=== PATIENT | female | born 1950 | race Caucasian/White ===

== ENCOUNTER 2017-07-15 14:16 | Emergency (ER) | payer MEDICARE, MEDICAID, SELFPAY ==
[2017-07-15 14:25] VITALS: BP 143/83; PULSE 80; RESP 18; TEMP 36.8; O2SAT 98; BMI 24.8
--- NOTE | 2017-07-15 14:32 | XR_ITS ---
XR chest 2V HISTORY: ITS.REASON: CHEST PAIN ORDERING PHYSICIAN: Beatriz Blanco MD PATIENT AGE: 67 years COMPARISON: 02/22/2015 FINDINGS: The cardiomediastinal silhouette and pulmonary vascularity are within normal limits. The lungs are clear without infiltrates, suspicious nodules, or pleural effusions. No acute bony abnormalities. IMPRESSION: No change with no acute finding
[2017-07-15 15:17] LABS: Basophils # 0.1 K/mm3 (0-0.2); Basophils % 0.8 % (0.1-2.0); Eosinophils % 0.7 % (0.1-12.0); Hematocrit 40.7 % (37.0-47.0); Hemoglobin 13.6 g/dL (12.2-16.2); Lymphocytes # 1.4 K/mm3 (0.7-4.5); Lymphocytes % 23.5 K/mm3 (10-50); Mean Corpuscular HGB Conc 33.4 g/dL (31.8-35.4); Mean Corpuscular Hemoglobin 31.3 pg (27.0-31.2); Mean Corpuscular Volume 93.6 fl (81-99); Mean Platelet Volume 8.7 fl (7.4-10.4); Monocytes # 0.3 K/mm3 (0.1-1.0); Monocytes % 4.7 % (1.7-9.3); Neutrophils # 4.2 K/mm3 (1.8-7.8); Neutrophils % 70.3 % (37.0-80.0); Platelet Count 229 K/mm3 (142-424); Red Blood Count 4.35 M/mm3 (4.20-5.40); Red Cell Distribution Width 12.5 % (11.5-17.5); White Blood Count 5.9 K/mm3 (4.8-10.8)
--- NOTE | 2017-07-15 15:34 | HMH.EDABDPAI ---
ED Disposition Clinical Impression: UTI (urinary tract infection), DJD (degenerative joint disease) Disposition: Home, Self-Care Condition on Discharge: Fair Additional Instructions: I discussed with the patien her labs and ct scan , she declined her NSAID due to her stomack and wanted abx for her UTI. she will follow up with pcp on her irione culture. Prescriptions: Nitrofurantoin Monohyd/M-Cryst [Macrobid 100 mg Capsule] 100 mg PO Q12 #14 cap Referrals: Laura Strickland APRN [Primary Care Provider] - - Critical Care Critical Care Time: No Attestation: On 07/15/17, the high probability of a clinically significant, sudden or life threatening deterioration of the following system(s) required my full and direct attention, intervention and personal management. The time I documented below is in addition to time spent performing reported procedures but includes the following listed in this critical care notation. Medical Decision Making - Medical Records Medical records reviewed: Yes: I reviewed the patient's medical records. Vital Signs: 07/15/17 14:25 Temperature 98.3 F Temperature Source Oral Pulse Rate [Right Brachial] 80 Respiratory Rate 18 Blood Pressure [Right Arm] 143/83 Blood Pressure Mean [Right Arm] 103 Blood Pressure Source [Right Arm] Automatic Cuff Blood Pressure Position [Right Arm] Sitting 02 Sat by Pulse Oximetry 98 Oxygen Delivery Method Room Air - Lab Data Lab Results 07/15/17 15:00: WBC 5.9, RBC 4.35, Hgb 13.6, Hct 40.7, MCV 93.6, MCH 31.3 H, MCHC 33.4, RDW 12.5, Plt Count 229, MPV 8.7, Neut % (Auto) 70.3, Lymph % (Auto) 23.5, Mccormick % (Auto) 4.7, Eos % (Auto) 0.7, Baso % (Auto) 0.8, Neut # (Auto) 4.2, Lymph # (Auto) 1.4, Mccormick # (Auto) 0.3, Eos # (Auto) 0.0, Baso # (Auto) 0.1 07/15/17 15:00: Sodium 136, Potassium 4.1, Chloride 98, Carbon Dioxide 32, Anion Gap 10.1, BUN 20 H, Creatinine 1.02, Estimated Creat Clear 54, Estimated GFR 54 L, Est GFR ( Amer) 66, Glucose 107 H, Calcium 9.0, Total Bilirubin 0.4, AST 14 L, ALT 22, Alkaline Phosphatase 44 L, Total Creatine Kinase 71, CK-MB (CK-2) < 0.5, CK-MB (CK-2) Rel Index 0.7, Troponin I < 0.02, Total Protein 7.4, Albumin 3.9, Globulin 3.5 H, Albumin/Globulin Ratio 1.1 07/15/17 15:00: Influenza Type A Ag Negative, Influenza Type B Ag Negative 07/15/17 15:00: Lipase 133 07/15/17 17:00: Urine Color Yellow, Urine Appearance Clear, Urine pH 6.5, Ur Specific [place] <= 1.005, Urine Protein Negative, Urine Glucose (UA) Negative, Urine Ketones Negative, Urine Blood Negative, Urine Nitrate Negative, Urine Bilirubin Negative, Urine Urobilinogen 0.2, Ur Leukocyte Esterase Trace, Urine WBC 5-10, Ur Squamous Epith Cells 5-10, Urine Bacteria Trace Result diagrams: 07/15/17 15:00 07/15/17 15:00 Orders (Tests/Meds): ORDERS Category Date Time Status CT abdomen pelvis wo con Stat Cat Scan 07/15/17 15:40 Taken - Wesley Inquiry Pt receiving controlled substance: No Wesley was queried for this patient: No Abdominal Pain HPI - General Chief Complaint: Weakness Stated Complaint: CHEST DISCOMFORT,POSSIBLE FLU Mode of Arrival: Ambulatory Limitations: No Limitations Description of Symptoms (Recalled from ER Triage Doc. by RN): CHEST COUGH,FLU - History of Present Illness HPI narrative: 67 years old white female status post cholecystectomy appendectomy and partial instructed. She presented to the ED with multiple complain, she told triage that she is having chest pain that she denied during my examination. She stated that she has been having burning abdominal pain for 2 weeks that she forgot to tell her primary care physician about last. Today she came because of dysuria that is worse with urination and vomiting x2 that started early this morning. MD complaint: abdominal pain Onset (ago): week(s) (2 weeks) Consistency: constant Location: epigastric Severity: moderate Quality: other (burning. ) Radiation: none Migration to: no migrat
--- NOTE | 2017-07-15 15:38 | ED_ITS ---
ED Disposition Clinical Impression: UTI (urinary tract infection), DJD (degenerative joint disease) Disposition: Home, Self-Care Condition on Discharge: Fair Additional Instructions: I discussed with the patien her labs and ct scan , she declined her NSAID due to her stomack and wanted abx for her UTI. she will follow up with pcp on her irione culture. Prescriptions: Nitrofurantoin Monohyd/M-Cryst [Macrobid 100 mg Capsule] 100 mg PO Q12 #14 cap Referrals: Laura Strickland APRN [Primary Care Provider] - - Critical Care Critical Care Time: No Attestation: On 07/15/17, the high probability of a clinically significant, sudden or life threatening deterioration of the following system(s) required my full and direct attention, intervention and personal management. The time I documented below is in addition to time spent performing reported procedures but includes the following listed in this critical care notation. Medical Decision Making - Medical Records Medical records reviewed: Yes: I reviewed the patient's medical records. Vital Signs: 07/15/17 14:25 Temperature 98.3 F Temperature Source Oral Pulse Rate [Right Brachial] 80 Respiratory Rate 18 Blood Pressure [Right Arm] 143/83 Blood Pressure Mean [Right Arm] 103 Blood Pressure Source [Right Arm] Automatic Cuff Blood Pressure Position [Right Arm] Sitting 02 Sat by Pulse Oximetry 98 Oxygen Delivery Method Room Air - Lab Data Lab Results 07/15/17 15:00: WBC 5.9, RBC 4.35, Hgb 13.6, Hct 40.7, MCV 93.6, MCH 31.3 H, MCHC 33.4, RDW 12.5, Plt Count 229, MPV 8.7, Neut % (Auto) 70.3, Lymph % (Auto) 23.5, Cross % (Auto) 4.7, Eos % (Auto) 0.7, Baso % (Auto) 0.8, Neut # (Auto) 4.2 , Lymph # (Auto) 1.4, Cross # (Auto) 0.3, Eos # (Auto) 0.0, Baso # (Auto) 0.1 07/15/17 15:00: Sodium 136, Potassium 4.1, Chloride 98, Carbon Dioxide 32, Anion Gap 10.1, BUN 20 H, Creatinine 1.02, Estimated Creat Clear 54, Estimated GFR 54 L, Est GFR ( Amer) 66, Glucose 107 H, Calcium 9.0, Total Bilirubin 0.4, AST 14 L, ALT 22, Alkaline Phosphatase 44 L, Total Creatine Kinase 71, CK-MB (CK-2) < 0.5, CK-MB (CK-2) Rel Index 0.7, Troponin I < 0.02, Total Protein 7.4, Albumin 3.9, Globulin 3.5 H, Albumin/Globulin Ratio 1.1 07/15/17 15:00: Influenza Type A Ag Negative, Influenza Type B Ag Negative 07/15/17 15:00: Lipase 133 07/15/17 17:00: Urine Color Yellow, Urine Appearance Clear, Urine pH 6.5, Ur Specific [place] <= 1.005, Urine Protein Negative, Urine Glucose (UA) Negative, Urine Ketones Negative, Urine Blood Negative, Urine Nitrate Negative, Urine Bilirubin Negative, Urine Urobilinogen 0.2, Ur Leukocyte Esterase Trace, Urine WBC 5-10, Ur Squamous Epith Cells 5-10, Urine Bacteria Trace Result diagrams: 07/15/17 15:00 07/15/17 15:00 Orders (Tests/Meds): ORDERS Category Date Time Status CT abdomen pelvis wo con Stat Cat Scan 07/15/17 15:40 Taken - Wesley Inquiry Pt receiving controlled substance: No Wesley was queried for this patient: No Abdominal Pain HPI - General Chief Complaint: Weakness Stated Complaint: CHEST DISCOMFORT,POSSIBLE FLU Mode of Arrival: Ambulatory Limitations: No Limitations Description of Symptoms (Recalled from ER Triage Doc. by RN): CHEST COUGH,FLU - History of Present Illness HPI narrative: 67 years old white female status post cholecystectomy appendectomy and partial instructed. She presented to the ED with multiple complain, she told tri
--- NOTE | 2017-07-15 15:40 | CT_ITS ---
CT abdomen pelvis wo con CLINICAL INDICATION: Generalized abdominal pain with nausea and vomiting ITS.REASON: abd pain ORDERING PHYSICIAN: Beatriz Blanco MD PATIENT AGE: 67 years COMPARISON: 08-03-16 TECHNIQUE: Axial images obtained with sagittal and coronal reformats. PROCEDURE: Oral Contrast: None IV Contrast: None . FINDINGS: Lung bases are clear. Prior cholecystectomy without ductal dilatation. The liver, spleen, adrenal glands, pancreas, kidneys, ureters, and urinary bladder have an unremarkable unenhanced CT appearance. No intestinal obstruction or free air is evident. Unremarkable appendix. There is mild thickening of a loop of colon in the hepatic flexure/proximal transverse colon which could be due to nondistention or colitis. No evidence of diverticulitis. No pelvic mass or focal inflammatory change apparent. No acute bony anomalies. IMPRESSION: 1. Mild thickening of the hepatic flexure. This could be due to nondistention versus colitis. 2. Otherwise negative CT abdomen pelvis without contrast
[2017-07-15 15:53] LABS: Alanine Aminotransferase 22 U/L (12-78); Albumin Level 3.9 gm/dL (3.4-5.0); Albumin/Globulin Ratio 1.1 (1.1-1.8); Alkaline Phosphatase 44 U/L (46-116); Anion Gap 10.1 mEq/L (5-15); Aspartate Amino Transferase 14 U/L (15-37); Bilirubin,Total 0.4 mg/dL (0.2-1.0); Blood Urea Nitrogen 20 mg/dL (7-18); Carbon Dioxide 32 mmol/L (21.0-32.0); Chloride 98 mmol/L (98-107); Creatine Kinase 71 U/L (26-192); Creatinine Clearance Estimated 54 mL/min (0-300); Creatinine,Serum 1.02 mg/dL (0.55-1.02); Estimated Glomerular Filt Rate 54 ml/min (>60); GFR (African American) 66 ML/MIN (>60); Globulin 3.5 gm/dl (1.3-3.2); Glucose 107 mg/dL (74-106); Lipase 133 u/L (73-393); Potassium 4.1 mmoL/L (3.5-5.1); Sodium 136 mmol/L (136-145); Total Protein,Serum 7.4 gm/dL (6.4-8.2); Troponin I < 0.02 ng/ml (0.00-0.06)
[2017-07-15 15:54] LABS: CKMB Relative Index 0.7 U/L (0-4.0); Creatine Kinase MB < 0.5 mg/ml (0.0-3.6)
[2017-07-15 17:05] LABS: Microscopic, Urine URINE MICROSCOPIC (MICROSCOPIC)
[2017-07-15 17:06] LABS: Appearance,Urine CLEAR (Clear); Bilirubin,Urine Negative (Negative); Blood, Urine Negative (Negative); Color,Urine YELLOW (Yellow); Glucose,Urine (UA) Negative (Negative); Ketones,Urine Negative (Negative); Leukocyte Esterase,Urine TRACE (Negative); Nitrate,Urine Negative (Negative); PH,Urine 6.5 (5.0-8.5); Protein,Urine Negative (Negative); Specific Gravity, Urine <= 1.005 (1.005-1.030); Urobilinogen,Urine 0.2 EU/dl (0.2)
[2017-07-15 17:12] LABS: Bacteria,Urine Trace /lpf
[2017-07-15 18:33] VITALS: BP 118/74; PULSE 89; RESP 20; TEMP 36.7
== END 2017-07-15 18:33 | disposition home or self-care (01) ==
PROVIDERS: Emergency Provider Emergency Medicine; Family Provider Nurse Practitioner Family; PCP Nurse Practitioner Family
DX: N39.0 Urinary tract infection, site not specified (principal); M19.90 Unspecified osteoarthritis, unspecified site
CPT/HCPCS: 71046; 74176; 80053; 81001; 82550; 82553; 83690; 84484; 85025; 87275; 87276; 93005; 93041; 99283

== ENCOUNTER 2017-08-14 12:01 | Emergency (ER) | payer MEDICARE, MEDICAID, SELFPAY ==
[2017-08-14 12:53] LABS: UTC Influenza A Antigen Positive (Negative); UTC Influenza B Antigen Negative (Negative)
[2017-08-14 12:55] VITALS: BP 138/72; PULSE 80; RESP 20; TEMP 36.8; O2SAT 94; BMI 24.7
--- NOTE | 2017-08-14 14:05 | HMH.EDUTC ---
[facility] [place] Disposition Clinical Impression: Influenza A, History of COPD Disposition: Home, Self-Care Condition on Discharge: Good Instructions: DI for Influenza -- Adult, DI for Fever (Symptom) -- Adult Additional Instructions: * Start Tamiflu today if you are going to take it. * Lots of rest * humidifier/vaporizer/hot steamy shower * Inhaler every 4-6 hours as needed like we discussed. Should help open airways and improve cough, wheezing, shortness of breath. * Increase fluids, water, gatorade, powerade, pedialyte if infant/toddler/child * Monitor Temp. Tylenol every 4 hours as needed no more then 5 times a day or 4000mg in 24 hours and/or ibuprofen every 6 hours as needed no more then 3200mg in 24 hours (as long as your primary care doctor has told you that it is ok to take both) for fever/aches/pain. ER if fever no less than 101 despite tylenol and Ibuprofen * OTC cold/flu/sinus medication is ok but pick one. Coricidin HBP is the best with your history. Do not take multiple different ones as they have similar ingredients and you can overdose on cold medication. * You (or your child) are contagious until no fever, aches, chills x 24 hours without medication for symptoms. * * Per hospital policy, Your throat swab was sent for culture. Those results are typically sent to your primary care. Be sure to follow up in 2-3 days if no improvement so they can review those results and treat if necessary. If you don't have primary care, I recommend you get one but in the mean time, you will have to return to a walk in clinic. Prescriptions: Azithromycin [Z-Eric 250mg Tab] 250 mg PO UD DOSE PK #6 tab Benzonatate [Benzonatate 200mg Cap] 200 mg PO HS PRN #14 cap PRN Reason: Cough Ondansetron [Zofran 4mg ODT] 4 mg PO TID PRN #10 tab.rapdis PRN Reason: Nausea Oseltamivir Phosphate [Tamiflu 75mg Capsule] 75 mg PO BID #10 cap Promethazine HCl [Phenergan 25mg tab] 12.5 - 25 mg PO Q6H PRN #12 tab PRN Reason: Nausea And Vomiting Referrals: Laura Strickland APRN [Primary Care Provider] - (Follow up IMMEDIATELY for new or worsening symptoms, improvement followed by suddenly feeling worse OR no noticeable improvement over the next 48-72 hours. 911 for difficulty breathing ) Time of Disposition: 14:18 Medical Decision Making - Wesley Inquiry Pt receiving controlled substance: No Vital Signs: 08/14/17 12:55 08/14/17 14:14 Temperature 98.3 F 98.3 F Temperature Source Temporal Artery Scan Temporal Artery Scan Pulse Rate 80 Pulse Rate [Brachial] 80 Respiratory Rate 20 20 Blood Pressure 138/72 Blood Pressure [Right Arm] 138/72 Blood Pressure Mean [Right Arm] 94 Blood Pressure Source Automatic Cuff Blood Pressure Source [Right Arm] Automatic Cuff Blood Pressure Position Sitting Blood Pressure Position [Right Arm] Sitting 02 Sat by Pulse Oximetry 94 L Oxygen Delivery Method Room Air Room Air - Lab Data Lab results reviewed: Yes: I reviewed the patient's lab results. Lab Results 08/14/17 12:51: Influenza Type A Ag Positive A, Influenza Type B Ag Negative [facility] [place] HPI - General Stated complaint: flu like symptoms Time Seen by Provider: 08/14/17 14:05 Mode of Arrival: Ambulatory Source of Information: Patient Limitations: No Limitations Description of Symptoms (Recalled from Triage Doc. by RN): x 1 day, H/A, VOMITING AND BODYACHES, COUGH CAUSES DIZZINESS HEENT Symptoms (Recalled from RN notes): Yes Resp Symptoms (Recalled from RN notes): Yes Skin Symptoms (Recalled from RN notes): No MS Symptoms (Recalled from RN notes): No Functional Status (Recalled from RN notes): NA - History of Present Illness Provider Complaint: Here w/ daughter d/t cough. Daughter thinks pt has the flu. Started yesterday but worse today. Low grade fever, aches, chills, cough, vomited once, dizzy at times. Tyelnol and motrin help w/ last dose at 10am. Coricidin HBP last night helped. Promethazine last night also helped. Hasn't needed any today. Daug
--- NOTE | 2017-08-14 14:12 | ED_ITS ---
[facility] – [place] Disposition Clinical Impression: Influenza A, History of COPD Disposition: Home, Self-Care Condition on Discharge: Good Instructions: DI for Influenza -- Adult, DI for Fever (Symptom) -- Adult Additional Instructions: * Start Tamiflu today if you are going to take it. * Lots of rest * humidifier/vaporizer/hot steamy shower * Inhaler every 4-6 hours as needed like we discussed. Should help open airways and improve cough, wheezing, shortness of breath. * Increase fluids, water, gatorade, powerade, pedialyte if /toddler/child * Monitor Temp. Tylenol every 4 hours as needed no more then 5 times a day or 4000mg in 24 hours and/or ibuprofen every 6 hours as needed no more then 3200mg in 24 hours (as long as your primary care doctor has told you that it is ok to take both) for fever/aches/pain. ER if fever no less than 101 despite tylenol and Ibuprofen * OTC cold/flu/sinus medication is ok but pick one. Coricidin HBP is the best with your history. Do not take multiple different ones as they have similar ingredients and you can overdose on cold medication. * You (or your child) are contagious until no fever, aches, chills x 24 hours without medication for symptoms. * * Per hospital policy, Your throat swab was sent for culture. Those results are typically sent to your primary care. Be sure to follow up in 2-3 days if no improvement so they can review those results and treat if necessary. If you don' t have primary care, I recommend you get one but in the mean time, you will have to return to a walk in clinic. Prescriptions: Azithromycin [Z-Eric 250mg Tab] 250 mg PO UD DOSE PK #6 tab Benzonatate [Benzonatate 200mg Cap] 200 mg PO HS PRN #14 cap PRN Reason: Cough Ondansetron [Zofran 4mg ODT] 4 mg PO TID PRN #10 tab.rapdis PRN Reason: Nausea Oseltamivir Phosphate [Tamiflu 75mg Capsule] 75 mg PO BID #10 cap Promethazine HCl [Phenergan 25mg tab] 12.5 - 25 mg PO Q6H PRN #12 tab PRN Reason: Nausea And Vomiting Referrals: Laura Strickland APRN [Primary Care Provider] - (Follow up IMMEDIATELY for new or worsening symptoms, improvement followed by suddenly feeling worse OR no noticeable improvement over the next 48-72 hours. 911 for difficulty breathing ) Time of Disposition: 14:18 Medical Decision Making - Wesley Inquiry Pt receiving controlled substance: No Vital Signs: 08/14/17 12:55 08/14/17 14:14 Temperature 98.3 F 98.3 F Temperature Source Temporal Artery Scan Temporal Artery Scan Pulse Rate 80 Pulse Rate [Brachial] 80 Respiratory Rate 20 20 Blood Pressure 138/72 Blood Pressure [Right Arm] 138/72 Blood Pressure Mean [Right Arm] 94 Blood Pressure Source Automatic Cuff Blood Pressure Source [Right Arm] Automatic Cuff Blood Pressure Position Sitting Blood Pressure Position [Right Arm] Sitting 02 Sat by Pulse Oximetry 94 L Oxygen Delivery Method Room Air Room Air - Lab Data Lab results reviewed: Yes: I reviewed the patient's lab results. Lab Results 08/14/17 12:51: Influenza Type A Ag Positive A, Influenza Type B Ag Negative [facility] [place] HPI - General Stated complaint: flu like symptoms Time Seen by Provider: 08/14/17 14:05 Mode of Arrival: Ambulatory Source of Information: Patient Limitations: No Limitations Description of Symptoms (Recalled from Triage Doc. by RN): x 1 day, H/A, VOMITING AND BODYACHES, COUGH CAUSES DIZZINESS HEENT Symptoms (Recalled from RN notes): Yes Resp Symptoms (Recalled from RN notes): Yes S
[2017-08-14 14:14] VITALS: BP 138/72; PULSE 80; RESP 20; TEMP 36.8; O2SAT 94
== END 2017-08-14 14:19 | disposition home or self-care (01) ==
PROVIDERS: Emergency Provider Nurse Practitioner Family; Family Provider Nurse Practitioner Family; PCP Nurse Practitioner Family
DX: J10.1 Influenza due to other identified influenza virus with other respiratory manifestations (principal); K21.9 Gastro-esophageal reflux disease without esophagitis; E78.5 Hyperlipidemia, unspecified; I10 Essential (primary) hypertension; Z95.5 Presence of coronary angioplasty implant and graft; Z79.82 Long term (current) use of aspirin; Z88.0 Allergy status to penicillin; Z88.2 Allergy status to sulfonamides; J44.9 Chronic obstructive pulmonary disease, unspecified
CPT/HCPCS: G0463; 87804; 99202

== ENCOUNTER → 2018-08-14 08:13 | Outpatient (CLI) | payer MEDICARE, MEDICAID, SELFPAY ==
--- NOTE | 2018-08-14 08:17 | NM_ITS ---
History and Indications: Coronary artery disease, hypertension, tobacco use, family history, chest pain, shortness of breath and fatigue Procedure: Patient exercised on Abdirahman protocol 6 minutes, resting heart rate was 59 bpm resting blood pressure 176/91, with exercise maximum heart rate achieved was 103 bpm which is equal to 67% of the maximum predicted heart rate and a blood pressure was 170/80. Test was stopped due to shortness of breath, she did adequate exercise capacity achieved 7mets of workload on treadmill, the blood pressure response to exercise was abnormal. Patient did not achieve the target heart rate. Electrocardiogram: Resting electrocardiogram showed sinus bradycardia, with exercise there is less than 1.[address] segment depression noted from the baseline EKG. The EKG portion of the exercise Myoview is nondiagnostic. Cardiac stress and resting SPECT images: Cardiac stress and resting SPECT images were obtained using technetium 99 Myoview 30.4 mCi stress and 9.4 mCi at rest. Gated SPECT further analysis of segmental wall motion and calculation of the ejection fraction also done. Stress and the suspect images show uniform myocardial activity without segmental perfusion abnormality, computer derived ejection fraction is over 65% with no regional wall motion abnormality, right ventricle is normal size and contractility. Conclusion: 1. The EKG portion of the exercise Myoview is nondiagnostic as patient did not achieve the target heart rate, patient has adequate exercise capacity achieved 7mets of workload on treadmill, the blood pressure response to exercise was abnormal. 2. No scintigraphic evidence of reversible ischemia seen at this level of exercise, computer derived ejection fraction is over 65% with no regional wall motion abnormality, right ventricle is normal size and contractility.
--- NOTE | 2018-08-14 08:36 | CA_ITS ---
PROCEDURE: 2-D M-mode and color Doppler study INDICATIONS FOR THE TEST: Chest pain X COPDXX Heart Murmur Tobacco SmokingX Palpitations Fatigue Syncope Edema HypertensionXDiabetes Mellitus Rheumatic Fever SOB DUQUE Obesity HyperlipidemiaX Family History HD Additional History CAD PATIENT INFORMATION HEIGHT: 62 WEIGHT:122 GENDER: Female B/P:190/98 2-D/M-MODE INTERPRETATION: 2-D MEASUREMENTS OBSERVED VALUES IN CMS Right Ventricular Dimension (RVDd) 2.3 Interventricular Septum (Thickness)(IVsd) .8 Left Ventricular Internal Dimensions(LVIDd) 4.4 Left Ventricular Posterior Wall (Thickness)(LVPWd) .9 Aortic Root 2.9 Aortic Cusp Separation 1.9 Left Atrial Dimensions (LAD) 2.6 2D 1. Left atrium is qualitatively mildly enlarged, left ventricle is normal size, there is mild qualitative concentric left ventricular hypertrophy, visually estimated ejection fraction 55% with no regional wall motion abnormality. 2. The right atrium and right ventricle are normal size and contractility. 3. The aortic valve is minimally thickened and fibrosed. 4. The mitral and tricuspid valvular grossly normal. 5. The pulmonic valve is poorly present. 6. No significant pericardial effusion noted. DOPPLER INTERROGATION: Doppler interrogation of the aortic, mitral and tricuspid valve reveals presence of mild mitral and tricuspid regurgitation, tricuspid regurgitation jet velocity is inadequate for calculation of the right ventricular systolic pressure, grade 1 diastolic dysfunction seen without tissue Doppler evidence of raised left atrial pressure, inferior vena cava is normal size with normal inspiratory collapse. CONCLUSION: 1. Mildly enlarged left atrium, normal left ventricular size, mild concentric left ventricular hypertrophy, visually estimated ejection fraction 55% with no regional wall motion abnormality, grade 1 diastolic dysfunction seen without tissue Doppler evidence of raised left atrial pressure. 2. Mild mitral and tricuspid regurgitation, inferior vena cava is normal size with normal inspiratory collapse. 3. No significant pericardial effusion noted.
--- NOTE | 2018-08-14 08:45 | HMH.ITSHM ---
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 []CLOPIDOGREL AMLODIPINE PANTOPRAZOLE BISOPROLOL ROSUVASTATIN ASA ECSITALOPRAM HYDROCHLOROTHIAZIDE
== END ==
PROVIDERS: PCP Nurse Practitioner Family; Visit Provider Internal Medicine
DX: I20.8 Other forms of angina pectoris
CPT/HCPCS: 78452; 93017; 93306; A9502

== ENCOUNTER → 2019-01-10 09:12 | Outpatient (CLI) | payer MEDICARE, SELFPAY ==
[2019-01-10 11:07] LABS: Hemoglobin A1C 6.1 % (0.0-7.0)
[2019-01-10 11:15] LABS: Anion Gap 10.3 mEq/L (5-15); Blood Urea Nitrogen 10 mg/dL (7-18); Calcium 9.2 mg/dL (8.5-10.1); Carbon Dioxide 31 mmol/L (21.0-32.0); Chloride 104 mmol/L (98-107); Chol/HDL Ratio 2.8 (1-3.5); Cholesterol 145 mg/dL (140-200); Creatinine,Serum 0.88 mg/dL (0.55-1.02); Estimated Glomerular Filt Rate 64 ml/min (>60); Free T4 (Free Thyroxine) 0.93 ng/dl (0.76-1.46); GFR (African American) 78 ML/MIN (>60); Glucose 97 mg/dL (74-106); HDL Cholesterol 52 mg/dL (29-89); LDL Cholesterol 56 mg/dL (0-130); Potassium 4.3 mmoL/L (3.5-5.1); Sodium 141 mmol/L (136-145); Thyroid Stimulating Hormone 1.76 uIU/ml (0.358-3.740); Triglycerides 187 mg/dL (30-200); VLDL Cholesterol 37 mg/dL (0-40)
[2019-01-11 18:03] LABS: Vitamin B12 241 pg/mL (232-1245); Vitamin D 25 Hydroxy 38.4 ng/mL (30.0-100.0)
== END ==
PROVIDERS: Visit Provider Nurse Practitioner Family
DX: R73.9 Hyperglycemia, unspecified (principal); E78.5 Hyperlipidemia, unspecified; R63.4 Abnormal weight loss; I10 Essential (primary) hypertension; R42 Dizziness and giddiness; M85.89 Other specified disorders of bone density and structure, multiple sites; E55.9 Vitamin D deficiency, unspecified
CPT/HCPCS: 36415; 80048; 80061; 82607; 82652; 83036; 84439; 84443

== ENCOUNTER → 2019-01-17 12:41 | Outpatient (CLI) | payer MEDICARE, SELFPAY ==
--- NOTE | 2019-01-17 12:42 | CT_ITS ---
PROCEDURE: CT CHEST W CON CLINCAL INDICATION: COPD,TOBACCO USE,WGT LOSS,COUGH COMPARISON: LDCTLCAS LDCT FOR LUNG CA SCREEN from 07/07/2016 TECHNIQUE: IV Contrast: 75ml Optiray 350 Axial images obtained with sagittal and coronal reformats. All CT scans at the facility use one or more dose reduction, viz: automated exposure control, ma/kV adjustment per patient size (including targeted exams where dose is matched to indication, i.e. head), or iterative reconstruction technique. FINDINGS: Or there is mild enlargement of the right lobe of the thyroid gland with heterogeneous density suggesting thyroid nodule. Ultrasound may confirm. Esophagus appears slightly thickened. This is nonspecific and may be due to nondistention. Esophagitis is also consideration. There are coronary artery calcifications. No mediastinal or hilar mass or adenopathy. There is centrilobular emphysema with scattered areas of scarring. There is some minimal subpleural patchy density along the right major fissure inferiorly nonspecific could be due to small area of atelectasis No lobar consolidation or collapse. No acute bony anomaly. No suspicious pulmonary nodules. IMPRESSION: 1. Enlarged heterogeneous right lobe of the thyroid gland. Consider ultrasound for further evaluation 2. Possible esophagitis 3. Centrilobular emphysema with scattered areas of scarring Dictated by: Zane Vergara MD 01/18/2019 07:13 Signed by: <Electronically signed by Zane Vergara MD in [place]> 01/18/2019 07:13
== END ==
PROVIDERS: PCP Nurse Practitioner Family; Visit Provider Nurse Practitioner Family
DX: J44.9 Chronic obstructive pulmonary disease, unspecified (principal); R63.4 Abnormal weight loss; R05 Cough; Z72.0 Tobacco use
CPT/HCPCS: 71260; Q9967

== ENCOUNTER → 2019-02-14 14:26 | Outpatient (CLI) | payer MEDICARE, SELFPAY ==
--- NOTE | 2019-02-14 14:28 | US_ITS ---
PROCEDURE: US THYROID CLINICAL INDICATION: THROMEGLY Thyroid enlargement, weight loss COMPARISON: No exams were available for comparison FINDINGS: The right lobe is 4.6 x 1.5 x 1.8 cm. There is there is heterogeneous echogenicity. A 1.7 x 0.8 cm solid-appearing nodules present in the upper pole. In the mid polar region there is a 1.7 x 1 point 3 cm nodule which appears solid. In the lower pole there is a 0.7 cm partially calcified nodule. Additionally in the lower pole there is a 0.9 cm mixed nodule. The left lobe is 3.7 x 1 x 1.4 cm. There is a 1.9 x 0.9 cm solid-appearing nodule in the upper pole. In the midpole there is a partially calcified 5 mm nodule. In the lower pole there is a 6 mm hypoechoic nodule. IMPRESSION: Multinodular goiter. Follow-up suggested to confirm stability Dictated by: Zane Vergara MD 02/14/2019 15:42 Electronically signed by Zane Vergara MD in [place] 02/14/2019 15:42
== END ==
PROVIDERS: PCP Nurse Practitioner Family; Visit Provider Nurse Practitioner Family
DX: E04.9 Nontoxic goiter, unspecified (principal)
CPT/HCPCS: 76536

== ENCOUNTER → 2019-03-13 10:34 | Outpatient (CLI) | payer MEDICARE, SELFPAY ==
--- NOTE | 2019-03-13 10:34 | XR_ITS ---
PROCEDURE: XR CHEST 2V CLINICAL HISTORY: wt loss Shortness of breath COMPARISON: CXR2V XR chest 2V from 07/15/2017 Chest from 12/22/2018 Chest from 01/01/2019 CT CHEST W CON from 01/17/2019 FINDINGS: The cardiomediastinal silhouette and pulmonary vascularity are within normal limits. The lungs are clear without infiltrates, suspicious nodules, or pleural effusions. There is coronary artery stent and or coronary artery calcification. Present in there is evidence of old granulomatous disease. No acute bony findings. IMPRESSION: No acute findings. Dictated by: Zane Vergara MD 03/13/2019 16:56 Electronically signed by Zane Vergara MD in [place] 03/13/2019 16:56
--- NOTE | 2019-03-13 10:34 | FL_ITS ---
PROCEDURE: FL BARIUM SWALLOW CLINICAL INDICATION: difficulty swallowing COMPARISON: No exams were available for comparison TECHNIQUE: In the upright position the patient was observed to swallow barium in both the AP and lateral view. The cervical esophagus was examined under fluoroscopy with images obtained. The patient was then placed prone in the right anterior oblique position and was observed to swallow barium with Valsalva technique . FLUOROSCOPY TIME: 56 seconds FINDINGS: There was no evidence of aspiration. There was normal peristalsis. No filling defects or mucosal abnormalities. No masses or strictures. No esophageal deviation evident. No evidence of hiatal hernia. There are mildly prominent osteophytes posteriorly at C5-C6 level causing some mild indentation upon the posterior aspect of the esophagus. IMPRESSION: Mild indentation mom up on the posterior aspect of the esophagus at C5-C6 from prominent osteophytes otherwise negative barium swallow Dictated by: Zane Vergara MD 03/13/2019 16:58 Electronically signed by Zane Vergara MD in [place] 03/13/2019 16:58
--- NOTE | 2019-03-13 10:37 | US_ITS ---
PROCEDURE: US FNA THYROID CLINICAL INDICATION: LT LOBE GOITER Bilateral thyroid nodules COMPARISON: US THYROID from 02/14/2019 TECHNIQUE: Following obtaining informed consent, using aseptic technique and local anesthesia with buffered lidocaine, fine-needle aspiration was performed of the nodule of interest using sonographic guidance. 3 passes were made into the nodule with a 25-gauge needle. Specimen was given to cytology. Technically this was a difficult procedure to perform due to the indistinctness of the nodule and location. FINDINGS: CYTOLOGY: Nondiagnostic specimen IMPRESSION: Uneventful ultrasound-guided fine needle aspiration of the left thyroid nodule. This however was a nondiagnostic specimen. The patient tolerated the procedure well without evidence of immediate complications and left the ultrasound suite in stable condition. Dictated by: Zane Vergara MD 03/21/2019 09:27 Electronically signed by Zane Vergara MD in [place] 03/21/2019 09:27
[2019-03-13 13:53] LABS: Calcium 8.5 mg/dL (8.5-10.1)
[2019-03-14 06:55] LABS: Thyroid Peroxidase Antibodies 12 IU/mL (0-34)
[2019-03-15 18:56] LABS: Thyroid Stimulating Immunoglob <0.10 IU/L (0.00-0.55)
[2019-03-16 17:19] LABS: Calcitonin <2.0 pg/mL (0.0-5.0)
== END ==
PROVIDERS: PCP Nurse Practitioner Family; Visit Provider Otolaryngology
DX: R13.10 Dysphagia, unspecified; R63.4 Abnormal weight loss; E04.1 Nontoxic single thyroid nodule
CPT/HCPCS: 10005; 36415; 71046; 74220; 76942; 82308; 82310; 84445; 86376

== ENCOUNTER → 2019-07-03 14:25 | Outpatient (CLI) | payer MEDICARE, SELFPAY ==
--- NOTE | 2019-07-03 14:26 | US_ITS ---
PROCEDURE: US THYROID CLINICAL INDICATION: thyroid nodule Follow-up thyroid nodule COMPARISON: US THYROID from 02/14/2019 US FNA THYROID from 03/13/2019 FINDINGS: Right lobe: 4.4 x 1.5 x 2.3 cm. There is a 1 x 0.8 cm in the upper pole with some peripheral calcification probably not significantly changed. A solid spongiform appearing nodules present in the mid polar region at 1.9 x 1.4 cm not significantly changed. In the lower pole there is a partially calcified nodule is 0.8 x 0.8 cm with rim like calcification unchanged. In addition there is a hypoechoic 8 mm nodule in the lower pole unchanged. Left lobe: 3.4 x 1.1 x 1.6 cm. 1.2 x 0.8 cm hypoechoic nodule in the mid polar region is unchanged. Small calcification noted in the lower pole as well. A hypoechoic 7 mm nodules present in the lower pole posteriorly Isthmus: Additional findings: IMPRESSION: No change multinodular goiter Dictated by: Zane Vergara MD 07/03/2019 17:17 Electronically signed by Zane Vergara MD in [place] 07/03/2019 17:17
== END ==
LOC: RAD 14:26
PROVIDERS: PCP Nurse Practitioner Family; Visit Provider Otolaryngology
DX: E04.1 Nontoxic single thyroid nodule (principal)
CPT/HCPCS: 76536

== ENCOUNTER → 2020-01-11 20:40 | Outpatient (CLI) | payer MEDICARE, SELFPAY ==
--- NOTE | 2020-01-12 00:46 | PC.NURSE ---
COVID RESULTS GIVEN TO PATIENT
== END ==
PROVIDERS: PCP Nurse Practitioner Family; Visit Provider Nurse Practitioner Family
DX: Z03.818 Encounter for observation for suspected exposure to other biological agents ruled out (principal)
CPT/HCPCS: U0003

== ENCOUNTER → 2020-02-12 12:18 | Outpatient (CLI) | payer MEDICARE, SELFPAY ==
--- NOTE | 2020-02-12 12:26 | CT_ITS ---
PROCEDURE: CT LUNG SCREENING CLINICAL INDICATION: H/O NICOTINE DEPENDENCE nicotine dependence, screening, smoker COMPARISON: LDCTLCAS LDCT FOR LUNG CA SCREEN from 07/07/[address] CHEST W CON from 01/17/2019 TECHNIQUE: The exam was performed on a [employer] Speed [address] scanner using 2.90 mGy CTDI. A low dose helical CT CHEST was performed on a multi-detector scanner. All CT scans at the facility use one or more dose reduction, viz: automated exposure control, ma/kV adjustment per patient size (including targeted exams where dose is matched to indication, i.e. head), or iterative reconstruction technique. The LDCT was performed in a facility that meets the criteria for the screening program. Data regarding this exam was submitted to ACR which is an approved registry. The order for this exam indicates that it came as a result of a lung cancer screening counseling shard decision-making visit that included all the elements required of such a visit including smoking cessation. The radiologist interpreting this exam meets the CMS criteria for the LDCT lung cancer screening program. The exam is reported using the Lung-RADS classification scale and reported to the ACR registry. NOTE: This study was performed for the specific purposes of lung cancer screening and is not an alternative to diagnostic chest CT. RADIATION DOSE: CTDI vol(CT dose Index-volume) = 2.90mG DLP (Dose Length Product) = 110.46 mGcm FINDINGS: COPD. Biapical fibronodular changes. There are scattered small 2 and 3 mm nodular opacities with scattered areas of scarring. A 6 mm opacity is present in the right middle lobe unchanged possibly due to an area of scarring. There is mild diffuse bronchial thickening.. A 3 mm opacity is present in the right upper lobe inferiorly which may been present previously not as apparent due to slice orientation OTHER FINDINGS: Coronary artery calcifications IMPRESSION: Lung-RADS Category 2 Benign Appearance or Behavior Follow-up: Annual LD CT Dictated by: Zane Vergara MD 02/15/2020 10:32 Zane Vergara MD in [place] 02/15/2020 10:32
--- NOTE | 2020-02-12 12:27 | XR_ITS ---
PROCEDURE: XR DEXA AXIAL SKELETON CLINICAL HISTORY: OSTEOPENIA COMPARISON: JOSSIE MADERA BONE3 BONE DENSITOMETRY(HIP:LT SPINE from 07/07/2016 FINDINGS: The right hip BMD is .594 with a T-score of -2.3. The left hip BMD is 0.656 with a T-score of -1.7. The lumbar spine BMD is 0.916 with a T-score of -1.2. IMPRESSION: This patient is considered osteopenic according to the World Health Organization criteria. Bone density is between 10 and 25 percent below young normal. Fracture risk is moderate. Treatment is advised. Based on these results a follow-up exam is recommended in 2 year. Dictated by: Zane Vergara MD 02/14/2020 06:41 Zane Vergara MD in [place] 02/14/2020 06:41
--- NOTE | 2020-02-12 12:27 | MM_ITS ---
PROCEDURE: MM DIG SCREENING MAMM BI W/CAD Referring Doctor: Laura Strickland Patient Age:69Y CLINICAL INDICATION: SCREENING 69-year-old routine screening mammogram. No hormones but no new complaints. Family history sister with breast cancer COMPARISON: MG DMSB DIGITAL MAMM-SCREEN BILATERAL from 08/03/2011 MG DMSB DIG MAMM-SCREEN RJ from 12/08/2013 MG DMSB DIG MAMM-SCREEN RJ from 01/22/2015 MG DMSB DIG MAMM-SCREEN RJ from 03/22/2016 TECHNIQUE: Standard CC and MLO images were obtained. R2 CAD reviewed. Bilateral digital breast tomosynthesis included. FINDINGS: Moderate residual fibroglandular elements in both breast stable slightly heterogeneous fibroglandular architecture bilaterally. No new dominant or suspicious mass. No suspicious calcifications Right breast: The slightly heterogeneous breast pattern reveals no no significant new findings areas of minimal density a dissipate on tomosynthesis compatible fibroglandular elements Left breast: The no new findings of concern Again we see the slightly heterogeneous parenchymal pattern with no new or discrete areas of significant concern.. Stable small focal area asymmetricfibroglandular tissue upper outer quadrant left breast again observed. Stable the Single benign calcification has developed in the central left breast but not of concern IMPRESSION: Stable bilateral mammogram. No significant new findings Bilateral follow-up 1 year BI-RAD Category: 2 Benign Finding(s) FOLLOW-UP: 1YR 1 Year Follow-up (A letter has been sent to the patient regarding results of the study.) Dictated by: Flavio Morton MD 02/16/2020 16:55 Flavio Morton MD in [place] 02/16/2020 16:55
--- NOTE | 2020-02-12 12:28 | US_ITS ---
PROCEDURE: US THYROID CLINICAL INDICATION: ENLARGED THYROID Follow-up nodules COMPARISON: US US THYROID from 02/14/2019 US US FNA THYROID from 03/13/2019 US US THYROID from 07/03/2019 FINDINGS: The right lobe is 4.4 x 2 x 2.3 cm. There is a heterogeneous area in the upper pole with some calcifications but no true nodular contour on two views. A spongiform nodules present in the mid polar region at 16 mm unchanged. In the lower pole there is a arc of calcification unchanged likely within a nodule. This area measures approximately 7 mm unchanged. There is an additional mixed nodule in the lower pole at 10 mm unchanged The left lobe is 3.8 x 1 x 1.8 cm. There is a an 18 mm heterogeneous nodule in the mid polar region unchanged. There is an arc of coarse calcification in the lower pole at 3 mm unchanged. No change in the 10 mm hypoechoic nodule lower pole. IMPRESSION: No change multinodular goiter Dictated by: Zane Vergara MD 02/12/2020 18:00 Zane Vergara MD in [place] 02/12/2020 18:00
[2020-02-12 14:46] LABS: Basophils % 0.6 % (0.1-2.0); Eosinophils % 0.6 % (0.1-12.0); Hemoglobin 13.9 g/dL (12.2-16.2); Lymphocytes # 1.6 K/mm3 (0.7-4.5); Lymphocytes % 27.3 % (10-50); Mean Corpuscular HGB Conc 33.2 g/dL (31.8-35.4); Mean Corpuscular Hemoglobin 32.2 pg (27.0-31.2); Mean Corpuscular Volume 97.2 fl (81-99); Mean Platelet Volume 7.9 fl (7.4-10.4); Monocytes # 0.3 K/mm3 (0.1-1.0); Monocytes % 4.7 % (1.7-9.3); Neutrophils # 3.9 K/mm3 (1.8-7.8); Neutrophils % 66.8 % (37.0-80.0); Platelet Count 237 K/mm3 (142-424); Red Blood Count 4.33 M/mm3 (4.20-5.40); Red Cell Distribution Width 12.5 % (11.5-17.5); White Blood Count 5.8 K/mm3 (4.8-10.8)
[2020-02-12 14:49] LABS: Blood Urea Nitrogen 13 mg/dl (7-17)
[2020-02-12 14:50] LABS: Alanine Aminotransferase 11 U/L (12-78); Albumin Level 4.6 g/dl (3.5-5.0); Albumin/Globulin Ratio 1.8 (1.1-1.8); Alkaline Phosphatase 44 U/L (38-126); Anion Gap 12.4 mEq/L (5-15); Aspartate Amino Transferase 24 U/L (14-36); Bilirubin,Total 0.6 mg/dl (0.2-1.3); Carbon Dioxide 30 mmol/L (22.0-30.0); Chloride 100 mmol/L (98-107); Cholesterol 156 mg/dl (140-200); Estimated Glomerular Filt Rate 83 ml/min (>60); GFR (African American) 101 ML/MIN (>60); Globulin 2.5 g/dL (1.3-3.2); Potassium 4.4 mmoL/L (3.5-5.1); Sodium 138 mmol/L (136-145); Total Protein,Serum 7.1 g/dl (6.3-8.2); Triglycerides 117 mg/dl (30-150); VLDL Cholesterol 23 mg/dL (0-40)
[2020-02-12 14:51] LABS: Calcium 9.8 mg/dl (8.4-10.2); Chol/HDL Ratio 2.1 (1-3.5); Glucose 110 mg/dl (74-100); HDL Cholesterol 74 mg/dl (40-60)
[2020-02-12 15:09] LABS: 25-OH Vitamin D, Total 55.1 ng/mL (30-100)
[2020-02-12 15:11] LABS: Free T4 (Free Thyroxine) 1.15 ng/dl (0.78-2.19)
[2020-02-12 23:28] LABS: Thyroid Stimulating Hormone 0.73 uIU/mL (0.465-4.68)
== END ==
PROVIDERS: PCP Nurse Practitioner Family; Visit Provider Nurse Practitioner Family
DX: Z12.31 Encounter for screening mammogram for malignant neoplasm of breast (principal); Z87.891 Personal history of nicotine dependence; M85.89 Other specified disorders of bone density and structure, multiple sites; E04.1 Nontoxic single thyroid nodule; E55.9 Vitamin D deficiency, unspecified; I10 Essential (primary) hypertension
CPT/HCPCS: 36415; 76536; 77063; 77067; 77080; 80053; 80061; 82306; 84439; 84443; 85025

== ENCOUNTER 2020-04-04 14:53 | Emergency (ER) | payer MEDICARE, SELFPAY ==
[2020-04-04 14:54] VITALS: BP 185/81; PULSE 76; RESP 17; TEMP 36.7; O2SAT 97; BMI 21.5
--- NOTE | 2020-04-04 15:01 | ECG_ITS ---
APPROVED REPORT Exam: Resting ECG HR:72 bpm ECG Measurements Heart Rate 72 AXES RI 142 P 72 QRSd 80 QRS 75 QT 382 T 59 QTc 418 Conclusion Normal sinus rhythm Minimal voltage criteria for LVH, may be normal variant Borderline ECG Electronically signed by : Jarad Barnes, 04/06/2020 14:48:12
--- NOTE | 2020-04-04 15:08 | XR_ITS ---
PROCEDURE: XR CHEST 2V CLINICAL HISTORY: shortness of air COMPARISON: CR Chest from 12/22/2018 CR Chest from 01/01/[address] CHEST W CON from 01/17/2019 CR XR CHEST 2V from 03/13/2019 FINDINGS: Moderately severe emphysematous changes seen with hyperexpansion of the lung serrano and flattening and depression of the hemidiaphragms. The lung serrano are clear of infiltrate. The cardiac silhouette and vascularity are normal and there is no pleural fluid. IMPRESSION: Moderately severe COPD, no acute chest pathology noted Dictated by: Dr. Dima Abrams MD 04/04/2020 19:35 Dr. Dima Abrams MD in [place] 04/04/2020 19:35
[2020-04-04 15:15] VITALS: BP 157/71; PULSE 68; O2SAT 95
[2020-04-04 15:21] LABS: Basophils % 0.6 % (0.1-2.0); Eosinophils % 0.9 % (0.1-12.0); Hematocrit 43.3 % (37.0-47.0); Hemoglobin 14.3 g/dL (12.2-16.2); Lymphocytes # 1.4 K/mm3 (0.7-4.5); Lymphocytes % 29.6 % (10-50); Mean Corpuscular Hemoglobin 32.5 pg (27.0-31.2); Mean Corpuscular Volume 98.5 fl (81-99); Mean Platelet Volume 8.6 fl (7.4-10.4); Monocytes # 0.3 K/mm3 (0.1-1.0); Monocytes % 5.7 % (1.7-9.3); Neutrophils % 63.2 % (37.0-80.0); Platelet Count 235 K/mm3 (142-424); Red Cell Distribution Width 12.9 % (11.5-17.5); White Blood Count 4.8 K/mm3 (4.8-10.8)
[2020-04-04 15:23] LABS: Chloride 99 mmol/L (98-107); Sodium 139 mmol/L (136-145)
[2020-04-04 15:24] LABS: Potassium 3.9 mmoL/L (3.5-5.1)
[2020-04-04 15:26] LABS: Alanine Aminotransferase 14 U/L (12-78); Albumin Level 4.7 g/dl (3.5-5.0); Albumin/Globulin Ratio 1.6 (1.1-1.8); Alkaline Phosphatase 72 U/L (38-126); Anion Gap 11.9 mEq/L (5-15); Aspartate Amino Transferase 30 U/L (14-36); Bilirubin,Total 0.4 mg/dl (0.2-1.3); Blood Urea Nitrogen 19 mg/dl (7-17); Calcium 9.7 mg/dl (8.4-10.2); Carbon Dioxide 32 mmol/L (22.0-30.0); Creatinine Clearance Estimated 46 mL/min (50-200); Estimated Glomerular Filt Rate 72 ml/min (>60); GFR (African American) 87 ML/MIN (>60); Globulin 2.9 g/dL (1.3-3.2); Glucose 126 mg/dl (74-100); Total Protein,Serum 7.6 g/dl (6.3-8.2)
[2020-04-04 15:27] LABS: Magnesium 1.8 mg/dl (1.6-2.3)
--- NOTE | 2020-04-04 15:29 | PC.NURSE ---
pt going over for 2 view chest
[2020-04-04 15:37] LABS: NT Pro Brain Natriuretic Pep. 167 pg/mL (0-125)
[2020-04-04 15:40] LABS: Troponin I < 0.01 ng/ml (0.00-0.034)
[2020-04-04 15:51] VITALS: BP 147/74; PULSE 60; O2SAT 97
[2020-04-04 15:58] LABS: Thyroid Stimulating Hormone 1.15 uIU/mL (0.465-4.68)
[2020-04-04 16:32] LABS: Appearance,Urine SL CLOUDY (Clear); Bilirubin,Urine Negative (Negative); Blood, Urine 1+ (Negative); Color,Urine YELLOW (Yellow); Glucose,Urine (UA) Negative (Negative); Ketones,Urine Negative (Negative); Leukocyte Esterase,Urine TRACE (Negative); Microscopic, Urine URINE MICROSCOPIC (MICROSCOPIC); Nitrate,Urine Negative (Negative); Protein,Urine Negative (Negative); Specific Gravity, Urine 1.025 (1.005-1.030); Urobilinogen,Urine 0.2 EU/dl (0.2)
[2020-04-04 16:46] VITALS: BP 170/100; PULSE 63; O2SAT 98
[2020-04-04 16:55] LABS: Amorphous Sediment,Urine 1+ /lpf; Bacteria,Urine 1+ /lpf
[2020-04-04 17:13] LABS: Coronavirus 19 IgG Antibody Negative (Negative); Coronavirus 19 IgM Antibody Negative (Negative)
--- NOTE | 2020-04-04 17:18 | HMH.EDGENADL ---
ED Disposition Clinical Impression: UTI (urinary tract infection) Qualifiers: Urinary tract infection type: acute cystitis Hematuria presence: without hematuria Qualified Code(s): N30.00 - Acute cystitis without hematuria Serous otitis media Qualifiers: Chronicity: acute Laterality: right Recurrence: non-recurrent Qualified Code(s): H65.01 - Acute serous otitis media, right ear Disposition: Home, Self-Care Condition on Discharge: Good Instructions: Urinary Tract Infection, DI for Otitis Media (Middle Ear Infection)-Child Additional Instructions: Use the flonase and zyrtec for your ear. Take the keflex for your urinary tract infection. Follow up with your Nursing Service Director and return with any concerns. Prescriptions: Fluticasone Propionate [Flonase 50mcg nasal spray 16gm] 2 spr NS DAILY #1 bottle Prescription Printed cephALEXin [Keflex 500mg Cap] 500 mg PO QID 7 Days #28 cap Prescription Printed Referrals: Laura Strickland APRN [Primary Care Provider] - - Critical Care Critical Care Time: No Attestation: On 04/04/20, the high probability of a clinically significant, sudden or life threatening deterioration of the following system(s) required my full and direct attention, intervention and personal management. The time I documented below is in addition to time spent performing reported procedures but includes the following listed in this critical care notation. Medical Decision Making - Wesley Inquiry Pt receiving controlled substance: No Vital Signs: 04/04/20 14:54 04/04/20 15:15 04/04/20 15:51 Temperature 98.0 F Temperature Source Oral Pulse Rate [Left Radial] 76 68 60 Respiratory Rate 17 Blood Pressure [Right Arm] 185/81 H 157/71 H 147/74 H Blood Pressure Mean [Right Arm] 115 99 98 Blood Pressure Source [Right Arm] Automatic Cuff Automatic Cuff Automatic Cuff Blood Pressure Position [Right Arm] Sitting Sitting Sitting 02 Sat by Pulse Oximetry 97 95 97 Oxygen Delivery Method Room Air Room Air Room Air 04/04/20 16:46 Temperature Temperature Source Pulse Rate [Left Radial] 63 Respiratory Rate Blood Pressure [Right Arm] 170/100 H Blood Pressure Mean [Right Arm] 123 Blood Pressure Source [Right Arm] Automatic Cuff Blood Pressure Position [Right Arm] Sitting 02 Sat by Pulse Oximetry 98 Oxygen Delivery Method Room Air - Lab Data Lab Results 04/04/20 15:15: WBC 4.8, RBC 4.40, Hgb 14.3, Hct 43.3, MCV 98.5, MCH 32.5 H, MCHC 33.0, RDW 12.9, Plt Count 235, MPV 8.6, Neut % (Auto) 63.2, Lymph % (Auto) 29.6, [place]ata[place]oula % (Auto) 5.7, Eos % (Auto) 0.9, Baso % (Auto) 0.6, Neut # (Auto) 3.0, Lymph # (Auto) 1.4, [place]oula # (Auto) 0.3, Eos # (Auto) 0.0, Baso # (Auto) 0.0 04/04/20 15:15: Sodium 139, Potassium 3.9, Chloride 99, Carbon Dioxide 32 H, Anion Gap 11.9, BUN 19 H, Creatinine 0.80, Estimated Creat Clear 46, Estimated GFR 72, Est GFR ( Amer) 87, Glucose 126 H, Calcium 9.7, Total Bilirubin 0.4, AST 30, ALT 14, Alkaline Phosphatase 72, Troponin I < 0.01, Total Protein 7.6, Albumin 4.7, Globulin 2.9, Albumin/Globulin Ratio 1.6, TSH 1.15 04/04/20 15:15: Magnesium 1.8, NT-Pro-B Natriuret Pep 167 H 04/04/20 15:15: SARS-CoV-2 IgG Ab (Rapid) Negative, SARS-CoV-2 IgM Ab (Rapid) Negative 04/04/20 16:30: Urine Color Yellow, Urine Appearance Sl cloudy, Urine pH 6.0, Ur Specific [place] 1.025, Urine Protein Negative, Urine Glucose (UA) Negative, Urine Ketones Negative, Urine Blood 1+, Urine Nitrate Negative, Urine Bilirubin Negative, Urine Urobilinogen 0.2, Ur Leukocyte Esterase Trace, Urine RBC 3-5, Urine WBC 3-5, Ur Squamous Epith Cells 10-20, Amorphous Sediment 1+, Urine Bacteria 1+ Result diagrams: 04/04/20 15:15 04/04/20 15:15 Orders (Tests/Meds): ED MEDICATIONS Generic Name Dose Route Start Last Admin Trade Name Freq PRN Reason Stop Dose Admin Lactated Ringer's 1,000 mls @ 999 mls/hr 04/04/20 15:15 04/04/20 15:18 Lactated Ringer's 1000 Ml Bag IV 04/04/20 16:15 999 mls/hr .Q1H1M FER Administra
[2020-04-04 17:20] VITALS: BP 155/100; PULSE 63; RESP 17; TEMP 36.7; O2SAT 94
== END 2020-04-04 17:32 | disposition home or self-care (01) ==
PROVIDERS: Emergency Provider Emergency Medicine; PCP Nurse Practitioner Family
DX: N30.00 Acute cystitis without hematuria (principal); H65.01 Acute serous otitis media, right ear; F41.9 Anxiety disorder, unspecified; K21.9 Gastro-esophageal reflux disease without esophagitis; F17.210 Nicotine dependence, cigarettes, uncomplicated; Z01.84 Encounter for antibody response examination; Z88.0 Allergy status to penicillin; Z88.2 Allergy status to sulfonamides; Z79.899 Other long term (current) drug therapy
CPT/HCPCS: 71046; 80053; 81001; 83735; 83880; 84443; 84484; 85025; 86328; 93005; 96365; 96375; 99283

== ENCOUNTER 2020-05-10 16:40 | Emergency (ER) | payer MEDICARE, SELFPAY ==
[2020-05-10 17:29] VITALS: BP 139/89; PULSE 66; RESP 18; TEMP 36.9; O2SAT 97; BMI 22.1
--- NOTE | 2020-05-10 17:34 | HMH.EDUTC ---
[facility] [place] Disposition Clinical Impression: Encounter for laboratory testing for COVID-19 virus Disposition: Home, Self-Care Condition on Discharge: Good Instructions: Preventing the Spread of Coronavirus Discharge Instructions Additional Instructions: *Monitor Temp, Over the counter Motrin or Tylenol as directed/as needed Tylenol every 4 hours and Motrin every 6 hours (as long as your family doctor has told you that you can take it) for fever or pain. and straight to ER if unable to lower temp less than 101.0 after medication given *Warm salt water gargles may help to soothe the throat *Throat Lozenges *Warm fluids like tea with honey may help to soothe the throat *Sleep elevated *Humidifier/Vaporizer Follow up IMMEDIATELY for new or worsening symptoms or no Noticeable improvement over the next 48-72 hours. 911 for difficulty breathing or swallowing You were tested for today for COVID19 your test result should be back in the next 24-48 hours, you may call to the [facility] to see if your test results are back in the next 48 hours [phone] [facility] hours are 9am-9pm You was given a handout with instructions for Self Quarantine and Self isolation for while you wait on test results and what to do if they are positive If you are positive the Health Dept will be contacting you also Referrals: Laura tSrickland APRN [Primary Care Provider] - As needed Time of Disposition: 17:45 Medical Decision Making - Wesley Inquiry Pt receiving controlled substance: No Wesley was queried for this patient: No Vital Signs: 05/10/20 17:29 Temperature 98.4 F Temperature Source Oral Pulse Rate [Left] 66 Respiratory Rate 18 Blood Pressure [Right Arm] 139/89 Blood Pressure Mean [Right Arm] 105 Blood Pressure Source [Right Arm] Automatic Cuff Blood Pressure Position [Right Arm] Sitting 02 Sat by Pulse Oximetry 97 Oxygen Delivery Method Room Air Orders (Tests/Meds): ORDERS Category Date Time Status Covid-19 Nasal PCR Sendout [facility] 05/10/20 17:[address] [facility] [place] HPI - General Stated complaint: Covid test,sore throat,cough Time Seen by Provider: 05/10/20 17:34 Mode of Arrival: Ambulatory Source of Information: Patient Limitations: No Limitations Description of Symptoms (Recalled from Triage Doc. by RN): Sore throat, nausea HEENT Symptoms (Recalled from RN notes): Yes Resp Symptoms (Recalled from RN notes): Yes Skin Symptoms (Recalled from RN notes): No MS Symptoms (Recalled from RN notes): No Functional Status (Recalled from RN notes): wnl - History of Present Illness Provider Complaint: Patient state that she has been having sore throat and nausea and wanted to get tested for COVID States that also this morning she loss her sense of taste and smell State that she was worried that she may have COVID - Related Data Home Medications Medication Instructions Recorded Confirmed Escitalopram Oxalate 20 mg PO DAILY 08/14/17 03/20/19 Pantoprazole Sodium [Protonix 40mg 40 mg PO DAILY 08/14/17 03/20/19 (granule) packet] fluticasone furoate 100 1 inh INHALATION ONCE PRN 11/13/17 03/20/19 mcg-vilanterol 25 mcg/dose inhalation powder albuterol sulfate 90 mcg/actuation 1 puff INHALATION Q6H PRN 08/05/18 03/20/19 aerosol inhaler Previous Rx's Medication Instructions Recorded Azithromycin [Zithromax 500mg Tab 500 mg PO DAILY #3 tab 12/22/18 Tri-Eric] predniSONE [Prednisone 50mg Tab] 50 mg PO DAILY 5 Days #5 tab 12/22/18 amlodipine 2.5 mg tablet 2.5 mg PO DAILY #30 tab 12/30/18 aspirin 81 mg chewable tablet 81 mg PO DAILY #30 tab 12/30/18 bisoprolol fumarate 5 mg tablet 5 mg PO DAILY #30 tab 12/30/18 clopidogrel 75 mg tablet 75 mg PO DAILY #30 tab 12/30/18 lisinopril 20 1 tab PO DAILY #30 tab 12/30/18 mg-hydrochlorothiazide 25 mg tablet rosuvastatin 10 mg tablet 10 mg PO DAILY #30 tab 12/30/18 Meclizine HCl [Meclizine 25mg Tab] 25 mg PO TID 7 Days #20 tab 01/01/19 cefUROXime axetiL [Ceftin 500mg 500 mg PO BID
[2020-05-10 17:57] VITALS: BP 139/89; PULSE 66; RESP 18; TEMP 36.9; O2SAT 97
[2020-05-12 13:20] LABS: Covid-19 Nasal PCR Sendout Lex Not Detected
== END 2020-05-10 17:58 | disposition home or self-care (01) ==
PROVIDERS: Emergency Provider Nurse Practitioner; PCP Nurse Practitioner Family
DX: Z20.828 Contact with and (suspected) exposure to other viral communicable diseases (principal); R11.0 Nausea; R43.9 Unspecified disturbances of smell and taste; J02.9 Acute pharyngitis, unspecified; I10 Essential (primary) hypertension; K21.9 Gastro-esophageal reflux disease without esophagitis; F17.210 Nicotine dependence, cigarettes, uncomplicated; Z88.0 Allergy status to penicillin; Z88.2 Allergy status to sulfonamides; Z79.899 Other long term (current) drug therapy
CPT/HCPCS: G0463; 99201; U0004

== ENCOUNTER 2020-05-19 19:25 | Emergency (ER) | payer MEDICARE, SELFPAY ==
[2020-05-19 19:35] VITALS: BP 120/76; PULSE 104; RESP 19; TEMP 38.2; O2SAT 96; BMI 21.9
--- NOTE | 2020-05-19 19:50 | HMH.EDUTC ---
[facility] – [place], [place] Disposition Clinical Impression: Sinusitis Qualifiers: Sinusitis location: unspecified location Chronicity: unspecified Qualified Code(s): J32.9 - Chronic sinusitis, unspecified Disposition: Home, Self-Care Condition on Discharge: Good Instructions: Sinusitis, DI for Sinusitis, Nausea and Vomiting-Adult, DI for Vomiting -- Adult Additional Instructions: *Monitor Temp, Over the counter Motrin or Tylenol as directed/as needed Tylenol every 4 hours and Motrin every 6 hours (as long as your family doctor has told you that you can take it) for fever or pain. and straight to ER if unable to lower temp less than 101.0 after medication given *Warm salt water gargles may help to soothe the throat *Throat Lozenges *Warm fluids like tea with honey may help to soothe the throat *Sleep elevated *Humidifier/Vaporizer *Flonase 2 sprays in each nostril daily but be aware that it may take 2-3 days before you notice improvement *Bromfed may cause drowsiness. Know how it effects you (your child) before driving, caring for small child, or sending your child to school. Not other antihistamines/allergy medications while taking bromfed Your throat swab was sent for culture. Those results are typically sent to your primary care. Be sure to follow up in 2-3 days with your family doctor/primary care physician if no improvement so they can review those result and treat if necessary. If you don?t have a primary care doctor, I recommend you get one but in the mean time, you will have to return to a walk in clinic Follow up IMMEDIATELY for new or worsening symptoms or no Noticeable improvement over the next 48-72 hours. 911 for difficulty breathing or swallowing You were tested for today for COVID19 your test result should be back in the next 24-48 hours, you may call to the [facility] to see if your test results are back in the next 48 hours [phone] [facility] hours are 9am-9pm You was given a handout with instructions for Self Quarantine and Self isolation for while you wait on test results and what to do if they are positive If you are positive the Health Dept will be contacting you also Prescriptions: Azithromycin [Z-Eric 250mg Tab] 250 mg PO DIRECTED #6 tab Transmission Status: Pending to [facility] Ondansetron [Zofran 4mg ODT] 4 mg PO TIDP PRN #9 tab PRN Reason: Vomiting Transmission Status: Pending to [facility] Referrals: Laura Strickland APRN [Primary Care Provider] - As needed Medical Decision Making - Wesley Inquiry Pt receiving controlled substance: No Wesley was queried for this patient: No Vital Signs: 05/19/20 19:35 Temperature 100.7 F H Temperature Source Oral Pulse Rate [Right Brachial] 104 H Respiratory Rate 19 Blood Pressure [Right Arm] 120/76 Blood Pressure Mean [Right Arm] 90 Blood Pressure Source [Right Arm] Automatic Cuff Blood Pressure Position [Right Arm] Sitting 02 Sat by Pulse Oximetry 96 Oxygen Delivery Method Room Air - Lab Data Lab results reviewed: Yes: I reviewed the patient's lab results. Orders (Tests/Meds): ORDERS Category Date Time Status Covid-19 Nasal PCR ([facility]) Routine Lab 05/19/20 19:34 Received Medical Decision Narrative: Medication discussed with pharmacy [facility] [place] [place] HPI - General Stated complaint: covid test headache vomitting sob sore throat Time Seen by Provider: 05/19/20 19:50 Mode of Arrival: Ambulatory Source of Information: Patient Limitations: No Limitations Description of Symptoms (Recalled from Triage Doc. by RN): PATIENT REQUESTING COVID TEST D/T EXPOSURE; C/O HEADACHE, VOMITING, FEVER, BODY ACHES, AND FATIGUE SINCE SUNDAY HEENT Symptoms (Recalled from RN notes): No Resp Symptoms (Recalled from RN notes): No Skin Symptoms (Recalled from RN notes): No MS Symptoms (Recalled from RN notes): Yes Functional Status (Recalled from RN notes): WNL - History of Present Illness Provider Complaint: Patient states that she started feeling bad on Sunday State t
[2020-05-19 20:08] LABS: UTC Strep Screen (Rapid) Negative (Negative)
[2020-05-19 20:09] LABS: UTC Influenza A Antigen Negative (Negative); UTC Influenza B Antigen Negative (Negative)
[2020-05-19 20:18] VITALS: BP 120/76; PULSE 104; RESP 19; TEMP 38.2; O2SAT 96
== END 2020-05-19 20:20 | disposition home or self-care (01) ==
PROVIDERS: Emergency Provider Nurse Practitioner; PCP Nurse Practitioner Family
DX: Z20.828 Contact with and (suspected) exposure to other viral communicable diseases (principal); J32.9 Chronic sinusitis, unspecified; I10 Essential (primary) hypertension; E78.5 Hyperlipidemia, unspecified; K21.9 Gastro-esophageal reflux disease without esophagitis; Z88.0 Allergy status to penicillin; Z88.2 Allergy status to sulfonamides
CPT/HCPCS: G0463; 87804; 87880; 99202; U0003

== ENCOUNTER 2020-06-09 15:24 | Emergency (ER) | payer MEDICARE, SELFPAY ==
[2020-06-09 15:24] VITALS: BP 174/82; PULSE 67; RESP 18; TEMP 36.6; O2SAT 97; BMI 21.5
--- NOTE | 2020-06-09 16:07 | HMH.EDGENADL ---
ED Disposition Clinical Impression: Malaise Urinary tract infection Qualifiers: Urinary tract infection type: acute cystitis Hematuria presence: without hematuria Qualified Code(s): N30.00 - Acute cystitis without hematuria Disposition: Home, Self-Care Condition on Discharge: Fair Instructions: DI for Urinary Tract Infection (UTI), DI for Fatigue Additional Instructions: You have been evaluated for generalized fatigue and malaise, diagnosed with urinary tract infection. Take Macrobid as prescribed. Follow-up with your primary care physician. Stay hydrated. Return to the emergency department if you have any new or worsening symptoms. Prescriptions: nitrofurantoin macrocrystaL [Macrodantin 100mg capsule] 100 mg PO BID 5 Days #10 cap Transmission Status: Pending to [facility] Ondansetron [Zofran 4mg ODT] 4 mg PO Q6 PRN #12 tab PRN Reason: Vomiting Transmission Status: Pending to [facility] Referrals: Laura Strickland APRN [Primary Care Provider] - Time of Disposition: 17:23 - Critical Care Critical Care Time: No Attestation: On 06/09/20, the high probability of a clinically significant, sudden or life threatening deterioration of the following system(s) required my full and direct attention, intervention and personal management. The time I documented below is in addition to time spent performing reported procedures but includes the following listed in this critical care notation. Medical Decision Making - Medical Records Medical records reviewed: Yes: I reviewed the patient's medical records. - Wesley Inquiry Pt receiving controlled substance: No Vital Signs: 06/09/20 15:24 06/09/20 16:24 06/09/20 16:30 Temperature 97.9 F Temperature Source Oral Pulse Rate [Right Radial] 67 70 70 Respiratory Rate 18 Blood Pressure [Right Arm] 174/82 H 137/75 137/75 Blood Pressure Mean [Right Arm] 112 95 95 Blood Pressure Source [Right Arm] Automatic Cuff Automatic Cuff Automatic Cuff Blood Pressure Position [Right Arm] Sitting Sitting Sitting 02 Sat by Pulse Oximetry 97 96 97 Oxygen Delivery Method Room Air Room Air Room Air 06/09/20 17:00 Temperature Temperature Source Pulse Rate [Right Radial] 65 Respiratory Rate Blood Pressure [Right Arm] 160/72 H Blood Pressure Mean [Right Arm] 101 Blood Pressure Source [Right Arm] Automatic Cuff Blood Pressure Position [Right Arm] Sitting 02 Sat by Pulse Oximetry 92 L Oxygen Delivery Method Room Air - Lab Data Lab Results 06/09/20 15:54: Urine Color Yellow, Urine Appearance Clear, Urine pH 6.5, Ur Specific [place] <= 1.005, Urine Protein Negative, Urine Glucose (UA) 1+, Urine Ketones Negative, Urine Blood 1+, Urine Nitrate Negative, Urine Bilirubin Negative, Urine Urobilinogen 0.2, Ur Leukocyte Esterase 1+ A, Ur Squamous Epith Cells 10-20, Urine Bacteria 2+ 06/09/20 15:54: WBC 8.0, RBC 4.22, Hgb 13.7, Hct 40.6, MCV 96.2, MCH 32.4 H, MCHC 33.7, RDW 13.1, Plt Count 302, MPV 8.5, Neut % (Auto) 79.2, Lymph % (Auto) 16.6, [place] % (Auto) 3.5, Eos % (Auto) 0.4, Baso % (Auto) 0.4, Neut # (Auto) 6.3, Lymph # (Auto) 1.3, [place] # (Auto) 0.3, Eos # (Auto) 0.0, Baso # (Auto) 0.0 06/09/20 15:54: Sodium 137, Potassium 3.9, Chloride 97 L, Carbon Dioxide 29, Anion Gap 14.9, BUN 11, Creatinine 0.80, Estimated Creat Clear 46, Estimated GFR 72, Est GFR ( Amer) 87, Glucose 206 H, Calcium 10.1, Total Bilirubin 0.5, AST 26, ALT 16, Alkaline Phosphatase 55, Troponin I < 0.01, Total Protein 8.1, Albumin 4.6, Globulin 3.5 H, Albumin/Globulin Ratio 1.3 06/09/20 15:54: SARS-CoV-2 IgG Ab (Rapid) Negative, SARS-CoV-2 IgM Ab (Rapid) Negative 06/09/20 16:11: VBG pH 7.31, VBG pCO2 57.9 H, VBG pO2 32.2, VBG HCO3 28.3, VBG Total CO2 30.1 H, VBG O2 Saturation 61.1, VBG Base Excess 2.0 Result diagrams: 06/09/20 15:54 06/09/20 15:54 Orders (Tests/Meds): ED MEDICATIONS Discontinued Medications Generic Name Dose Route Start Last Admin Trade Name Freq PRN Reason
--- NOTE | 2020-06-09 16:10 | XR_ITS ---
PROCEDURE: XR CHEST PORTABLE CLINICAL HISTORY: cough COMPARISON: CR Chest from 01/01/[address] CHEST W CON from 01/17/2019 CR XR CHEST 2V from 03/13/2019 CR XR CHEST 2V from 04/04/2020 FINDINGS: The cardiomediastinal silhouette and pulmonary vascularity are within normal limits. The lungs are clear without infiltrates, suspicious nodules, or pleural effusions. No acute bony abnormalities. IMPRESSION: No acute findings. Dictated by: Zane Vergara MD 06/09/2020 17:15 Zane Vergara MD in [place] 06/09/2020 17:15
--- NOTE | 2020-06-09 16:10 | ECG_ITS ---
APPROVED REPORT Exam: Resting ECG HR:93 bpm ECG Measurements Heart Rate 93 AXES OR 152 P 57 QRSd 82 QRS 13 QT 346 T 36 QTc 430 Conclusion Normal sinus rhythm Normal ECG Electronically signed by : Jarad Barnes, 06/10/2020 19:45:52
[2020-06-09 16:20] LABS: Microscopic, Urine URINE MICROSCOPIC (MICROSCOPIC)
[2020-06-09 16:22] LABS: Appearance,Urine CLEAR (Clear); Bilirubin,Urine Negative (Negative); Blood, Urine 1+ (Negative); Color,Urine YELLOW (Yellow); Glucose,Urine (UA) 1+ (Negative); Ketones,Urine Negative (Negative); Leukocyte Esterase,Urine 1+ (Negative); Nitrate,Urine Negative (Negative); PH,Urine 6.5 (5.0-8.5); Protein,Urine Negative (Negative); Specific Gravity, Urine <= 1.005 (1.005-1.030); Urobilinogen,Urine 0.2 EU/dl (0.2)
[2020-06-09 16:23] LABS: Basophils % 0.4 % (0.1-2.0); Eosinophils % 0.4 % (0.1-12.0); Hematocrit 40.6 % (37.0-47.0); Hemoglobin 13.7 g/dL (12.2-16.2); Lymphocytes # 1.3 K/mm3 (0.7-4.5); Lymphocytes % 16.6 % (10-50); Mean Corpuscular HGB Conc 33.7 g/dL (31.8-35.4); Mean Corpuscular Hemoglobin 32.4 pg (27.0-31.2); Mean Corpuscular Volume 96.2 fl (81-99); Mean Platelet Volume 8.5 fl (7.4-10.4); Monocytes # 0.3 K/mm3 (0.1-1.0); Monocytes % 3.5 % (1.7-9.3); Neutrophils # 6.3 K/mm3 (1.8-7.8); Neutrophils % 79.2 % (37.0-80.0); Platelet Count 302 K/mm3 (142-424); Red Blood Count 4.22 M/mm3 (4.20-5.40); Red Cell Distribution Width 13.1 % (11.5-17.5)
[2020-06-09 16:24] VITALS: BP 137/75; PULSE 70; O2SAT 96
--- NOTE | 2020-06-09 16:29 | PC.NURSE ---
notified RT of VBG
[2020-06-09 16:30] VITALS: BP 137/75; PULSE 70; O2SAT 97
[2020-06-09 16:32] LABS: Chloride 97 mmol/L (98-107); Potassium 3.9 mmoL/L (3.5-5.1); Sodium 137 mmol/L (136-145)
[2020-06-09 16:34] LABS: Bacteria,Urine 2+ /lpf
[2020-06-09 16:35] LABS: Alanine Aminotransferase 16 U/L (12-78); Albumin Level 4.6 g/dl (3.5-5.0); Albumin/Globulin Ratio 1.3 (1.1-1.8); Alkaline Phosphatase 55 U/L (38-126); Anion Gap 14.9 mEq/L (5-15); Aspartate Amino Transferase 26 U/L (14-36); Bilirubin,Total 0.5 mg/dl (0.2-1.3); Blood Urea Nitrogen 11 mg/dl (7-17); Calcium 10.1 mg/dl (8.4-10.2); Carbon Dioxide 29 mmol/L (22.0-30.0); Creatinine Clearance Estimated 46 mL/min (50-200); Estimated Glomerular Filt Rate 72 ml/min (>60); GFR (African American) 87 ML/MIN (>60); Globulin 3.5 g/dL (1.3-3.2); Glucose 206 mg/dl (74-100); Total Protein,Serum 8.1 g/dl (6.3-8.2)
[2020-06-09 16:39] LABS: VBG HCO3 28.3 mmol/L (23-30); VBG Oxygen Saturation 61.1 % (50-70); VBG PH 7.31 mmol/L (7.31-7.41); VBG PO2 32.2 mmol/L (28-40); VBG Total CO2 30.1 mmol/L (23-27)
[2020-06-09 16:41] LABS: VBG PCO2 57.9 mmol/L (35-51)
--- NOTE | 2020-06-09 16:41 | PC.NURSE ---
VBG called to So Daigle RN
[2020-06-09 16:42] LABS: Coronavirus 19 IgG Antibody Negative (Negative); Coronavirus 19 IgM Antibody Negative (Negative)
[2020-06-09 16:53] LABS: Troponin I < 0.01 ng/ml (0.00-0.034)
[2020-06-09 17:00] VITALS: BP 160/72; PULSE 65; O2SAT 92
[2020-06-09 17:30] VITALS: BP 155/80; PULSE 74; O2SAT 96
[2020-06-09 18:18] VITALS: BP 155/80; PULSE 74; RESP 18; TEMP 36.6; O2SAT 96
[2020-06-09 18:19] LABS: Adenovirus,PCR Not Detected (NotDetected); Bordetella Pertussis Not Detected (NotDetected); Chlamydophila Pneumoniae, PCR Not Detected (NotDetected); Coronavirus 19, PCR Not Detected (NotDetected); Coronavirus 229E Not Detected (NotDetected); Coronavirus NL63 Not Detected (NotDetected); Coronavirus OC43 Not Detected (NotDetected); Coronovirus HKU1,PCR Not Detected (NotDetected); Human Metapneumovirus Not Detected (NotDetected); Influenza A, PCR Not Detected (NotDetected); Influenza AH1, 2009 Not Detected (NotDetected); Influenza AH1, PCR Not Detected (NotDetected); Influenza AH3,PCR Not Detected (NotDetected); Influenza B, PCR Not Detected (NotDetected); Mycoplasma Pneumoniae, PCR Not Detected (NotDetected); Parainfluenza 1, PCR Not Detected (NotDetected); Parainfluenza 2, PCR Not Detected (NotDetected); Parainfluenza 3, PCR Not Detected (NotDetected); Parainfluenza 4, PCR Not Detected (NotDetected); Respiratory Syncytial Virus Not Detected (NotDetected); Rhinovirus/Enterovirus Not Detected (NotDetected)
== END 2020-06-09 18:19 | disposition home or self-care (01) ==
PROVIDERS: Emergency Provider Emergency Medicine; PCP Nurse Practitioner Family
DX: N30.00 Acute cystitis without hematuria (principal); Z01.84 Encounter for antibody response examination; I25.10 Atherosclerotic heart disease of native coronary artery without angina pectoris; K21.9 Gastro-esophageal reflux disease without esophagitis; I10 Essential (primary) hypertension; E78.5 Hyperlipidemia, unspecified; Z88.0 Allergy status to penicillin; Z88.2 Allergy status to sulfonamides; Z79.899 Other long term (current) drug therapy
CPT/HCPCS: 71045; 80053; 81001; 82803; 84484; 85025; 86328; 87086; 87581; 87633; 87798; 99284; U0003

== ENCOUNTER → 2021-04-05 06:34 | Outpatient (CLI) | payer MEDICARE, SELFPAY ==
--- NOTE | 2021-04-05 06:40 | CT_ITS ---
PROCEDURE: CT LUNG SCREENING CLINICAL INDICATION: PERSONAL HISTORY NICOTINE DEPENDENCE COMPARISON: CT LDCTLCAS LDCT FOR LUNG CA SCREEN from 07/07/[address] LUNG SCREENING from 02/12/2020 TECHNIQUE: The exam was performed on a GE Light Speed [address] scanner using 2.90 mGy CTDI. A low dose helical CT CHEST was performed on a multi-detector scanner. All CT scans at the facility use one or more dose reduction, viz: automated exposure control, ma/kV adjustment per patient size (including targeted exams where dose is matched to indication, i.e. head), or iterative reconstruction technique. The LDCT was performed in a facility that meets the criteria for the screening program. Data regarding this exam was submitted to ACR which is an approved registry. The order for this exam indicates that it came as a result of a lung cancer screening counseling shard decision-making visit that included all the elements required of such a visit including smoking cessation. The radiologist interpreting this exam meets the CMS criteria for the LDCT lung cancer screening program. The exam is reported using the Lung-RADS classification scale and reported to the ACR registry. NOTE: This study was performed for the specific purposes of lung cancer screening and is not an alternative to diagnostic chest CT. RADIATION DOSE: CTDI vol(CT dose Index-volume) = 2.90mG DLP (Dose Length Product) = 113.07 mGcm FINDINGS: COPD changes. No suspicious nodule apparent. There are few small 2 and 3 mm nodular opacities as mentioned before unchanged. Small area of cavitation is noted in the right upper lobe in the perihilar region. This is adjacent to a bronchus possibly due to an area of scarring and retraction. This measures approximately 1 cm in with and is stable since 07/27/2016. OTHER FINDINGS: Bilateral thyroid calcifications. Coronary artery calcifications. IMPRESSION: Lung-RADS Category 2 Benign Appearance or Behavior Follow-up: Continue annual screening with LDCT in 12 months Dictated by: Zane Vergara MD 04/18/2021 07:42 Zane Vergara MD in [place] 04/18/2021 07:42
--- NOTE | 2021-04-05 06:41 | MM_ITS ---
PROCEDURE INFORMATION: Exam: MG Bilateral Screening 3D Mammography Exam date and time: 04/05/2021 6:41 AM Age: 70 years old Clinical indication: Encounter for screening mammogram for malignant neoplasm of breast TECHNIQUE: Imaging protocol: Bilateral screening tomosynthesis and 2D mammography including computer-aided detection (CAD) when performed. COMPARISON: 1. MG MM DIG SCREENING MAMM BI W/CAD 02/12/2020 1:00 PM 2. MG DMSB DIG MAMM-SCREEN RJ 03/22/2016 3:31 PM FINDINGS: MAMMOGRAPHY: Breast composition: The breast tissue is composed of scattered areas of fibroglandular density. Mass: None. Architectural distortion: None. Calcifications: No suspicious calcifications. Asymmetric density: None. Skin thickening: None. Axillary adenopathy: None. IMPRESSION: No mammographic evidence of malignancy. Annual screening is recommended unless otherwise clinically indicated. ASSESSMENT: BI-RADS Category 1: Negative
== END ==
PROVIDERS: PCP Nurse Practitioner Family; Visit Provider Nurse Practitioner Family
DX: Z87.891 Personal history of nicotine dependence (principal); Z12.31 Encounter for screening mammogram for malignant neoplasm of breast
CPT/HCPCS: 71271; 77063; 77067

== ENCOUNTER → 2021-04-05 07:08 | Outpatient (CLI) | payer MEDICARE, SELFPAY ==
[2021-04-05 09:00] LABS: Basophils # 0.1 K/mm3 (0-0.2); Basophils % 0.8 % (0.1-2.0); Eosinophils # 0.1 K/mm3 (0.0-0.4); Hematocrit 41.4 % (37.0-47.0); Hemoglobin 13.5 g/dL (12.2-16.2); Lymphocytes # 1.6 K/mm3 (0.7-4.5); Mean Corpuscular HGB Conc 32.6 g/dL (31.8-35.4); Mean Corpuscular Hemoglobin 32.3 pg (27.0-31.2); Mean Corpuscular Volume 99.1 fl (81-99); Mean Platelet Volume 8.8 fl (7.4-10.4); Monocytes # 0.4 K/mm3 (0.1-1.0); Monocytes % 5.1 % (1.7-9.3); Neutrophils # 4.8 K/mm3 (1.8-7.8); Neutrophils % 70.1 % (37.0-80.0); Platelet Count 249 K/mm3 (142-424); Red Blood Count 4.18 M/mm3 (4.20-5.40); Red Cell Distribution Width 13.2 % (11.5-17.5); White Blood Count 6.9 K/mm3 (4.8-10.8)
[2021-04-05 10:11] LABS: Chloride 104 mmol/L (98-107); Potassium 4.4 mmoL/L (3.5-5.1); Sodium 141 mmol/L (136-145)
[2021-04-05 10:13] LABS: Alanine Aminotransferase 8 U/L (12-78); Aspartate Amino Transferase 23 U/L (14-36); Blood Urea Nitrogen 13 mg/dl (7-17); Estimated Glomerular Filt Rate 83 ml/min (>60); GFR (African American) 101 ML/MIN (>60)
[2021-04-05 10:14] LABS: Albumin Level 4.2 g/dl (3.5-5.0); Albumin/Globulin Ratio 1.8 (1.1-1.8); Alkaline Phosphatase 55 U/L (38-126); Anion Gap 10.4 mEq/L (5-15); Bilirubin,Total 0.5 mg/dl (0.2-1.3); Calcium 9.2 mg/dl (8.4-10.2); Carbon Dioxide 31 mmol/L (22.0-30.0); Chol/HDL Ratio 2.3 (1-3.5); Cholesterol 132 mg/dl (140-200); Globulin 2.4 g/dL (1.3-3.2); Glucose 103 mg/dl (74-100); HDL Cholesterol 58 mg/dl (40-60); Total Protein,Serum 6.6 g/dl (6.3-8.2); Triglycerides 167 mg/dl (30-150); VLDL Cholesterol 33 mg/dL (0-40)
[2021-04-05 10:25] LABS: Direct LDL Cholesterol 44.02 mg/dL (100-129)
[2021-04-05 10:45] LABS: Thyroid Stimulating Hormone 1.44 uIU/mL (0.465-4.68)
[2021-04-05 11:24] LABS: 25-OH Vitamin D, Total 57.5 ng/mL (30-100)
== END ==
PROVIDERS: PCP Nurse Practitioner Family; Visit Provider Nurse Practitioner Family
DX: I10 Essential (primary) hypertension (principal); E78.5 Hyperlipidemia, unspecified; E04.1 Nontoxic single thyroid nodule; E55.9 Vitamin D deficiency, unspecified; Z12.31 Encounter for screening mammogram for malignant neoplasm of breast; Z87.891 Personal history of nicotine dependence; Z12.2 Encounter for screening for malignant neoplasm of respiratory organs
CPT/HCPCS: 36415; 71271; 77063; 77067; 80053; 80061; 82306; 84443; 85025

== ENCOUNTER → 2021-06-16 11:11 | Outpatient (CLI) | payer MEDICARE, SELFPAY ==
--- NOTE | 2021-06-16 11:18 | XR_ITS ---
FINAL REPORT CLINICAL HISTORY: COVID TESTING, covid positive COMPARISON: June 09, 2020 FINDINGS: SINGLE VIEW CHEST. The heart is normal in size. The mediastinum is unremarkable. The lungs are clear. There is no pneumothorax. IMPRESSION: No acute process. Reviewed, Interpreted and Dictated by Kenneth Rincon III, MD Transcribed by Charu Bauer Authenticated by Kenneth Rincon III, MD on 06/16/2021 01:00:25 PM [facility]
[2021-06-16 12:32] LABS: Basophils % 0.4 % (0.1-2.0); Eosinophils % 0.2 % (0.1-12.0); Hematocrit 43.9 % (37.0-47.0); Hemoglobin 14.4 g/dL (12.2-16.2); Lymphocytes # 0.9 K/mm3 (0.7-4.5); Lymphocytes % 18.5 % (10-50); Mean Corpuscular HGB Conc 32.7 g/dL (31.8-35.4); Mean Corpuscular Hemoglobin 32.6 pg (27.0-31.2); Mean Corpuscular Volume 99.6 fl (81-99); Mean Platelet Volume 8.5 fl (7.4-10.4); Monocytes # 0.2 K/mm3 (0.1-1.0); Monocytes % 4.1 % (1.7-9.3); Neutrophils # 3.7 K/mm3 (1.8-7.8); Neutrophils % 76.9 % (37.0-80.0); Platelet Count 208 K/mm3 (142-424); Red Blood Count 4.41 M/mm3 (4.20-5.40); Red Cell Distribution Width 12.7 % (11.5-17.5); White Blood Count 4.8 K/mm3 (4.8-10.8)
[2021-06-16 12:51] LABS: Chloride 101 mmol/L (98-107); Sodium 138 mmol/L (136-145)
[2021-06-16 12:52] LABS: Potassium 4.9 mmoL/L (3.5-5.1)
[2021-06-16 12:54] LABS: Alanine Aminotransferase 17 U/L (12-78); Albumin Level 4.3 g/dl (3.5-5.0); Albumin/Globulin Ratio 1.9 (1.1-1.8); Alkaline Phosphatase 41 U/L (38-126); Anion Gap 12.9 mEq/L (5-15); Aspartate Amino Transferase 37 U/L (14-36); Bilirubin,Total 0.3 mg/dl (0.2-1.3); Blood Urea Nitrogen 14 mg/dl (7-17); Carbon Dioxide 29 mmol/L (22.0-30.0); Estimated Glomerular Filt Rate 62 ml/min (>60); GFR (African American) 75 ML/MIN (>60); Globulin 2.3 g/dL (1.3-3.2); Total Protein,Serum 6.6 g/dl (6.3-8.2)
[2021-06-16 12:55] LABS: Glucose 118 mg/dl (74-100)
== END ==
PROVIDERS: PCP Nurse Practitioner Family; Visit Provider Nurse Practitioner Family
DX: U07.1 COVID-19 (principal); R05.9 Cough, unspecified
CPT/HCPCS: 36415; 71045; 80053; 85025

== ENCOUNTER → 2021-07-05 08:36 | Outpatient (POV) | payer MEDICARE, SELFPAY | PROVIDERS: Visit Provider Dermatology | DX: Z00.00 Encounter for general adult medical examination without abnormal findings (principal) ==

== ENCOUNTER → 2021-07-26 13:53 | Outpatient (POV) | payer MEDICARE, SELFPAY | PROVIDERS: Visit Provider Dermatology | DX: Z00.00 Encounter for general adult medical examination without abnormal findings (principal) ==

== ENCOUNTER 2021-07-27 09:37 | Emergency (ER) | payer MEDICARE, SELFPAY ==
[2021-07-27 09:41] VITALS: BP 169/76; PULSE 67; RESP 16; TEMP 36.8; O2SAT 98; BMI 20.5
--- NOTE | 2021-07-27 09:54 | HMH.EDGENADL ---
ED Disposition Clinical Impression: Encounter for wound re-check Disposition: Home, Self-Care Condition on Discharge: Good Referrals: Laura Strickland APRN [Primary Care Provider] - - Critical Care Critical Care Time: No Attestation: On 07/27/21, the high probability of a clinically significant, sudden or life threatening deterioration of the following system(s) required my full and direct attention, intervention and personal management. The time I documented below is in addition to time spent performing reported procedures but includes the following listed in this critical care notation. Medical Decision Making - Wesley Inquiry Pt receiving controlled substance: No Vital Signs: 07/27/21 09:41 07/27/21 10:31 Temperature 98.3 F Temperature Source Oral Pulse Rate 64 Pulse Rate [Right Radial] 67 Respiratory Rate 16 18 Blood Pressure 150/61 H Blood Pressure [Right Arm] 169/76 H Blood Pressure Mean 90 Blood Pressure Mean [Right Arm] 107 Blood Pressure Source [Right Arm] Automatic Cuff Blood Pressure Position [Right Arm] Sitting 02 Sat by Pulse Oximetry 98 95 Oxygen Delivery Method Room Air - Lab Data Lab Results 07/27/21 10:05: WBC 6.7, RBC 3.90 L, Hgb 12.5, Hct 38.8, MCV 99.6 H, MCH 32.1 H, MCHC 32.3, RDW 13.7, Plt Count 253, MPV 8.7, Neut % (Auto) 77.4, Lymph % (Auto) 17.4, [place] % (Auto) 4.1, Eos % (Auto) 0.5, Baso % (Auto) 0.7, Neut # (Auto) 5.1, Lymph # (Auto) 1.2, [place] # (Auto) 0.3, Eos # (Auto) 0.0, Baso # (Auto) 0.0 Result diagrams: 07/27/21 10:05 Medical Decision Narrative: 71-year-old female presents emergency department with venous ooze from 3 cm anterior chest repaired laceration after lesion was removed yesterday at dermatology clinic. 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 Patient has not had fevers or other constitutional symptoms. Patient denies weakness, presyncope or signs of symptomatic anemia with hemoglobin 12.5 in the emergency department and patient hemodynamically stable without tachycardia. Pressure was held in the emergency department for approximately 20 minutes and hemostasis was achieved. Patient was able to be discharged with return precautions and instructions to maintain her scheduled follow-up appointment, with patient amenable to this. General Adult HPI - General Stated complaint: possible left shoulder blood clot Time Seen by Provider: 07/27/21 09:54 - History of Present Illness HPI narrative: 71-year-old female presents emergency department with 3 cm left of sternum superior anterior chest wound repaired yesterday after dermatology excised a lesion. Patient denies fever, but states that she has had venous oozing from the area since 6 PM yesterday. Patient states that she takes aspirin but denies blood thinners including Coumadin, Xarelto, Eliquis. Patient has history of hypertension and states that she smokes but denies drinking or recreational drug use. Patient is here due to persistent venous oozing. - Related Data Home Medications Medication Instructions Recorded Confirmed Escitalopram Oxalate 20 mg PO DAILY 08/14/17 03/20/19 Pantoprazole Sodium [Protonix 40mg 40 mg PO DAILY 08/14/17 03/20/19 (granule) packet] fluticasone furoate 100 1 inh INHALATION ONCE PRN 11/13/17 03/20/19 mcg-vilanterol 25 mcg/dose inhalation powder albuterol sulfate 90 mcg/actuation 1 puff INHALATION Q6H PRN 08/05/18 03/20/19 aerosol inhaler Previous Rx's Medication Instructions Recorded Azithromycin [Zithromax 500mg Tab 500 mg PO DAILY #3 tab 12/22/18 Tri-Eric] predniSONE [Prednisone 50mg Tab] 50 mg PO DAILY 5 Days #5 tab 12/22/18 amlodipine 2.5 mg tablet 2.5 mg PO DAILY #30 tab 12/30/18 aspirin 81 mg chewable tablet 81 mg PO DAILY #30 tab 12/30/18 bisoprolol fumarate 5 mg tablet 5 mg PO DAILY #30 tab
[2021-07-27 10:19] LABS: Basophils % 0.7 % (0.1-2.0); Eosinophils % 0.5 % (0.1-12.0); Hematocrit 38.8 % (37.0-47.0); Hemoglobin 12.5 g/dL (12.2-16.2); Lymphocytes # 1.2 K/mm3 (0.7-4.5); Lymphocytes % 17.4 % (10-50); Mean Corpuscular HGB Conc 32.3 g/dL (31.8-35.4); Mean Corpuscular Hemoglobin 32.1 pg (27.0-31.2); Mean Corpuscular Volume 99.6 fl (81-99); Mean Platelet Volume 8.7 fl (7.4-10.4); Monocytes # 0.3 K/mm3 (0.1-1.0); Monocytes % 4.1 % (1.7-9.3); Neutrophils # 5.1 K/mm3 (1.8-7.8); Neutrophils % 77.4 % (37.0-80.0); Platelet Count 253 K/mm3 (142-424); Red Cell Distribution Width 13.7 % (11.5-17.5); White Blood Count 6.7 K/mm3 (4.8-10.8)
[2021-07-27 10:31] VITALS: BP 150/61; PULSE 64; RESP 18; O2SAT 95
[2021-07-27 11:14] VITALS: BP 133/68; PULSE 63; RESP 20; TEMP 36.8; O2SAT 96
== END 2021-07-27 11:14 | disposition home or self-care (01) ==
PROVIDERS: Emergency Provider Student in an Organized Health Care Education/Training Program; PCP Nurse Practitioner Family
DX: L76.21 Postprocedural hemorrhage of skin and subcutaneous tissue following a dermatologic procedure (principal); I10 Essential (primary) hypertension; K21.9 Gastro-esophageal reflux disease without esophagitis; E78.5 Hyperlipidemia, unspecified; F17.210 Nicotine dependence, cigarettes, uncomplicated
CPT/HCPCS: 85025; 99282

== ENCOUNTER → 2023-01-05 08:13 | Outpatient (CLI) | payer MEDICARE, SELFPAY ==
--- NOTE | 2023-01-05 08:30 | XR_ITS ---
FINAL REPORT CLINICAL HISTORY: . post menopausal screening COMPARISON: None FINDINGS: Using L1-4, the bone mineral density of the spine is 0.969 g/cm2, corresponding to T-score of -0.7, within normal limit. This may be falsely elevated secondary to hypertrophic changes. Using the left hip, the bone mineral density of the femoral neck is 0.667 g/cm2, corresponding to a T-score of -1.6, consistent with low bone density. Using the right hip, the bone mineral density of the femoral neck is 0.598 g/cm2, corresponding to a T-score of -2.3, consistent with low bone density. FRAX 10 year fracture risk is 4.6% for a hip fracture and 13% for a major osteoporotic fracture. NOTE: T-score: Standard deviation compared with peak bone mass of young adult mean. *Following the recommendations of the International Society of Bone densitometry, classification of hip BMD is based on the lower of two T-scores; total hip or femoral neck. IMPRESSION: Diminished bone mineral density consistent with low bone density. Reviewed, Interpreted and Dictated by Kenneth Rincon III, MD Transcribed by Gabriella Hardin Authenticated and . [facility]
--- NOTE | 2023-01-05 08:30 | MM_ITS ---
PROCEDURE INFORMATION: Exam: MG Bilateral Screening 3D Mammography Exam date and time: 01/05/2023 8:20 AM Age: 72 years old Clinical indication: Screening examination; Family history of breast cancer in sister; Sister's age: 52 years TECHNIQUE: Imaging protocol: Bilateral Screening tomosynthesis and 2D mammography including computer-aided detection (CAD) when performed. COMPARISON: 1. MG MM DIG SCREENING MAMM BI W/CAD 04/05/2021 7:57 AM 2. MG MM DIG SCREENING MAMM BI W/CAD 02/12/2020 1:00 PM FINDINGS: MAMMOGRAPHY: Breast composition: There are scattered areas of fibroglandular density. Mass: None. Architectural distortion: None. Calcifications: No suspicious calcifications. Asymmetric density: None. Skin thickening: None. Axillary adenopathy: None. IMPRESSION: No mammographic evidence of malignancy. Annual screening is recommended unless otherwise clinically indicated. ASSESSMENT: BI-RADS Category 1: Negative
--- NOTE | 2023-01-05 08:32 | CT_ITS ---
FINAL REPORT CLINICAL HISTORY: PERSONAL H/O TOBACCO USE smokes 1 1/2 pks per day x 50 yrs cad COMPARISON: 04/05/2021 FINDINGS: CT CHEST LOW DOSE SCREENING HISTORY: Screening exam for lung cancer. Current smoker, 75 pack year smoking history DOSE: CTDIvol: 2.9 mGy, DLP: 117.5 mGy*cm COMPARISON: 04/05/2021. TECHNIQUE: Axial CT without IV contrast administration using low dose protocol FINDINGS: Bilateral thyroid calcifications remain present and are stable since the prior CT. There are moderate to severe coronary artery calcifications that are worse than those seen and 202. Moderate changes of emphysema remain present. There are multiple new bilateral pulmonary nodules present since the prior CT. There are two small ground glass nodules present on axial image #34, the more medial of the two measuring 6 mm with the more lateral and posterior nodule measuring 8 mm in diameter. There are multiple other new 5 mm or smaller nodules bilaterally. No pleural or pericardial effusion is seen . Post cholecystectomy changes are noted in the right upper quadrant of the abdomen. IMPRESSION: Multiple new bilateral pulmonary nodules are identified bilaterally when compared with the prior CT of 2020. Many of these are ground glass nodules, and would favor inflammatory or infection. Recommend a follow-up LDCT in 3 months. Moderate to severe coronary artery calcifications are more prominent than noted in 202. LUNG RADS CATEGORY 0 RECOMMENDATION: 3 month LDCT follow up Reviewed, Interpreted and Dictated by Kenneth Rincon III, MD Transcribed by Shelly Johnson Authenticated and [facility]
== END ==
PROVIDERS: PCP Nurse Practitioner Family; Visit Provider Nurse Practitioner Family
DX: Z12.31 Encounter for screening mammogram for malignant neoplasm of breast (principal); Z78.0 Asymptomatic menopausal state; Z87.891 Personal history of nicotine dependence; Z12.2 Encounter for screening for malignant neoplasm of respiratory organs
CPT/HCPCS: 71271; 77063; 77067; 77080

== ENCOUNTER 2024-02-01 09:19 | Outpatient (CLI) | payer MEDICARE, SELFPAY ==
--- NOTE | 2024-02-01 09:26 | CT_ITS ---
FINAL REPORT TECHNIQUE: Thin section axial images were obtained from the lung apices to the upper abdomen by computed tomography. Reformatted images were obtained and reviewed. This study was performed with techniques to keep radiation doses al low as reasonably achievable (ALARA). Individualized dose reduction techniques using automated exposure control or adjustment of mA and/or kV according to the patient's size were employed. CLINICAL HISTORY: HX TOBACCO USE, SCREENING current smoker 2ppd x 53 years COMPARISON: 01/05/2023 FINDINGS: CHEST CT LOW DOSE 73-year-old female, current smoker, [id number] history. CTDI vol (mGy): 2.9 DLP (mGy-cm): 109.68 There is no axillary adenopathy. There are calcified subcarinal and perihilar nodes present. The heart is normal in size. Coronary artery calcifications are present. There is no pericardial or pleural effusion. There are moderate changes of centrilobular emphysema and mild pulmonary scarring in the anterior right middle lobe. Lung window images demonstrate resolution of the ground glass nodules in the right upper lobe since the prior exam of 2022. There is a small nodule in the peripheral left upper lobe which measures 4 mm in size, best seen on image #18 of series 4, stable. No new nodules are identified.. Limited images of the upper abdomen are unremarkable. IMPRESSION: Lung-RADS category 2S, the S designation for moderate centrilobular emphysema.. Recommend 12 month follow up low dose chest CT. Reviewed, Interpreted and Dictated by Salty Brooke MD Transcribed by Shelly Johnson Authenticated and [facility]
--- NOTE | 2024-02-01 09:30 | MM_ITS ---
PROCEDURE INFORMATION: Exam: MG Bilateral Screening 3D Mammography Exam date and time: 02/01/2024 9:29 AM Age: 73 years old Clinical indication: Screening examination TECHNIQUE: Imaging protocol: Bilateral Screening tomosynthesis and 2D mammography including computer-aided detection (CAD) when performed. COMPARISON: 1. MG MM DIG SCREENING MAMM BI W/CAD 01/05/2023 8:20 AM 2. MG MM DIG SCREENING MAMM BI W/CAD 04/05/2021 7:57 AM FINDINGS: MAMMOGRAPHY: Breast composition: There are scattered areas of fibroglandular density. Mass: No suspicious masses. Architectural distortion: None. Calcifications: No suspicious calcifications. Asymmetric density: None. Skin thickening: None. Axillary adenopathy: None. IMPRESSION: No mammographic evidence of malignancy. Annual screening is recommended unless otherwise clinically indicated. ASSESSMENT: BI-RADS Category 1: Negative
== END 2024-02-01 23:59 | disposition home or self-care (01) ==
LOC: RAD 09:22
PROVIDERS: PCP Nurse Practitioner Family; Visit Provider Nurse Practitioner Family
DX: Z87.891 Personal history of nicotine dependence (principal); Z12.31 Encounter for screening mammogram for malignant neoplasm of breast
CPT/HCPCS: 71271; 77063; 77067

== ENCOUNTER 2024-07-04 15:30 | Emergency (ER) | payer MEDICARE, SELFPAY ==
--- NOTE | 2024-07-04 16:45 | XR_ITS ---
PROCEDURE INFORMATION: Exam: XR Right Shoulder Exam date and time: 07/04/2024 4:52 PM Age: 73 years old Clinical indication: Injury or trauma; Fall; Blunt trauma (contusions or hematomas); Shoulder; Right TECHNIQUE: Imaging protocol: Radiologic exam of the right shoulder. Views: 2 or more views. COMPARISON: No relevant priors. FINDINGS: Bones/joints: No acute fracture identified. Degenerative changes of the glenohumeral and AC joint. Soft tissues: Normal. IMPRESSION: No acute abnormality.
[2024-07-04 16:55] VITALS: BP 183/78; PULSE 63; RESP 16; TEMP 36.7; O2SAT 95; BMI 18.8
--- NOTE | 2024-07-04 17:00 | XR_ITS ---
PROCEDURE INFORMATION: Exam: XR Right Ribs with PA Chest Exam date and time: 07/04/2024 5:15 PM Age: 73 years old Clinical indication: Injury or trauma; Fall; Rib area; Blunt trauma (contusions or hematomas) TECHNIQUE: Imaging protocol: Radiologic exam of the right ribs with PA chest. Views: 3 views COMPARISON: CR XR RIBS RT MIN 3V W CXR1V 07/04/2024 5:15 PM FINDINGS: Lungs: Minimally increased linear markings are present in the right lower lobe which may reflect atelectasis, edema or contusion. The lungs appear otherwise clear. No focal areas of consolidation. Pleural spaces: There is a small right pleural effusion. Negative for pneumothorax. No left effusion. Heart/Mediastinum: Cardiac silhouette and pulmonary vasculature are within range of normal. Calcified mediastinal lymph nodes indicate prior granulomatous disease. Bones/joints: There is no evidence of acute fracture or dislocation. Moderate degenerative changes involve both AC joints.The thoracic spine demonstrates mild degenerative changes at multiple levels. Soft tissues: No significant soft tissue edema. No subcutaneous emphysema or radiopaque foreign bodies. IMPRESSION: 1. No evidence of acute fracture. 2. Small right pleural effusion with minimally increased linear markings in the right lower lobe which may reflect atelectasis, edema or contusion.
--- NOTE | 2024-07-04 17:00 | XR_ITS ---
PROCEDURE INFORMATION: Exam: XR Right Clavicle, Complete Exam date and time: 07/04/2024 5:13 PM Age: 73 years old Clinical indication: Injury or trauma; Fall; Blunt trauma (contusions or hematomas); Shoulder; Right TECHNIQUE: Imaging protocol: Radiologic exam of the right clavicle. Complete exam. Views: Any number of views. COMPARISON: CR Shoulder R 07/04/2024 4:52 PM FINDINGS: Bones/joints: There is no evidence of acute fracture or dislocation. Moderate degenerative changes involve the right AC joint. There is a small focus of calcific tendinitis along the superolateral right humeral head. The visualized right lung appears clear. No pneumothorax. Soft tissues: No significant soft tissue edema. No subcutaneous emphysema or radiopaque foreign bodies. IMPRESSION: 1. No acute posttraumatic osseous injury. 2. Calcific tendinitis. 3. 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
--- NOTE | 2024-07-04 17:07 | EXP.UTC ---
Discharge Plan Disposition Patient Disposition: Home, Self-Care Condition: Good Prescriptions Prescriptions: No Action fluticasone furoate-vilanterol [Breo Ellipta] 100-25 mcg/dose blister with device 1 inh INHALATION ONCE PRN Ventolin HFA 90 mcg/actuation HFA aerosol inhaler 1 puff INHALATION Q6H PRN amlodipine 2.5 mg tablet 2.5 mg PO DAILY Qty: 30 5RF aspirin 81 mg tablet,chewable 81 mg PO DAILY Qty: 30 5RF bisoprolol fumarate 5 mg tablet 5 mg PO DAILY Qty: 30 5RF clopidogrel 75 mg tablet 75 mg PO DAILY Qty: 30 5RF lisinopril-hydrochlorothiazide 20-25 mg tablet 1 tab PO DAILY Qty: 30 5RF rosuvastatin 10 mg tablet 10 mg PO DAILY Qty: 30 5RF fluticasone propionate 120 SPR/BOT bottle 2 spr NS DAILY Qty: 1 1RF escitalopram oxalate 20 MG tablet 20 mg PO DAILY pantoprazole [address] for susp in packet 40 mg PO DAILY cefuroxime axetil 500 MG tablet 500 mg PO BID Qty: 20 0RF meclizine 25 MG tablet,chewable 25 mg PO TID 7 Days Qty: 20 0RF Referrals Follow up/Referrals: Laura Strickland APRN [Primary Care Provider] - See instructions Activity Restrictions/Add. Instructions Additional Instructions/Restrictions: Go home and rest. It would be best if you rested for the next few days. No heavy lifting & No twisting for the next few days. Follow up with your regular doctor. Make sure they are aware of the small pleural effusion that you have and follow their recommendations regarding follow up on it. GO TO THE ER FOR ANY WORSENING SYMPTOMS OR CONCERN. Clinical Impressions Clinical Impression: Fall, Pleural effusion, right, Pain in right shoulder, Contusion of rib on right side Instructions Patient Instructions: DI for Rib Contusion, DI for Shoulder Pain, DI for Pleural Effusion Print Language Print Language: Bel[place]an Discharge ED Provider: Shree Hoffmann [facility] General Stated complaint: right shoulder pain,fell several days ago Time Seen by Provider: 07/04/24 17:07 History of Present Illness Provider Complaint: She states that 4 days ago she fell on ice and came down on her right shoulder and the right side of her chest. She has refused to come in to be checked, but today her daughter convinced her to because she is still having the shoulder pain and right rib pain. She denies any shortness of breath, abnormal cough, neck pain, back pain and any other symptoms. Related Data Home Medications ?Medication ?Instructions ?Recorded ?Confirmed escitalopram oxalate 20 mg tablet 20 mg PO DAILY Anxiety 08/14/17 03/20/19 pantoprazole 40 mg granules 40 mg PO DAILY GERD 08/14/17 03/20/19 delayed-release for susp in packet fluticasone furoate 100 1 inh inhalation ONCE PRN 11/13/17 03/20/19 mcg-vilanterol 25 mcg/dose inhalation powder (Breo Ellipta) albuterol sulfate 90 mcg/actuation 1 puff inhalation Q6H PRN 08/05/18 03/20/19 aerosol inhaler (Ventolin HFA) Previous Rx's ?Medication ?Instructions ?Recorded amlodipine 2.5 mg tablet 2.5 mg PO DAILY #30 tabs 12/30/18 aspirin 81 mg chewable tablet 81 mg PO DAILY Heart disease #30 12/30/18 tabs bisoprolol fumarate 5 mg tablet 5 mg PO DAILY Heart disease #30 12/30/18 tabs clopidogrel 75 mg tablet 75 mg PO DAILY Heart disease #30 12/30/18 tabs lisinopril 20 1 tab PO DAILY #30 tabs 12/30/18 mg-hydrochlorothiazide 25 mg tablet rosuvastatin 10 mg tablet 10 mg PO DAILY Cholesterol #30 tabs 12/30/18 cefuroxime axetil 500 mg tablet 500 mg PO BID #20 tabs 01/01/19 meclizine 25 mg chewable tablet 25 mg PO TID 7 days #20 tabs 01/01/19 fluticasone propionate 50 2 spr NS DAILY ##1 04/04/20 mcg/actuation nasal spray,suspension Allergies Allergy/AdvReac Type Severity Reaction Status Date / Time Penicillins Allergy Unknown ITCHING Verified 05/10/20 17:31 Sulfa (Sulfonamide Allergy Unknown ITCHING Verified 05/10/20 17:31 Antibiotics) (SULFA (SULFONAMIDE ANTIBIOTICS)) [facility] Disclaimer: The information contained in this section may have been updated after the patient was seen, as this information can be updated by other users. Social History Smoking Status: Never smoker second hand exposure: No alcohol intake: never substance use type: denies use current occupational status: other Travel in the last 8 weeks: None household members: family housing: house Have you lived/traveled outside US in past 30 days?: No Contact w/someone who lives/traveled outside US past 30 days?: No Exposure to someone with infectious disease in past 14 days?: No Do you have a fever (greater than 100.4 F or 38 C)?: No Have you tested positive for COVID-19: No Exposed to someone with COVID-19 in past 14 days?: No Do you have a sore throat?: No Do you have a cough?: No Do you have any weakness?: No Do you have any diarrhea?: No Are you experiencing any unusual bleeding?: No Do you have any muscle aches/pain?: No Do you have any abdominal pain?: No Are you experiencing loss of taste or smell?: No ROS Obtained: Yes All systems reviewed & no additional complaints except as documented Constitutional Constitutional: Denies chills and Denies fever(s) Eyes Eyes: Denies eye discharge ENT Ears, Nose, Mouth, and Throat: Denies dizziness, Denies otalgia and Denies sore throat Cardiovascular Cardiovascular: Denies chest pain Respiratory Respiratory: Reports as per HPI, Denies shortness of breath, Denies chest congestion, Denies cough, Denies stridor and Denies wheezing Gastrointestinal Gastrointestingal: Denies nausea or vomiting Musculoskeletal Musculoskeletal: Reports as per HPI Integumentary/Breasts Skin/Breast: Denies redness, Denies rash and Denies wounds Neurologic Neurologic: Denies dizziness and Denies paresthesias Allergic/Immunologic Allergic/Immunologic: Denies wheezing Physical Exam General General appearance: alert and in no apparent distress Head Head exam: atraumatic, normocephalic and normal inspection Eye Eye exam: Present normal appearance, PERRL and EOMI ENT ENT exam: Present normal exam, normal oropharynx, mucous membranes moist, TM's normal bilaterally and normal external ear exam Neck Neck exam: Present normal inspection, full ROM and trachea midline; Absent tenderness, meningismus or lymphadenopathy Chest Chest inspection: Present symmetric chest wall rise and tenderness Respiratory Respiratory exam: Present normal lung sounds bilaterally; Absent respiratory distress Cardiovascular Cardiovascular exam: Present regular rate and normal rhythm; Absent JVD Abdominal Exam Abdominal exam: Present soft and normal bowel sounds; Absent distention, tenderness or guarding Extremities Exam Extremities exam: Present normal inspection, full ROM and normal capillary refill; Absent calf tenderness Expanded Upper Extremity Exam Right: Shoulder exam: Present full ROM and tenderness; Absent swelling, abrasion, laceration, ecchymosis, deformity, crepitus, dislocation, erythema or tenderness over AC joint Arm exam: Present normal inspection and full ROM; Absent tenderness, swelling, abrasion, laceration, ecchymosis, deformity, crepitus or erythema Back Exam Back exam: Present normal inspection; Absent tenderness Neurological Exam Neurological exam: Present alert and oriented X3 Psychiatric Psychiatric exam: Present normal affect and normal mood Skin Skin exam: Present warm, dry, intact and normal color Lymphatic Lymphatic Findings: no adenopathy Medical Decision Making Medical Records Medical records reviewed: No I reviewed the patient's medical records. Screening: Per USPSTF and CDC recommendations, given the prevalence of disease in our region, it is our hospital?s policy to screen for HIV and viral Hepatitis for all patients aged 18 and over and those with ongoing risk factors. Wesley Inquiry Pt receiving controlled substance: No Orders (Tests/Meds): ORDERS Category Date Time Status XR clavicle RT Stat Exams 07/04/24 17:00 Ordered XR ribs RT min 3V w CXR1V Stat Exams 07/04/24 17:00 Ordered XR shoulder RT min 2V Stat Exams 07/04/24 16:45 Ordered
[2024-07-04 18:17] VITALS: BP 183/78; PULSE 63; RESP 16; TEMP 36.7; O2SAT 95
== END 2024-07-04 18:21 | disposition home or self-care (01) ==
PROVIDERS: Emergency Provider Nurse Practitioner Family; PCP Nurse Practitioner Family
DX: M25.511 Pain in right shoulder (principal); S20.211A Contusion of right front wall of thorax, initial encounter; J90 Pleural effusion, not elsewhere classified; W19.XXXA Unspecified fall, initial encounter
CPT/HCPCS: 71101; 73000; 73030; 99213; G0381

== ENCOUNTER 2024-07-11 09:42 | Outpatient (CLI) | payer MEDICARE, MEDICAID, SELFPAY ==
--- NOTE | 2024-07-11 | CA_ITS ---
FINAL REPORT CLINICAL HISTORY: HTN, HLD, smoker, CAD, dizziness. FINDINGS: RIGHT CAROTID: CCA PSV -70 cm/sec ICA PSV -101 cm/sec ICA/CCA PSV ratio -1.6. Comments: Mild plaque disease is noted. LEFTCAROTID: CCA PSV -82. cm/sec ICA PSV -123. cm/sec ICA/CCA PSV ratio -1.6. Comments: Mild plaque disease is noted. Antegrade flow is seen within the vertebral arteries. There is a 22 mm solid mass in the right thyroid. IMPRESSION: Carotid stenosis classified less than 50% Incidental right thyroid nodule. Recommend thyroid ultrasound follow-up. Reviewed, Interpreted and Dictated by Wilda Bhatt MD Transcribed by Mildred Oshea Authenticated and [facility]
== END 2024-07-11 23:59 | disposition home or self-care (01) ==
LOC: RT 09:43
PROVIDERS: PCP Nurse Practitioner Family; Visit Provider Nurse Practitioner Family
DX: R42 Dizziness and giddiness (principal); I65.23 Occlusion and stenosis of bilateral carotid arteries
CPT/HCPCS: 93880

== ENCOUNTER 2024-07-17 08:39 | Outpatient (CLI) | payer MEDICARE, MEDICAID, SELFPAY ==
--- NOTE | 2024-07-17 08:43 | US_ITS ---
FINAL REPORT TECHNIQUE: Sonographic images of the thyroid were obtained. CLINICAL HISTORY: NODULE COMPARISON: None FINDINGS: THYROID ULTRASOUND SIZE: The right lobe volume is 10.2 mL. The left lobe volume is 3.0 mL. ECHOGENICITY: Homogeneous LESIONS: The right lobe shows a dominant isoechoic mass measuring 27 x 22 x 16 mm, classified as TR 3 nodule. A 7 mm colloid cyst is seen in the upper right lobe. There is a 9 mm hypoechoic TR 4 nodule in the inferior right lobe. There is a heavily calcified 7 mm TR 4 nodule in the inferior right lobe. There is a 6 mm hypoechoic TR4 nodule in the mid left lobe. There is a larger 11 mm nodule in the left lobe, classified as TR 3 nodule. OTHER: No additional findings. IMPRESSION: Multinodular goiter. Ultrasound directed FNA recommended of the dominant TR 3 mass within the right lobe. Smaller nodules can be followed up in 12 months per TI-RADS criteria. Reviewed, Interpreted and Dictated by Wilda Bhatt MD Transcribed by Christal Grossman Authenticated and [facility][1]
== END 2024-07-17 23:59 | disposition home or self-care (01) ==
LOC: RAD 08:40
PROVIDERS: PCP Nurse Practitioner Family; Visit Provider Nurse Practitioner Family
DX: E04.1 Nontoxic single thyroid nodule (principal)
CPT/HCPCS: 76536

== ENCOUNTER 2024-08-15 07:32 | Outpatient (CLI) | payer MEDICARE, MEDICAID, SELFPAY ==
--- NOTE | 2024-08-15 07:32 | US_ITS ---
FINAL REPORT CLINICAL HISTORY: ARCELIA WORKMAN PA - RT THYROID NODULE FINDINGS: Ultrasound guided thyroid biopsy. HISTORY: Thyroid mass. PROCEDURE: After informed consent was obtained and a time-out was performed, the patient was prepped and draped in usual sterile fashion over the anterior neck. Utilizing local anesthesia and sterile technique with a 25-gauge needle, access to the lesion was obtained. Four passes were made. The patient received no conscious sedation. The patient tolerated the procedure well and left the department in good condition. IMPRESSION: Status post ultrasound guided biopsy of a thyroid nodule without immediate complication. Films reviewed , interpreted and dictated by Dr. Brooke. Transcribed by Arcelia Workman PA-C. Reviewed, Interpreted and Dictated by Salty Brooke MD Transcribed by ANGELA Garcia Authenticated and [facility]
== END 2024-08-15 23:59 | disposition home or self-care (01) ==
LOC: RAD 07:32
PROVIDERS: PCP Nurse Practitioner Family; Visit Provider Nurse Practitioner
DX: E04.1 Nontoxic single thyroid nodule (principal)
CPT/HCPCS: 10005

== ENCOUNTER 2024-09-01 09:02 | Outpatient (CLI) | payer MEDICARE, MEDICAID, SELFPAY ==
--- NOTE | 2024-09-01 | CA_ITS ---
APPROVED REPORT EXAM: Comprehensive 2D, Doppler, and color-flow Echocardiogram Public Relations Specialist: Kathi Castro CRT Ht: 5 ft 2 in Wt: 105lbs BSA: 1.45 BP: 130/62 mmHg Indications: Murmur, Shortness of Breath 2D Dimensions Left Atrium 3.96 cm LVEF (Coppola's) 53.00 % RVID Base (AP4) 2.77 cm (M/F) 2.5-4.1 LV Volume 91.90 mL LVOT 1.78 cm (M/F) 1.5-2.5 LA Volume 27.20 mL LA Volume Index 18.80 mL/m2 (M/F) 16-34 EF AP4 61.50 % EF AP2 42.9 % EF BP 53.0 % GL Strain -13.5 % M-Mode Dimensions RVDd 1.77 cm (0.9-2.6) LVDd 4.67 cm (3.5-5.7) Ao Diam 3.50 cm (2.0-3.7) LVDs 2.76 cm (3.5-5.7) IVSd 0.78 cm (0.6-1.1) PWd 0.70 cm (0.6-1.1) EF (Teich) 71.70% FS 40.90% EDV (Teich) 100.80 mL TAPSE 1.97 (<1.7) ESV (Teich) 28.50 mL LV Diastology E Decel Time 161 (160-240 msec) E/A Ratio 1.01 MED E' 8.7 (>= 7 cm/sec) MED A' 12.30 cm/s E'/MED E' Ratio 9.23 (<= 14) LAT E' 8.6 (>= 10 cm/sec) LAT A' 13.00 cm/s E/LAT E' Ratio 9.34 (<= 14) Aortic Valve AoV Peak Alec. 132.0 (50-130 cm/s) AO Peak GR. 7.00 mmHg Mitral Valve MV E Max Alce. 80.0 (40-130 cm/s) MV A Velocity 79.0 (40-130 cm/s) E/A Ratio 1.01 MV Decel. Time 161 (160-240 ms) Tricuspid Valve TR P. Velocity 353.00 cm/s RAP Estimate 10.00 mmHg RVSP 60.00 mmHg Left Ventricle The left ventricle is normal size. The left ventricular systolic function is normal. The left ventricular ejection fraction is within the normal range. There is normal left ventricular wall thickness. There is normal LV segmental wall motion. The left ventricular diastolic function is normal. LVEF is 55%. Right Ventricle Right ventricle is mildly dilated. The right ventricular systolic function is normal. Atria The left atrium is mildly dilated. The right atrium size is normal. There is a possible echodensity in the roof of the right atrium. This may represent Chiari network, but true mass cannot be entirely excluded. There is no Doppler evidence of interatrial shunt. Aortic Valve The aortic valve is mildly thickened. There is no aortic valvular stenosis. Trace aortic regurgitation. Mitral Valve The mitral valve is normal in structure. No evidence of mitral valve stenosis. Trace mitral regurgitation. Tricuspid Valve Tricuspid valve is grossly normal in structure and function. Mild tricuspid regurgitation. RVSP is 25-30 mmHg. Pulmonic Valve The pulmonary valve is normal in structure. Trace pulmonic regurgitation. Great Vessels The aortic root is normal in size. IVC is normal in size and collapses >50% with inspiration. Pericardium There is no pericardial effusion. Other Information Study Quality: Fair Conclusion Normal biventricular systolic function. Mild RV dilation. Mild biatrial dilation. Mild TR. There is a possible echodensity in the roof of the right atrium. This may represent Chiari network, but true mass cannot be entirely excluded. In the setting of possible RA echodensity, further evaluation with cardiac MRI (mass protocol, RA mass) is suggested. Electronically signed by : Evangelina Dodson MD 09/13/2024 15:30:08
== END 2024-09-01 23:59 | disposition home or self-care (01) ==
LOC: RT 09:03
PROVIDERS: PCP Nurse Practitioner Family; Visit Provider Nurse Practitioner Family
DX: I51.7 Cardiomegaly (principal); I36.1 Nonrheumatic tricuspid (valve) insufficiency; R06.09 Other forms of dyspnea; R01.1 Cardiac murmur, unspecified; J90 Pleural effusion, not elsewhere classified
CPT/HCPCS: 93306

== ENCOUNTER 2024-10-10 10:05 | Outpatient (CLI) | payer MEDICARE, MEDICAID, SELFPAY ==
[2024-10-10 10:26] LABS: Blood Urea Nitrogen 12 mg/dl (7-17); Estimated Glomerular Filt Rate 82 ml/min (>60); GFR (African American) 100 ML/MIN (>60)
[2024-10-10] MEDS: GADOTERIDOL INJ 10ML SYRINGE 10 ML IV (12:08)
[2024-10-10] MEDS: 0.9 % SODIUM CHLORIDE 50 ML VIAL 20 ML IV (12:08)
[2024-10-10] MEDS: SODIUM CHLORIDE 0.9% 10ML SYR (RAD ONLY) 10 ML IV (12:08)
== END 2024-10-10 23:59 | disposition home or self-care (01) ==
LOC: RAD 10:05
PROVIDERS: PCP Nurse Practitioner Family; Visit Provider Physician Assistant
DX: R93.1 Abnormal findings on diagnostic imaging of heart and coronary circulation (principal); R07.89 Other chest pain; F17.200 Nicotine dependence, unspecified, uncomplicated; I10 Essential (primary) hypertension; Z95.5 Presence of coronary angioplasty implant and graft; I25.10 Atherosclerotic heart disease of native coronary artery without angina pectoris
CPT/HCPCS: 36415; 75561; 82565; 84520; A9576

== ENCOUNTER 2024-10-21 07:33 | Outpatient (CLI) | payer MEDICARE, MEDICAID, SELFPAY ==
--- NOTE | 2024-10-21 | CA_ITS ---
APPROVED REPORT Exam: Pharmacologic Technologist: Sonia Fang Ht: 5 ft 2 in Wt: 104 lbs BSA: 1.45 m2 HR: 77 bpm BP: 167/81 mmHg Stress Test Details Test: Lexiscan HR Resting HR: 77 bpm Max Heart Rate (APMHR): 148 bpm Max HR Achieved: 98 bpm Target HR (85% APMHR): 126 bpm % of APMHR: 66 Recovery HR: 91 bpm BP Resting BP: 150.0/69.0 mmHg Max BP: 150.0/69.0 mmHg Recovery BP: 127.0/70.0 mmHg ECG Resting ECG: Normal sinus rhythm Stress ECG Conclusion Symptoms: Chest tightness, dyspnea Arrhythmias/Ectopy: PVC, PAC ST-T Changes: Less than [address] depression Conclusion: EKG unremarkable due to Lexiscan infusion. Electronically signed by : Evangelina Dodson MD 10/22/2024 13:21:01
--- NOTE | 2024-10-21 08:00 | NM_ITS ---
APPROVED REPORT Exam: Nuclear Stress Test Indication: cad, htn, hyperlipidemia, tob use, fm hx, sob, c.p. Patient Location: Outpatient Stress Tech: Sonia Fang NE Tech:Kecia Blackwood, ARRT, RT (R)(N) Ht: 5 ft 2 in Wt: 104 lbs Bra Size: a HR: 76 bpm BP: 167/81 mmHg BSA: 1.45 m2 TID: 0.94 BMI: 19.0 History: cad, htn, hyperlipidemia, tob use, fm hx, sob, c.p. Procedure: Patient received 0.4 mg of intravenous Lexiscan, resting heart rate 76 bpm, resting blood pressure 167/81 mmHg, with Lexiscan maximum heart rate achieved was 99 bpm which is % of the maximum predicted heart rate and blood pressure was 138/69 mmHg. With Lexiscan, patient denied any complaint of chest pain. Cardiac Stress and Resting SPECT Images: Cardiac Stress and Resting SPECT images were obtained using technetium 99m Myoview 29.7 mCi stress and 10.50 mCi at rest. Resting and stress imaging in supine and prone positions demonstrate no evidence of fixed or reversible perfusion defects. Gated imaging demonstrates normal global and regional LV systolic function. LVEF is calculated at 63%. Conclusion: No evidence of fixed or reversible perfusion defects. Gated imaging demonstrates normal global and regional LV systolic function. LVEF is calculated at 63%. Electronically signed by : Evangelina Dodson MD 10/22/2024 13:09:42
[2024-10-21] MEDS: REGADENOSON 0.4MG/5ML SYRINGE 0.4 MG IV (10:12)
[2024-10-21] MEDS: SODIUM CHLORIDE 0.9% 10ML SYR (RAD ONLY) 10 ML IV ×2 (10:12)
[2024-10-21] MEDS: ISOTOPE MYOVIEW (PER STUDY) 1 DOSE IV (12:14)
== END 2024-10-21 23:59 | disposition home or self-care (01) ==
LOC: RAD 07:34
PROVIDERS: PCP Nurse Practitioner Family; Visit Provider Physician Assistant
DX: I10 Essential (primary) hypertension (principal); R93.1 Abnormal findings on diagnostic imaging of heart and coronary circulation; R07.89 Other chest pain; I25.10 Atherosclerotic heart disease of native coronary artery without angina pectoris; Z95.5 Presence of coronary angioplasty implant and graft; F17.200 Nicotine dependence, unspecified, uncomplicated; J43.9 Emphysema, unspecified; R06.00 Dyspnea, unspecified
CPT/HCPCS: 78452; 93017; 93018; A9502; A9503; J2785

== ENCOUNTER 2024-10-28 15:08 | Outpatient (CLI) | payer MEDICARE, MEDICAID, SELFPAY ==
--- NOTE | 2024-10-28 15:13 | XR_ITS ---
FINAL REPORT CLINICAL HISTORY: dyspnea,cp COMPARISON: 06/16/2021 FINDINGS: CHEST 2 VIEWS PA AND LATERAL The heart is normal in size. The mediastinum is unremarkable. There is a new moderate right effusion with right lower lobe consolidation. The left lung is clear. There is no pneumothorax. IMPRESSION: New right effusion with right lower lobe consolidation. Reviewed, Interpreted and Dictated by Salty Brooke MD Transcribed by Mildred Oshea Authenticated and [facility]
== END 2024-10-28 23:59 | disposition home or self-care (01) ==
LOC: RAD 15:09
PROVIDERS: PCP Nurse Practitioner Family; Visit Provider Physician Assistant
DX: J90 Pleural effusion, not elsewhere classified (principal)
CPT/HCPCS: 71046

== ENCOUNTER 2024-10-30 10:13 | Outpatient (CLI) | payer MEDICARE, MEDICAID, SELFPAY ==
[2024-10-30] MEDS: SODIUM CHLORIDE 0.9% 10ML SYR (RAD ONLY) 10 ML IV (10:54)
[2024-10-30] MEDS: IOPAMIDOL-370 (76%);100ML BOTTLE 75 ML IV (10:54)
--- NOTE | 2024-10-30 11:15 | CT_ITS ---
FINAL REPORT TECHNIQUE: The patient was injected with IV contrast. Axial images were obtained of the chest by computed tomography. Precontrast images were also obtained. This study was performed with techniques to keep radiation doses as low as reasonably achievable (ALARA). Individualized dose reduction techniques using automated exposure control or adjustment of mA and/or kV according to the patient's size were employed. CLINICAL HISTORY: Chest pain, shortness of breath, chest cavity mass COMPARISON: 02/01/2024 FINDINGS: CT OF THE CHEST WITH AND WITHOUT CONTRAST: There is a heterogeneous mass in the right lobe of the thyroid measuring 1.8 cm. A multitude of small right paratracheal, precarinal, and subcarinal lymph nodes are noted. Heart size is normal. There is a loculated fluid collection contiguous with the right posterior mediastinum and possibly residing inside the pericardium measuring 7.4 x 3.5 cm. There is a moderate to large right pleural effusion. Dense consolidation in the right middle lobe and lower lobe has significantly progressed compared to the prior study. There are advanced changes of centrilobular emphysema. Limited images of the upper abdomen demonstrate no acute findings. The gallbladder is surgically absent. IMPRESSION: Significant increase of right pleural effusion with right middle and lower lobe consolidation. Low-attenuation fluid collection along the left right posterolateral heart border, either contiguous with the mediastinum or within the pericardium. Echocardiogram recommended for further characterization. Findings are likely related to progressive neoplastic involvement Reviewed, Interpreted and Dictated by aSlty Brooke MD Transcribed by Gabriella Hardin Authenticated and [facility]
== END 2024-10-30 23:59 | disposition home or self-care (01) ==
LOC: RAD 10:14
PROVIDERS: PCP Nurse Practitioner Family; Visit Provider Physician Assistant
DX: J90 Pleural effusion, not elsewhere classified (principal); R91.8 Other nonspecific abnormal finding of lung field
CPT/HCPCS: 71270; Q9967

== ENCOUNTER 2024-11-04 10:23 | Day surgery (SDC) | payer MEDICARE, MEDICAID, SELFPAY ==
[2024-11-03 14:45] VITALS: BMI 18.6
[2024-11-04 11:04] VITALS: BP 169/86; PULSE 82; RESP 16; TEMP 36.6; O2SAT 97
--- NOTE | 2024-11-04 11:12 | ECG_ITS ---
APPROVED REPORT Exam: Resting ECG HR:89 bpm ECG Measurements Heart Rate 89 AXES WY 131 P 63 QRSd 78 QRS 77 QT 347 T 41 QTc 393 Conclusion SINUS RHYTHM WITH OCCASIONAL VENTRICULAR PREMATURE COMPLEXES BORDERLINE ECG UNCONFIRMED REPORT Electronically signed by : Jarad Barnes MD 11/06/2024 08:38:14
[2024-11-04 11:21] LABS: Basophils # 0.1 K/mm3 (0-0.2); Basophils % 0.5 % (0.1-2.0); Chloride 102 mmol/L (98-107); Eosinophils % 0.2 % (0.1-12.0); Hematocrit 30.1 % (37.0-47.0); Hemoglobin 9.3 g/dL (12.2-16.2); Immature Granulocytes # 0.06 10^3uL; Immature Granulocytes % 0.6 %; Lymphocytes # 0.9 K/mm3 (0.7-4.5); Lymphocytes % 9.2 % (10-50); Mean Corpuscular HGB Conc 30.9 g/dL (31.8-35.4); Mean Corpuscular Hemoglobin 26.9 pg (27.0-31.2); Mean Platelet Volume 8.7 fl (7.4-10.4); Monocytes # 0.7 K/mm3 (0.1-1.0); Monocytes % 6.3 % (1.7-9.3); Neutrophils # 8.5 K/mm3 (1.8-7.8); Neutrophils % 83.2 % (37.0-80.0); Nucleated Red Blood Cells # 0 10^3/uL; Nucleated Red Blood Cells % 0 %; Platelet Count 411 K/mm3 (142-424); Red Blood Count 3.46 M/mm3 (4.20-5.40); Red Cell Distribution Width 15.5 % (11.5-17.5); Red Cell Distribution Width-SD 49.4 fL; Sodium 139 mmol/L (136-145); White Blood Count 10.3 K/mm3 (4.8-10.8)
[2024-11-04 11:22] LABS: Potassium 4.1 mmoL/L (3.5-5.1)
[2024-11-04 11:24] LABS: Blood Urea Nitrogen 13 mg/dl (7-17); Creatinine Clearance Estimated 37 mL/min (50-200); Estimated Glomerular Filt Rate 98 ml/min (>60); GFR (African American) 119 ML/MIN (>60)
[2024-11-04 11:25] LABS: Anion Gap 10.1 mEq/L (5-15); Calcium 9.6 mg/dl (8.4-10.2); Carbon Dioxide 31 mmol/L (22.0-30.0); Glucose 103 mg/dl (74-100)
[2024-11-04 11:28] LABS: INR 1.12 (0.9-1.1); Prothrombin Time 12.3 seconds (10.1-12.5)
--- NOTE | 2024-11-04 11:50 | P.PNANES_ITS ---
[facility] Disclaimer: The information contained in this section may have been updated after the patient was seen, as this information can be updated by other users. Medical History Anxiety COPD (chronic obstructive pulmonary disease) Migraine History of gastroesophageal reflux (GERD) Hyperlipidemia Skin cancer Other chest pain Other forms of dyspnea Mass of chest wall, right Abnormal MRI Impacted cerumen, left ear Retained myringotomy tube in left ear Fluid level behind tympanic membrane of right ear Thyroid Nodule Hypertension Surgical History History of cholecystectomy History of heart artery stent Family History Other Cancer Heart disease Social History Smoking Status: Current every day smoker tobacco type: cigarettes packs per day: 1 second hand exposure: No alcohol intake: never substance use type: denies use current occupational status: disabled Travel in the last 8 weeks?: None household members: family housing: house caffeine: No Have you lived/traveled outside US in past 30 days?: No Contact w/someone who lives/traveled outside US past 30 days?: No Exposure to someone with infectious disease in past 14 days?: No Do you have a fever (greater than 100.4 F or 38 C)?: No Have you tested positive for COVID-19?: No Exposed to someone with COVID-19 in past 14 days?: No Do you have a sore throat?: No Do you have a cough?: No Do you have any weakness?: No Do you have any diarrhea?: No Are you experiencing any unusual bleeding?: No Do you have any muscle aches/pain?: No Do you have any abdominal pain?: No Are you experiencing loss of taste or smell?: No [facility] Anesthesia Checklist Patient Identification Patient Identification: Arm Band and Verbal (Name & ) Structural Data Admitted From: Home Planned Operative Procedure/s: BERTO Consent for Planned Operative Procedure(s) Verified: Yes Verified Documents: Surgical Consent and History and Physical NPO Status Verified Time NPO: 00:00 Additional verifications Anesthesia Reactions: No Airway Assessment Mallampati Score:: Class II Dentition: Edentulous Neurological Assessment Level of Consciousness: Awake, Alert and Appropriate Hx Seizures: No Anesthesia Plan Anesthesia Risk discussed: Yes Anesthesia Plan: Verified ASA Class: III Anesthesia Type: MAC
--- NOTE | 2024-11-04 12:00 | CA_ITS ---
APPROVED REPORT EXAM: Comprehensive 2D, Doppler, and color-flow Echocardiogram Health Care Specialist: Deya Castellano RVT Ht: 5 ft 2 in Wt: 103lbs BSA: 1.44 BP: 140/76 mmHg Indications: RULE OUT INTRACARDIAC MASS,ABNORMAL TRANSTHORACIC ECHOCARDIOGRAM Procedure After obtaining informed consent, patient underwent transesophageal echo in the [facility]. Type of Sedation : MAC Sedation start time: 12.25 Case end Time: 12.40 Transesophageal probe was inserted and advanced into esophagus without difficulty by Dr. Clifford Dodson. The BERTO was performed without complications. Throughout the procedure, the blood pressure, pulse oximetry, cardiac rhythm, and rate were monitored. The patient tolerated the procedure without adverse effects. Recovery from conscious sedation was uneventful and vital signs were stable. Left Ventricle The left ventricle is normal size. The left ventricular systolic function is normal. The left ventricular ejection fraction is within the normal range. There is increased overall thickness. There is normal LV segmental wall motion. LVEF is 55%. Right Ventricle The right ventricle is normal size. The right ventricular systolic function is normal. Atria The left atrium is normal in size. The right atrium size is normal. The interatrial septum is intact with no evidence for an atrial septal defect. There is an external mass compressing onto both atria, along with the presence of a large echodensity at the roof of the right atrium and the left atrium. 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 There is no aortic valvular stenosis. Trace aortic regurgitation. Mitral Valve There is mild prolapse of the anterior mitral valve leaflet. No evidence of mitral valve stenosis. Trace mitral regurgitation. Tricuspid Valve Tricuspid valve is grossly normal in structure and function. Mild tricuspid regurgitation. Trace pulmonic regurgitation. Pulmonic Valve The pulmonary valve is normal in structure. Great Vessels The aortic root is normal in size. The ascending aorta is normal in size. Pericardium There is no pericardial effusion. Other Information Study Quality: Fair Conclusion Normal biventricular systolic function. Mild prolapse of the anterior mitral valve leaflet. No significant MR. Mild TR. There is an external mass compressing onto both atria, along with the presence of a large echodensity at the roof of the right atrium and the left atrium. 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 In the setting of presence of mural thrombus, the patient was planned to start on anticoagulation on the day of the procedure. 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 Post procedurally, the patient was stable and asymptomatic. She recovered well and continued to be stable postop. She was eventually discharged in stable condition. Of note, the above findings and plan were relayed to her referring providers on the day of the procedure prior to dictation of this report. Electronically signed by : Evangelina Dodson MD 11/13/2024 13:02:56
[2024-11-04 12:35] VITALS: BP 137/70; PULSE 98; RESP 16; TEMP 36.6; O2SAT 93
[2024-11-04 12:45] VITALS: BP 125/72; PULSE 94; RESP 18; O2SAT 93
[2024-11-04 12:55] VITALS: BP 151/72; PULSE 93; RESP 16; O2SAT 92
[2024-11-04 13:05] VITALS: BP 148/79; PULSE 89; RESP 18; O2SAT 96
== END 2024-11-04 13:05 | disposition home or self-care (01) ==
PROVIDERS: PCP Nurse Practitioner Family; Visit Provider Internal Medicine
PROC: (CPT 93312; principal; 2024-11-04 12:00)
DX: I34.1 Nonrheumatic mitral (valve) prolapse (principal); I07.1 Rheumatic tricuspid insufficiency; R22.2 Localized swelling, mass and lump, trunk; E78.5 Hyperlipidemia, unspecified; I10 Essential (primary) hypertension; J44.9 Chronic obstructive pulmonary disease, unspecified; F17.210 Nicotine dependence, cigarettes, uncomplicated; Z95.5 Presence of coronary angioplasty implant and graft; Z79.01 Long term (current) use of anticoagulants; Z79.02 Long term (current) use of antithrombotics/antiplatelets; Z79.51 Long term (current) use of inhaled steroids; Z79.899 Other long term (current) drug therapy; Z88.0 Allergy status to penicillin; Z88.2 Allergy status to sulfonamides; Z83.3 Family history of diabetes mellitus; Z82.49 Family history of ischemic heart disease and other diseases of the circulatory system; R93.1 Abnormal findings on diagnostic imaging of heart and coronary circulation
CPT/HCPCS: 36415; 80048; 85025; 85610; 93005; 93270; 93312; 93319; J2003; J2704

== ENCOUNTER 2024-11-13 17:17 | Observation (INO) | payer MEDICARE, SELFPAY ==
[2024-11-13] VITALS (17 sets, daily range): BP systolic 138–172; BP diastolic 69–85; PULSE 79–85; RESP 18–27; TEMP 36.6–36.8; O2SAT 99–100; BMI 18.3
--- OUTSIDE RECORDS SUMMARY | 2024-11-13 17:37 | XMS_ITS | Clinical Summary ---
Author Organization Healthcare Address [address] [place] [address] Care Team Providers [employer] Name Role Phone Unavailable Primary Care Provider Unavailabl e Social History Tobacco Use Types Packs/Day Years Used Date Smoking Tobacco: Never Assessed Comments Unknown Sex and Gender Information Value Date Recorded Sex Assigned at Not on file Legal Sex Female 8:54 PM EDT Gender Identity Not on file Sexual Orientation Not on file Plan of Treatment Upcoming Encounters Date Type Department Care Team (Late st Contact Info) Description 12/10/2024 9:15 AM EDT Office Visit [facility] [address] [place] [address] Karlie Hickey MD [address] [place] [address] Health Maintenance Due Date Last Done Comments [facility]-Bone Density Scan 1952 [facility]-Depression Screening 1952 [facility]-Hepatitis C Screening 1952 [facility]-Infant/Child/Adol SDOH Screenings 1952 [facility]- SDOH Screenings 1970 [facility]-Adult SDOH Screenings 1970 [facility]-DTaP,Tdap,and Td Vaccines (1 - Tdap) 1971 CT Colonography 1997 Colonoscopy 1997 FIT-DNA 1997 FIT 1997 FOBT 1997 Sigmoidoscopy 1997 [facility]-Colorectal Cancer Screening 1997 [facility]-Breast Cancer Screening 2002 [id number] Vaccine ( season) 2024 [facility]-Zoster Vaccines (2 of 2) 10/31/2024 09/05/2024 [facility]-Influenza Vaccine (Season Ended) 2025 02/14/2021, 03/31/2020, 02/06/2019, Additional history exists [facility]-RSV Vaccine: 60+ Years or (1 - 1-dose 75+ series) 2027 [facility]-Pneumococcal Vaccine: 50+ Years Completed 09/05/2024, 02/06/2019, 06/29/2016, Additional history exists HPV Vaccines Aged Out No longer eligi ble based on patient's age to complete this topic [facility]-HIB Vaccines Aged Out No longer e ligible based on patient's age to complete this topic [facility]-Hepatitis A Vaccines Aged Out No longer eligible based on patient's age to complete this topic [facility]-IPV Vaccines Aged Out No longer e ligible based on patient's age to complete this topic [facility]-Rotavirus Vaccines Aged Out No lo nger eligible based on patient's age to complete this topic
--- NOTE | 2024-11-13 17:52 | CT_ITS ---
PROCEDURE INFORMATION: Exam: CT Chest With Contrast; Diagnostic Exam date and time: 11/13/2024 6:29 PM Age: 74 years old Clinical indication: Other: Shortness of breath, history of lung mass TECHNIQUE: Imaging protocol: Diagnostic computed tomography of the chest with contrast. Radiation optimization: All CT scans at this facility use at least one of these dose optimization techniques: automated exposure control; mA and/or kV adjustment per patient size (includes targeted exams where dose is matched to clinical indication); or iterative reconstruction. Contrast material: ISOVUE; Contrast volume: 75 ml; Contrast route: IV; COMPARISON: CT CHEST WO/W CON 10/30/2024 10:45 AM FINDINGS: Lungs: Pronounced right lung atelectasis. Diffuse underlying emphysematous changes. Pleural spaces: Moderately large, partially loculated right pleural effusion. Heart: Mass effect on right cardiac chamber. Mediastinal space: Poorly defined heterogeneously hypointense right mediastinal/ hilar mass measuring 4.4 x 8.2 x 7.2 cm with at least partial with mass effect/partial encasement on surrounding structures including right atrium, adjacent right hilar vessels, right mainstem and segmental bronchi contributing to right pulmonary atelectasis. Lymph nodes: Subcentimeter lymph nodes. Vasculature: Unremarkable. No aortic aneurysm. Bones/joints: Unremarkable. No acute fracture. Soft tissues: Unremarkable. IMPRESSION: Right mediastinal/hilar with mass effect on adjacent structures including right cardiac chambers, hilar vessels, bronchi and, along with complex right pleural effusion, contributing to right pulmonary atelectasis. Less likely intracardiac mass, although not entirely excluded. COMMENTS: The presence of pulmonary emphysema on CT is an independent risk factor for lung cancer. In the absence of a history or active diagnosis of lung cancer, it is recommended that this patient with emphysema be evaluated for enrollment in a low dose CT lung cancer screening program.
--- NOTE | 2024-11-13 17:52 | CT_ITS ---
PROCEDURE INFORMATION: Exam: CT Abdomen And Pelvis With Contrast Exam date and time: 11/13/2024 6:29 PM Age: 74 years old Clinical indication: Other: Constipation, urinary retention, abdominal pain TECHNIQUE: Imaging protocol: Computed tomography of the abdomen and pelvis with contrast. Radiation optimization: All CT scans at this facility use at least one of these dose optimization techniques: automated exposure control; mA and/or kV adjustment per patient size (includes targeted exams where dose is matched to clinical indication); or iterative reconstruction. Contrast material: ISOVUE; Contrast volume: 75 ml; Contrast route: IV; COMPARISON: CT - ABDPELW CT abdomen pelvis w con 02/03/2018 5:55 PM FINDINGS: Liver: Extensive periportal edema. No mass. Gallbladder and biliary ducts: Surgically absent gallbladder without ductal dilatation or choledocholithiasis. Pancreas: Normal. No ductal dilation. Spleen: Normal. No splenomegaly. Adrenal glands: Normal. No mass. Kidneys and ureters: No nephroureterolithiasis or hydroureter. Stomach and bowel: Unremarkable. No obstruction. No mucosal thickening. Appendix: No evidence of appendicitis. Intraperitoneal space: Unremarkable. No free air. No significant fluid collection. Vasculature: Atherosclerotic calcification of aortoiliac arteries without aneurysm. Lymph nodes: Unremarkable. No enlarged lymph nodes. Urinary bladder: Unremarkable as visualized. Reproductive: Unremarkable as visualized. Bones/joints: Unremarkable. No acute fracture. Soft tissues: Unremarkable. IMPRESSION: Extensive edema suspicious for likely sequelae of hepatic congestion from mass effect on right cardiac chambers.
--- NOTE | 2024-11-13 17:53 | CT_ITS ---
PROCEDURE INFORMATION: Exam: CT Head Without Contrast Exam date and time: 11/13/2024 6:26 PM Age: 74 years old Clinical indication: Metastatic workup, HX of lung mass, weakness TECHNIQUE: Imaging protocol: Computed tomography of the head without contrast. Radiation optimization: All CT scans at this facility use at least one of these dose optimization techniques: automated exposure control; mA and/or kV adjustment per patient size (includes targeted exams where dose is matched to clinical indication); or iterative reconstruction. COMPARISON: US FNA THYROID 08/15/2024 7:59 AM FINDINGS: Brain: Age-related involutional changes and chronic microvascular ischemic disease. No evidence for acute transcortical infarct. No mass effect or midline shift. No extra-axial collection. No acute intracranial hemorrhage. Basal cisterns are patent. Cerebral ventricles: No ventriculomegaly. Paranasal sinuses: Visualized sinuses are unremarkable. No fluid levels. Mastoid air cells: Visualized mastoid air cells are well aerated. Bones: Unremarkable. No acute fracture. Soft tissues: Unremarkable. IMPRESSION: No evidence for acute transcortical infarct, acute intracranial hemorrhage, or mass effect. No compelling evidence of intracranial metastasis on this non-contrast exam.
--- NOTE | 2024-11-13 17:54 | ED_ITS ---
Discharge Plan Disposition Patient Disposition: Xfer Short-Term Hosp Condition: Fair Clinical Impressions Clinical Impression: Mass of mediastinum, Pleural effusion on right, Hepatic congestion Discharge ED Provider: Marina Pak General Adult HPI <ANGELA Whitaker - Last Filed: 11/13/24 22:05> General Chief complaint: Urogenital-Female Stated complaint: not urinating,weakness, no BMovements Time Seen by Provider: 11/13/24 17:40 Mode of Arrival: Ambulatory Source of Information: Patient and Relative Limitations: No Limitations History of Present Illness HPI narrative: 74-year-old female presents to the emergency department accompanied by her family for generalized weakness, failure to thrive, decreased urination with urinary retention since yesterday, patient states that she has had little to no urination yesterday, and a little urination , today, patient also endorses constipation for the last 3 to 5 days, abdominal discomfort. Patient states she has a decreased appetite, but has been drinking coffee, and water . 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 Other past medical history consistent with hypertension, COPD, degenerative disc disease, hyperlipidemia, current everyday smoker, peripheral artery disease. Initial triage vitals are unremarkable, patient is on 2 L nasal cannula. Onset (ago): day(s) Related Data Home Medications ?Medication ?Instructions ?Recorded ?Confirmed escitalopram oxalate 20 mg tablet 20 mg PO DAILY Anxie ty 08/14/17 11/07/24 albuterol sulfate 90 mcg/actuation 2 puff inhalation Q 6H PRN copd 08/05/18 11/07/24 aerosol inhaler (Ventolin HFA) pantoprazole 40 mg tablet,delayed 40 mg PO ONCE 11/07/24 release fluticasone fur. 200 mcg-umeclid 1 inh inhalation JHON Y 11/04/24 11/07/24 62.5 mcg-vilant 25 mcg inhalat.powder (Trelegy Ellipta) Previous Rx's ?Medication ?Instructions ?Recorded amlodipine 2.5 mg tablet 2.5 mg PO DAILY #30 tabs bisoprolol fumarate 5 mg tablet 5 mg PO DAILY Heart di sease #30 12/30/18 tabs clopidogrel 75 mg tablet 75 mg PO DAILY Heart disease #30 12/30/18 tabs lisinopril 20 1 tab PO DAILY #30 tabs 12/03 02/20 mg-hydrochlorothiazide 25 mg tablet rosuvastatin 10 mg tablet 10 mg PO DAILY Cholesterol # 30 tabs 12/30/18 fluticasone propionate 50 1 spray intranasal DAILY #16 grams 08/06/24 mcg/actuation nasal spray,suspension (Flonase Allergy Relief) meclizine 12.5 mg tablet 12.5 mg PO TID PRN vertigo # 25 tabs 08/06/24 rivaroxaban 15 mg (42)-20 mg (9) See Rx Instructions P O .COMPLEX 11/04/24 tablets in a starter pack (Xarelto #51 tabs DVT-PE Treatment 30-Day Starter) enoxaparin 80 mg/0.8 mL 50 mg (0.5 mL) SQ Q12H 5 day s #5 mL 11/07/24 subcutaneous syringe (Lovenox) hydrocodone 5 mg-acetaminophen 325 1 tab PO Q6H PRN pa in #60 tabs 11/07/24 mg tablet ipratropium 0.5 mg-albuterol 3 mg 3 ml inhalation QID PRN shortness 11/07/24 (2.5 mg base)/3 mL nebulization of breath or wheezing 90 days #270 soln mL Allergies Allergy/AdvReac Type Severity Reaction Status Date / Time Penicillins Allergy Unknown ITCHING Verified 11/07/24 11:58 Sulfa (Sulfonamide Allergy Unknown ITCHING Verified 11/07/24 11:58 Antibiotics) (SULFA (SULFONAMIDE ANTIBIOTICS)) [facility] <ANGELA Whitaker - Last Filed: 11/13/24 22:05> [facility] Disclaimer: The information contained in this section may have been updated after the patient was seen, as this information can be updated by other users. 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 Anxiety COPD (chronic obstructive pulmonary disease) Migraine History of gastroesophageal reflux (GERD) Hyperlipidemia Skin cancer Other chest pain Other forms of dyspnea Mass of chest wall, right Abnormal MRI Impacted cerumen, left ear Retained myringotomy tube in left ear Fluid level behind tympanic membrane of right ear Thyroid Nodule Hypertension Surgical History History of cholecystectomy History of heart artery stent Family History Other Cancer Heart disease Social History Smoking Status: Current every day smoker tobacco type: cigarettes packs per day: 1 second hand exposure: No alcohol intake: never substance use type: denies use current occupational status: disabled Travel in the last 8 weeks?: None household members: family housing: house caffeine: No Have you lived/traveled outside [place] in past 30 days?: No Contact w/someone who lives/traveled outside US past 30 days?: No Exposure to someone with infectious disease in past 14 days?: No Do you have a fever (greater than 100.4 F or 38 C)?: No Have you tested positive for COVID-19?: No Exposed to someone with COVID-19 in past 14 days?: No Do you have a sore throat?: No Do you have a cough?: No Do you have any weakness?: No Do you have any diarrhea?: No Are you experiencing any unusual bleeding?: No Do you have any muscle aches/pain?: No Do you have any abdominal pain?: No Are you experiencing loss of taste or smell?: No Other Medical History Have you received the Flu Vaccine for this season: Yes Have you received the Pneumonia Vaccine: Yes <ANGELA Whitaker - Last Filed: 11/13/24 22:05> ROS Obtained: Yes All systems reviewed & no additional complaints except as documented Physical Exam <ANGELA Whitaker - Last Filed: 11/13/24 22:05> General General appearance: alert, in no apparent distress and cachectic Comment: Pale, cachectic, ill-appearing female Head Head exam: atraumatic and normocephalic Eye Eye exam: Present PERRL and EOMI ENT ENT exam: Present mucous membranes moist Neck Neck exam: Present normal inspection Chest Chest inspection: Present normal inspection and symmetric chest wall rise Respiratory Respiratory exam: Present other (Crackles/Rales noted in the right lung field. ); Absent normal lung sounds bilaterally, respiratory distress, wheezes or stridor Cardiovascular Cardiovascular exam: Present regular rate and normal rhythm Abdominal Exam Abdominal exam: Present soft, distention and tenderness; Absent guarding or rebound Abdominal tenderness: Present diffuse and mild Comment: Mild diffuse abdominal tenderness to palpation, no guarding or rebound tenderness, there is some mild abdominal distention is present over lower abdomen. Extremities Exam Extremities exam: Present normal inspection Neurological Exam Neurological exam: Present alert and oriented X3 Psychiatric Psychiatric exam: Present normal affect Skin Skin exam: Present warm and dry Medical Decision Making <ANGELA Whitaker - Last Filed: 11/13/24 22:05> Medical Records Medical records reviewed: Yes I reviewed the patient's medical records. Screening: Per USPSTF and CDC recommendations, given the prevalence of disease in our region, it is our hospital?s policy to screen for HIV and viral Hepatitis for all patients aged 18 and over and those with ongoing risk factors. Wesley Inquiry Pt receiving controlled substance: No Wesley was queried for this patient: No Vital Signs: 11/13/24 18:37 11/13/24 18:43 11/13/24 19:00 Temperature 98 F Temperature Source Oral Pulse Rate 82 82 Pulse Rate [Right] 85 Respiratory Rate 22 22 18 TAR Vitals Timing Blood Pressure 166/83 H 168/77 H Blood Pressure [Right Arm] 172/85 H Blood Pressure Mean 127 117 Blood Pressure Mean [Right Arm] 114 Blood Pressure Source Blood Pressure Source [Right Arm] Automatic Cuff Blood Pressure Position Blood Pressure Position [Right Arm] Supine 02 Sat by Pulse Oximetry 100 100 100 Oxygen Delivery Method Nasal Cannula Room Air Oxygen Flow Rate (LPM) 2 11/13/24 19:30 11/13/24 20:00 11/13/24 20:30 Temperature Temperature Source Pulse Rate 84 84 83 Pulse Rate [Right] Respiratory Rate 19 20 19 TAR Vitals Timing Blood Pressure 160/78 H 165/80 H 156/76 H Blood Pressure [Right Arm] Blood Pressure Mean 105 108 116 Blood Pressure Mean [Right Arm] Blood Pressure Source Blood Pressure Source [Right Arm] Blood Pressure Position Blood Pressure Position [Right Arm] 02 Sat by Pulse Oximetry 100 100 100 Oxygen Delivery Method Room Air Room Air Room Air Oxygen Flow Rate (LPM) 11/13/24 21:00 11/13/24 21:30 11/13/24 21:48 Temperature 98.2 F Temperature Source Oral Pulse Rate 84 81 85 Pulse Rate [Right] Respiratory Rate 21 21 22 TAR Vitals Timing Pre-Blood Vitals Blood Pressure 142/69 H 147/76 H 160/76 H Blood Pressure [Right Arm] Blood Pressure Mean 107 107 104 Blood Pressure Mean [Right Arm] Blood Pressure Source Automatic Cuff Blood Pressure Source [Right Arm] Blood Pressure Position Sitting Blood Pressure Position [Right Arm] 02 Sat by Pulse Oximetry 100 100 100 Oxygen Delivery Method Room Air Room Air Oxygen Flow Rate (LPM) 11/13/24 22:00 11/13/24 22:05 11/13/24 22:15 Temperature 98.2 F 98.2 F 98.2 F Temperature Source Oral Oral Oral Pulse Rate 83 84 82 Pulse Rate [Right] Respiratory Rate 22 22 22 TAR Vitals Timing Start Vitals 5 Minute 10 Minute Blood Pressure 149/76 H 146/78 H 145/73 H Blood Pressure [Right Arm] Blood Pressure Mean 100 100 97 Blood Pressure Mean [Right Arm] Blood Pressure Source Automatic Cuff Automatic Cuff Automatic Cuff Blood Pressure Source [Right Arm] Blood Pressure Position Sitting Sitting Sitting Blood Pressure Position [Right Arm] 02 Sat by Pulse Oximetry 100 100 99 Oxygen Delivery Method Oxygen Flow Rate (LPM) 11/13/24 22:15 11/13/24 22:30 11/13/24 22:30 Temperature 98.2 F 98.2 F Temperature Source Oral Oral Pulse Rate 81 81 81 Pulse Rate [Right] Respiratory Rate 22 22 27 H TAR Vitals Timing 15 Minute 30 Minute Blood Pressure 151/76 H 143/75 H 153/81 H Blood Pressure [Right Arm] Blood Pressure Mean 101 97 Blood Pressure Mean [Right Arm] Blood Pressure Source Automatic Cuff Automatic Cuff Blood Pressure Source [Right Arm] Blood Pressure Position Sitting Sitting Blood Pressure Position [Right Arm] 02 Sat by Pulse Oximetry 100 100 100 Oxygen Delivery Method Oxygen Flow Rate (LPM) 11/13/24 22:45 11/13/24 23:00 11/13/24 23:00 Temperature 98.2 F 98.2 F Temperature Source Oral Oral Pulse Rate 79 81 81 Pulse Rate [Right] Respiratory Rate 22 22 20 TAR Vitals Timing 45 Minute 60 Minute Blood Pressure 138/79 154/78 H 154/74 H Blood Pressure [Right Arm] Blood Pressure Mean 98 103 Blood Pressure Mean [Right Arm] Blood Pressure Source Automatic Cuff Automatic Cuff Blood Pressure Source [Right Arm] Blood Pressure Position Sitting Sitting Blood Pressure Position [Right Arm] 02 Sat by Pulse Oximetry 100 100 100 Oxygen Delivery Method Oxygen Flow Rate (LPM) 11/13/24 23:30 11/14/24 00:00 11/14/24 00:00 Temperature 98.2 F Temperature Source Oral Pulse Rate 81 80 81 Pulse Rate [Right] Respiratory Rate 19 22 16 TAR Vitals Timing 2nd Hour Blood Pressure 143/82 H 150/74 H 144/77 H Blood Pressure [Right Arm] Blood Pressure Mean 99 Blood Pressure Mean [Right Arm] Blood Pressure Source Automatic Cuff Blood Pressure Source [Right Arm] Blood Pressure Position Sitting Blood Pressure Position [Right Arm] 02 Sat by Pulse Oximetry 99 100 99 Oxygen Delivery Method Oxygen Flow Rate (LPM) 11/14/24 01:00 Temperature 98.2 F Temperature Source Oral Pulse Rate 79 Pulse Rate [Right] Respiratory Rate 22 TAR Vitals Timing 3rd Hour Blood Pressure 153/80 H Blood Pressure [Right Arm] Blood Pressure Mean 104 Blood Pressure Mean [Right Arm] Blood Pressure Source Automatic Cuff Blood Pressure Source [Right Arm] Blood Pressure Position Sitting Blood Pressure Position [Right Arm] 02 Sat by Pulse Oximetry 100 Oxygen Delivery Method Oxygen Flow Rate (LPM) Lab Data Lab results reviewed: Yes I reviewed the patient's lab results. Lab Results 11/13/24 18:04: WBC 10.1, RBC 2.48 L, Hgb 6.8 L*, Hct 21.6 L, MCV 87.1, MCH 27.4, MCHC 31.5 L, RDW 15.4, Plt Count 495 H, MPV 8.8, Neut % (Auto) 81.7 H, L ymph % (Auto) 9.6 L, [place] % (Auto) 7.7, Eos % (Auto) 0.2, Baso % (Auto) 0.4, N eut # (Auto) 8.2 H, Lymph # (Auto) 1.0, [place] # (Auto) 0.8, Eos # (Auto) 0.0, Baso # (Auto) 0.0, Sodium 133 L, Potassium 4.2, Chloride 95 L, Carbon Dioxide 33 H, Anion Gap 9.2, BUN 23 H, Creatinine 0.60, Estimated GFR 98, Est GFR ( Amer) 119, Glucose 107 H, Lactate 2.1, Calcium 10.3 H, Magnesium 1.7, Total Bilirubin 0.2, AST 49 H, ALT 27, Alkaline Phosphatase 88, Troponin I < 0.01, N T-Pro-B Natriuret Pep 512 H, Total Protein 6.6, Albumin 3.7, Globulin 2.9, Albumin/Globulin Ratio 1.3, HCV Ab MYLA w/Rflx PCR Qn Negative, HIV Ag/Ab Combo Qual Negative, Blood Type Confirm O Positive 11/13/24 19:13: Blood Type O Positive 11/13/24 19:13: Blood Type Cancelled, Antibody Screen Negative 11/13/24 19:13: Antibody Screen Cancelled, Crossmatch (AHG) See Detail 11/13/24 19:48: Urine Color Yellow, Urine Appearance Clear, Urine pH 6.0, Ur Specific [place] 1.010, Urine Protein Trace, Urine Glucose (UA) Negative, Urine Ketones Negative, Urine Blood Negative, Urine Nitrate Negative, Urine Bilirubin Negative, Urine Urobilinogen 2.0, Ur Leukocyte Esterase Negative, Urine WBC Occasional, Ur Squamous Epith Cells 5-10, Urine Bacteria Trace 11/13/24 21:23: Troponin I < 0.01 11/13/24 23:06: VBG pH 7.39, VBG pCO2 52.1 H, VBG pO2 55.3 H, VBG HCO3 30.7 H, V BG Total CO2 32.3 H, VBG O2 Saturation 83.3 H, VBG Base Excess 5.7 H, VBG Lactic Acid 1.2, Lactate 0.9 11/14/24 00:19: Troponin I < 0.01 11/13/24 18:04 11/13/24 18:04 Orders (Tests/Meds): ED MEDICATIONS Generic Name Dose Route Start Last Admin Trade Name Freq PRN Reason Stop Dose Admin Sodium Chloride 250 mls @ 25 mls/hr 11/13/24 19:00 11/13/24 22:00 Sod Chlor 0.9% 250ml Bag IV 11/14/24 18:59 25 mls/hr .Q10H FER Administration Discontinued Medications Generic Name Dose Route Start Last Admin Trade Name Marcio PRN Reason Stop Dose Admin Iopamidol 75 ml 11/13/24 18:26 11/13/24 18:27 Iopamidol-370 (76%);100ml Bottle IV 11/13/24 18:27 75 ml ONCE ONE Administration Morphine Sulfate 4 mg 11/13/24 21:47 11/13/24 21:53 Morphine 4mg/Ml Syringe IV 11/13/24 21:48 4 mg ONCE ONE Administration Ondansetron HCl 4 mg 11/13/24 21:47 11/13/24 21:54 Ondansetron 4mg/2ml Vial IV 11/13/24 21:48 4 mg ONCE ONE Administration Sodium Chloride 10 ml 11/13/24 18:26 11/13/24 18:27 Sodium Chloride 0.9% 10ml Syr (Rad Only) IV 11/13/24 18:27 10 ml ONCE ONE Administration ORDERS Category Date Time Status Blood transfusion [Red Blood Cells] Stat BBK 11/13/24 19:13 Completed Type and Screen Stat BBK 11/13/24 19:[address] abdomen pelvis w con Stat Cat Scan 11/13/24 17:[address] chest w con Stat Cat Scan 11/13/24 17:[address] head/brain wo con Stat Cat Scan 11/13/24 17:53 Completed Complete Blood Count Auto Diff Stat Lab 11/13/24 18:04 Completed Comprehensive Metabolic Panel Stat Lab 11/13/24 18:04 Completed HIV Combo Stat Lab 11/13/24 18:04 Completed Hepatitis C Ab Qual. W/ RFX Stat Lab 11/13/24 18:04 Completed Lactic Acid Follow Up (RFLX 1) Stat Lab 11/13/24 23:06 Completed Lactic Acid Stat Lab 11/13/24 18:04 Completed Magnesium Stat Lab 11/13/24 18:04 Completed NT Pro Brain Natriuretic Pep. Stat Lab 11/13/24 18:04 Completed Troponin I Q3H Lab 11/13/24 21:23 Completed Troponin I Q3H Lab 11/14/24 00:19 Completed Troponin I Stat Lab 11/13/24 18:04 Completed Urinalysis and Microscopic Stat Lab 11/13/24 19:48 Completed Blood Culture Stat Micro 11/13/24 18:04 Received VBG [Venous Blood Gas] Stat RT 11/13/24 23:06 Completed Medical Decision Narrative: 74-year-old female presents emergency department for failure to thrive generalized weakness, urinary retention and constipation, see HPI for detail past medical history, differential diagnosis, not limited to, failure to thrive, acute kidney injury, acute UTI, pneumonia, pleural effusion, malignancy, bowel obstruction, urinary outflow obstruction, cardiac arrhythmia, electrolyte disturbance. Will obtain basic laboratory studies, bladder scan, EKG, CT abdomen pelvis with contrast, CT chest with contrast, CT head without contrast, lactic level, magnesium level proBNP troponin, urinalysis, blood cultures. Bladder scan is notable for 174 left in the urinary bladder. CBC is notable for anemia with a hemoglobin of 6.8, erythrocyte pi?a at 2.48, hematocrit is decreased to 21.6%, MCV within normal limits CMP notable for elevated BUN at 23, lactic acid level within normal limits. Troponin is less than 0.01, proBNP is minimally elevated at 512. Will obtain type and screen, will transfuse 1 unit PRBCs. I reviewed the patient's CT head without contrast along the corresponding radiologic report, no evidence of acute transcortical infarct, acute intracranial hemorrhage or mass effect, laboratory evidence of intracranial metastasis on this exam. I reviewed the patient CT chest with contrast along the corresponding radiologic report, right mediastinal/hilar mass with mass effect on adjacent structures including right cardiac chambers hilar vessels bronchi along with complex right pleural effusion contributor right pulmonary atelectasis less likely intracardiac mass although not entirely excluded. I reviewed the patient's CT abdomen pelvis with contrast along the corresponding radiological report, extensive edema suspicious for likely sequela of hepatic congestion from mass effect on right cardiac chambers. I discussed this patient's case with the on-call elevator troubleshooter at approximately 7:46 PM he recommends transfer, as patient may require bronchial stenting/inpatient chemotherapy, with new mass effect and hepatic congestion from lesion. blood type is O postive I discussed this patient's case with the [facility] transfer physician at approximately 8 PM, at this time there is no need for emergent transfer, as they also do not have IP on-call for potential bronchial stenting if patient would need, until the morning, no need for emergent transfer at this time. He recommends calling back in the a.m. or potential transfer to different facility. Urinalysis is unremarkable, negative nitrites and leukocyte esterase, negative hematuria, trace proteinuria. Discussed with patient's case with Dr. Claire at [facility], at approximately 8:30 PM, she would like to reach out to ICU physician at [facility], as well as CT surgery other specialist as patient will most likely require higher level of care/interdisciplinary team. They will call me back with further recommendations/potential transfer. They would also like to obtain VBG. Will obtain VBG. I was notified by nursing staff at approximately 9:25 PM that the patient was complaining of some pain, will give 4 mg IV morphine and 4 mg of Zofran for pain and nausea. Discussed this patient's case in depth with Dr. Claire at approximately 9:35 PM, after speaking with CT surgery and the ICU/elevator troubleshooter at [facility], unfortunately she declines transfer at this time, as they did not have interventional pulmonology if the patient would need a bronchial stent due to this extensive hilar mass, as well as their hematology oncology team would not do any acute intervention at this time. I discussed patient case with attending physician Dr. Pak, at shift change she will be assuming admitted the patient's care/workup, disposition is pending potential transfer, or reach out [facility] and other facilities for higher level of care. <Marina Pak, DO - Last Filed: 11/13/24 23:33> Vital Signs: 11/13/24 18:37 11/13/24 18:43 11/13/24 19:00 Temperature 98 F Temperature Source Oral Pulse Rate 82 82 Pulse Rate [Right] 85 Respiratory Rate 22 22 18 TAR Vitals Timing Blood Pressure 166/83 H 168/77 H Blood Pressure [Right Arm] 172/85 H Blood Pressure Mean 127 117 Blood Pressure Mean [Right Arm] 114 Blood Pressure Source Blood Pressure Source [Right Arm] Automatic Cuff Blood Pressure Position Blood Pressure Position [Right Arm] Supine 02 Sat by Pulse Oximetry 100 100 100 Oxygen Delivery Method Nasal Cannula Room Air Oxygen Flow Rate (LPM) 2 11/13/24 19:30 11/13/24 20:00 11/13/24 20:30 Temperature Temperature Source Pulse Rate 84 84 83 Pulse Rate [Right] Respiratory Rate 19 20 19 TAR Vitals Timing Blood Pressure 160/78 H 165/80 H 156/76 H Blood Pressure [Right Arm] Blood Pressure Mean 105 108 116 Blood Pressure Mean [Right Arm] Blood Pressure Source Blood Pressure Source [Right Arm] Blood Pressure Position Blood Pressure Position [Right Arm] 02 Sat by Pulse Oximetry 100 100 100 Oxygen Delivery Method Room Air Room Air Room Air Oxygen Flow Rate (LPM) 11/13/24 21:00 11/13/24 21:30 11/13/24 21:48 Temperature 98.2 F Temperature Source Oral Pulse Rate 84 81 85 Pulse Rate [Right] Respiratory Rate 21 21 22 TAR Vitals Timing Pre-Blood Vitals Blood Pressure 142/69 H 147/76 H 160/76 H Blood Pressure [Right Arm] Blood Pressure Mean 107 107 104 Blood Pressure Mean [Right Arm] Blood Pressure Source Automatic Cuff Blood Pressure Source [Right Arm] Blood Pressure Position Sitting Blood Pressure Position [Right Arm] 02 Sat by Pulse Oximetry 100 100 100 Oxygen Delivery Method Room Air Room Air Oxygen Flow Rate (LPM) 11/13/24 22:00 11/13/24 22:05 11/13/24 22:15 Temperature 98.2 F 98.2 F 98.2 F Temperature Source Oral Oral Oral Pulse Rate 83 84 82 Pulse Rate [Right] Respiratory Rate 22 22 22 TAR Vitals Timing Start Vitals 5 Minute 10 Minute Blood Pressure 149/76 H 146/78 H 145/73 H Blood Pressure [Right Arm] Blood Pressure Mean 100 100 97 Blood Pressure Mean [Right Arm] Blood Pressure Source Automatic Cuff Automatic Cuff Automatic Cuff Blood Pressure Source [Right Arm] Blood Pressure Position Sitting Sitting Sitting Blood Pressure Position [Right Arm] 02 Sat by Pulse Oximetry 100 100 99 Oxygen Delivery Method Oxygen Flow Rate (LPM) 11/13/24 22:15 11/13/24 22:30 11/13/24 22:30 Temperature 98.2 F 98.2 F Temperature Source Oral Oral Pulse Rate 81 81 81 Pulse Rate [Right] Respiratory Rate 22 22 27 H TAR Vitals Timing 15 Minute 30 Minute Blood Pressure 151/76 H 143/75 H 153/81 H Blood Pressure [Right Arm] Blood Pressure Mean 101 97 Blood Pressure Mean [Right Arm] Blood Pressure Source Automatic Cuff Automatic Cuff Blood Pressure Source [Right Arm] Blood Pressure Position Sitting Sitting Blood Pressure Position [Right Arm] 02 Sat by Pulse Oximetry 100 100 100 Oxygen Delivery Method Oxygen Flow Rate (LPM) 11/13/24 22:45 11/13/24 23:00 11/13/24 23:00 Temperature 98.2 F 98.2 F Temperature Source Oral Oral Pulse Rate 79 81 81 Pulse Rate [Right] Respiratory Rate 22 22 20 TAR Vitals Timing 45 Minute 60 Minute Blood Pressure 138/79 154/78 H 154/74 H Blood Pressure [Right Arm] Blood Pressure Mean 98 103 Blood Pressure Mean [Right Arm] Blood Pressure Source Automatic Cuff Automatic Cuff Blood Pressure Source [Right Arm] Blood Pressure Position Sitting Sitting Blood Pressure Position [Right Arm] 02 Sat by Pulse Oximetry 100 100 100 Oxygen Delivery Method Oxygen Flow Rate (LPM) 11/13/24 23:30 11/14/24 00:00 11/14/24 00:00 Temperature 98.2 F Temperature Source Oral Pulse Rate 81 80 81 Pulse Rate [Right] Respiratory Rate 19 22 16 TAR Vitals Timing 2nd Hour Blood Pressure 143/82 H 150/74 H 144/77 H Blood Pressure [Right Arm] Blood Pressure Mean 99 Blood Pressure Mean [Right Arm] Blood Pressure Source Automatic Cuff Blood Pressure Source [Right Arm] Blood Pressure Position Sitting Blood Pressure Position [Right Arm] 02 Sat by Pulse Oximetry 99 100 99 Oxygen Delivery Method Oxygen Flow Rate (LPM) 11/14/24 01:00 Temperature 98.2 F Temperature Source Oral Pulse Rate 79 Pulse Rate [Right] Respiratory Rate 22 TAR Vitals Timing 3rd Hour Blood Pressure 153/80 H Blood Pressure [Right Arm] Blood Pressure Mean 104 Blood Pressure Mean [Right Arm] Blood Pressure Source Automatic Cuff Blood Pressure Source [Right Arm] Blood Pressure Position Sitting Blood Pressure Position [Right Arm] 02 Sat by Pulse Oximetry 100 Oxygen Delivery Method Oxygen Flow Rate (LPM) Lab Data Lab Results 11/13/24 18:04: WBC 10.1, RBC 2.48 L, Hgb 6.8 L*, Hct 21.6 L, MCV 87.1, MCH 27.4, MCHC 31.5 L, RDW 15.4, Plt Count 495 H, MPV 8.8, Neut % (Auto) 81.7 H, L ymph % (Auto) 9.6 L, [place] % (Auto) 7.7, Eos % (Auto) 0.2, Baso % (Auto) 0.4, N eut # (Auto) 8.2 H, Lymph # (Auto) 1.0, [place] # (Auto) 0.8, Eos # (Auto) 0.0, Baso # (Auto) 0.0, Sodium 133 L, Potassium 4.2, Chloride 95 L, Carbon Dioxide 33 H, Anion Gap 9.2, BUN 23 H, Creatinine 0.60, Estimated GFR 98, Est GFR ( Amer) 119, Glucose 107 H, Lactate 2.1, Calcium 10.3 H, Magnesium 1.7, Total Bilirubin 0.2, AST 49 H, ALT 27, Alkaline Phosphatase 88, Troponin I < 0.01, N T-Pro-B Natriuret Pep 512 H, Total Protein 6.6, Albumin 3.7, Globulin 2.9, Albumin/Globulin Ratio 1.3, HCV Ab MYLA w/Rflx PCR Qn Negative, HIV Ag/Ab Combo Qual Negative, Blood Type Confirm O Positive 11/13/24 19:13: Blood Type O Positive 11/13/24 19:13: Blood Type Cancelled, Antibody Screen Negative 11/13/24 19:13: Antibody Screen Cancelled, Crossmatch (AHG) See Detail 11/13/24 19:48: Urine Color Yellow, Urine Appearance Clear, Urine pH 6.0, Ur Specific [place] 1.010, Urine Protein Trace, Urine Glucose (UA) Negative, Urine Ketones Negative, Urine Blood Negative, Urine Nitrate Negative, Urine Bilirubin Negative, Urine Urobilinogen 2.0, Ur Leukocyte Esterase Negative, Urine WBC Occasional, Ur Squamous Epith Cells 5-10, Urine Bacteria Trace 11/13/24 21:23: Troponin I < 0.01 11/13/24 23:06: VBG pH 7.39, VBG pCO2 52.1 H, VBG pO2 55.3 H, VBG HCO3 30.7 H, V BG Total CO2 32.3 H, VBG O2 Saturation 83.3 H, VBG Base Excess 5.7 H, VBG Lactic Acid 1.2, Lactate 0.9 11/14/24 00:19: Troponin I < 0.01 Orders (Tests/Meds): ED MEDICATIONS Generic Name Dose Route Start Last Admin Trade Name Freq PRN Reason Stop Dose Admin Sodium Chloride 250 mls @ 25 mls/hr 11/13/24 19:00 11/13/24 22:00 Sod Chlor 0.9% 250ml Bag IV 11/14/24 18:59 25 mls/hr .Q10H FER Administration Discontinued Medications Generic Name Dose Route Start Last Admin Trade Name Marcio PRN Reason Stop Dose Admin Iopamidol 75 ml 11/13/24 18:26 11/13/24 18:27 Iopamidol-370 (76%);100ml Bottle IV 11/13/24 18:27 75 ml ONCE ONE Administration Morphine Sulfate 4 mg 11/13/24 21:47 11/13/24 21:53 Morphine 4mg/Ml Syringe IV 11/13/24 21:48 4 mg ONCE ONE Administration Ondansetron HCl 4 mg 11/13/24 21:47 11/13/24 21:54 Ondansetron 4mg/2ml Vial IV 11/13/24 21:48 4 mg ONCE ONE Administration Sodium Chloride 10 ml 11/13/24 18:26 11/13/24 18:27 Sodium Chloride 0.9% 10ml Syr (Rad Only) IV 11/13/24 18:27 10 ml ONCE ONE Administration ORDERS Category Date Time Status Blood transfusion [Red Blood Cells] Stat BBK 11/13/24 19:13 Completed Type and Screen Stat BBK 11/13/24 19:[address] abdomen pelvis w con Stat Cat Scan 11/13/24 17:[address] chest w con Stat Cat Scan 11/13/24 17:[address] head/brain wo con Stat Cat Scan 11/13/24 17:53 Completed Complete Blood Count Auto Diff Stat Lab 11/13/24 18:04 Completed Comprehensive Metabolic Panel Stat Lab 11/13/24 18:04 Completed HIV Combo Stat Lab 11/13/24 18:04 Completed Hepatitis C Ab Qual. W/ RFX Stat Lab 11/13/24 18:04 Completed Lactic Acid Follow Up (RFLX 1) Stat Lab 11/13/24 23:06 Completed Lactic Acid Stat Lab 11/13/24 18:04 Completed Magnesium Stat Lab 11/13/24 18:04 Completed NT Pro Brain Natriuretic Pep. Stat Lab 11/13/24 18:04 Completed Troponin I Q3H Lab 11/13/24 21:23 Completed Troponin I Q3H Lab 11/14/24 00:19 Completed Troponin I Stat Lab 11/13/24 18:04 Completed Urinalysis and Microscopic Stat Lab 11/13/24 19:48 Completed Blood Culture Stat Micro 11/13/24 18:04 Received VBG [Venous Blood Gas] Stat RT 11/13/24 23:06 Completed ECG Data Tracing #1: I reviewed this ECG and interpreted as documented below: Normal sinus rhythm with a ventricular of [address] changes concerning for ischemia. Normal intervals ECG initial impression date: 11/13/24 ECG initial impression time: 18:03 Medical Decision Narrative: 74-year-old female presents emergency department for failure to thrive generalized weakness, urinary retention and constipation, see HPI for detail past medical history, differential diagnosis, not limited to, failure to thrive, acute kidney injury, acute UTI, pneumonia, pleural effusion, malignancy, bowel obstruction, urinary outflow obstruction, cardiac arrhythmia, electrolyte disturbance. Will obtain basic laboratory studies, bladder scan, EKG, CT abdomen pelvis with contrast, CT chest with contrast, CT head without contrast, lactic level, magnesium level proBNP troponin, urinalysis, blood cultures. Bladder scan is notable for 174 left in the urinary bladder. CBC is notable for anemia with a hemoglobin of 6.8, erythrocyte pi?a at 2.48, hematocrit is decreased to 21.6%, MCV within normal limits CMP notable for elevated BUN at 23, lactic acid level within normal limits. Troponin is less than 0.01, proBNP is minimally elevated at 512. Will obtain type and screen, will transfuse 1 unit PRBCs. I reviewed the patient's CT head without contrast along the corresponding radiologic report, no evidence of acute transcortical infarct, acute intracranial hemorrhage or mass effect, laboratory evidence of intracranial metastasis on this exam. I reviewed the patient CT chest with contrast along the corresponding radiologic report, right mediastinal/hilar mass with mass effect on adjacent structures including right cardiac chambers hilar vessels bronchi along with complex right pleural effusion contributor right pulmonary atelectasis less likely intracardiac mass although not entirely excluded. I reviewed the patient's CT abdomen pelvis with contrast along the corresponding radiological report, extensive edema suspicious for likely sequela of hepatic congestion from mass effect on right cardiac chambers. I discussed this patient's case with the on-call elevator troubleshooter at approximately 7:46 PM he recommends transfer, as patient may require bronchial stenting/inpatient chemotherapy, with new mass effect and hepatic congestion from lesion. blood type is O postive I discussed this patient's case with the [facility] transfer physician at approximately 8 PM, at this time there is no need for emergent transfer, as they also do not have IP on-call for potential bronchial stenting if patient would need, until the morning, no need for emergent transfer at this time. He recommends calling back in the a.m. or potential transfer to different facility. Urinalysis is unremarkable, negative nitrites and leukocyte esterase, negative hematuria, trace proteinuria. Discussed with patient's case with Dr. Claire at [facility], at approximately 8:30 PM, she would like to reach out to ICU physician at [facility], as well as CT surgery other specialist as patient will most likely require higher level of care/interdisciplinary team. They will call me back with further recommendations/potential transfer. They would also like to obtain VBG. Will obtain VBG. I was notified by nursing staff at approximately 9:25 PM that the patient was complaining of some pain, will give 4 mg IV morphine and 4 mg of Zofran for pain and nausea. Discussed this patient's case in depth with Dr. Claire at approximately 9:35 PM, after speaking with CT surgery and the ICU/elevator troubleshooter at [facility], unfortunately she declines transfer at this time, as they did not have interventional pulmonology if the patient would need a bronchial stent due to this extensive hilar mass, as well as their hematology oncology team would not do any acute intervention at this time. I discussed patient case with attending physician Dr. Pak, at shift change she will be assuming admitted the patient's care/workup, disposition is pending potential transfer, or reach out [facility] and other facilities for higher level of care. DO Pasha: I was consulted by the ЕКАТЕРИНА, and we discussed the complexity of the problems being addressed. I approved the treatment and management plan for this patient's care in the emergency department, thus performing a substantive portion of the medical decision making. Patient arrives with abdominal pain in the setting of new diagnosis of mass, for which she is awaiting outpatient biopsy. Her clinical condition and symptoms are worsening, which we feel prompts need for more urgent evaluation. She has obstructive mass causing mass effect on heart and lung, hepatic congestion. We feel she would benefit from transfer for higher level of care after interactive discussion with Dr. Burnett with pulmonology. Unfortunately, both and [facility] so that they are unable to accept the patient for transfer and they recommend academic center with interventional pulmonology/oncology. We then reached out to [facility]. I had an indirect discussion with Dr. Kathryn Zamudio at [facility] who graciously accepted the patient for transfer, but she is not sure if they have beds at this time. If not, I think would be best for us to admit this patient here on a wait list. Callback pending at time of signout to Dr. Christy. Marina Pak DO <Emilio Christy MD - Last Filed: 11/14/24 01:29> Vital Signs: 11/13/24 18:37 11/13/24 18:43 11/13/24 19:00 Temperature 98 F Temperature Source Oral Pulse Rate 82 82 Pulse Rate [Right] 85 Respiratory Rate 22 22 18 TAR Vitals Timing Blood Pressure 166/83 H 168/77 H Blood Pressure [Right Arm] 172/85 H Blood Pressure Mean 127 117 Blood Pressure Mean [Right Arm] 114 Blood Pressure Source Blood Pressure Source [Right Arm] Automatic Cuff Blood Pressure Position Blood Pressure Position [Right Arm] Supine 02 Sat by Pulse Oximetry 100 100 100 Oxygen Delivery Method Nasal Cannula Room Air Oxygen Flow Rate (LPM) 2 11/13/24 19:30 11/13/24 20:00 11/13/24 20:30 Temperature Temperature Source Pulse Rate 84 84 83 Pulse Rate [Right] Respiratory Rate 19 20 19 TAR Vitals Timing Blood Pressure 160/78 H 165/80 H 156/76 H Blood Pressure [Right Arm] Blood Pressure Mean 105 108 116 Blood Pressure Mean [Right Arm] Blood Pressure Source Blood Pressure Source [Right Arm] Blood Pressure Position Blood Pressure Position [Right Arm] 02 Sat by Pulse Oximetry 100 100 100 Oxygen Delivery Method Room Air Room Air Room Air Oxygen Flow Rate (LPM) 11/13/24 21:00 11/13/24 21:30 11/13/24 21:48 Temperature 98.2 F Temperature Source Oral Pulse Rate 84 81 85 Pulse Rate [Right] Respiratory Rate 21 21 22 TAR Vitals Timing Pre-Blood Vitals Blood Pressure 142/69 H 147/76 H 160/76 H Blood Pressure [Right Arm] Blood Pressure Mean 107 107 104 Blood Pressure Mean [Right Arm] Blood Pressure Source Automatic Cuff Blood Pressure Source [Right Arm] Blood Pressure Position Sitting Blood Pressure Position [Right Arm] 02 Sat by Pulse Oximetry 100 100 100 Oxygen Delivery Method Room Air Room Air Oxygen Flow Rate (LPM) 11/13/24 22:00 11/13/24 22:05 11/13/24 22:15 Temperature 98.2 F 98.2 F 98.2 F Temperature Source Oral Oral Oral Pulse Rate 83 84 82 Pulse Rate [Right] Respiratory Rate 22 22 22 TAR Vitals Timing Start Vitals 5 Minute 10 Minute Blood Pressure 149/76 H 146/78 H 145/73 H Blood Pressure [Right Arm] Blood Pressure Mean 100 100 97 Blood Pressure Mean [Right Arm] Blood Pressure Source Automatic Cuff Automatic Cuff Automatic Cuff Blood Pressure Source [Right Arm] Blood Pressure Position Sitting Sitting Sitting Blood Pressure Position [Right Arm] 02 Sat by Pulse Oximetry 100 100 99 Oxygen Delivery Method Oxygen Flow Rate (LPM) 11/13/24 22:15 11/13/24 22:30 11/13/24 22:30 Temperature 98.2 F 98.2 F Temperature Source Oral Oral Pulse Rate 81 81 81 Pulse Rate [Right] Respiratory Rate 22 22 27 H TAR Vitals Timing 15 Minute 30 Minute Blood Pressure 151/76 H 143/75 H 153/81 H Blood Pressure [Right Arm] Blood Pressure Mean 101 97 Blood Pressure Mean [Right Arm] Blood Pressure Source Automatic Cuff Automatic Cuff Blood Pressure Source [Right Arm] Blood Pressure Position Sitting Sitting Blood Pressure Position [Right Arm] 02 Sat by Pulse Oximetry 100 100 100 Oxygen Delivery Method Oxygen Flow Rate (LPM) 11/13/24 22:45 11/13/24 23:00 11/13/24 23:00 Temperature 98.2 F 98.2 F Temperature Source Oral Oral Pulse Rate 79 81 81 Pulse Rate [Right] Respiratory Rate 22 22 20 TAR Vitals Timing 45 Minute 60 Minute Blood Pressure 138/79 154/78 H 154/74 H Blood Pressure [Right Arm] Blood Pressure Mean 98 103 Blood Pressure Mean [Right Arm] Blood Pressure Source Automatic Cuff Automatic Cuff Blood Pressure Source [Right Arm] Blood Pressure Position Sitting Sitting Blood Pressure Position [Right Arm] 02 Sat by Pulse Oximetry 100 100 100 Oxygen Delivery Method Oxygen Flow Rate (LPM) 11/13/24 23:30 11/14/24 00:00 11/14/24 00:00 Temperature 98.2 F Temperature Source Oral Pulse Rate 81 80 81 Pulse Rate [Right] Respiratory Rate 19 22 16 TAR Vitals Timing 2nd Hour Blood Pressure 143/82 H 150/74 H 144/77 H Blood Pressure [Right Arm] Blood Pressure Mean 99 Blood Pressure Mean [Right Arm] Blood Pressure Source Automatic Cuff Blood Pressure Source [Right Arm] Blood Pressure Position Sitting Blood Pressure Position [Right Arm] 02 Sat by Pulse Oximetry 99 100 99 Oxygen Delivery Method Oxygen Flow Rate (LPM) 11/14/24 01:00 Temperature 98.2 F Temperature Source Oral Pulse Rate 79 Pulse Rate [Right] Respiratory Rate 22 TAR Vitals Timing 3rd Hour Blood Pressure 153/80 H Blood Pressure [Right Arm] Blood Pressure Mean 104 Blood Pressure Mean [Right Arm] Blood Pressure Source Automatic Cuff Blood Pressure Source [Right Arm] Blood Pressure Position Sitting Blood Pressure Position [Right Arm] 02 Sat by Pulse Oximetry 100 Oxygen Delivery Method Oxygen Flow Rate (LPM) Lab Data Lab Results 11/13/24 18:04: WBC 10.1, RBC 2.48 L, Hgb 6.8 L*, Hct 21.6 L, MCV 87.1, MCH 27.4, MCHC 31.5 L, RDW 15.4, Plt Count 495 H, MPV 8.8, Neut % (Auto) 81.7 H, L ymph % (Auto) 9.6 L, [place] % (Auto) 7.7, Eos % (Auto) 0.2, Baso % (Auto) 0.4, N eut # (Auto) 8.2 H, Lymph # (Auto) 1.0, [place] # (Auto) 0.8, Eos # (Auto) 0.0, Baso # (Auto) 0.0, Sodium 133 L, Potassium 4.2, Chloride 95 L, Carbon Dioxide 33 H, Anion Gap 9.2, BUN 23 H, Creatinine 0.60, Estimated GFR 98, Est GFR ( Amer) 119, Glucose 107 H, Lactate 2.1, Calcium 10.3 H, Magnesium 1.7, Total Bilirubin 0.2, AST 49 H, ALT 27, Alkaline Phosphatase 88, Troponin I < 0.01, N T-Pro-B Natriuret Pep 512 H, Total Protein 6.6, Albumin 3.7, Globulin 2.9, Albumin/Globulin Ratio 1.3, HCV Ab MYLA w/Rflx PCR Qn Negative, HIV Ag/Ab Combo Qual Negative, Blood Type Confirm O Positive 11/13/24 19:13: Blood Type O Positive 11/13/24 19:13: Blood Type Cancelled, Antibody Screen Negative 11/13/24 19:13: Antibody Screen Cancelled, Crossmatch (AHG) See Detail 11/13/24 19:48: Urine Color Yellow, Urine Appearance Clear, Urine pH 6.0, Ur Specific [place] 1.010, Urine Protein Trace, Urine Glucose (UA) Negative, Urine Ketones Negative, Urine Blood Negative, Urine Nitrate Negative, Urine Bilirubin Negative, Urine Urobilinogen 2.0, Ur Leukocyte Esterase Negative, Urine WBC Occasional, Ur Squamous Epith Cells 5-10, Urine Bacteria Trace 11/13/24 21:23: Troponin I < 0.01 11/13/24 23:06: VBG pH 7.39, VBG pCO2 52.1 H, VBG pO2 55.3 H, VBG HCO3 30.7 H, V BG Total CO2 32.3 H, VBG O2 Saturation 83.3 H, VBG Base Excess 5.7 H, VBG Lactic Acid 1.2, Lactate 0.9 11/14/24 00:19: Troponin I < 0.01 Orders (Tests/Meds): ED MEDICATIONS Generic Name Dose Route Start Last Admin Trade Name Freq PRN Reason Stop Dose Admin Sodium Chloride 250 mls @ 25 mls/hr 11/13/24 19:00 11/13/24 22:00 Sod Chlor 0.9% 250ml Bag IV 11/14/24 18:59 25 mls/hr .Q10H FER Administration Discontinued Medications Generic Name Dose Route Start Last Admin Trade Name Freq PRN Reason Stop Dose Admin Iopamidol 75 ml 11/13/24 18:26 11/13/24 18:27 Iopamidol-370 (76%);100ml Bottle IV 11/13/24 18:27 75 ml ONCE ONE Administration Morphine Sulfate 4 mg 11/13/24 21:47 11/13/24 21:53 Morphine 4mg/Ml Syringe IV 11/13/24 21:48 4 mg ONCE ONE Administration Ondansetron HCl 4 mg 11/13/24 21:47 11/13/24 21:54 Ondansetron 4mg/2ml Vial IV 11/13/24 21:48 4 mg ONCE ONE Administration Sodium Chloride 10 ml 11/13/24 18:26 11/13/24 18:27 Sodium Chloride 0.9% 10ml Syr (Rad Only) IV 11/13/24 18:27 10 ml ONCE ONE Administration ORDERS Category Date Time Status Blood transfusion [Red Blood Cells] Stat BBK 11/13/24 19:13 Completed Type and Screen Stat BBK 11/13/24 19:[address] abdomen pelvis w con Stat Cat Scan 11/13/24 17:[address] chest w con Stat Cat Scan 11/13/24 17:[address] head/brain wo con Stat Cat Scan 11/13/24 17:53 Completed Complete Blood Count Auto Diff Stat Lab 11/13/24 18:04 Completed Comprehensive Metabolic Panel Stat Lab 11/13/24 18:04 Completed HIV Combo Stat Lab 11/13/24 18:04 Completed Hepatitis C Ab Qual. W/ RFX Stat Lab 11/13/24 18:04 Completed Lactic Acid Follow Up (RFLX 1) Stat Lab 11/13/24 23:06 Completed Lactic Acid Stat Lab 11/13/24 18:04 Completed Magnesium Stat Lab 11/13/24 18:04 Completed NT Pro Brain Natriuretic Pep. Stat Lab 11/13/24 18:04 Completed Troponin I Q3H Lab 11/13/24 21:23 Completed Troponin I Q3H Lab 11/14/24 00:19 Completed Troponin I Stat Lab 11/13/24 18:04 Completed Urinalysis and Microscopic Stat Lab 11/13/24 19:48 Completed Blood Culture Stat Micro 11/13/24 18:04 Received VBG [Venous Blood Gas] Stat RT 11/13/24 23:06 Completed Medical Decision Narrative: 74-year-old female presents emergency department for failure to thrive generalized weakness, urinary retention and constipation, see HPI for detail past medical history, differential diagnosis, not limited to, failure to thrive, acute kidney injury, acute UTI, pneumonia, pleural effusion, malignancy, bowel obstruction, urinary outflow obstruction, cardiac arrhythmia, electrolyte disturbance. Will obtain basic laboratory studies, bladder scan, EKG, CT abdomen pelvis with contrast, CT chest with contrast, CT head without contrast, lactic level, magnesium level proBNP troponin, urinalysis, blood cultures. Bladder scan is notable for 174 left in the urinary bladder. CBC is notable for anemia with a hemoglobin of 6.8, erythrocyte pi?a at 2.48, hematocrit is decreased to 21.6%, MCV within normal limits CMP notable for elevated BUN at 23, lactic acid level within normal limits. Troponin is less than 0.01, proBNP is minimally elevated at 512. Will obtain type and screen, will transfuse 1 unit PRBCs. I reviewed the patient's CT head without contrast along the corresponding radiologic report, no evidence of acute transcortical infarct, acute intracranial hemorrhage or mass effect, laboratory evidence of intracranial metastasis on this exam. I reviewed the patient CT chest with contrast along the corresponding radiologic report, right mediastinal/hilar mass with mass effect on adjacent structures including right cardiac chambers hilar vessels bronchi along with complex right pleural effusion contributor right pulmonary atelectasis less likely intracardiac mass although not entirely excluded. I reviewed the patient's CT abdomen pelvis with contrast along the corresponding radiological report, extensive edema suspicious for likely sequela of hepatic congestion from mass effect on right cardiac chambers. I discussed this patient's case with the on-call elevator troubleshooter at approximately 7:46 PM he recommends transfer, as patient may require bronchial stenting/inpatient chemotherapy, with new mass effect and hepatic congestion from lesion. blood type is O postive I discussed this patient's case with the [facility] transfer physician at approximately 8 PM, at this time there is no need for emergent transfer, as they also do not have IP on-call for potential bronchial stenting if patient would need, until the morning, no need for emergent transfer at this time. He recommends calling back in the a.m. or potential transfer to different facility. Urinalysis is unremarkable, negative nitrites and leukocyte esterase, negative hematuria, trace proteinuria. Discussed with patient's case with Dr. Claire at [facility], at approximately 8:30 PM, she would like to reach out to ICU physician at [facility], as well as CT surgery other specialist as patient will most likely require higher level of care/interdisciplinary team. They will call me back with further recommendations/potential transfer. They would also like to obtain VBG. Will obtain VBG. I was notified by nursing staff at approximately 9:25 PM that the patient was complaining of some pain, will give 4 mg IV morphine and 4 mg of Zofran for pain and nausea. Discussed this patient's case in depth with Dr. Claire at approximately 9:35 PM, after speaking with CT surgery and the ICU/elevator troubleshooter at [facility], unfortunately she declines transfer at this time, as they did not have interventional pulmonology if the patient would need a bronchial stent due to this extensive hilar mass, as well as their hematology oncology team would not do any acute intervention at this time. I discussed patient case with attending physician Dr. Pak, at shift change she will be assuming admitted the patient's care/workup, disposition is pending potential transfer, or reach out [facility] and other facilities for higher level of care. DO Pasha: I was consulted by the ЕКАТЕРИНА, and we discussed the complexity of the problems being addressed. I approved the treatment and management plan for this patient's care in the emergency department, thus performing a substantive portion of the medical decision making. Patient arrives with abdominal pain in the setting of new diagnosis of mass, for which she is awaiting outpatient biopsy. Her clinical condition and symptoms are worsening, which we feel prompts need for more urgent evaluation. She has obstructive mass causing mass effect on heart and lung, hepatic congestion. We feel she would benefit from transfer for higher level of care after interactive discussion with Dr. Burnett with pulmonology. Unfortunately, both and [facility] so that they are unable to accept the patient for transfer and they recommend academic center with interventional pulmonology/oncology. We then reached out to [facility]. I had an indirect discussion with Dr. Kathryn Zamudio at [facility] who graciously accepted the patient for transfer, but she is not sure if they have beds at this time. If not, I think would be best for us to admit this patient here on a wait list. Callback pending at time of signout to Dr. Christy. DO Jaelyn Mtz MD: I assumed care of the patient at the time of handoff from the prior provider. Patient went upstairs in stable condition while waiting on a bed for [place]. Critical Care <ANGELA Whitaker - Last Filed: 11/13/24 22:05> Critical Care Time Critical Care Time: No <Marina Pak DO - Last Filed: 11/13/24 23:33> Critical Care Time Critical Care Time: Yes Attestation: On 11/13/24, the high probability of a clinically significant, sudden or life threatening deterioration of the following system(s) required my full and direct attention, intervention and personal management. The time I documented below is in addition to time spent performing reported procedures but includes the following listed in this critical care notation. Total Time Total Critical Care Time: 55
--- NOTE | 2024-11-13 17:55 | PC.NURSE ---
bladder scan 174 ML
--- NOTE | 2024-11-13 18:03 | ECG_ITS ---
APPROVED REPORT Exam: Resting ECG HR:82 bpm ECG Measurements Heart Rate 82 AXES LA 136 P 68 QRSd 83 QRS 80 QT 356 T 69 QTc 395 Conclusion SINUS RHYTHM MINIMAL VOLTAGE CRITERIA FOR LVH, CONSIDER NORMAL VARIANT [MEETS CRITERIA IN ONE OF: R(aVL), S(V1), R(V5), R(V5/V6)+S(V1)] No sTEMI Electronically signed by : FIDELIA PERKINS, 11/13/2024 23:12:47
[2024-11-13 18:14] LABS: Basophils % 0.4 % (0.1-2.0); Eosinophils % 0.2 % (0.1-12.0); Hematocrit 21.6 % (37.0-47.0); Immature Granulocytes # 0.04 10^3uL; Immature Granulocytes % 0.4 %; Lymphocytes % 9.6 % (10-50); Mean Corpuscular HGB Conc 31.5 g/dL (31.8-35.4); Mean Corpuscular Hemoglobin 27.4 pg (27.0-31.2); Mean Corpuscular Volume 87.1 fl (81-99); Mean Platelet Volume 8.8 fl (7.4-10.4); Monocytes # 0.8 K/mm3 (0.1-1.0); Monocytes % 7.7 % (1.7-9.3); Neutrophils # 8.2 K/mm3 (1.8-7.8); Neutrophils % 81.7 % (37.0-80.0); Nucleated Red Blood Cells # 0 10^3/uL; Nucleated Red Blood Cells % 0 %; Platelet Count 495 K/mm3 (142-424); Red Blood Count 2.48 M/mm3 (4.20-5.40); Red Cell Distribution Width 15.4 % (11.5-17.5); Red Cell Distribution Width-SD 48.8 fL; White Blood Count 10.1 K/mm3 (4.8-10.8)
[2024-11-13 18:24] LABS: Hemoglobin 6.8 g/dL (12.2-16.2)
[2024-11-13] MEDS: IOPAMIDOL-370 (76%);100ML BOTTLE 75 ML IV (18:27)
[2024-11-13] MEDS: SODIUM CHLORIDE 0.9% 10ML SYR (RAD ONLY) 10 ML IV (18:27)
[2024-11-13 18:35] LABS: Albumin Level 3.7 g/dl (3.5-5.0); Chloride 95 mmol/L (98-107); Potassium 4.2 mmoL/L (3.5-5.1); Sodium 133 mmol/L (136-145)
[2024-11-13 18:37] LABS: Blood Urea Nitrogen 23 mg/dl (7-17); Estimated Glomerular Filt Rate 98 ml/min (>60); GFR (African American) 119 ML/MIN (>60); Lactic Acid 2.1 mmol/L (0.7-2.1)
[2024-11-13 18:38] LABS: Alanine Aminotransferase 27 U/L (12-78); Albumin/Globulin Ratio 1.3 (1.1-1.8); Alkaline Phosphatase 88 U/L (38-126); Anion Gap 9.2 mEq/L (5-15); Aspartate Amino Transferase 49 U/L (14-36); Bilirubin,Total 0.2 mg/dl (0.2-1.3); Calcium 10.3 mg/dl (8.4-10.2); Carbon Dioxide 33 mmol/L (22.0-30.0); Globulin 2.9 g/dL (1.3-3.2); Glucose 107 mg/dl (74-100); Magnesium 1.7 mg/dl (1.6-2.3); Total Protein,Serum 6.6 g/dl (6.3-8.2)
[2024-11-13 18:47] LABS: NT Pro Brain Natriuretic Pep. 512 pg/mL (0-125)
[2024-11-13 18:54] LABS: Troponin I < 0.01 ng/ml (0.00-0.034)
[2024-11-13 19:52] LABS: Microscopic, Urine URINE MICROSCOPIC (MICROSCOPIC)
[2024-11-13 19:56] LABS: HIV Combo NEGATIVE (Negative)
--- NOTE | 2024-11-13 20:00 | PC.NURSE ---
called [facility] to see about transferring patient, transferred the call to the PA. powershared images to [facility]
[2024-11-13 20:05] LABS: Hepatitis C Ab Qual. W/ RFX NEGATIVE (Negative)
[2024-11-13 20:10] LABS: Appearance,Urine CLEAR (Clear); Bilirubin,Urine Negative (Negative); Blood, Urine Negative (Negative); Color,Urine YELLOW (Yellow); Glucose,Urine (UA) Negative (Negative); Ketones,Urine Negative (Negative); Leukocyte Esterase,Urine Negative (Negative); Nitrate,Urine Negative (Negative); Protein,Urine TRACE (Negative)
--- NOTE | 2024-11-13 20:12 | PC.NURSE ---
called [facility] about transferring pt said they would call back
[2024-11-13 20:41] LABS: Bacteria,Urine Trace /lpf; WBC,Urine Occasional #/hpf (0-3)
--- NOTE | 2024-11-13 21:51 | PC.NURSE ---
Family at bedside visiting.
[2024-11-13] MEDS: MORPHINE 4MG/ML SYRINGE 4 MG IV (21:53)
[2024-11-13] MEDS: ONDANSETRON 4MG/2ML VIAL 4 MG IV (21:54)
[2024-11-13] MEDS: 0.9 % SODIUM CHLORIDE 250 ML 25 ML IV (22:00)
[2024-11-13 22:05] LABS: Troponin I < 0.01 ng/ml (0.00-0.034)
--- NOTE | 2024-11-13 22:08 | PC.NURSE ---
Spoke with , Awaiting a call back at this time.
[2024-11-13 22:10] LABS: Reflex Lactic Add Lactic Reflex
[2024-11-13 23:14] LABS: Lactate Venous 1.2 mmol/L (0.4-2.0); VBG Base Excess 5.7 mmol/L (-2.4-2.3); VBG HCO3 30.7 mmol/L (23-30); VBG Oxygen Saturation 83.3 % (50-70); VBG PH 7.39 mmol/L (7.31-7.41); VBG PO2 55.3 mmol/L (28-40); VBG Total CO2 32.3 mmol/L (23-27)
[2024-11-13 23:18] LABS: VBG PCO2 52.1 mmol/L (35-51)
[2024-11-13 23:30] LABS: Lactic Acid Follow Up (RFLX 1) 0.9 mmol/L (0.7-2.1)
[2024-11-14] VITALS (10 sets, daily range): BP systolic 131–178; BP diastolic 65–80; PULSE 79–96; RESP 16–22; TEMP 36.7–37.2; O2SAT 92–100; BMI 18.0; BMI 18.1
--- NOTE | 2024-11-14 00:13 | PC.NURSE ---
Spoke with , they will give us a call when they have a bed available.
[2024-11-14 00:50] LABS: Troponin I < 0.01 ng/ml (0.00-0.034)
--- NOTE | 2024-11-14 00:53 | PC.NURSE ---
BED ASSIGNMENT CALLED TO ADMISSION.
[2024-11-14 02:35] LABS: Hematocrit 23.3 % (37.0-47.0)
[2024-11-14 02:38] LABS: Hemoglobin 7.4 g/dL (12.2-16.2)
--- NOTE | 2024-11-14 04:21 | PC.NURSE ---
New Admit. V/s, ox4. Pt received 1 unit of blood in ED. Post H&H was 7.4. Pt on waiting list for UC. Plan of care ongoing.
--- NOTE | 2024-11-14 05:43 | EXP.HPDC ---
General Admission date:: 11/14/24 Discharge date: 11/14/24 *Chief complaint: Failure to thrive *History of present illness: Patient is a 74-year-old female with past medical history of mediastinal mass who presents to the hospital due to shortness of breath, failure to thrive, generalized weakness. Patient is admitted as a swing bed while waiting for transfer to . Patient at time of my evaluation is lying in bed comfortably waiting for to be transferred. [facility] Disclaimer: The information contained in this section may have been updated after the patient was seen, as this information can be updated by other users. 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 Anxiety COPD (chronic obstructive pulmonary disease) Migraine History of gastroesophageal reflux (GERD) Hyperlipidemia Skin cancer Other chest pain Other forms of dyspnea Mass of chest wall, right Abnormal MRI Impacted cerumen, left ear Retained myringotomy tube in left ear Fluid level behind tympanic membrane of right ear Thyroid Nodule Hypertension Surgical History History of cholecystectomy History of heart artery stent Family History Other Cancer Heart disease Social History Smoking Status: Current every day smoker tobacco type: cigarettes packs per day: 1 second hand exposure: No alcohol intake: never substance use type: denies use current occupational status: disabled Travel in the last 8 weeks?: None household members: family housing: house caffeine: No Have you lived/traveled outside [place] in past 30 days?: No Contact w/someone who lives/traveled outside US past 30 days?: No Exposure to someone with infectious disease in past 14 days?: No Do you have a fever (greater than 100.4 F or 38 C)?: No Have you tested positive for COVID-19?: No Exposed to someone with COVID-19 in past 14 days?: No Do you have a sore throat?: No Do you have a cough?: No Do you have any weakness?: No Do you have any diarrhea?: No Are you experiencing any unusual bleeding?: No Do you have any muscle aches/pain?: No Do you have any abdominal pain?: No Are you experiencing loss of taste or smell?: No Other Medical History Have you received the Flu Vaccine for this season: No Have you received the Pneumonia Vaccine: No Review of Systems Review of Systems Review of systems:: pertinent systems reviewed and negative unless documented below Exam Data for Last 24 hours Vital signs and Labs for Last 24 Hours: Temp Pulse Resp BP Pulse Ox O2 Del Method O2 Flow Rate 98.2 F 82 17 140/65 94 L Nasal Cannula 2 11/14/24 04:00 11/14/24 04:00 11/14/24 04:00 11/14/24 04:00 11/14/24 04:00 11/14/24 04:00 11/14/24 04:00 Laboratory Results - last 24 hr 11/13/24 18:04: WBC 10.1, RBC 2.48 L, Hgb 6.8 L*, Hct 21.6 L, MCV 87.1, MCH 27.4, MCHC 31.5 L, RDW 15.4, Plt Count 495 H, MPV 8.8, Neut % (Auto) 81.7 H, Lymph % (Auto) 9.6 L, [place] % (Auto) 7.7, Eos % (Auto) 0.2, Baso % (Auto) 0.4, Neut # (Auto) 8.2 H, Lymph # (Auto) 1.0, [place] # (Auto) 0.8, Eos # (Auto) 0.0, Baso # (Auto) 0.0, Sodium 133 L, Potassium 4.2, Chloride 95 L, Carbon Dioxide 33 H, Anion Gap 9.2, BUN 23 H, Creatinine 0.60, Estimated GFR 98, Est GFR ( Amer) 119, Glucose 107 H, Lactate 2.1, Calcium 10.3 H, Magnesium 1.7, Total Bilirubin 0.2, AST 49 H, ALT 27, Alkaline Phosphatase 88, Troponin I < 0.01, NT-Pro-B Natriuret Pep 512 H, Total Protein 6.6, Albumin 3.7, Globulin 2.9, Albumin/Globulin Ratio 1.3, HCV Ab MYLA w/Rflx PCR Qn Negative, HIV Ag/Ab Combo Qual Negative, Blood Type Confirm O Positive 11/13/24 19:13: Blood Type O Positive 11/13/24 19:13: Blood Type Cancelled, Antibody Screen Negative 11/13/24 19:13: Antibody Screen Cancelled, Crossmatch (AHG) See Detail 11/13/24 19:48: Urine Color Yellow, Urine Appearance Clear, Urine pH 6.0, Ur Specific [place] 1.010, Urine Protein Trace, Urine Glucose (UA) Negative, Urine Ketones Negative, Urine Blood Negative, Urine Nitrate Negative, Urine Bilirubin Negative, Urine Urobilinogen 2.0, Ur Leukocyte Esterase Negative, Urine WBC Occasional, Ur Squamous Epith Cells 5-10, Urine Bacteria Trace 11/13/24 21:23: Troponin I < 0.01 11/13/24 23:06: VBG pH 7.39, VBG pCO2 52.1 H, VBG pO2 55.3 H, VBG HCO3 30.7 H, VBG Total CO2 32.3 H, VBG O2 Saturation 83.3 H, VBG Base Excess 5.7 H, VBG Lactic Acid 1.2, Lactate 0.9 11/14/24 00:19: Troponin I < 0.01 11/14/24 02:30: Hgb 7.4 L, Hct 23.3 L I & O for Last 24 hours: Intake & Output 11/11/24 11/12/24 11/13/24 11/14/24 23:59 23:59 23:59 23:59 Intake Total 0 / 0 250 / 250 Balance 0 / 0 250 / 250 Weight 43.998 kg 44.679 kg Constitutional Constitutional: moderate distress Comments: appears cachectic, frail *Routine HEENT Exam Head: Present normocephalic Eye: Present EOMI and PERRL ENT: Present mucous membranes moist *Routine Neck Exam Neck: Present supple; Absent lymphadenopathy *Routine Respiratory Exam Respiratory: Present CTA bilaterally *Routine Cardiovascular Exam Cardiovascular: Present RRR *Routine Abdominal Exam Abdominal: Present soft and normoactive bowel sounds; Absent tenderness *Routine Rectal Exam Rectal:: deferred *Routine Genitalia Exam Genitalia:: deferred *Routine Extremities Exam Extremities: Absent cyanosis, clubbing or edema *Routine Skin Exam Skin: Present warm; Absent rash *Routine Neurological Exam Neurological: Present alert and oriented X3 Meds Home Medications and Allergies Home Medications ?Medication ?Instructions ?Recorded ?Confirmed ?Type escitalopram oxalate 20 mg tablet 20 mg PO DAILY Anxiety 08/14/17 11/07/24 History albuterol sulfate 90 mcg/actuation 2 puff inhalation Q6H PRN copd 08/05/18 11/07/24 History aerosol inhaler (Ventolin HFA) amlodipine 2.5 mg tablet 2.5 mg PO DAILY #30 tabs 12/30/18 11/07/24 Rx bisoprolol fumarate 5 mg tablet 5 mg PO DAILY Heart disease #30 12/30/18 11/07/24 Rx tabs clopidogrel 75 mg tablet 75 mg PO DAILY Heart disease #30 12/30/18 11/07/24 Rx tabs lisinopril 20 1 tab PO DAILY #30 tabs 12/30/18 11/07/24 Rx mg-hydrochlorothiazide 25 mg tablet rosuvastatin 10 mg tablet 10 mg PO DAILY Cholesterol #30 tabs 12/30/18 11/07/24 Rx fluticasone propionate 50 1 spray intranasal DAILY #16 grams 08/06/24 11/07/24 Rx mcg/actuation nasal spray,suspension (Flonase Allergy Relief) meclizine 12.5 mg tablet 12.5 mg PO TID PRN vertigo #25 tabs 08/06/24 11/07/24 Rx pantoprazole 40 mg tablet,delayed 40 mg PO ONCE 10/07/24 11/07/24 History release fluticasone fur. 200 mcg-umeclid 1 inh inhalation DAILY 11/04/24 11/07/24 History 62.5 mcg-vilant 25 mcg inhalat.powder (Trelegy Ellipta) rivaroxaban 15 mg (42)-20 mg (9) See Rx Instructions PO .COMPLEX 11/04/24 11/07/24 Rx tablets in a starter pack (Xarelto #51 tabs DVT-PE Treatment 30-Day Starter) enoxaparin 80 mg/0.8 mL 50 mg (0.5 mL) SQ Q12H 5 days #5 mL 11/07/24 11/07/24 Rx subcutaneous syringe (Lovenox) hydrocodone 5 mg-acetaminophen 325 1 tab PO Q6H PRN pain #60 tabs 11/07/24 11/07/24 Rx mg tablet ipratropium 0.5 mg-albuterol 3 mg 3 ml inhalation QID PRN shortness 11/07/24 11/07/24 Rx (2.5 mg base)/3 mL nebulization of breath or wheezing 90 days #270 soln mL New Prescriptions to Start Prescriptions: Allergies Allergy/AdvReac Type Severity Reaction Status Date / Time Penicillins Allergy Unknown ITCHING Verified 11/07/24 11:58 Sulfa (Sulfonamide Allergy Unknown ITCHING Verified 11/07/24 11:58 Antibiotics) (SULFA (SULFONAMIDE ANTIBIOTICS)) Hospital Course Hospital Course Hospital Course: Patient is a 74-year-old female with past medical history of mediastinal mass who presents to the hospital due to shortness of breath, failure to thrive, generalized weakness. Patient is admitted as a swing bed while waiting for transfer to . Patient at time of my evaluation is lying in bed comfortably waiting for to be transferred. Assessment and plan Adult failure to thrive Mediastinal mass with mass effect on adjacent structures Complex right pleural effusion Urinary retention Constipation Resume home medications Patient is n.p.o. currently Pain control Awaiting transfer to [facility] Results Data Completed and Pending Labs on day of discharge: Labs from last 24 hours 11/14/24 11/14/24 11/13/24 02:30 00:19 23:06 WBC RBC Hgb 7.4 L Hct 23.3 L MCV MCH MCHC RDW Plt Count MPV Neut % (Auto) Lymph % (Auto) [place] % (Auto) Eos % (Auto) Baso % (Auto) Neut # (Auto) Lymph # (Auto) [place] # (Auto) Eos # (Auto) Baso # (Auto) VBG pH 7.39 VBG pCO2 52.1 H VBG pO2 55.3 H VBG HCO3 30.7 H VBG Total CO2 32.3 H VBG O2 Saturation 83.3 H VBG Base Excess 5.7 H VBG Lactic Acid 1.2 Sodium Potassium Chloride Carbon Dioxide Anion Gap BUN Creatinine Estimated GFR Est GFR ( Amer) Glucose Lactate 0.9 Calcium Magnesium Total Bilirubin AST ALT Alkaline Phosphatase Troponin I < 0.01 NT-Pro-B Natriuret Pep Total Protein Albumin Globulin Albumin/Globulin Ratio Urine Color Urine Appearance Urine pH Ur Specific [place] Urine Protein Urine Glucose (UA) Urine Ketones Urine Blood Urine Nitrate Urine Bilirubin Urine Urobilinogen Ur Leukocyte Esterase Urine WBC Ur Squamous Epith Cells Urine Bacteria HCV Ab MYLA w/Rflx PCR Qn HIV Ag/Ab Combo Qual Blood Type Blood Type Confirm Antibody Screen Crossmatch (AHG) 11/13/24 11/13/24 11/13/24 21:23 19:48 19:13 WBC RBC Hgb Hct MCV MCH MCHC RDW Plt Count MPV Neut % (Auto) Lymph % (Auto) [place] % (Auto) Eos % (Auto) Baso % (Auto) Neut # (Auto) Lymph # (Auto) [place] # (Auto) Eos # (Auto) Baso # (Auto) VBG pH VBG pCO2 VBG pO2 VBG HCO3 VBG Total CO2 VBG O2 Saturation VBG Base Excess VBG Lactic Acid Sodium Potassium Chloride Carbon Dioxide Anion Gap BUN Creatinine Estimated GFR Est GFR ( Amer) Glucose Lactate Calcium Magnesium Total Bilirubin AST ALT Alkaline Phosphatase Troponin I < 0.01 NT-Pro-B Natriuret Pep Total Protein Albumin Globulin Albumin/Globulin Ratio Urine Color Yellow Urine Appearance Clear Urine pH 6.0 Ur Specific [place] 1.010 Urine Protein Trace Urine Glucose (UA) Negative Urine Ketones Negative Urine Blood Negative Urine Nitrate Negative Urine Bilirubin Negative Urine Urobilinogen 2.0 Ur Leukocyte Esterase Negative Urine WBC Occasional Ur Squamous Epith Cells 5-10 Urine Bacteria Trace HCV Ab MYLA w/Rflx PCR Qn HIV Ag/Ab Combo Qual Blood Type Blood Type Confirm Antibody Screen Cancelled Crossmatch (AHG) See Detail 11/13/24 11/13/24 11/13/24 19:13 19:13 18:04 WBC 10.1 RBC 2.48 L Hgb 6.8 L* Hct 21.6 L MCV 87.1 MCH 27.4 MCHC 31.5 L RDW 15.4 Plt Count 495 H MPV 8.8 Neut % (Auto) 81.7 H Lymph % (Auto) 9.6 L [place] % (Auto) 7.7 Eos % (Auto) 0.2 Baso % (Auto) 0.4 Neut # (Auto) 8.2 H Lymph # (Auto) 1.0 [place] # (Auto) 0.8 Eos # (Auto) 0.0 Baso # (Auto) 0.0 VBG pH VBG pCO2 VBG pO2 VBG HCO3 VBG Total CO2 VBG O2 Saturation VBG Base Excess VBG Lactic Acid Sodium 133 L Potassium 4.2 Chloride 95 L Carbon Dioxide 33 H Anion Gap 9.2 BUN 23 H Creatinine 0.60 Estimated GFR 98 Est GFR ( Amer) 119 Glucose 107 H Lactate 2.1 Calcium 10.3 H Magnesium 1.7 Total Bilirubin 0.2 AST 49 H ALT 27 Alkaline Phosphatase 88 Troponin I < 0.01 NT-Pro-B Natriuret Pep 512 H Total Protein 6.6 Albumin 3.7 Globulin 2.9 Albumin/Globulin Ratio 1.3 Urine Color Urine Appearance Urine pH Ur Specific [place] Urine Protein Urine Glucose (UA) Urine Ketones Urine Blood Urine Nitrate Urine Bilirubin Urine Urobilinogen Ur Leukocyte Esterase Urine WBC Ur Squamous Epith Cells Urine Bacteria HCV Ab MYLA w/Rflx PCR Qn Negative HIV Ag/Ab Combo Qual Negative Blood Type Cancelled O Positive Blood Type Confirm O Positive Antibody Screen Negative Crossmatch (AHG) Discharge Plan Disposition Patient Disposition: [facility] Swing Bed Condition: Fair Discharge Order Discharge Orders: Discharge Order (Routine); Ordered 11/14/24 Ordered By: Celso Yao Follow up Plan Prescriptions/Medication Reconciliation: Continued meclizine 12.5 mg tablet 12.5 mg PO TID PRN (Reason: vertigo) Qty: 25 1RF fluticasone propionate [Flonase Allergy Relief] 50 mcg/actuation spray,suspension 1 spray intranasal DAILY Qty: 16 2RF Rx Instructions: administer into each nostril hydrocodone-acetaminophen 5-325 mg tablet 1 tab PO Q6H PRN (Reason: pain) Qty: 60 0RF Ventolin HFA 90 mcg/actuation HFA aerosol inhaler 2 puff INHALATION Q6H PRN (Reason: copd) pantoprazole 40 mg tablet,delayed release (DR/EC) 40 mg PO ONCE ipratropium-albuterol 0.5 mg-3 mg(2.5 mg base)/3 mL solution for nebulization 3 ml inhalation QID PRN (Reason: shortness of breath or wheezing) 90 Days Qty: 270 2RF enoxaparin [Lovenox] 80 mg/0.8 mL syringe 50 mg SQ Q12H 5 Days Qty: 5 0RF Rx Instructions: Do not take this while using other anticoagulants. Instructions given to patient to use this to facilitate bronchoscopy procedure. Call [facility] at [phone] with any further questions or concerns amlodipine 2.5 mg tablet 2.5 mg PO DAILY Qty: 30 5RF bisoprolol fumarate 5 mg tablet 5 mg PO DAILY Qty: 30 5RF clopidogrel 75 mg tablet 75 mg PO DAILY Qty: 30 5RF lisinopril-hydrochlorothiazide 20-25 mg tablet 1 tab PO DAILY Qty: 30 5RF rosuvastatin 10 mg tablet 10 mg PO DAILY Qty: 30 5RF Xarelto DVT-PE Treat 30d Start 15 mg (42)- 20 mg (9) tablets,dose pack See Rx Instructions PO .COMPLEX Qty: 51 0RF Rx Instructions: take one-15 mg tablet twice daily for 21 days, then one-20 mg tablet once daily; must take with meal/food PO escitalopram oxalate 20 MG tablet 20 mg PO DAILY Trelegy Ellipta 200-62.5-25 mcg blister with device 1 inh INHALATION DAILY Problem Reconciliation Problems Reviewed?: Yes Patient Discharge Instructions ACTIVITY: Continue current activity DIET: continue same diet Print Language: [place] Zealander Providers Primary Care Provider: Laura Strickland Admit Provider: Shree Ferrera Attending Provider: Shree Ferrera
[2024-11-14 06:29] LABS: Basophils % 0.4 % (0.1-2.0); Eosinophils % 0.1 % (0.1-12.0); Hematocrit 22.8 % (37.0-47.0); Immature Granulocytes # 0.04 10^3uL; Immature Granulocytes % 0.4 %; Lymphocytes # 0.9 K/mm3 (0.7-4.5); Lymphocytes % 9.3 % (10-50); Mean Corpuscular HGB Conc 30.7 g/dL (31.8-35.4); Mean Corpuscular Hemoglobin 26.5 pg (27.0-31.2); Mean Corpuscular Volume 86.4 fl (81-99); Monocytes # 0.9 K/mm3 (0.1-1.0); Monocytes % 9.1 % (1.7-9.3); Neutrophils # 7.8 K/mm3 (1.8-7.8); Neutrophils % 80.7 % (37.0-80.0); Nucleated Red Blood Cells # 0 10^3/uL; Nucleated Red Blood Cells % 0 %; Platelet Count 418 K/mm3 (142-424); Red Blood Count 2.64 M/mm3 (4.20-5.40); Red Cell Distribution Width 14.9 % (11.5-17.5); Red Cell Distribution Width-SD 46.5 fL; White Blood Count 9.7 K/mm3 (4.8-10.8)
[2024-11-14 06:36] LABS: Chloride 96 mmol/L (98-107); Sodium 133 mmol/L (136-145)
[2024-11-14 06:37] LABS: Potassium 4.1 mmoL/L (3.5-5.1)
[2024-11-14 06:40] LABS: Anion Gap 8.1 mEq/L (5-15); Blood Urea Nitrogen 19 mg/dl (7-17); Carbon Dioxide 33 mmol/L (22.0-30.0); Creatinine Clearance Estimated 36 mL/min (50-200); Estimated Glomerular Filt Rate 98 ml/min (>60); GFR (African American) 119 ML/MIN (>60); Glucose 99 mg/dl (74-100)
--- NOTE | 2024-11-14 10:24 | PC.NURSE ---
med rec completed using external pharmacy and family
[2024-11-14] MEDS: MORPHINE 4MG/ML SYRINGE 4 MG IV (10:42)
[2024-11-14] MEDS: FLUTICASONE/UMECLIDIN/VILANTER 200/62.5/25MCG INHALER 1 PUFF IH (11:56)
[2024-11-14] MEDS: IPRATROPIUM/ALBUTEROL 3 ML NEB IH ×2 (11:57→18:08)
[2024-11-14] MEDS: ESCITALOPRAM 20MG TABLET 20 MG PO (12:15)
--- NOTE | 2024-11-14 12:21 | EXP.PULM.CON ---
History of Present Illness History of present illness: Ms. Canas is a 74-year-old female current smoker greater than [id number] smoking history large left-sided lung mass, mediastinal hilar lymphadenopathy endobronchial mass with near complete occlusion of the right mainstem bronchus lung collapse moderate right pleural effusion arterial thrombosis currently on Xarelto scheduled for outpatient thoracentesis with bridging anticoagulation recently seen in the clinic presented to the hospital with worsening abdominal distention and respiratory distress. CT upon admission continued worsening bronchial occlusion and lung collapse. Relatively stable effusion. [facility] Disclaimer: The information contained in this section may have been updated after the patient was seen, as this information can be updated by other users. 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 Anxiety COPD (chronic obstructive pulmonary disease) Migraine History of gastroesophageal reflux (GERD) Hyperlipidemia Skin cancer Other chest pain Other forms of dyspnea Mass of chest wall, right Abnormal MRI Impacted cerumen, left ear Retained myringotomy tube in left ear Fluid level behind tympanic membrane of right ear Thyroid Nodule Hypertension Surgical History History of cholecystectomy History of heart artery stent Family History Other Cancer Heart disease Social History Smoking Status: Current every day smoker tobacco type: cigarettes packs per day: 1 second hand exposure: No alcohol intake: never substance use type: denies use current occupational status: disabled Travel in the last 8 weeks?: None household members: family housing: house caffeine: No Have you lived/traveled outside [place] in past 30 days?: No Contact w/someone who lives/traveled outside US past 30 days?: No Exposure to someone with infectious disease in past 14 days?: No Do you have a fever (greater than 100.4 F or 38 C)?: No Have you tested positive for COVID-19?: No Exposed to someone with COVID-19 in past 14 days?: No Do you have a sore throat?: No Do you have a cough?: No Do you have any weakness?: No Do you have any diarrhea?: No Are you experiencing any unusual bleeding?: No Do you have any muscle aches/pain?: No Do you have any abdominal pain?: No Are you experiencing loss of taste or smell?: No Review of Systems Constitutional Constitutional: Reports anorexia, Reports body ache(s), Reports fatigue, Reports poor appetite, Reports lethargy, Reports weakness and Reports weight loss Eyes Eyes: Denies eye discharge, Denies dry eyes, Denies irritation and Denies itchy eyes ENT Ears, Nose, Mouth, and Throat: Denies epistaxis, Denies facial pain, Denies lip swelling and Denies throat swelling *Cardiovascular Cardiovascular: Reports dyspnea and Reports dyspnea on exertion *Respiratory Respiratory: Denies change in phlegm color, Reports chest congestion, Reports cough, Reports dyspnea, Reports dyspnea on exertion, Reports excessive phlegm production, Denies hemoptysis, Denies pain on inspiration, Denies pain with cough and Reports wheezing *Gastrointestinal Gastrointestinal: Denies abdominal pain, Denies belching, Reports constipation and Denies cramping Comments: Abdominal distention *Musculoskeletal Musculoskeletal: Reports back pain, Reports myalgias and Reports other (No small joint swelling or Pain) *Neurologic Neurologic: Reports weakness Psychiatric Psychiatric: Denies homicidal ideation and Denies suicidal ideation Endocrine Endocrine: Reports fatigue and Denies heat intolerance Hematologic/Lymphatic Hematologic/Lymphatic: Denies easy bleeding and Denies lymphadenopathy Allergic/Immunologic Allergic/Immunologic: Denies itchy eyes, Denies lip swelling, Denies throat swelling and Reports wheezing Pulmonology Exam Inpatient Vital signs and Labs for Last 24 Hours: Temp Pulse Resp BP Pulse Ox O2 Del Method O2 Flow Rate 98.0 F 81 18 159/79 H 96 Nasal Cannula 2 11/14/24 08:00 11/14/24 11:58 11/14/24 08:00 11/14/24 08:00 11/14/24 11:58 11/14/24 11:58 11/14/24 11:58 Laboratory Results - last 24 hr 11/13/24 18:04: WBC 10.1, RBC 2.48 L, Hgb 6.8 L*, Hct 21.6 L, MCV 87.1, MCH 27.4, MCHC 31.5 L, RDW 15.4, Plt Count 495 H, MPV 8.8, Neut % (Auto) 81.7 H, Lymph % (Auto) 9.6 L, [place] % (Auto) 7.7, Eos % (Auto) 0.2, Baso % (Auto) 0.4, Neut # (Auto) 8.2 H, Lymph # (Auto) 1.0, [place] # (Auto) 0.8, Eos # (Auto) 0.0, Baso # (Auto) 0.0, Sodium 133 L, Potassium 4.2, Chloride 95 L, Carbon Dioxide 33 H, Anion Gap 9.2, BUN 23 H, Creatinine 0.60, Estimated GFR 98, Est GFR ( Amer) 119, Glucose 107 H, Lactate 2.1, Calcium 10.3 H, Magnesium 1.7, Total Bilirubin 0.2, AST 49 H, ALT 27, Alkaline Phosphatase 88, Troponin I < 0.01, NT-Pro-B Natriuret Pep 512 H, Total Protein 6.6, Albumin 3.7, Globulin 2.9, Albumin/Globulin Ratio 1.3, HCV Ab MYLA w/Rflx PCR Qn Negative, HIV Ag/Ab Combo Qual Negative, Blood Type Confirm O Positive 11/13/24 19:13: Blood Type O Positive 11/13/24 19:13: Blood Type Cancelled, Antibody Screen Negative 11/13/24 19:13: Antibody Screen Cancelled, Crossmatch (AHG) See Detail 11/13/24 19:48: Urine Color Yellow, Urine Appearance Clear, Urine pH 6.0, Ur Specific [place] 1.010, Urine Protein Trace, Urine Glucose (UA) Negative, Urine Ketones Negative, Urine Blood Negative, Urine Nitrate Negative, Urine Bilirubin Negative, Urine Urobilinogen 2.0, Ur Leukocyte Esterase Negative, Urine WBC Occasional, Ur Squamous Epith Cells 5-10, Urine Bacteria Trace 11/13/24 21:23: Troponin I < 0.01 11/13/24 23:06: VBG pH 7.39, VBG pCO2 52.1 H, VBG pO2 55.3 H, VBG HCO3 30.7 H, VBG Total CO2 32.3 H, VBG O2 Saturation 83.3 H, VBG Base Excess 5.7 H, VBG Lactic Acid 1.2, Lactate 0.9 11/14/24 00:19: Troponin I < 0.01 11/14/24 02:30: Hgb 7.4 L, Hct 23.3 L 11/14/24 05:29: WBC 9.7, RBC 2.64 L, Hgb 7.0 L, Hct 22.8 L, MCV 86.4, MCH 26.5 L, MCHC 30.7 L, RDW 14.9, Plt Count 418, MPV 9.0, Neut % (Auto) 80.7 H, Lymph % (Auto) 9.3 L, [place] % (Auto) 9.1, Eos % (Auto) 0.1, Baso % (Auto) 0.4, Neut # (Auto) 7.8, Lymph # (Auto) 0.9, [place] # (Auto) 0.9, Eos # (Auto) 0.0, Baso # (Auto) 0.0, Sodium 133 L, Potassium 4.1, Chloride 96 L, Carbon Dioxide 33 H, Anion Gap 8.1, BUN 19 H, Creatinine 0.60, Estimated Creat Clear 36, Estimated GFR 98, Est GFR ( Amer) 119, Glucose 99, Calcium 9.0 I & O for Labs for Last 24 Hours: Intake & Output 11/11/24 11/12/24 11/13/24 11/14/24 23:59 23:59 23:59 23:59 Intake Total 0 / 0 250 / 250 Output Total 200 / 200 Balance 0 / 0 50 / 50 Weight 97 lb 98 lb 8.005 oz Constitutional: Present moderate distress Head: Present normocephalic and atraumatic ENT: Present normal exam, normal oropharynx and mucous membranes moist Neck: Present normal inspection and full ROM Respiratory: Present prolonged expiratory phase, respiratory distress, rhonchi, diminished air movement and able to speak in complete sentences; Absent wheezes or crackles Cardiac: Present S1/S2, Tachycardia and radial pulses present GI: Present soft and distention; Absent tenderness or guarding Rectal (female): Present deferred (female): Present deferred Skin: Present intact; Absent cyanosis or jaundice Neuro: Present alert, awake and oriented x 3 Extremities: Present normal inspection; Absent clubbing or cyanosis Psychiatric: Present normal affect and cooperative Meds Home Medications and Allergies Home Medications ?Medication ?Instructions ?Recorded ?Confirmed ?Type escitalopram oxalate 20 mg tablet 20 mg PO DAILY Anxiety 08/14/17 11/14/24 History albuterol sulfate 90 mcg/actuation 2 puff inhalation Q6H PRN copd 08/05/18 11/14/24 History aerosol inhaler (Ventolin HFA) amlodipine 2.5 mg tablet 2.5 mg PO DAILY #30 tabs 12/30/18 11/14/24 Rx bisoprolol fumarate 5 mg tablet 5 mg PO DAILY Heart disease #30 12/30/18 11/14/24 Rx tabs clopidogrel 75 mg tablet 75 mg PO DAILY Heart disease #30 12/30/18 11/14/24 Rx tabs lisinopril 20 1 tab PO DAILY #30 tabs 12/30/18 11/14/24 Rx mg-hydrochlorothiazide 25 mg tablet rosuvastatin 10 mg tablet 10 mg PO DAILY Cholesterol #30 tabs 12/30/18 11/14/24 Rx pantoprazole 40 mg tablet,delayed 40 mg PO DAILY 10/07/24 11/14/24 History release fluticasone fur. 200 mcg-umeclid 1 inh inhalation DAILY 11/04/24 11/14/24 History 62.5 mcg-vilant 25 mcg inhalat.powder (Trelegy Ellipta) rivaroxaban 15 mg (42)-20 mg (9) See Rx Instructions PO .COMPLEX 11/04/24 11/14/24 Rx tablets in a starter pack (Xarelto #51 tabs DVT-PE Treatment 30-Day Starter) hydrocodone 5 mg-acetaminophen 325 1 tab PO Q6H PRN pain #60 tabs 11/07/24 11/14/24 Rx mg tablet ipratropium 0.5 mg-albuterol 3 mg 3 ml inhalation QID PRN shortness 11/07/24 11/14/24 Rx (2.5 mg base)/3 mL nebulization of breath or wheezing 90 days #270 soln mL enoxaparin 80 mg/0.8 mL 60 mg SQ Q12H 11/14/24 11/14/24 History subcutaneous syringe (Lovenox) fluticasone propionate 50 1 spray intranasal DAILY 11/14/24 11/14/24 History mcg/actuation nasal spray,suspension (Flonase Allergy Relief) New Prescriptions to Start Prescriptions: Allergies Allergy/AdvReac Type Severity Reaction Status Date / Time Penicillins Allergy Unknown ITCHING Verified 11/07/24 11:58 Sulfa (Sulfonamide Allergy Unknown ITCHING Verified 11/07/24 11:58 Antibiotics) (SULFA (SULFONAMIDE ANTIBIOTICS)) Results Laboratory Findings 11/14/24 05:29 11/14/24 05:29 Abnormal lab findings: Abnormal Labs 11/13/24 11/13/24 11/13/24 18:04 19:13 23:06 RBC 2.48 L Hgb 6.8 L* Hct 21.6 L MCH MCHC 31.5 L Plt Count 495 H Neut % (Auto) 81.7 H Lymph % (Auto) 9.6 L Neut # (Auto) 8.2 H VBG pCO2 52.1 H VBG pO2 55.3 H VBG HCO3 30.7 H VBG Total CO2 32.3 H VBG O2 Saturation 83.3 H VBG Base Excess 5.7 H Sodium 133 L Chloride 95 L Carbon Dioxide 33 H BUN 23 H Glucose 107 H Calcium 10.3 H AST 49 H NT-Pro-B Natriuret Pep 512 H Crossmatch (AHG) See Detail 11/14/24 11/14/24 02:30 05:29 RBC 2.64 L Hgb 7.4 L 7.0 L Hct 23.3 L 22.8 L MCH 26.5 L MCHC 30.7 L Plt Count Neut % (Auto) 80.7 H Lymph % (Auto) 9.3 L Neut # (Auto) VBG pCO2 VBG pO2 VBG HCO3 VBG Total CO2 VBG O2 Saturation VBG Base Excess Sodium 133 L Chloride 96 L Carbon Dioxide 33 H BUN 19 H Glucose Calcium AST NT-Pro-B Natriuret Pep Crossmatch (AHG) Assessment and Plan *Assessment and plan (1) Hepatic congestion: Status: Acute Category: Medical Code(s): K76.1 - Chronic passive congestion of liver (2) Pleural effusion on right: Status: Acute Category: Medical Code(s): J90 - Pleural effusion, not elsewhere classified (3) Mass of mediastinum: Status: Acute Category: Medical Code(s): J98.59 - Other diseases of mediastinum, not elsewhere classified (4) Hilar lymphadenopathy: Status: Acute Category: Medical Code(s): R59.0 - Localized enlarged lymph nodes (5) Mediastinal mass: Status: Acute Category: Medical Code(s): J98.59 - Other diseases of mediastinum, not elsewhere classified Plan Ms. Canas is a 74-year-old female current smoker greater than [id number] smoking history large left-sided lung mass, mediastinal hilar lymphadenopathy endobronchial mass with near complete occlusion of the right mainstem bronchus lung collapse moderate right pleural effusion arterial thrombosis currently on Xarelto scheduled for outpatient thoracentesis with bridging anticoagulation recently seen in the clinic presented to the hospital with worsening abdominal distention and respiratory distress. CT upon admission continued worsening bronchial occlusion and lung collapse. Relatively stable effusion. Patient continued to have chronic cough and productive phlegm. CT abdomen also concerning for extensive edema likely from hepatic congestion from mass effect on right cardiac chambers. Patient also found to be anemic upon admission status post transfusion. She denies any hemoptysis. It appears that patient current clinical presentation is a direct sequela of her cancer which needs a definitive diagnosis and to be treated to relieve her symptoms at this point of time. Afebrile. Hemodynamically stable. No evidence of leukocytosis. Given patient's complicated clinical scenario including the possible need for endobronchial stenting and inpatient chemotherapy really her symptoms the plan was made to transfer the patient to higher level of care. Plan of care discussed with the patient on primary team Plan: Awaiting transfer to higher level of care. DuoNebs every 6 hours along with Pulmicort every 12 scheduled Lovenox SQ twice daily for anticoagulation to facilitate needed invasive procedures. Follow with sputum Gram stain culture sensitivities. Will hold off on initiating antibiotics at this point of time. Continue oxygen supplementation to maintain O2 saturation goal of 90% and above. Currently on 2 L saturating 95% and above, wean as tolerated.
[2024-11-14] MEDS: NICOTINE 21MG/24HR PATCH 21 MG TD (16:59)
[2024-11-14] MEDS: HYDROCODONE/APAP 5/325 MG TABLET 1 TAB PO (17:01)
[2024-11-14] MEDS: BUDESONIDE 0.5MG/2ML NEB 0.5 MG IH (18:08)
--- NOTE | 2024-11-14 18:16 | PC.NURSE ---
Pt is A&Ox4. Vital signs stable on 2L NC for comfort. Pt reports generalized pain. Treated per AUG. Family at bedside assisting pt to bathroom today. Awaiting on a open bed for transfer to . This RN called this afternoon for an update and they stated they still did not have any open beds at this time. Pt resting comfortably with no further needs voiced at this time. Call light within reach
[2024-11-14] MEDS: PT OWN MED *PANTOPRAZOLE DR 40 MG TAB 1 EACH PO (20:00)
[2024-11-15] VITALS (10 sets, daily range): BP systolic 127–142; BP diastolic 62–76; PULSE 89–108; RESP 16–22; TEMP 36.6–36.8; O2SAT 91–100; BMI 19.2
[2024-11-15] MEDS: IPRATROPIUM/ALBUTEROL 3 ML NEB IH ×5 (00:09→23:29)
[2024-11-15] MEDS: MORPHINE 4MG/ML SYRINGE 4 MG IV ×2 (00:39→23:24)
[2024-11-15] MEDS: ONDANSETRON 4MG/2ML VIAL 4 MG IV (00:39)
--- NOTE | 2024-11-15 03:10 | PC.NURSE ---
Pt AOx4, pleasant. 2L O2 for comfort. Pt has diminished lung sounds. O2 stats have been stable. 20g RAC, saline locked. Assist x1 BRP. Pt has reported some pain once tonight. She is currently resting in bed with eyes closed. Respirations even and unlabored. Bed is low, locked, and call light is in reach. Family at bedside.
[2024-11-15] MEDS: BUDESONIDE 0.5MG/2ML NEB 0.5 MG IH ×2 (06:25→18:53)
[2024-11-15 07:09] LABS: Basophils % 0.3 % (0.1-2.0); Eosinophils % 0.1 % (0.1-12.0); Hematocrit 24.5 % (37.0-47.0); Hemoglobin 7.9 g/dL (12.2-16.2); Immature Granulocytes # 0.03 10^3uL; Immature Granulocytes % 0.3 %; Lymphocytes # 0.6 K/mm3 (0.7-4.5); Lymphocytes % 6.2 % (10-50); Mean Corpuscular HGB Conc 32.2 g/dL (31.8-35.4); Mean Corpuscular Hemoglobin 27.8 pg (27.0-31.2); Mean Corpuscular Volume 86.3 fl (81-99); Mean Platelet Volume 9.1 fl (7.4-10.4); Monocytes # 0.9 K/mm3 (0.1-1.0); Monocytes % 8.9 % (1.7-9.3); Neutrophils # 8.7 K/mm3 (1.8-7.8); Neutrophils % 84.2 % (37.0-80.0); Nucleated Red Blood Cells # 0 10^3/uL; Nucleated Red Blood Cells % 0 %; Platelet Count 417 K/mm3 (142-424); Red Blood Count 2.84 M/mm3 (4.20-5.40); Red Cell Distribution Width 15.1 % (11.5-17.5); Red Cell Distribution Width-SD 46.9 fL; White Blood Count 10.3 K/mm3 (4.8-10.8)
[2024-11-15 07:13] LABS: Albumin Level 3.4 g/dl (3.5-5.0); Chloride 94 mmol/L (98-107); Sodium 132 mmol/L (136-145)
[2024-11-15 07:14] LABS: Potassium 4.1 mmoL/L (3.5-5.1)
[2024-11-15 07:16] LABS: Alanine Aminotransferase 40 U/L (12-78); Albumin/Globulin Ratio 1.2 (1.1-1.8); Alkaline Phosphatase 89 U/L (38-126); Anion Gap 7.1 mEq/L (5-15); Aspartate Amino Transferase 70 U/L (14-36); Bilirubin,Total 0.5 mg/dl (0.2-1.3); Blood Urea Nitrogen 15 mg/dl (7-17); Carbon Dioxide 35 mmol/L (22.0-30.0); Creatinine Clearance Estimated 38 mL/min (50-200); Estimated Glomerular Filt Rate 98 ml/min (>60); GFR (African American) 119 ML/MIN (>60); Globulin 2.8 g/dL (1.3-3.2); Total Protein,Serum 6.2 g/dl (6.3-8.2)
[2024-11-15 07:17] LABS: Calcium 9.3 mg/dl (8.4-10.2); Glucose 131 mg/dl (74-100)
[2024-11-15] MEDS: NICOTINE 21MG/24HR PATCH 21 MG TD (09:15)
[2024-11-15] MEDS: ENOXAPARIN 60MG/0.6ML SYRINGE 45 MG SUBCUT ×2 (09:16→21:20)
--- NOTE | 2024-11-15 09:36 | PC.NURSE ---
Notified by that no beds are available
--- NOTE | 2024-11-15 10:22 | HMH.PHAINT1 ---
Pharmacy Intervention Comments: MEDICATION RECONCILIATION COMPLETED ON PATIENT USING EXTERNAL FILL HISTORY FROM PHARMACY. -BHARGAV MEYERS, LANEYD
[2024-11-15] MEDS: POLYETHYLENE GLYCOL 3350 17 GM PACKET PO (14:07)
[2024-11-15] MEDS: HYDROCODONE/APAP 5/325 MG TABLET 1 TAB PO (14:07)
[2024-11-15] MEDS: BISACODYL 5MG TABLET 10 MG PO (18:00)
[2024-11-15] MEDS: GLYCERIN ADULT 3GM SUPP 3 GM RC (18:00)
--- NOTE | 2024-11-15 18:10 | EXP.PN ---
Subjective *Date: 11/15/24 *Time: 18:10 Interval history: Patient states she is doing well, having intermittent right-sided chest pain. Ordered bowel regimen for constipation. Still waiting for transfer. Exam Data for Last 24 hours Vital signs and Labs for Last 24 Hours: Temp Pulse Resp BP Pulse Ox O2 Del Method O2 Flow Rate 97.9 F 96 H 16 139/70 100 Nasal Cannula 2 11/15/24 16:00 11/15/24 16:00 11/15/24 16:00 11/15/24 16:00 11/15/24 16:00 11/15/24 15:00 11/15/24 15:00 Laboratory Results - last 24 hr 11/15/24 06:40: WBC 10.3, RBC 2.84 L, Hgb 7.9 L, Hct 24.5 L, MCV 86.3, MCH 27.8, MCHC 32.2, RDW 15.1, Plt Count 417, MPV 9.1, Neut % (Auto) 84.2 H, Lymph % (Auto) 6.2 L, [place] % (Auto) 8.9, Eos % (Auto) 0.1, Baso % (Auto) 0.3, Neut # (Auto) 8.7 H, Lymph # (Auto) 0.6 L, [place] # (Auto) 0.9, Eos # (Auto) 0.0, Baso # (Auto) 0.0, Sodium 132 L, Potassium 4.1, Chloride 94 L, Carbon Dioxide 35 H, Anion Gap 7.1, BUN 15, Creatinine 0.60, Estimated Creat Clear 38, Estimated GFR 98, Est GFR ( Amer) 119, Glucose 131 H, Calcium 9.3, Total Bilirubin 0.5, AST 70 H D, ALT 40 D, Alkaline Phosphatase 89, Total Protein 6.2 L, Albumin 3.4 L, Globulin 2.8, Albumin/Globulin Ratio 1.2 I & O for Last 24 hours: Intake & Output 11/12/24 11/13/24 11/14/24 11/15/24 23:59 23:59 23:59 23:59 Intake Total 0 / 0 850 / 850 360 / 360 Output Total 350 / 350 300 / 300 Balance 0 / 0 500 / 500 60 / 60 Weight 43.998 kg 44.67 kg 47.4 kg Microbiology Reports for the Last 24 Hours: Microbiology 11/13/24 18:04 Blood Blood Culture - Preliminary NO GROWTH AFTER 48 HOURS 11/13/24 18:00 Blood Blood Culture - Preliminary NO GROWTH AFTER 48 HOURS Constitutional Constitutional: no acute distress *Routine HEENT Exam Head: Present normocephalic Eye: Present EOMI and PERRL ENT: Present mucous membranes moist *Routine Neck Exam Neck: Present supple; Absent lymphadenopathy *Routine Respiratory Exam Respiratory: Present CTA bilaterally *Routine Cardiovascular Exam Cardiovascular: Present RRR *Routine Abdominal Exam Abdominal: Present soft and normoactive bowel sounds; Absent tenderness *Routine Extremities Exam Extremities: Present edema; Absent cyanosis or clubbing *Routine Skin Exam Skin: Present warm; Absent rash *Routine Neurological Exam Neurological: Present alert and oriented X3 Assessment and Plan *Assessment and plan (1) Hepatic congestion: Status: Acute Category: Medical Code(s): K76.1 - Chronic passive congestion of liver (2) Pleural effusion on right: Status: Acute Category: Medical Code(s): J90 - Pleural effusion, not elsewhere classified (3) Mass of mediastinum: Status: Acute Category: Medical Code(s): J98.59 - Other diseases of mediastinum, not elsewhere classified (4) Mediastinal lymphadenopathy: Status: Acute Category: Medical Code(s): R59.0 - Localized enlarged lymph nodes (5) Hilar lymphadenopathy: Status: Acute Category: Medical Code(s): R59.0 - Localized enlarged lymph nodes (6) Endobronchial cancer: Status: Acute Category: Medical Code(s): C34.90 - Malignant neoplasm of unspecified part of unspecified bronchus or lung (7) Mediastinal mass: Status: Acute Category: Medical Code(s): J98.59 - Other diseases of mediastinum, not elsewhere classified Plan Leana Canas is a 74-year-old female with a longstanding current smoking history presents with shortness of breath, failure to thrive at home and was admitted for large right sided mediastinal mass with mass effect on right heart with backflow causing hepatic congestive hepatopathy. #Large right-sided mediastinal mass, suspected malignancy #Hepatic congestive hepatopathy #Longstanding current smoker #Compressive atelectasis #Right pleural effusion #Biatrial mural thrombus ? CT chest revealed right mediastinal/hilar with mass effect on adjacent structures including right cardiac chambers, hilar vessels, bronchi and, along with complex right pleural effusion, contributing to right pulmonary atelectasis. Less likely intracardiac mass, although not entirely excluded. ? Patient had been following up with oncology and pulmonology outpatient at [facility], unfortunately has not thrived at home recently. Hepatic congestive hepatopathy is a new finding. ? For these reasons, pulmonology recommended transfer to tertiary center. Currently waitlisted at [facility]. [facility] said they might be able to take patient on Sunday, Dr. Bautista whoever is there interventional corporate investigator. ? Vital signs stable, currently requiring 2 L nasal cannula. Intermittent right-sided chest pain. [place] and morphine as needed. ? Mild bump in AST to 70 today, other LFTs stable. ? Continuous cardiac telemetry. ? Continue therapeutic Lovenox for biatrial mural thrombus ? Nicotine patch daily. #CAD with stents ? Continue Plavix, statin. #Constipation ? MiraLAX daily. Ordered glycerin suppository, bisacodyl today. Full code DVT prophylaxis: Therapeutic Lovenox
[2024-11-15] MEDS: ATORVASTATIN 20MG TABLET 20 MG PO (21:20)
[2024-11-15] MEDS: PT OWN MED *PANTOPRAZOLE DR 40 MG TAB 1 EACH PO (21:21)
--- NOTE | 2024-11-16 00:18 | P.SWB_ITS ---
Discharge/Transfer Plan of Care Resident has been informed of condition and prognosis?: Yes Mobility Status: ambulatory w/o assistance Goal for planned treatment course: Higher level of care for for neoplastic diagnosis Rehab Potential: Fair I concur with the most recent History & Physical: Yes Date of most recent H & P: 11/14/24 Certification: I have reviewed and agree with this resident's plan of care. I certify that post-hospital care home facility services are required to be given on an inpatient basis because of the need for care home care on a continuing basis for the condition(s) for which he/she is receiving inpatient hospital services prior to admission to [facility] bed. I also certify that the resident meets existing SNF level of care definition.
--- NOTE | 2024-11-16 00:34 | PC.NURSE ---
pt left with ems at this time
--- NOTE | 2024-12-02 19:13 | EXP.EVENT.NO ---
Patient was not in a swing bed during hospitalization
== END 2024-11-16 00:35 | disposition short-term general hospital (02) ==
LOC: ER 23:31 → 2ND 11-14 04:31
PROVIDERS: Emergency Medicine; Internal Medicine; Physician Assistant; Student in an Organized Health Care Education/Training Program; Admitting Provider Internal Medicine Adolescent Medicine; Emergency Provider Emergency Medicine; PCP Nurse Practitioner Family; Visit Provider Internal Medicine Adolescent Medicine
DX: K76.1 Chronic passive congestion of liver (principal); J98.59 Other diseases of mediastinum, not elsewhere classified; J90 Pleural effusion, not elsewhere classified; R59.0 Localized enlarged lymph nodes; K21.9 Gastro-esophageal reflux disease without esophagitis; E78.5 Hyperlipidemia, unspecified; I10 Essential (primary) hypertension; J44.9 Chronic obstructive pulmonary disease, unspecified; C34.90 Malignant neoplasm of unspecified part of unspecified bronchus or lung; F41.9 Anxiety disorder, unspecified; G43.909 Migraine, unspecified, not intractable, without status migrainosus; J98.11 Atelectasis; I25.10 Atherosclerotic heart disease of native coronary artery without angina pectoris; I51.3 Intracardiac thrombosis, not elsewhere classified; R33.9 Retention of urine, unspecified; K59.00 Constipation, unspecified; F17.210 Nicotine dependence, cigarettes, uncomplicated; R62.7 Adult failure to thrive; Z68.1 Body mass index [BMI] 19.9 or less, adult; Z88.0 Allergy status to penicillin; Z95.5 Presence of coronary angioplasty implant and graft; Z88.2 Allergy status to sulfonamides; Z79.51 Long term (current) use of inhaled steroids; Z79.02 Long term (current) use of antithrombotics/antiplatelets; Z79.01 Long term (current) use of anticoagulants; Z79.899 Other long term (current) drug therapy
CPT/HCPCS: 36415; 36430; 51798; 70450; 71260; 74177; 80048; 80053; 81001; 82803; 83605; 83735; 83880; 84484; 85014; 85018; 85025; 86803; 86850; 87040; 87389; 93005; 94640; 94761; 96361; 96374; 96375; 96376; 99291; G0378; J1650; J2270; J2405; J7050; P9016; Q9967

== ENCOUNTER 2024-11-19 16:00 | Emergency (ER) | payer MEDICARE, MEDICAID, SELFPAY ==
--- OUTSIDE RECORDS SUMMARY | 2024-11-16 01:45 | XMS_ITS | Encounter Summary ---
Author Organization [facility] Address [address] [place] [address] Care Team Providers Care Manufacturing Supervisor 2Nd Shift Name Role Phone Laura Strickland NARGIS Primary Care Provider [phone] Reason for Referral * Consultation (Urgent) - Authorized Specialty Diagnoses / Procedures Referred By Contac t Referred To Contact Hematology and Oncology Diagnoses David Chase MD [address] [place] [phone] Phone: tel: fax: [facility] [address] [place] [address], [address] [place] [address] Phone: tel: fax: Referral ID Status Reason Start Date Expiration Date Visits Requested Visits Authorized [id number] Authorized Specialty Services Required 11/18/2024 05/20/2026 1 1 Scheduling Instructions Please schedule in 1-[address] Franco or Dr. Childs. * Consultation (Routine) - Authorized Specialty Diagnoses / Procedures Referred By Contac t Referred To Contact Family Medicine Diagnoses David Chase MD [address] [place] [phone] Phone: tel: fax: Referral ID Status Reason Start Date Expiration Date V isits Requested Visits Authorized [id number] Authorized 11/18/2024 05/20/2026 1 1 * Home Health (Routine) - Authorized Specialty Diagnoses / Procedures Referred By Contac t Referred To Contact Home Health Services Diagnoses Hilar mass David Ayala MD [address] [place] [address] Phone: tel: fax: Referral ID Status Reason Start Date Expiration Date Visits Requested Visits Authorized [id number] Authorized Specialty Services Required 11/17/2024 05/19/2026 999 999 Reason for Visit * Auth/Cert (Routine) Specialty Diagnoses / Procedures Referred By Nelida abraham Referred To Contact Diagnoses Hilar mass Large right hilar mass Keke Lopez MD [address] [place] [address] Phone: tel: fax: [facility] [address] [place] [phone] Phone: tel: Referral ID Status Reason Start Date Expiration Date Visits Re quested Visits Authorized [id number] 1 1 Encounter Details Date Type Department Care Team (Late st Contact Info) Description 11/16/2024 1:45 AM EDT - 11/18/2024 12:23 PM EDT Hospital Encounter [facility] [address] [place] [phone] Geovanny Keen, DO [address] [place] [address] Keke Lopez MD [address] [place] [address] David Ayala MD [address] [place] [address] Pratibha mass (Primary Dx) Discharge Disposition: Home or Self Care Social History Tobacco Use Types Packs/Day Years Used Date Smoking Tobacco: Never Assessed Humiliation, Afraid, Rape, and Kick questionnair e Answer Date Recorded Within the last year, have y ou been afraid of your partner or ex-partner? No 11/17/2024 Within the last year, have y ou been humiliated or emotionally abused in other ways by your partner or ex-partner? No Within the last year, have y ou been kicked, hit, slapped, or otherwise physically hurt by your partner or ex-partner? No 11/17/2024 Within the last year, have y ou been raped or forced to have any kind of sexual activity by your partner or ex-partner? No 11/17/2024 Overall Financial Resource Strain (CARDIA) Answe r Date Recorded How hard is it for you to pa y for the very basics like food, housing, medical care, and heating? Not very hard 11/17/2024 Hunger Vital Sign Answer Date Recorded Within the past 12 months, y ou worried that your food would run out before you got the money to buy more. Never true 11/18/19 25 Within the past 12 months, t he food you bought just didn't last and you didn't have money to get more. Never true 11/17/2024 PRAPARE - Transportation Answer Date Re corded In the past 12 months, has l ack of transportation kept you from medical appointments or from getting medications? No 11/02 In the past 12 months, has l ack of transportation kept you from meetings, work, or from getting things needed for daily living? No 11/17/2024 Housing Stability Vital Sign Answer Jasper e Recorded In the last 12 months, was t here a time when you were not able to pay the mortgage or rent on time? No 11/17/2024 In the past 12 months, how m any times have you moved where you were living? 0 11/17/2024 At any time in the past 12 m [facility], were you homeless or living in a prison (including now)? No 11/17/2024 Utilities Answer Date Recorded In the past 12 months has th e [employer], gas, oil, or water company threatened to shut off services in your home? No 11/17/2024 Comments Unknown Sex and Gender Information Value Date Recorded Sex Assigned at Not on file Legal Sex Female 8:54 PM EDT Gender Identity Not on file Sexual Orientation Not on file documented as of this encounter Last Filed Vital Signs Vital Sign Reading Time Taken Comments Blood Pressure 130/74 11/18/2024 8:44 AM EDT Pulse 89 11/18/2024 8:43 AM EDT Temperature 36.5 C (97.7 F) 11/18/2024 8:44 AM EDT Respiratory Rate 21 11/18/2024 8:43 AM EDT Oxygen Saturation 98% 11/18/2024 8:43 AM EDT Inhaled Oxygen Concentration - - Weight 49.1 kg (108 lb 3.9 oz) 11/16/2024 12:00 PM EDT Height 157.5 cm (5' 2.01 ) 11/16/2024 12:00 PM E DT Body Mass Index 19.79 11/16/2024 12:00 PM EDT documented in this encounter Functional Status * Calculated C-SSRS Risk Score (Lifetime/Recent) Answer Date of Assessment Author No Risk Indicated 11/16/2024 2:00 AM EDT Kecia Alvarez RN * Question Answer Date of Assessment Author 1. Wish to be (Past 1 Month) No 025 2:00 AM EDT Kecia Alvarez RN 2. Non-Specific Active Suici juan Thoughts (Past 1 Month) No 11/16/2024 2:00 AM EDT Alexandria Alvarez RN 6. Suicidal Behavior (Lifetime) No 2:00 AM EDT Kecia Alvarez RN documented as of this encounter Discharge Instructions * Discharge Instructions* Reyes Dean MD - 11/18/2024 10:09 AM EDT Start taking your enoxaparin (Lovenox) 60 mg injections every 12 hours. Stop taking your Xarelto. Continue taking your other medications as previously prescribed. Please be on the lookout for a phone call from regarding scheduling your appointment with eitherDrs. Childs or Joan. Please return to the ED if you experience any new or worsening chest pain, shortness of breath, nausea, vomiting, headache, vision changes, loss of speech, loss of movement, or numbness/tingling. documented in this encounter Medications at Time of Discharge albuterol 108 (90 Base) MCG/ACT inhaler Inhale 2 puffs every 6 hours as needed for wheezing. amLODIPine (Norvasc) 2.5 MG tablet Take 1 tablet by mouth daily. bisoprolol (Zebeta) 5 MG tablet Take 1 tablet by mouth daily. Calcium Carbonate-Vitami n D 600-5 MG-MCG tablet Take 1 tablet by mouth 2 times a day. clopidogrel (Plavix) 75 MG tablet Take 1 tablet by mouth daily. enoxaparin (Lovenox) 60 MG/0.6ML solution prefilled syringe Inject 0.5 mL under the skin 2 times a day. 36 mL 11/18/2024 escitalopram (Lexapro) 20 MG tablet Take 1 tablet by mouth daily. Fluticasone-Umec lidin-Vilant (Trelegy Ellipta) 200-62.5-25 MCG/ACT aerosol powder Inhale 1 Inhalation daily. HYDROcodone-acet aminophen ([place]) 5-325 MG tablet Take 1 tablet by mouth every 6 hours as needed for severe pain. ipratropium-albu terol (Duo-Neb) 0.5-2.5 mg/3 mL nebulizer solution Take 3 mL by nebulization every 6 hours as needed for wheezing. oxyCODONE (Roxicodone) 5 MG immediate release tablet Take 1 tablet by mouth every 4 hours as needed for moderate pain. 12 tablet 11/18/2024 pantoprazole (Protonix) 40 MG EC tablet Take 1 tablet by mouth daily before breakfast. Do not crush, chew, or split. rosuvastatin (Crestor) 10 MG tablet Take 1 tablet by mouth daily. documented as of this encounter Miscellaneous Notes * Elia Matthews - Nancy Miguel RN - 11/18/2024 11:19 AM EDT Images from the original note were not included. [id number] Discharge Instructions for Thoracentesis Thoracentesis is a procedure that removes extra fluid from the pleural space. This space is betweenthe outside surface of the lungs (pleura) and the chest wall. The extra fluid is called pleural effusion. Thoracentesis may be done to take a sample of the fluid. It can then be tested to help find the cause. Or the procedure may be done to drain the extra fluid if you are having trouble breathing. Home care ? You may have some pain after the procedure. Your doctor may prescribe pain medicine, if needed. Take these exactly as directed. ? If you stopped taking other medicines before the procedure, ask your doctor when you can start them again. ? Take it easy for 48 hours after the procedure. Don't do anything active until your doctor says it?s okay. ? Don't do strenuous activities, such as lifting, until your doctor says it?s okay. ? Don't travel in an airplane until your doctor says it's okay to do so. ? You will have a small bandage over the puncture site. You may remove the bandage in 24 hours, or when your doctor says it's okay. ? Check the puncture site for the signs of infection listed below. Follow-up Make a follow-up appointment with your doctor as directed. During your follow-up visit, your doctorwill check your healing. Be sure to let your doctor know how you are feeling. When to contact your doctor Contact your doctor right away if you have: ? A fever of 100.4??F (38??C) or higher, or as directed. ? Pain that doesn't get better after taking pain medicine. ? Signs of infection at the puncture site. These include increased pain, redness, warmth, swelling,or fluid leaking that is green or yellow or smells bad. ? Fluid draining from the puncture site. ? Bleeding from the puncture site. When to call 911 Call 911 or get care at the nearest emergency department if you have: ? Chest pain that is unusual or suddenly gets worse. ? Shortness of breath. ? Coughing up blood. Last Reviewed Date: 2024 00:00:00 ?? [employer]. All rights reserved. This information is not intended as a substitute for professional medical care. Always follow your healthcare professional's instructions. * Progress Notes - Christin White P - 11/18/2024 11:13 AM EDT Case Management Discharge Note Leana Canas 74 y.o. female CSN: [id number] Admission: 11/16/2024 1:45 AM Primary Problem: Hilar mass Primary Production Support Developer: Primary Caregiver: Self Assistance Available at Discharge: Family/Production Support Developer(s) Willingness Assessed to care for patient at home: Yes Family/Production Support Developer(s) Readiness Assessed to care for patient at home: Yes Discharge Facility/Level of Care Needs: Discharge Facility/Level of Care Needs: 1-Home or Self Care DME/Equipment Needed after Discharge: Equipment Currently Used at Home: none Equipment Needed After Discharge: walker, rollator Readmission Within the Last 30 Days: Readmission Within the Last 30 Days: no previous admission in last 30 days Medicare Documentation: Medicare Second Notice?: Yes Date Second Notice Completed: 11/18/24 Time Second Notice Completed: 914 Medicare Second Notice Recieved By: patient Follow-up: [facility] [phone] [facility] [phone] PT OT Follow up [place], [place] [phone] [place] [phone] rollator Follow up [facility] [address] [facility] [phone] [place] [address] Discharge Transportation: Transportation Home at Discharge: Family/Friend will Provide Has discharge transport been arranged?: Yes What day is the transport expected?: 11/18/24 What time is the transport expected?: 1200 Follow Up Transport: Transportation Needed to Follow up Appoinments: Family/Friend will Provide Additional Comments: Pt is MR to DC this date home. RN CM ordered Rollator from [facility] this date to be delivered to bedside/ or pt home upon DC. SW sent DC summary via careport to [facility]. Pt has transportationupon DC by her family. No further SW concerns identified at this time. SW will monitor pt's progress and will follow up with DC planning and needs as appropriate. Christin White MSW, RACKING MACHINE OPERATOR Social Work Senior Department of Case Management [facility] * Discharge Summary - Reyes Dean MD - 11/18/2024 10:39 AM EDT Images from the original note were not included. Hospitalization Admit Date/Time: 11/16/2024 1:45 AM Admitting Attending: Keke Lopez Discharge Date: 11/18/2024 Discharge Attending Physician: David Ayala MD PCP name and Address: Laura Strickland, [employer]GS[employer] MAT INSPECTOR [address] / [place] [address] Referring provider name and address: [place] [address] Chief Concern, Brief History of Present Illness, and Hospital Course Patient is a 74 year old female with PMH significant for COPD, HTN, CAD s/p PCI, TUD (reportedly smoking since 20 and 3 cartons per week at the 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 Patient reports that starting in August, she developed chest pressure that radiated throughout her chest an her back. She was evaluated at that time by her PCP with imaging showing a right sided hilarmass. Since that time, she has undergone MRI and EGD for evaluation, however, no tissue diagnoses has yet been confirmed. She was planned for bronchoscopy with biopsy on Sunday of next week. On 11/14, the patient presented to [facility] due to reported anuria. She states that for the two days prior she had significantly decreased urine output which eventually stopped. Uponarrival, she was found to be anemic with Hgb of 6.8 Cr of 0.6, and mild transaminitis. CTH was obtained and unremarkable for evidence of acute intracranial abnormalities to include metastatic lesions. CT Chest notable for right mediastinal/hilar mass with mass effect on adjacent structures including right cardiac chambers, hilar vessels, and bronchi with resulting atelectasis. Also notable for complex R pleural effusion. CT A/P with extensive edema suspicious for likely sequelae of hepatic congestion. Outside labs notable for mild hyponatremia, compensated hypercarbia, Cr of 0.6, AST of 49, and ALT of 27. Of note, patient does report a recent history of a clot in the widowmaker for which she was started on Xarelto, although, per outside chart review, it appears that this is for a biatrial mural thrombus. Her troponins were negative at the OSH. Given the near complete occlusion of the right bronchus, the decision was made to transfer the patient to a higher level of care for IP intervention with possible bronchial stenting. Upon arrival to [facility], the patient was hemodynamically stable without any significant chest pain or shortness of breath. She remains on her home 2L of oxygen, however, reports she was just started on this a couple of weeks ago. Denies fevers, chills, cough, shortness of breath different from baseline, nausea, vomiting, dysuria, urinary frequency, or diarrhea. She does report not having a bowel movement for multiple days. After admission patient underwent thoracentesis performed by pulmonology which was remarkable for an exudative pleural effusion with cytology pending, TTE showing redemonstration of biatrial thrombi,CT chest w/ IV contrast showing new small pulmonary emboli. Discussed possible bronchoscopy with pulmonology who recommended it for biopsy if cytology was unremarkable or showed NSCLC. In either of those cases, they would be willing to perform this procedure. Discussed with the patient waiting for these results and possible biopsy and she wished to pursue bronchoscopy in the outpatient setting inspite of this hilar mass with high risk features, including cardiac involvement. Patient was in agre ement with the plan to discharge her home today and pursue possible bronchoscopy in the outpatient setting. She is to stop taking her Rivaroxaban and transition to therapeutic enoxaparin until the decision about bronchoscopy is made. Surgeries and Procedures Procedures performed in this encounter Procedures Thoracentesis Medication List Important This medication list is not yet final, because your doctor or pharmacist is still double-checking some of the changes. Ask your nurse for an updated version. Specifically ask about this and similar medications: oxyCODONE (Roxicodone) 5 MG immediate release tablet .. albuterol 108 (90 Base) MCG/ACT inhaler Inhale 2 puffs every 6 hours as needed for wheezing. amLODIPine 2.5 MG tablet Commonly known as: Norvasc Take 1 tablet by mouth daily. bisoprolol 5 MG tablet Commonly known as: Zebeta Take 1 tablet by mouth daily. Calcium Carbonate-Vitamin D 600-5 MG-MCG tablet Take 1 tablet by mouth 2 times a day. clopidogrel 75 MG tablet Commonly known as: Plavix Take 1 tablet by mouth daily. enoxaparin 60 MG/0.6ML solution prefilled syringe Commonly known as: Lovenox Inject 0.5 mL under the skin 2 times a day. escitalopram 20 MG tablet Commonly known as: Lexapro Take 1 tablet by mouth daily. HYDROcodone-acetaminophen 5-325 MG tablet Commonly known as: [place] Take 1 tablet by mouth every 6 hours as needed for severe pain. ipratropium-albuterol 0.5-2.5 mg/3 mL nebulizer solution Commonly known as: Duo-Neb Take 3 mL by nebulization every 6 hours as needed for wheezing. oxyCODONE 5 MG immediate release tablet Commonly known as: Roxicodone Take 1 tablet by mouth every 4 hours as needed for moderate pain. pantoprazole 40 MG EC tablet Commonly known as: Protonix Take 1 tablet by mouth daily before breakfast. Do not crush, chew, or split. rosuvastatin 10 MG tablet Commonly known as: Crestor Take 1 tablet by mouth daily. Trelegy Ellipta 200-62.5-25 MCG/ACT aerosol powder Generic drug: Fhdvonshsyl-Tawcifxcz-Yzvkcf Inhale 1 Inhalation daily. Where to Get Your Medications These medications were sent to [facility] - [place], [place] - [address] [facility] [id number] enoxaparin 60 MG/0.6ML solution prefilled syringe Information about where to get these medications is not yet available Ask your nurse or doctor about these medications oxyCODONE 5 MG immediate release tablet Discharge Diagnosis Medical Problems Active and Resolved Hospital Problems Hospital * (Principal) Pratibha clarke Post Discharge Instructions Start taking your enoxaparin (Lovenox) 60 mg injections every 12 hours. Stop taking your Xarelto. Continue taking your other medications as previously prescribed. Please be on the lookout for a phone call from regarding scheduling your appointment with eitherDrs. Childs or Joan. Please return to the ED if you experience any new or worsening chest pain, shortness of breath, nausea, vomiting, headache, vision changes, loss of speech, loss of movement, or numbness/tingling. Outpatient Follow-Up Future Appointments Date Time Provider Department Center 12/10/2024 9:15 AM Karlie Hickey MD [facility] Test Results Pending At Discharge Pending Labs Order Current Status Non-Gynecologic Cytology Collected (11/17/24 1052) Adenosine Deaminase, Pleural Fluid In process Body fluid, cytospin, pathologist interpretation In process Cytology - Pleural Right In process Body Fluid Culture and Gram Stain Preliminary result Body Fluid Culture and Gram Stain - Pleural Right Preliminary result Pertinent Physical Exam At Time of Discharge Physical Exam Vitals reviewed. Constitutional: Appearance: She is ill-appearing (chronically). Eyes: Extraocular Movements: Extraocular movements intact. Cardiovascular: Rate and Rhythm: Normal rate and regular rhythm. Heart sounds: No murmur heard. Pulmonary: Effort: Pulmonary effort is normal. Breath sounds: Normal breath sounds. Abdominal: Palpations: Abdomen is soft. Musculoskeletal: Right lower leg: No edema. Left lower leg: No edema. Neurological: Mental Status: She is alert and oriented to person, place, and time. Psychiatric: Mood and Affect: Mood normal. Behavior: Behavior normal. Thought Content: Thought content normal. Judgment: Judgment normal. Discharge Disposition/Condition Disposition: Home with Home Health Condition: Stable (s/sx potential problems absent or manageable) I spent >30 minutes of patient care and instruction time in preparation for this discharge. Cosigned by David Ayala MD at 11/19/2024 3:26 PM EDT Associated attestation - David Ayala MD - 11/19/2024 3:26 PM EDT I saw and evaluated the patient with the resident/fellow. I discussed the case with the resident/fellow and agree with the findings and plan as documented. * Care Plan - Teresa Nava RN - 11/17/2024 11:57 PM EDT Problem: Adult Inpatient Plan of Care Goal: Plan of Care Review Outcome: Ongoing, Progressing Goal: Patient-Specific Goal (Individualized) Outcome: Ongoing, Progressing Goal: Absence of Hospital-Acquired Illness or Injury Outcome: Ongoing, Progressing Goal: Optimal Comfort and Wellbeing Outcome: Ongoing, Progressing Goal: Readiness for Transition of Care Outcome: Ongoing, Progressing * Progress Notes - Madeleine Fields RN - 11/17/2024 3:20 PM EDT Accepted by [facility] [phone] for home PT OT * Procedures - Dewayne Be DO - 11/17/2024 1:08 PM EDTAssociated Order(s): Thoracentesis Post-Procedure Diagnose(s): Hilar mass Thoracentesis Performed by: Dewayne Be DO Authorized by: David Ayala MD Consent: Consent obtained: Verbal Consent given by: Patient Risks, benefits, and alternatives were discussed: yes Risks discussed: Incomplete drainage and bleeding Alternatives discussed: No treatment Wright protocol: Procedure explained and questions answered to patient or proxy's satisfaction: yes Relevant documents present and verified: yes Test results available: yes Imaging studies available: yes Site/side marked: yes Immediately prior to procedure, a time out was called: yes Patient identity confirmed: Arm band Attending Supervision?: yes Sedation: Sedation type: None Anesthesia: Anesthesia method: Topical application and local infiltration Local anesthetic: Lidocaine 1% w/o epi Procedure details: Preparation: Patient was prepped and draped in usual sterile fashion Percutaneous Approach: yes Patient position: Sitting Location: R midscapular line Intercostal space: 7th Puncture method: Pvyk-jqo-cvgkgk catheter Indwelling catheter: Removed following drainage Catheter size: 6 Fr Number of attempts: 1 Drainage characteristics: Serosanguinous Post-procedure details: Chest x-ray performed: yes Chest x-ray findings: Pleural effusion improved Procedure completion: Tolerated Comments: Drained approximately 1100mL of serosanguinous fluid, Patient tolerated procedure well and studies were sent. CXR post procedure stable. Cosigned by Geovanny Keen DO at 11/17/2024 9:20 PM EDT Associated attestation - Geovanny Keen DO - 11/17/2024 9:20 PM EDT I was present for the entirety of the procedure(s). * Progress Notes - Christin White - 11/17/2024 12:26 PM EDT Case Management Adult Initial Progress Note Leana Canas 74 y.o. female CSN: [id number] Admission: 11/16/2024 1:45 AM Primary Problem: Hilar mass Electrician Helper reviewed chart and spoke with the patient at bedside to complete this Initial Case Management Assessment. PCP: Laura Strickland APRN Emergency Contact: Extended Emergency Contact Information Primary Emergency Contact: Nancy Queen Mobile Relation: Daughter Preferred language: Ecuadorean Soap Chipper needed? No Insurance: Primary Visit Coverage Payer Plan Sponsor Code Group Number Group Name HUMANA MEDICARE HUMANA GOLD PLUS [id number] Primary Visit Coverage Subscriber Subscriber ID Subscriber Name Subscriber SSN Subscriber Address [id number] Leana Canas [id number] [address] [facility] [place] [address] Patient information: Primary Caregiver: Self Accompanied by/Relationship: family Support System: Immediate family Daily Living Activities: Functional Status: Independent Living Arrangements: Alone Type of Residence: Private residence, Single Level (no steps to enter home) [address] [facility] [address] [place] [address] Smoker in the Home?: N/A Current DME: Equipment Currently Used at Home: walker, rolling Income Information: Income Source: Retired Income/Expense Information: Income meets expenses Anticipated Discharge Date: 72 hours Patient's Discharge Goal: Home Assistance Available at Discharge: Family and friends Discharge Transport: Nancy (daughter) Follow Up Transport: Nancy (daughter) Home Health / Home Infusion / Outpatient Dialysis Services: N/A Living Will/Advance Directive/Power of Senior Animal Trainer /Guardian: Have you reviewed your Advance Directive and is it valid for this stay?: Yes Advance Directive: Patient has advance directive, copy not in chart Information Provided on Healthcare Directives: No Pre-existing DNR/DNI Order: No Patient Requests Assistance: No IGNACIO Cruz Social Drivers of Health Food Insecurity: No Food Insecurity (11/17/2024) Hunger Vital Sign Worried About Running Out of Food in the Last Year: Never true Ran Out of Food in the Last Year: Never true Alcohol Use: Not on file Housing Stability: Low Risk (11/17/2024) Housing Stability Vital Sign Unable to Pay for Housing in the Last Year: No Number of Times Moved in the Last Year: 0 Homeless in the Last Year: No Tobacco Use: Not on file Transportation Needs: No Transportation Needs (11/17/2024) PRAPARE - Transportation Lack of Transportation (Medical): No Lack of Transportation (Non-Medical): No Depression: Not on file Utilities: Not At Risk (11/17/2024) Utilities Threatened with loss of utilities: No Stress: Not on file Intimate Partner Violence: Not At Risk (11/17/2024) Humiliation, Afraid, Rape, and Kick questionnaire Fear of Current or Ex-Partner: No Emotionally Abused: No Physically Abused: No Sexually Abused: No Physical Activity: Not on file Social Connections: Not on file Financial Resource Strain: Low Risk (11/17/2024) Overall Financial Resource Strain (CARDIA) Difficulty of Paying Living Expenses: Not very hard Additional Comments: SW spoke with MDs this date re: pt's plan of care. According to MDs, this pt is not medically stable for DC this date but may be stable within 72 hrs. Pt lives alone at [address] [place] [address] [address] [place] [id number]. The home is one level with no stairs to enter the home. The pt is independent performing ADLS. The pt has a RW. Pt uses 2L of O2 at home and receives oxygen through [employer]. Pt has assistance and transportation via her daughter Nancy. Pt confirmed PCP in chart.Pt preferred pharmacy is the [facility] in [place]. No further SW concerns identified at this time. SW will monitor pt's progress and will follow up with DC planning and needs as appropriate. Christin White, DIETITIAN THERAPEUTIC, RACKING MACHINE OPERATOR Social Work Senior Department of Case Management [facility] * Progress Notes - Reyes Dean MD - 11/17/2024 12:25 PM EDT Images from the original note were not included. [facility] Medicine Progress Note Subjective Subjective NAEON. Discussed goals moving forward this AM. Per patient and familiy at bedside she wishes to find out what cancer is likely growing in her lungs and hear possible treatment options. If she feels that options are too aggressive or too likely to have significant side effects, she is comfortable tofocus on quality of life. Objective Objective Last Recorded Vitals Blood pressure (!) 160/82, pulse 101, temperature 36.6 ??C (97.8 ??F), temperature source Oral, resp. rate 26, height 1.575 m (5' 2.01 ), weight 49.1 kg (108 lb 3.9 oz), SpO2 100%. Physical Exam Vitals reviewed. Constitutional: Appearance: She is ill-appearing. Eyes: Extraocular Movements: Extraocular movements intact. Cardiovascular: Rate and Rhythm: Normal rate and regular rhythm. Pulmonary: Effort: Pulmonary effort is normal. Abdominal: General: Abdomen is flat. Palpations: Abdomen is soft. Skin: General: Skin is warm. Neurological: Mental Status: She is alert and oriented to person, place, and time. Psychiatric: Mood and Affect: Mood normal. Behavior: Behavior normal. Thought Content: Thought content normal. Judgment: Judgment normal. Data Labs personally reviewed: CBC, CMP Imaging ECG personally reviewed, showing: TTE showing: Right Atrium: The right atrium appears to be compressed. There is a mobile mass present consistent with thrombus and/or tumor. Left Atrium: The left atrium appears to be compressed due to extracardiac mass. There is a mass present that likely represents thrombus and/or tumor. Left Ventricle: Based on the linear dimension and/or 2D volumes, the left ventricle is normal in size. The left ventricular systolic function is normal. The LVEF as measured by biplane volume is 57%. CT personally reviewed, showing large right sided hilar mass with partial compression of cardiac structures MRI Head 1. Tiny acute infarcts in the bilateral cerebellar hemispheres. 2. Small focus of enhancement along the left anterior sean is favored to be vascular, but can be reassessed with follow-up MRI in 1-3 months. Otherwise, no enhancing brain lesions to suggest intracranial metastatic disease. 3. Mild nonspecific white matter changes most likely related to chronic small vessel ischemia. 3. Nonspecific heterogeneous marrow signal in the calvarium. CT Chest w/ IV Contrast Redemonstration of right infrahilar mass with concern for biatrial cardiac involvement as well as narrowing the right superior pulmonary vein and occluding the right inferior pulmonary vein. Occlusion of the right lower lobe pulmonary arteries versus pulmonary emboli. Redemonstration of left lower lobe segmental pulmonary emboli. Endobronchial debris within the bronchus intermedius causing complete collapse of the right middle and right lower lobes. Assessment/Plan Assessment & Plan Principal Problem: Hilar mass Leana Canas is a 74 y.o. female admitted for malignancy workup iso large right sided hilar mass concerning for malignancy This condition poses an acute threat to life/bodily function. 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 Has not had biopsy or definitive tissue diagnosis - no prior O2 requirement up until 1 week ago now requiring 2L NC at baseline - CT head reveals no acute intracranial findings - CT Chest notable for right mediastinal/hilar mass with mass effect on adjacent structures including right cardiac chambers, hilar vessels, and bronchi with resulting atelectasis. Also notable for complex R pleural effusion. - CT A/P with extensive edema suspicious for likely sequelae of hepatic congestion - MRI head unremarkable for brain mets, however showing several areas of acute stroke likely 2/2 biatrial thrombi. PLAN: - Thoracentesis today, cytology and other studies ordered. Should cytology be unremarkable or show non-small cell lung cancer, pulm will plan for bronchoscopy with biopsy in the outpatient setting. - Pain Regimen: oxy 5mg Q4h PRN, APAP, lidocaine patches - Goal O2 sat >88%, baseline requirement of 2L NC #Biatrial Mural Thrombus currently on Xarelto (bridging with tLov) - reports from OSH discuss diagnosis of biatrial mural thrombus likely 2/2 active malignancy - was placed on xarelto now bridging with tLov (last dose prior to transfer) - minimal JVD, no notable ascites or LE edema on exam - TTE with redomenstration of biatrial thrombus PLAN: - Continue with therapeutic lovenox. #Severe protein calorie malnutrition #failure to thrive iso possible malignancy - reports 20lb weight loss from May to august with continued weight loss and poor appetite x 2 months - reports she has not had much to eat over the last 2-3 days but continues to have good fluid intake PLAN: - Consulted nutrition, appreciate recs - PT/OT consulted #COPD - reports 50 year history of smoking 2-3 ppd - no baseline O2 requirement previously. Started on 2L NC 1 week ago due to continued SOB - smoking cessation x 1 week PLAN: - provided NRT - goal O2 sat >88% on 2 L NC - duonebs Q6h PRN #CAD s/p PCI - reports PCI 7 years ago, do not have full records unclear of location of stent - established with cardiology outpatient - will hold AC pending further surgical plans as above - continue plavix 75 mg daily, rosuvastatin Chronic Medical Conditions: #Anxiety: cont home escitalopram 20 mg daily #Constipation: miralax, senna Care today included: HIGHRISK: Discussion of management/test with another provider: pulmonology, IR or High risk: Escalation of level of care: admit to acute medicine Electronically Signed by: Ryees Dean MD - 11/17/2024 - 12:30 PM Cosigned by David Ayala MD at 11/17/2024 1:21 PM EDT Associated attestation - David Ayala MD - 11/17/2024 1:21 PM EDT I saw and evaluated the patient with the resident/fellow. I discussed the case with the resident/fellow and agree with the findings and plan as documented. * Progress Notes - Cinthya Fields - 11/17/2024 9:11 AM EDT OCCUPATIONAL THERAPY EVALUATION PATIENT DATA Patient Name Leana Canas Session Date 11/17/2024 OT Discharge Recommendations Home with assistance Equipment Recommendations Rollator HISTORY Leana Canas is 74 y.o. female admitted 11/16/2024 for work-up of Hilar mass. Hospital Course 1. Hilar mass Procedures Past Medical History Patient has a past medical history of Smoking history. Past Surgical History Patient has no past surgical history on file. PRECAUTIONS Medical Precautions Medical Precautions: Fall precautions SUBJECTIVE PARTICIPANTS IN CARE Patient/Caregiver Comments RN cleared pt for therapy, pt agreeable for OT evaluation this morning. Visitors Present Family/Caregiver Present: Yes Family/Caregiver: Adult Daughter PRESENTATION Oxygen Supplemental oxygen Nasal cannula 3 L/min Lines and Tubes Peripheral IV Anterior;Proximal;Right Forearm (Active) Pre-Session Supine, Head of bed elevated, Lines intact RN cleared pt for therapy Post-Session Sitting in chair, Chair alarm, Lines intact, RN notified, Call light in reach Pt positioned for comfort, all needs in reach. HOME LIVING/SET-UP Lives With Alone Home Type Apartment Home Equipment Rolling walker (tub bench) Home Layout One level Bathroom Layout Tub/Shower combo, Grab bars Bathroom: Toilet: Grab bars (lower than normal) Accessible PRIOR LEVEL OF FUNCTION Receives help from No assist required prior to admission Level of Mobility Ambulatory- community Mobility Benzie Independent gait without device (use of RW at night) History of Falls Yes (at least one fall in past 3 mo) ADL Performance ADL Performance: Independent PATIENT/FAMILY GOALS To return to baseline. OBJECTIVE PAIN Patient endorses 10/10 right shoulder pain, RN aware. Pt positioned for comfort at end of session. DELIRIUM SCREENING Keenan Agitation Sedation Scale (RASS): Alert and calm Confusion Assessment Method-ICU (CAM-ICU/PCAM-ICU) Feature 3: Altered Level of Consciousness: Negative COGNITION Overall Cognitive Status Within Functional Limits Arousal/Alertness Appropriate responses to stimuli Mood/Behavior Alert Orientation x4 Command Following Single Step Commands: Consistently Multi-Step Commands: Consistently Method of Communication Verbal VISION Baseline Vision Glasses distance Current Vision (if different) Visual Screen Results: Intact RIGHT UPPER EXTREMITY EXAMINATION Range of Motion Within Functional Limits Manual Muscle Testing Shoulder Flexion: 3+ (limited by 10/10 shoulder pain) Elbow Extension: 4 Elbow Flexion: 4 Gross Grasp - Finger: 4 Light Touch Sensation Intact LEFT UPPER EXTREMITY EXAMINATION Range of Motion Within Functional Limits Manual Muscle Testing Shoulder Flexion: 4 Elbow Extension: 4 Elbow Flexion: 4 Gross Grasp - Finger:4 Light Touch Sensation Intact RIGHT LOWER EXTREMITY EXAMINATION Range of Motion Within Functional Limits Manual Muscle Testing Within functional limits Light Touch Sensation Intact LEFT LOWER EXTREMITY EXAMINATION Range of Motion Within Functional Limits Manual Muscle Testing Manual Muscle Testing: Within functional limits Light Touch Sensation Intact BED MOBILITY Level of Benzie Physical/Non-physical Assist Adaptive Equipment Utilized Scooting/ Bridging Stand-by assist Verbal Cues, Supervision Supine to Sit Stand-by assist Verbal Cues, Supervision, HOB elevated Bed rails TRANSFERS Level of Benzie Physical/Non-physical Assist Adaptive Equipment Utilized Sit to Stand Stand-by assist Supervision, Verbal Cues Walker, rolling Stand to sit Stand-by assist Supervision, Verbal Cues Walker, rolling FUNCTIONAL MOBILITY Ambulation Standby assist 120ft Rolling walker Comments BALANCE Postural Appearance Posture: Stooped posture, Forward head Level of Benzie Balance Support Static Sit Supervision No upper extremity support, Right upper extremity support, Left upper extremity support Dynamic Sit Standby assisst Feet supported, Right upper extremity support, Left upper extremity support Static Stand Standby assist Right upper extremity support, Left upper extremity support (via RW) Dynamic Stand Standby assist Right upper extremity support, Left upper extremity support (via RW) STANDARDIZED ASSESSMENTS [facility] 6-Click Daily Activities Help from Other: Don/Doff Regular Lower Body Clothings: Little Help From Other: Bathing: Little Help From Other: Toileting: Little Help From Other: Don/Doff Upper Body Clothings: None Help From Other: Grooming: None Help From Other: Eating Meals: None [facility] 6 Click - Daily Activities Score: 21 OT INTERVENTIONS SELF-CARE Treatment Minutes (if applicable) 15 Comments: The patient engaged in skilled intervention for progression towards independence in basicself-cares, focusing on LB dressing, toileting, grooming, and functional ADL transfers. The patient benefited from the following OT interventions: Increased time provided for completion of task and to optimize participation. Skilled management of medical lines/tubes to reduce fall risk with functional ADL transfers. Increased skilled time provided for monitoring of vitals for patient tolerance to activity - pt on 3L O2 via NC, VSS throughout session. Encouragement and therapeutic use of self for maximized volitional effort and task attempts. Environmental set-up to ensure safety and accessibility to all needed areas of treatment space. Level of Benzie Interventions Grooming SBA, Setup Standing sinkside Anticipated, per clinical judgement. Lower Body Dressing Pants Level of Assistance: Setup, SBA Patient donned elastic waist pants from EOB with setup and SBA. Use of partial figure four position for lower body reach. Toileting SBA Pt completed sit>stand and ambulation of partial household distance with SBA in order to simulate toilet t/f. Anticipate SBA required for remaining toileting tasks including clothingmanagement and hygiene. Household/ Community Re-Entry Patient was challenged to complete functional ambulation sequence in order to prepare for out of bed ADLs, to address functional endurance, environmental navigation, andprepare patient for community re-entry. Pt navigated a distance of 120 ft with use of front wheeledwalker. Therapist provided MIN cues for device management and pacing. With above supports, patient able to safely complete task. However patient demonstrating fair tolerance to prolonged standing activity this date, indicating fair endurance anticipated with out of bed ADLs including grooming, toileting, dressing, and bathing. ASSESSMENT OT FINDINGS The patient is a 74yo F, seen today for OT evaluation. The patient was admitted due to right sided hilar mass with concern for malignancy. The patient tolerated OT evaluation fairly, with full participation limited by onset of fatigue. The patient is currently performing below functional baseline, with independence mainly limited by deficits as listed below: Impaired ADL performance, Decreased endurance/ventilation/gas exchange, Impaired IADL performance, Impaired functional mobility, Impaired balance Compared to functional baseline, patient now requires increased assist for all BADLs, IADLs, and functional mobility. Due to deficits, continued skilled OT warranted for maximized independence and participation in valued occupations, and to optimize safety with return to routines. Evaluation/ Treatment Tolerance (if identified) Patient limited by fatigue Rehab Potential (if identified) Good, to achieve stated therapy goals EVAL COMPLEXITY Occupational Profile Expanded review of medical/therapy records and additional review of physical, cognitive, or psychosocial history Performance Deficits Performance Deficits: Activities of daily living (ADLs), Instrumental activities of daily living (IADLs), Habits, Routines, Roles Clinical Decision Making Low Overall Eval Complexity Low OT RECOMMENDATIONS Discharge Destination Home with assistance Discharge Equipment Rollator PLAN Planned OT Interventions ADL retraining, IADL retraining, Balance training, Strengthening, Transfer training, Functional mobility OT Frequency 2 - 5 times per week OT Duration 2 weeks GOALS OT GOAL DETAILS Time Frame OT Goal 1: Patient will complete functional ambulation to toilet and all toileting tasks with modified independence and LRAD. 2 weeks OT Goal 2: Patient will complete full body dressing with modified independence. 2 weeks OT Goal 3: Patient will complete 3-step grooming routine while standing sinkside with modified independence. 2 weeks Written by Cinthya Fields on 11/17/24 at 2:34 PM. * Progress Notes - Thomas Garcia - 11/17/2024 9:10 AM EDT Physical Therapy Evaluation Patient Name: Leana Canas Today's Date: 11/17/2024 PT Discharge Recommendations: Home with assistance, Home health PT, Home health OT Equipment Recommended: Rollator History Leana Canas is 74 y.o. female admitted 11/16/2024 for work-up of Hilar mass. Problem List Active Hospital Problems Diagnosis Date Noted Hilar mass 11/16/2024 Procedures Past Medical History Patient has a past medical history of Smoking history. Past Surgical History Patient has no past surgical history on file. Precautions Medical Precautions: Fall precautions Subjective Reports that she is not used to being so limited with her mobility. Participants in Care Family/Caregiver Present: Yes Family/Caregiver: Adult Daughter Presentation Oxygen Therapy: Supplemental oxygen O2 Delivery Method: Nasal cannula O2 Flow Rate (L/min): 3 L/min Pre-Session: Supine, Head of bed elevated, Lines intact Pre-Session Comments: RN cleared pt for therapy Post-Session: Sitting in chair, Chair alarm, Lines intact, RN notified, Call light in reach Post-Session Comments: Pt positioned for comfort, all needs in reach. Home Living/Set-up Lives With: Alone Home Type: Apartment Home Adaptive Equipment: Rolling walker (tub bench) Home Layout: One level Bathroom: Tub/Shower: Tub/Shower combo, Grab bars Bathroom: Toilet: Grab bars (lower than normal) Bathroom: Accessibility: Accessible Prior Level of Function Receives Help From: No assist required prior to admission Level of Mobility: Ambulatory- community Mobility Benzie: Independent gait without device (use of RW at night) History of Falls: Yes (at least one fall in past 3 mo) ADL Performance: Independent Patient/Family Goals to get out of the hospital safely Objective Pain 10/10 right shoulder; RN aware Delirium Screening Keenan Agitation Sedation Scale (RASS): Alert and calm Confusion Assessment Method-ICU (CAM-ICU/PCAM-ICU) Feature 3: Altered Level of Consciousness: Negative Cognition Overall Cognitive Status: Within Functional Limits Arousal/Alertness: Appropriate responses to stimuli Mood/Behavior: Alert Orientation Level: Oriented X4 Single Step Commands: Consistently Multi-Step Commands: Consistently Method of Communication: Verbal Right Upper Extremity Examination RUE Assessment: Within Functional Limits Shoulder Flexion: 3+ (limited by 10/10 shoulder pain) Elbow Extension: 4 Elbow Flexion: 4 Gross Grasp - Finger: 4 Sensation Light Touch: Right Upper Extremity: Intact Left Upper Extremity Examination LUE ROM Assessment LUE Assessment: Within Functional Limits Manual Muscle Testing - LUE Shoulder Flexion: 4 Elbow Extension: 4 Elbow Flexion: 4 Gross Grasp - Finger: 4 Sensation Light Touch: Left Upper Extremity: Intact Right Lower Extremity Examination RLE ROM Assessment RLE Assessment: Within Functional Limits Manual Muscle Testing - RLE Manual Muscle Testing - RLE: Within functional limits Sensation Light Touch: Right Lower Extremity: Intact Left Lower Extremity Examination LLE Assessment: Within Functional Limits Manual Muscle Testing: Within functional limits Sensation Light Touch: Left Lower Extremity: Intact Bed Mobility Bed Mobility Exam: Scooting/Bridging Level of Benzie: Stand-by assist Physical/Nonphysical Assist: Verbal Cues, Supervision Bed Mobility Exam: Supine to Sit Level of Benzie: Stand-by assist Physical/Nonphysical Assist: Verbal Cues, Supervision, HOB elevated Assistive Device: Bed rails Transfers Transfer Exam: Sit to stand Level of Benzie: Stand-by assist Physical/Nonphysical Assist: Supervision, Verbal Cues Assistive Device: Walker, rolling Transfer Exam: Stand to Sit Level of Benzie: Stand-by assist Physical/Nonphysical Assist: Supervision, Verbal Cues Assistive Device: Walker, rolling Ambulation Device: Rolling walker Assistance: Standby assist, Minimal verbal cues Distance : 120 ft Balance Postural Appearance Posture: Stooped posture, Forward head Static Sitting Balance Static Sitting-Balance Support: No upper extremity support, Right upper extremity support, Left upper extremity support Static Sitting-Level of Assistance: Supervision Dynamic Sitting Balance Dynamic Sitting-Balance Support: Feet supported, Right upper extremity support, Left upper extremity support Level of Assistance: Standby assisst Static Standing Balance Static Standing-Balance Support: Right upper extremity support, Left upper extremity support (via RW) Static Standing-Level of Assistance: Standby assist Dynamic Standing Balance Dynamic Standing-Balance Support: Right upper extremity support, Left upper extremity support (via RW) Dynamic Standing Level of Assistance: Standby assist Therapeutic Activity (15 minutes) Activity training consisted of bed mobility, prolonged sitting at edge of bed with static and dynamic balance activities, sit to/from stand, prolonged standing with dynamic functional task completion, and functional ambulation. Patient required verbal and tactile cues for initiation and completion of all mobility tasks. Skilled monitoring of patient's vitals and presentation needed for safe advancement during training. Standardized Assessments [facility] 6-Clicks Mobility Assessment Difficulty patient has turning over in bed (including adjusting bedclothes, sheets, and blankets)?:None Difficulty patient has sitting down on and standing up from a chair with arms (wheelchair, bedside commode, etc.)?: None Difficulty patient has moving from lying on back to sitting on the side of the bed?: None How much help does the patient need moving to and from a bed to a chair (including a wheelchair)?: A little How much help does the patient need to walk in hospital room?: A little How much help does the patient need climbing 3-5 steps with a railing?: A little [facility] 6-Clicks Mobility Assessment Total : 21 No data recorded Assessment Patient provided good effort with therapy today. Progressing mobility training limited by increaseddyspnea, impaired activity tolerance, weakness, impaired posture, and impaired balance, which is limiting patient from performing independent functional mobility. Patient is a fall risk and will continue to benefit from skilled PT services for advancing mobility. Impairments: Decreased endurance, ventilation, and/or gas exchange, Impaired gait dynamics/performance, Impaired postural/trunk control, Impaired locomotion, Impaired functional mobility/transfers, Impaired balance, Decreased strength Activity Limitations: Inability to ambulate household distances, Inability to complete ADLs independently, Inability to ambulate independently, Inability to transfer independently, Inability to ambulate community distances Participation Restrictions: Self-care, Home management Activity Tolerance: Tolerates 10 - 20 min activity with multiple rests Evaluation/Treatment Tolerance: Patient limited by fatigue, Patient limited by pain, Treatment limited secondary to medical complications (Comment) Diagnosis: impaired functional mobility Rehab Potential: Good, to achieve stated therapy goals Barriers to Discharge: Comorbidities Eval Complexity History Profile: 1 - 2 personal factors and/or comorbidities Clinical Presentation: Stable and/or uncomplicated characteristics Clinical Decision Making: Low complexity PT Recommendations Discharge Destination: Home with assistance, Home health PT, Home health OT Discharge Equipment: Rollator Plan Planned PT Interventions Balance training, Bed mobility training, Gait training, Transfer training, ROM, Strengthening, Stretching, Functional Mobility PT Frequency 2 - 5 times per week PT Duration 2 weeks Goals PT GOAL DETAILS Time Frame PT Goal 1: Patient will complete all bed mobility tasks with SBA 2 weeks PT Goal 2: Patient will complete all sit to/from stand with SBA 2 weeks PT Goal 3: Patient will continuously ambulate for > 300 feet with SBA and use of rollator 2 weeks Written by Thomas Garcia on 11/17/24 at 1:03 PM. * Significant Event - Joby Rivera APRN, DNP - 11/17/2024 9:08 AM EDT - Pulmonary to complete thoracentesis at bedside - Will cancel thoracentesis scheduled for 11/18 - Reconsult IR if warranted * Care Plan - Leeanne Leal RN - 11/16/2024 8:13 PM EDT Problem: Adult Inpatient Plan of Care Goal: Plan of Care Review Outcome: Ongoing, Progressing Flowsheets (Taken 11/16/20242012) Progress: no change Plan of Care Reviewed With: patient child Goal: Patient-Specific Goal (Individualized) Outcome: Ongoing, Progressing Flowsheets (Taken 11/16/20241954) Patient/Family-Specific Goals (Include Timeframe): pt will remain free of respiratory distress Individualized Care Needs: meds, safety, emotional support Anxieties, Fears or Concerns: none verbalized Problem: Adult Inpatient Plan of Care Goal: Patient-Specific Goal (Individualized) Outcome: Ongoing, Progressing Flowsheets (Taken 11/16/20241954) Patient/Family-Specific Goals (Include Timeframe): pt will remain free of respiratory distress Individualized Care Needs: meds, safety, emotional support Anxieties, Fears or Concerns: none verbalized * Consults - Geovanny Keen DO - 11/16/2024 2:00 PM EDTAssociated Order(s): IP CONSULT TO PULMONOLOGY IP CONSULT NOTE *Delayed entry* Reason For Consult: Mediastinal mass, right pleural effusion Requesting Provider: Reyes Dean MD Chief complaint Shortness of breath History Of Present Illness Leana Canas is a 74 y.o. female with PMH significant for HTN, COPD, CAD s/p PCI that had abnormal chest imaging in 08/2024. In the past few weeks she has had increasing shortness of breath on exertion and at rest. She presented to OSH for further evaluation and found to have an enlarged mediastinal mass with possible cardiac invasion. Patient noted to have a thrombus in the right atria and start ed on anticoagulation. She was transferred to [facility] for further evaluation and possible bronchoscopic intervention given concerns of RLL collapse. Currently patient is on supplemental O2 and reports still feeling some shortness of breath. Repeat ECHO shows compression of both right and left atria with possible clots in both. Medical/Surgical/Social/Family History Past Medical History[1] Surgical History[2] Social History[3] Family History[4] Allergies Patient has no known allergies. Medications Home Medications[5] Current Medications[6] Review of Systems: General: no fever/chills, no fatigue HEENT: no trauma, no change in vision, no sinusitis Cardio: no chest pain, no peripheral edema Lungs: no wheezing, (+) cough, (+) shortness of breath, no hemoptysis Skin: no lesions, no abrasions, no masses Psych: no depression, no anxiety, no SI or HI Last Recorded Vitals Blood pressure (!) 157/86, pulse 96, temperature 36.6 ??C (97.8 ??F), temperature source Oral, resp. rate 20, height 1.575 m (5' 2.01 ), weight 49.1 kg (108 lb 3.9 oz), SpO2 97%. Physical Exam General: NAD, sitting up in bed, thin/frail body habitus HEENT: atraumatic, normocephalic, PERRL, anicteric sclerae Cardio: (+) tachycardic, S1 and S2 Lungs: no rhonchi, no accessory muscle use MSK: no cyanosis, no clubbing Neuro: AAOx3, no gross motor or sensory deficits Results Review I have reviewed the latest lab and imaging results with the following pertinent results: CT chest showing enlarged mediastinal mass w/ likely extrinsic compression of RLL w/ RLL collapse and R pleural effusion. Assessment: Leana Canas is a 74 y.o. female with PMH significant for HTN, COPD, CAD s/p PCI that had abnormal chest imaging in 08/2024. In the past few weeks she has had increasing shortness of breath on exertion and at rest. - Mediastinal Mass - L and R atrial thrombus - R pleural effusion - RLL collapse Plan: - Discussed CT imaging findings with patient. DDx includes primary lung CA, lymphoma and less likely cardiac tumor. Explained that because the mass if impinging on right and left atria bronchoscopy would likely be high risk for bronchoscopic procedure. Plan for least invasive Dx first which would be a thoracentesis for evaluation. - IR consulted for possible thora. Will discuss with IR; if already on schedule can be completed byIR or at bedside in coming days (given patient was previously on apixaban, ideally will wait 48hrs). - Ultimately, if Dx not able to be obtained from other measures will likely need anesthesia evaluation for possibility of bronchoscopy. Geovanny Keen, DO Pulmonary/Critical Care [1] Past Medical History: Diagnosis Date Smoking history x 18 year [2] No past surgical history on file. [3] [4] No family history on file. [5] No medications prior to admission. [6] Current Facility-Administered Medications Medication Dose Route Frequency Provider Last Rate Last Admin [Held by provider] enoxaparin (Lovenox) syringe 50 mg 1 mg/kg Subcutaneous q12h FER Reyes Dean MD 50 mg at 11/16/24 1246 ipratropium-albuterol (Duo-Neb) 0.5-2.5 mg/3 mL nebulizer solution 3 mL 3 mL Nebulization q6h PRN Donita Owen H, DO melatonin tablet 9 mg 9 mg Oral Nightly PRN Reyes Dean MD nicotine (Nicoderm CQ) 7 MG/24HR patch 1 patch 1 patch Transdermal Daily Reyes Dean MD 1 patch at 11/17/24 0828 oxyCODONE (Roxicodone) immediate release tablet 5 mg 5 mg Oral q4h PRN Yohannes Owenine H, DO 5 mg at 11/17/24 0522 polyethylene glycol (Miralax) packet 17 g 17 g Oral Daily Yohannes Owenine H, DO 17 g at 11/16/24 1246 polyethylene glycol (Miralax) packet 17 g 17 g Oral Daily PRN Reyes Dean MD senna (Senokot) tablet 8.6 mg 8.6 mg Oral Nightly Yohannes Owenine H, DO senna (Senokot) tablet 8.6 mg 8.6 mg Oral Nightly PRN Reyes Dean MD sodium chloride 0.9 % flush 10 mL 10 mL Intravenous q12h Shree Acosta, 10 mL at 11/17/24 0831 And sodium chloride 0.9 % flush 10 mL 10 mL Intravenous PRN Shree Acosta, DO * Progress Notes - Reyes Dean MD - 11/16/2024 1:05 PM EDT Images from the original note were not included. Hospital Medicine Progress Note Subjective Subjective NAEON. No new complaints this AM, discussed the timing of endobronchial biopsy and thoracentesis. Objective Objective Last Recorded Vitals Blood pressure (!) 154/83, pulse 92, temperature 36.9 ??C (98.5 ??F), temperature source Oral, resp. rate 19, height 1.575 m (5' 2.01 ), weight 49.1 kg (108 lb 3.9 oz), SpO2 100%. Physical Exam Vitals reviewed. Constitutional: Appearance: She is ill-appearing. Eyes: Extraocular Movements: Extraocular movements intact. Cardiovascular: Rate and Rhythm: Normal rate and regular rhythm. Pulmonary: Effort: Pulmonary effort is normal. Abdominal: General: Abdomen is flat. Palpations: Abdomen is soft. Skin: General: Skin is warm. Neurological: Mental Status: She is alert and oriented to person, place, and time. Psychiatric: Mood and Affect: Mood normal. Behavior: Behavior normal. Thought Content: Thought content normal. Judgment: Judgment normal. Data Labs personally reviewed: CBC, CMP Imaging ECG personally reviewed, showing: TTE showing: Right Atrium: The right atrium appears to be compressed. There is a mobile mass present consistent with thrombus and/or tumor. Left Atrium: The left atrium appears to be compressed due to extracardiac mass. There is a mass present that likely represents thrombus and/or tumor. Left Ventricle: Based on the linear dimension and/or 2D volumes, the left ventricle is normal in size. The left ventricular systolic function is normal. The LVEF as measured by biplane volume is 57%. CT personally reviewed, showing large right sided hilar mass with partial compression of cardiac structures Assessment/Plan Assessment & Plan Principal Problem: Hilar mass Leana Canas is a 74 y.o. female admitted for malignancy workup iso large right sided hilar mass This condition poses an acute threat to life/bodily function. 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 Has not had biopsy or definitive tissue diagnosis - no prior O2 requirement up until 1 week ago now requiring 2L NC at baseline - CT head reveals no acute intracranial findings - CT Chest notable for right mediastinal/hilar mass with mass effect on adjacent structures including right cardiac chambers, hilar vessels, and bronchi with resulting atelectasis. Also notable for complex R pleural effusion. - CT A/P with extensive edema suspicious for likely sequelae of hepatic congestion PLAN: - Consulted pulm, plan for bronch + biopsy of hilar mass either tomorrow or Sunday. - IR consulted for thoracentesis, likely plan for thora tomorrow. - MRI head to eval for possible brain mets - Pain Regimen: oxy 5mg Q4h PRN, APAP, lidocaine patches - Goal O2 sat >88%, baseline requirement of 2L NC #Biatrial Mural Thrombus currently on Xarelto (bridging with tLov) - reports from OSH discuss diagnosis of biatrial mural thrombus likely 2/2 active malignancy - was placed on xarelto now bridging with tLov (last dose prior to transfer) - minimal JVD, no notable ascites or LE edema on exam - TTE with redomenstration of biatrial thrombus PLAN: - Tlov restarted, will plan to hold at midnight for possible thoracentesis tomorrow #Severe protein calorie malnutrition #failure to thrive iso possible malignancy - reports 20lb weight loss from May to august with continued weight loss and poor appetite x 2 months - reports she has not had much to eat over the last 2-3 days but continues to have good fluid intake PLAN: - consulted nutrition, appreciate recs - PT/OT consulted #COPD - reports 50 year history of smoking 2-3 ppd - no baseline O2 requirement previously. Started on 2L NC 1 week ago due to continued SOB - smoking cessation x 1 week PLAN: - provided NRT - goal O2 sat >88% on 2 L NC - duonebs Q6h PRN #CAD s/p PCI - reports PCI 7 years ago, do not have full records unclear of location of stent - established with cardiology outpatient - will hold AC pending further surgical plans as above - continue plavix 75 mg daily, rosuvastatin 20 mg daily pending med rec Chronic Medical Conditions: #Anxiety: cont home escitalopram 20 mg daily pending med rec #Constipation: miralax, senna Care today included: HIGHRISK: Discussion of management/test with another provider: pulmonology, IR or High risk: Escalation of level of care: admit to acute medicine Electronically Signed by: Reyes Dean MD - 11/16/2024 - 1:05 PM Cosigned by David Ayala MD at 11/17/2024 1:19 PM EDT Associated attestation - David Ayala MD - 11/17/2024 1:19 PM EDT I saw and evaluated the patient with the resident/fellow. I discussed the case with the resident/fellow and agree with the findings and plan as documented. * Consults - Ara Zapien RD - 11/16/2024 12:59 PM EDTAssociated Order(s): IP CONSULT TO NUTRITION SERVICES Adult Nutrition Evaluation Note Leana Canas 74 y.o. female CSN: [id number] Room/Bed 735/731B Nutrition evaluation type: assessment Reason for evaluation: provider consult Hospital course: 74 y.o female presenting for concern of a large right hilar mass. CT Chest notablefor right mediastinal/hilar mass with mass effect on adjacent structures including right cardiac chambers, hilar vessels, and bronchi with resulting atelectasis. Biatrial mural thrombus. Will performright thoracentesis. Past medical/ surgical history: Past Medical History[1] Surgical History[2]significant for COPD, HTN, CAD s/p PCI, TUD (reportedly smoking since 20 and 3 cartons per week at the 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 Social history: Additional comments: Regular diet. No Gi symptoms. Vitals and Basic Assessment: BP: (!) 154/83 Temp: 36.9 ??C (98.5 ??F) Oxygen Therapy: Supplemental oxygen O2 Delivery Method: Nasal cannula Miladys Coma Scale Score: 15 Thomas Scale Score: 18 Allergies: NKFA Medications: Current Scheduled Medications[3] Current Continuous Medications[4] Current PRN Medications[5] Meds were reviewed: Yes Labs: BMP Na 134 (L) Cl 93 (L) BUN 11 Glu 108 (H) K 4.3 Co2 29 Cr 0.57 (L) Ca 9.4 iCa ?? Mg ??, Phos ?? Lactate ?? No results found for: CHOL , TRIG , HDL , LDLCALC No results found for: HGBA1C Anthropometrics: Height: 157.5 cm (5' 2.01 ) Weight: 49.1 kg (108 lb 3.9 oz) BMI (Calculated): 19.79 Weight Evaluation: Normal (BMI 18.5-24.9) [place] Body Weight (kg): 50 Percent [place] Body Weight: 98 Wt Readings from Last 5 Encounters: 11/16/24 49.1 kg (108 lb 3.9 oz) 11/15/24 47.4 kg (104 lb 8 oz) Estimated Needs: Kcal/ K - 35 Kcal Provided: 1473 - 1719 Kcal Needs Based On: Current weight Gm Protein/ Kg : 1.2 - 1.5 Protein Provided: 59 - 74 Protein Needs Based On: Current weight Metabolic Cart Study Results: Current Nutrition Intake: Diet Supplements: Boost Very High Calorie Diet Order: Adult Diet Diet Texture: Regular Modified Calorie/ Protein: High calorie, high protein Diet Experience and Nutrition History: Diet Education Provided: Will monitor Pertinent home medications: None Nutrition Focused Physical Exam: Unable to Complete Exam: Weekend coverage Physical exam performed on (date): Assessment of Malnutrition: Nutrition Problem: Increased nutrient needs protein related to mass as evidenced by increased demand. Status of Nutrition Diagnosis: New Nutrition Interventions and Recommendations: - Continue Regular, High Kcal High Protein diet - Continue Boost Very High Calorie TID - Add Gelatein Plus TID - Document intakes Nutrition Monitoring and Goals: - Consume 75% or greater of meals - Monitor weight, labs, and elytes Acuity Level: [address] [1] No past medical history on file. [2] No past surgical history on file. [3] enoxaparin, 1 mg/kg, Subcutaneous, q12h FER polyethylene glycol, 17 g, Oral, Daily senna, 8.6 mg, Oral, Nightly sodium chloride, 10 mL, Intravenous, q12h [4] [5] PRN medications: ipratropium-albuterol, nicotine, oxyCODONE, Insert peripheral IV AND Saline lock IV AND sodium chloride AND sodium chloride * Consults - Joby Rivera APRN, DNP - 11/16/2024 10:26 AM EDTAssociated Order(s): IP CONSULT TO INTERVENTIONAL RADIOLOGY Images from the original note were not included. Vascular & Interventional Radiology Consult Note 11/16/24 Patient: Leana Canas Date of : 1950/74 y.o. Requesting Service: [facility] Requesting Provider: David Ayala MD Chief Complaint: Chest pressure Reason for Consult: Right thoracentesis History of Present Illness: Leana Canas is a 74 y.o. 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 Patient found to have new right-sided hilar mass after presenting to PCP with ongoing chest pressure. She presented to [facility] on 11/14 with ongoing anuria. Patient found to have anemia, transaminitis, large right pleural effusion, acute hypoxic respiratory failure, and bilateralmural thrombus. She was transferred to [facility] for higher level of care. Interventional pulmonology consulted for hilar mass biopsy upon arrival. Interventional Radiology consulted for right thoracentesis. Upon examination, patient remains on 2 L nasal cannula, hemodynamically stable. History and admission information obtained from chart review of primary and consulting teams notation, as well as speaking directly to consulting team. The following portions of the chart were reviewed this encounter and updated as appropriate: Review of Systems: 14 point ROS negative except for above. Past Medical History Pertinent Negatives[1] Surgical History[2] Social History[3] Family History: Personally reviewed & noncontributory. Allergies[4] Objective: All laboratory, images, tracings, and vital sign data are personally reviewed unless otherwise noted. VITALS: Temp: [36.4 ??C (97.6 ??F)-36.9 ??C (98.5 ??F)] 36.9 ??C (98.5 ??F) Heart Rate: [92-108] 92 Resp: [16-17] 17 BP: (134-154)/(70-83) 154/83 Weight: 49.1 kg (108 lb 3.9 oz) There is no height or weight on file to calculate BMI. I & O SUMMARY No intake/output data recorded. No intake/output data recorded. MEDICATIONS: Current Medications[5] LABS (PAST 18Labs in last 18 hours) CBC WBC 11.32 (H) Hb 7.3 (L) Plt 389 (H) Hct 23.1 (L) INR ?? PTT ?? Anti-Xa ?? BMP Na 134 (L) Cl 93 (L) BUN 11 Glu 108 (H) K 4.3 Co2 29 Cr 0.57 (L) Ca 9.4 Mg ?? Phos ?? Lactate ?? LFT AST 56 (H) AlkPhos 96 T Prot 6.5 ALK 40 (H) Bili 0.5 Alb ?? D.Bili ?? HOURS) EXAM: GENERAL: no acute distress, afebrile. EYES: PERRL. No scleral icterus or conjunctivitis. HENT: Atraumatic, normocephalic. NECK: Supple. No thyromegaly or adenopathy. RESP: Symmetrical chest expansion; no retractions. Breath sounds diminished to auscultation. CARD: Regular rhythm without murmur, rub, or gallop. Extremities: No cyanosis or clubbing. Bilateral radial pulses palpable. GI: Bowel sounds present. Abdomen soft SKIN: Warm, dry. NEURO: A&O x4 Radiographics/Diagnostics: Imaging personally reviewed and reviewed with attending. === 11/13/24 === CT THORACIC OUTSIDE IMAGES No results found for this or any previous visit. No echocardiogram results found for the past 12 months Assessment & Plan: Right hilar mass Large right pleural effusion Bilateral mural thrombus Acute hypoxic respiratory failure requiring supplemental oxygen - INR ??, Plt 389 (H) - Personally reviewed CT chest 0 11/13: Large right pleural effusion - VSS, Afebrile - On Xarelto outpatient, currently on therapeutic Lovenox - IP consulted for lung biopsy COPD Tobacco use - 100 pack per year smoker -Initiated on 1 L ND outpatient PLAN: - Will perform right thoracentesis on Friday 11/17,Saturday 11/18, or Sunday 11/19 pending scheduled availability - INR ordered with AM labs - Any questions with scheduling please call [phone] on Sunday AM - Will consent prior to procedure - NPO & hold DVT ppx at 0000 prior to procedure - Primary team to place any fluid/specimen/lab orders desired. Thank you for allowing us to participate in the care of this patient. Joby Rivera APRN, DNP Vascular & Interventional Radiology [1] No past medical history on file. [2] No past surgical history on file. [3] [4] No Known Allergies [5] Current Facility-Administered Medications: ipratropium-albuterol (Duo-Neb) 0.5-2.5 mg/3 mL nebulizer solution 3 mL, 3 mL, Nebulization, q6h PRN, Donita Owen H, DO nicotine (Nicoderm CQ) 7 MG/24HR patch 1 patch, 1 patch, Transdermal, Daily PRN, Donita Owen H,DO oxyCODONE (Roxicodone) immediate release tablet 5 mg, 5 mg, Oral, q4h PRN, Donita Owen, DO, 5mg at 11/16/24 0811 polyethylene glycol (Miralax) packet 17 g, 17 g, Oral, Daily, Yohannes Owenine H, DO senna (Senokot) tablet 8.6 mg, 8.6 mg, Oral, Nightly, Donita Owen H, DO Insert peripheral IV, , , Once AND Saline lock IV, , , Once AND sodium chloride 0.9 % flush10 mL, 10 mL, Intravenous, q12h, 10 mL at 11/16/24 0301 AND sodium chloride 0.9 % flush 10 mL, 10 mL, Intravenous, PRN, Shree Acosta H, DO * Hospital Course - Reyes Dean MD - 11/16/2024 3:02 AM EDT Patient is a 74 year old female with PMH significant for COPD, HTN, CAD s/p PCI, TUD (reportedly smoking since 20 and 3 cartons per week at the 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 Patient reports that starting in August, she developed chest pressure that radiated throughout her chest an her back. She was evaluated at that time by her PCP with imaging showing a right sided hilarmass. Since that time, she has undergone MRI and EGD for evaluation, however, no tissue diagnoses has yet been confirmed. She was planned for bronchoscopy with biopsy on Sunday of next week. On 11/14, the patient presented to [facility] due to reported anuria. She states that for the two days prior she had significantly decreased urine output which eventually stopped. Uponarrival, she was found to be anemic with Hgb of 6.8 Cr of 0.6, and mild transaminitis. CTH was obtained and unremarkable for evidence of acute intracranial abnormalities to include metastatic lesions. CT Chest notable for right mediastinal/hilar mass with mass effect on adjacent structures including right cardiac chambers, hilar vessels, and bronchi with resulting atelectasis. Also notable for complex R pleural effusion. CT A/P with extensive edema suspicious for likely sequelae of hepatic congestion. Outside labs notable for mild hyponatremia, compensated hypercarbia, Cr of 0.6, AST of 49, and ALT of 27. Of note, patient does report a recent history of a clot in the widowmaker for which she was started on Xarelto, although, per outside chart review, it appears that this is for a biatrial mural thrombus. Her troponins were negative at the OSH. Given the near complete occlusion of the right bronchus, the decision was made to transfer the patient to a higher level of care for IP intervention with possible bronchial stenting. Upon arrival to [facility], the patient was hemodynamically stable without any significant chest pain or shortness of breath. She remains on her home 2L of oxygen, however, reports she was just started on this a couple of weeks ago. Denies fevers, chills, cough, shortness of breath different from baseline, nausea, vomiting, dysuria, urinary frequency, or diarrhea. She does report not having a bowel movement for multiple days. After admission patient underwent thoracentesis performed by pulmonology which was remarkable for an exudative pleural effusion with cytology pending, TTE showing redemonstration of biatrial thrombi,CT chest w/ IV contrast showing new small pulmonary emboli. Discussed possible bronchoscopy with pulmonology who recommended it for biopsy if cytology was unremarkable or showed NSCLC. In either of those cases, they would be willing to perform this procedure. Discussed with the patient waiting for these results and possible biopsy and she wished to pursue bronchoscopy in the outpatient setting inspite of this hilar mass with high risk features, including cardiac involvement. Patient was in agre ement with the plan to discharge her home today and pursue possible bronchoscopy in the outpatient setting. She is to stop taking her Rivaroxaban and transition to therapeutic enoxaparin until the decision about bronchoscopy is made. * H&P - Donita Owen DO - 11/16/2024 2:36 AM EDT Images from the original note were not included. [facility] Medicine History & Physical Subjective 11/16/2024 Chief Complaint: No chief complaint on file. History Of Present Illness Leana Canas is a 74 y.o. female with PMH significant for COPD, HTN, CAD s/p PCI, TUD (reportedlysmoking since 20 and 3 cartons per week at the 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 Patient reports that starting in August, she developed chest pressure that radiated throughout her chest an her back. She was evaluated at that time by her PCP with imaging showing a right sided hilarmass. Since that time, she has undergone MRI and EGD for evaluation, however, no tissue diagnoses has yet been confirmed. She was planned for bronchoscopy with biopsy on Sunday of next week. On 11/14, the patient presented to [facility] due to reported anuria. She states that for the two days prior she had significantly decreased urine output which eventually stopped. Uponarrival, she was found to be anemic with Hgb of 6.8 Cr of 0.6, and mild transaminitis. CTH was obtained and unremarkable for evidence of acute intracranial abnormalities to include metastatic lesions. CT Chest notable for right mediastinal/hilar mass with mass effect on adjacent structures including right cardiac chambers, hilar vessels, and bronchi with resulting atelectasis. Also notable for complex R pleural effusion. CT A/P with extensive edema suspicious for likely sequelae of hepatic congestion. Outside labs notable for mild hyponatremia, compensated hypercarbia, Cr of 0.6, AST of 49, and ALT of 27. Of note, patient does report a recent history of a clot in the widowmaker for which she was started on Xarelto, although, per outside chart review, it appears that this is for a biatrial mural thrombus. Her troponins were negative at the OSH. Given the near complete occlusion of the right bronchus, the decision was made to transfer the patient to a higher level of care for IP intervention with possible bronchial stenting. Upon arrival to [facility], the patient was hemodynamically stable without any significant chest pain or shortness of breath. She remains on her home 2L of oxygen, however, reports she was just started on this a couple of weeks ago. Denies fevers, chills, cough, shortness of breath worse from baseline, nausea, vomiting, dysuria, urinary frequency, or diarrhea. Additional history was provided by family I reviewed prior records including her note prior to transfer and most recent ED note which documented above findings. Past Medical History Past Medical History[1] Surgical History Surgical History[2] Family History Family History[3] Social History Social History[4] Home Medications No current outpatient medications Objective Blood pressure (!) 149/79, pulse 99, temperature 36.4 ??C (97.6 ??F), temperature source Oral, resp. rate 17, weight 49.1 kg (108 lb 3.9 oz), SpO2 100%. Physical Exam General Awake, NAD. Thin, frail. Eyes EOMI, sclera anicteric Head NC/AT ENT OP moist. Hearing grossly normal. CV Warm and well perfused. RRR, no MRG. RES Equal chest rise, normal effort on room air. Diminished lung sounds of bilateral bases GI Soft. Tender epigastric, not distended. No rebound, guarding. JUAREZ AAOx4. No gross deficits. EXT No cyanosis. No edema Skin Well perfused. No notable lesions PSY Appropriate mood and affect Data Labs personally reviewed CBC WBC ?? Hb ?? Plt ?? Hct ?? ANC ?? INR ??, PTT ??, Anti-Xa ?? BMP Na ?? Cl ?? BUN ?? Glu ?? K ?? Co2 ?? Cr ?? Ca ?? iCa ?? Mg ??, Phos ?? Lactate ?? LFT AST ?? AlkPhos ?? T Prot ?? ALK ?? Bili ?? Alb ?? D.Bili ?? Imaging - CT head reveals no acute intracranial findings - CT Chest notable for right mediastinal/hilar mass with mass effect on adjacent structures including right cardiac chambers, hilar vessels, and bronchi with resulting atelectasis. Also notable for complex R pleural effusion. - CT A/P with extensive edema suspicious for likely sequelae of hepatic congestion Assessment/Plan Assessment/ Plan Principal Problem: Hilar mass Leana Canas is a 74 y.o. female with PMH of This condition poses an acute threat to life/bodily function. 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 Has not had biopsy or definitive tissue diagnosis - no prior O2 requirement up until 1 week ago now requiring 2L NC at baseline - CT head reveals no acute intracranial findings - CT Chest notable for right mediastinal/hilar mass with mass effect on adjacent structures including right cardiac chambers, hilar vessels, and bronchi with resulting atelectasis. Also notable for complex R pleural effusion. 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 (bridging with tLov) - reports from OSH discuss diagnosis of biatrial mural thrombus likely 2/2 active malignancy - was placed on xarelto now bridging with tLov (last dose prior to transfer) - minimal JVD, no notable ascites or LE edema on exam PLAN: - will resume tLov pending further discussion with IP - obtain EKG - TTE, pending #Severe protein calorie malnutrition #failure to thrive iso possible malignancy - reports 20lb weight loss from May to august with continued weight loss and poor appetite x 2 months - reports she has not had much to eat over the last 2-3 days but continues to have good fluid intake PLAN: - NPO pending surgical/biopsy plans - consulted nutrition, appreciate recs - will consult PT/OT #COPD - reports 50 year history of smoking 2-3 ppd - no baseline O2 requirement previously. Started on 2L NC 1 week ago due to continued SOB - smoking cessation x 1 week PLAN: - provided NRT - goal O2 sat >88% on 2 L NC - duonebs Q6h PRN #CAD s/p PCI - reports PCI 7 years ago, do not have full records unclear of location of stent - established with cardiology outpatient - will hold AC pending further surgical plans as above - continue plavix 75 mg daily, rosuvastatin 20 mg daily pending med rec Chronic Medical Conditions: #Anxiety: cont home escitalopram 20 mg daily pending med rec #Constipation: miralax, senna Care today included: HIGHRISK: Discussion of management/test with another provider: Pulmonology Electronically Signed by: Donita Owen DO - 11/16/2024 - 2:37 AM Donita Owen DO Internal Medicine PGY-1 [1] No past medical history on file. [2] No past surgical history on file. [3] No family history on file. [4] Cosigned by David Ayala MD at 11/17/2024 1:15 PM EDT Associated attestation - David Ayala MD - 11/17/2024 1:15 PM EDT I saw and evaluated the patient with the resident/fellow. I discussed the case with the resident/fellow and agree with the findings and plan as documented. documented in this encounter Plan of Treatment Upcoming Encounters Date Type Department Care Team (Late st Contact Info) Description 11/25/2024 3:30 PM EDT Appointment [facility] [address] [place] [address] Kunal Franco MD [address] [place] [address] 12/10/2024 9:15 AM EDT Office Visit [facility] [address] [place] [address] Karlie Hickey MD [address] [place] [address] Pending Results Name Type Priority Associated Diagnoses Date /Time Body Fluid Culture and Gram Stain Microbiology Routine 11/17/2024 10:52 AM EDT Adenosine Deaminase, Pleural Fluid Lab Routine 11/17/2024 10:52 AM EDT Body Fluid Culture and Gram Stain - Pleural Right Microbiology Routine 11/17/2024 10:52 AM EDT Scheduled Orders Name Type Priority Associated Diagnoses Order Schedule Non-Gynecologic Cytology Pathology and Cytology Routine Once (Lab) for 1 Occurrences starting 11/17/2024 until 11/17/2024 Adenosine Deaminase, Pleural Fluid Lab Routine Once (Lab) for 1 Occurrences starting 11/17/2024 until 11/17/2024 Scheduled Referrals Name Type Priority Associated Diagnoses Order Schedule Discharge Ambulatory referral to [facility] Outpatient Referral Routine Hilar mass 1 Occurrences starting 11/17/2024 until 05/21/2026 Ambulatory referral to External PCP Outpatient Referral Routine Hilar mass 1 Occurrences starting 11/18/2024 until 05/22/2026 Ambulatory referral to Pulmonology Outpatient Referral Routine Hilar mass Expected: 11/18/2024 (Approximate), Expires: 05/22/2026 documented as of this encounter Procedures Procedure Name Priority Date/Time Associated Diagnosis Comments CBC WITH AUTO DIFFERENTIAL Routine 11/18/2024 4:10 AM EDT PHOSPHORUS, PLASMA Routine 11/18/2024 4: 10 AM EDT MAGNESIUM, PLASMA Routine 11/18/2024 4:1 0 AM EDT COMPREHENSIVE METABOLIC PANEL, PLASMA Routine 11/18/2024 4:10 AM EDT HC THORACENTESIS NEEDLE/CATH PLEURA W/O IMAGING Routine 11/17/2024 1:08 PM EDT Hilar mass MD THORACENTESIS NEEDLE/CATH PLEURA W/O IMAGING Routine 11/17/2024 1:08 PM EDT Hilar mass XR CHEST 1 VIEW Routine 11/17/2024 12:30 PM EDT BODY FLUID CELL COUNT W/ MANUAL DIFFERENTIAL Routine 11/17/2024 10:52 AM EDT TOTAL PROTEIN, PLEURAL FLUID Routine 11/17/2024 10:52 AM EDT LACTATE DEHYDROGENASE, PLEURAL FLUID Routine 11/17/2024 10:52 AM EDT BODY FLUID, CYTOSPIN, PATHOLOGIST INTERPRETATION Routine 11/17/2024 10:52 AM EDT BODY FLUID CULTURE AND GRAM STAIN Routine 11/17/2024 10:52 AM EDT BODY FLUID CULTURE AND GRAM STAIN Routine 11/17/2024 10:52 AM EDT GLUCOSE, PLEURAL FLUID Routine 10:52 AM EDT ALBUMIN, PLEURAL FLUID Routine 10:52 AM EDT PH, PLEURAL FLUID Routine 11/17/2024 10: 52 AM EDT NON-GYNECOLOGIC CYTOLOGY Routine 11/17/2024 10:52 AM EDT PROTHROMBIN TIME(PT) / INR Routine 11/17/2024 1:31 AM EDT CBC WITH AUTO DIFFERENTIAL Routine 11/17/2024 1:31 AM EDT PHOSPHORUS, PLASMA Routine 11/17/2024 1: 31 AM EDT MAGNESIUM, PLASMA Routine 11/17/2024 1:3 1 AM EDT LACTATE DEHYDROGENASE, PLASMA Add-On 11/17/2024 1:31 AM EDT COMPREHENSIVE METABOLIC PANEL, PLASMA Routine 11/17/2024 1:31 AM EDT MR HEAD W AND WO IV CONTRAST Routine 11/16/2024 7:[address] CHEST W IV CONTRAST Routine 5:57 PM EDT ECHO, ADULT TRANSTHORACIC COMPLETE Routine 11/16/2024 10:20 AM EDT ECG ADULT Routine 11/16/2024 6:23 AM EDT CBC WITH AUTO DIFFERENTIAL Routine 11/16/2024 3:00 AM EDT PHOSPHORUS, PLASMA Add-On 11/16/2024 3: 00 AM EDT COMPREHENSIVE METABOLIC PANEL, PLASMA Routine 11/16/2024 3:00 AM EDT documented in this encounter Results * Phosphorus, Plasma (11/18/2024 4:10 AM EDT) Phosphorus, Plasma 3.2 2.5 - 4.5 mg/dL 11/18/2024 4:52 AM EDT [facility] Blood Venous blood specimen / Unknown Venipuncture / Unknown 11/18/2024 4:10 AM EDT 11/18/2024 4:20 AM EDT us David Ayala MD LAB BLOOD ORDERABLES Final Res ult [facility] [address] [place] [address] * Magnesium, Plasma (11/18/2024 4:10 AM EDT) Magnesium, Plasma 1.9 1.9 - 2.4 mg/dL 11/18/2024 4:52 AM EDT [facility] Blood Venous blood specimen / Unknown Venipuncture / Unknown 11/18/2024 4:10 AM EDT 11/18/2024 4:20 AM EDT us David Ayala MD LAB BLOOD ORDERABLES Final Res ult [facility] [address] [place] [address] * (ABNORMAL) Comprehensive Metabolic Panel, Plasma (11/18/2024 4:10 AM EDT) Glucose, Plasma 104(H) 74 - 99 mg/dL 11/18/2024 4:52 AM EDT [facility] BUN, Plasma 15 8 - 23 mg/dL 11/18/2024 4:52 AM EDT [facility] Creatinine, Plasma 0.68 0.60 - 1.10 mg/dL 11/18/2024 4:52 AM EDT [facility] BUN/Creatinine Ratio 22 11/18/2024 4:52 AM EDT [facility] Sodium, Plasma 134(L) 136 - 145 mmol/L 11/18/2024 4:52 AM EDT [facility] Potassium, Plasma 4.8 3.6 - 4.9 mmol/L 11/18/2024 4:52 AM EDT [facility] Chloride, Plasma 93(L) 97 - 107 mmol/L 11/18/2024 4:52 AM EDT [facility] CO2, Plasma 32(H) 22 - 29 mmol/L 11/18/2024 4:52 AM EDT [facility] Anion Gap 9 6 - 16 mmol/L 11/18/2024 4:52 AM EDT [facility] Total Calcium, Plasma 9.5 8.9 - 10.2 mg/dL 11/18/2024 4:52 AM EDT [facility] Total Protein 6.2(L) 6.3 - 7.9 g/dL 11/18/2024 4:52 AM EDT [facility] Albumin, Plasma 3.1(L) 3.5 - 5.2 g/dL 11/18/2024 4:52 AM EDT [facility] AST, Plasma 48(H) 10 - 35 U/L 11/18/2024 4:52 AM EDT [facility] ALT, Plasma 37(H) 10 - 35 U/L 11/18/2024 4:52 AM EDT [facility] Alkaline Phosphatase, Plasma 98 46 - 142 U/L 11/18/2024 4:52 AM EDT [facility] Total Bilirubin, Plasma 0.5 0.2 - 1.1 mg/dL 11/18/2024 4:52 AM EDT [facility] eGFRcr 92.7 mL/min/1.7 3m*2 11/18/2024 4:52 AM EDT [facility] Comment:Reported eGFRcr in m L/min/1.73m2 is based the CKD-EPI 2020 equation that does not use a race coefficient. Blood Venous blood specimen / Unknown Venipuncture / Unknown 11/18/2024 4:10 AM EDT 11/18/2024 4:20 AM EDT us David Ayala MD LAB BLOOD ORDERABLES Final Res ult [facility] [address] [place] [address] * (ABNORMAL) CBC and Differential (11/18/2024 4:10 AM EDT) WBC Count 10.45(H) 3.70 - 10.30 10*3/uL LAB HEMATOLOGY METHOD 11/18/2024 4:35 AM EDT [facility] RBC Count 2.66(L) 3.90 - 5.20 10*6/uL LAB HEMATOLOGY METHOD 11/18/2024 4:35 AM EDT [facility] HGB 7.4(L) 11.2 - 15.7 g/dL LAB HEMATOLOGY METHOD 11/18/2024 4:35 AM EDT [facility] HCT 23.4(L) 34.0 - 45.0 % LAB HEMATOLOGY METHOD 11/18/2024 4:35 AM EDT [facility] Platelet Count 359 155 - 369 10*3/uL LAB HEMATOLOGY METHOD 11/18/2024 4:35 AM EDT [facility] MCV 88 79 - 98 fL LAB HEMATOLOGY METHOD 11/18/2024 4:35 AM EDT [facility] MCH 27.8 26.0 - 32.0 pg LAB HEMATOLOGY METHOD 11/18/2024 4:35 AM EDT [facility] MCHC 31.6 30.7 - 35.5 g/dL LAB HEMATOLOGY METHOD 11/18/2024 4:35 AM EDT [facility] RDW 15.2(H) 11.5 - 14.5 % LAB HEMATOLOGY METHOD 11/18/2024 4:35 AM EDT [facility] MPV 9.0 8.8 - 12.5 fL LAB HEMATOLOGY METHOD 11/18/2024 4:35 AM EDT [facility] nRBC 0.0 <=0.0 per 100 WBCs LAB HEMATOLOGY METHOD 11/18/2024 4:35 AM EDT [facility] Differential Type Automated LAB HEMATOLOGY METHOD 11/18/2024 4:35 AM EDT [facility] Neutrophils % 82 % LAB HEMATOLOGY METHOD 11/18/2024 4:35 AM EDT [facility] Lymphocytes % 8 % LAB HEMATOLOGY METHOD 11/18/2024 4:35 AM EDT [facility] Monocytes % 9 % LAB HEMATOLOGY METHOD 11/18/2024 4:35 AM EDT [facility] Eosinophils % 0 % LAB HEMATOLOGY METHOD 11/18/2024 4:35 AM EDT [facility] Basophils % 0 % LAB HEMATOLOGY METHOD 11/18/2024 4:35 AM EDT [facility] Immature Granulocytes % 1 % LAB HEMATOLOGY METHOD 11/18/2024 4:35 AM EDT [facility] Neutrophils Absolute 8.57(H) 1.60 - 6.10 10*3/uL LAB HEMATOLOGY METHOD 11/18/2024 4:35 AM EDT [facility] Lymphocytes Absolute 0.80(L) 1.20 - 3.90 10*3/uL LAB HEMATOLOGY METHOD 11/18/2024 4:35 AM EDT [facility] Monocytes Absolute 0.97(H) 0.30 - 0.90 10*3/uL LAB HEMATOLOGY METHOD 11/18/2024 4:35 AM EDT [facility] Eosinophils Absolute 0.01 0.00 - 0.50 10*3/uL LAB HEMATOLOGY METHOD 11/18/2024 4:35 AM EDT [facility] Basophils Absolute 0.03 0.00 - 0.10 10*3/uL LAB HEMATOLOGY METHOD 11/18/2024 4:35 AM EDT [facility] Immature Granulocytes Absolute 0.07(H) 0.00 - 0.06 10*3/uL LAB HEMATOLOGY METHOD 11/18/2024 4:35 AM EDT [facility] Blood Venous blood specimen / Unknown Venipuncture / Unknown 11/18/2024 4:10 AM EDT 11/18/2024 4:23 AM EDT Narrative [facility] - 11/18/2024 4:35 AM EDT Therapeutic decision making should be based on absolute values, rather than percentages. us David Ayala MD LAB BLOOD ORDERABLES Final Res ult [facility] [address] [place] [address] * MD THORACENTESIS NEEDLE/CATH PLEURA W/O IMAGING, HC THORACENTESIS NEEDLE/CATH PLEURA W/O IMAGING (11/17/2024 1:08 PM EDT) Narrative Geovanny Keen DO - 11/17/2024 1:08 PM EDT Geovanny Keen DO 11/17/2024 9:20 PM Thoracentesis Performed by: Dewayne Be DO Authorized by: David Ayala MD Consent: Consent obtained: Verbal Consent given by: Patient Risks, benefits, and alternatives were discussed: yes Risks discussed: Incomplete drainage and bleeding Alternatives discussed: No treatment Wright protocol: Procedure explained and questions answered to patient or proxy's satisfaction: yes Relevant documents present and verified: yes Test results available: yes Imaging studies available: yes Site/side marked: yes Immediately prior to procedure, a time out was called: yes Patient identity confirmed: Arm band Attending Supervision?: yes Sedation: Sedation type: None Anesthesia: Anesthesia method: Topical application and local infiltration Local anesthetic: Lidocaine 1% w/o epi Procedure details: Preparation: Patient was prepped and draped in usual sterile fashion Percutaneous Approach: yes Patient position: Sitting Location: R midscapular line Intercostal space: 7th Puncture method: Povy-xzg-[id number] catheter Indwelling catheter: Removed following drainage Catheter size: 6 Fr Number of attempts: 1 Drainage characteristics: Serosanguinous Post-procedure details: Chest x-ray performed: yes Chest x-ray findings: Pleural effusion improved Procedure completion: Tolerated Comments: Drained approximately 1100mL of serosanguinous fluid, Patient tolerated procedure well and studies were sent. CXR post procedure stable. us David Ayala MD IN CLINIC/BEDSIDE ORDERABLES F inal Result * XR Chest 1 View (11/17/2024 12:30 PM EDT) Anatomical Region Laterality Modality Chest Digital Radiogra phy Impressions 11/17/2024 12:45 PM EDT No significant pneumothorax following thoracentesis. CRITICAL RESULT: No. COMMUNICATION: Per this written report. Drafted by Renard Pak MD on 11/17/2024 12:44 PM Final report signed by Renard Pak MD on 11/17/2024 12:45 PM Narrative 11/17/2024 12:45 PM EDT CLINICAL INDICATION: s/p thoracentesis TECHNIQUE: XR CHEST 1 VIEW COMPARISON: Chest CT November 16, 2024 FINDINGS: Significant decrease in the right pleural effusion. No significant pneumothorax. A skin fold projects over the right upper lateral lung. Left lung remains clear. Procedure Note Renard Pak MD - 11/17/2024 CLINICAL INDICATION: s/p thoracentesis TECHNIQUE: XR CHEST 1 VIEW COMPARISON: Chest CT November 16, 2024 FINDINGS: Significant decrease in the right pleural effusion. No significantpneumothorax. A skin fold projects over the right upper lateral lung. Leftlung remains clear. IMPRESSION: No significant pneumothorax following thoracentesis. CRITICAL RESULT: No. COMMUNICATION: Per this written report. Drafted by Renard Pak MD on 11/17/2024 12:44 PM Final report signed by Renard Pak MD on 11/17/2024 12:45 PM us David Ayala MD IMG XR PROCEDURES Final Result * Body fluid, cytospin, pathologist interpretation (11/17/2024 10:52 AM EDT) Specimen Type Pleural Fluid LAB HEMATOLOGY METHOD 11/18/2024 4:50 PM EDT [facility] Specimen Source, Body Fluid Pleural Fluid, Right LAB HEMATOLOGY METHOD 11/18/2024 4:50 PM EDT [facility] Clinical Diagnosis, Body Fluid Right hilar mass with right effusion LAB HEMATOLOGY METHOD 11/18/2024 4:50 PM EDT [facility] Interpretation , Body Fluid No evidence of malignancy; predominantly acute inflammatory cells and reactive mesothelial cells. A resident was involved in the service. I attest I examined the relevant preparations for the specimens and confirmed the diagnosis or interpretation. 11/18/2024 4:50 PM EDT [facility] Pathologist Signature, Body Fluid 11/18/2024 4:50 PM EDT [facility] Comment:Reviewed by: Prisca Hidalgo MD LAB CP ASR DISCLAIMER Yes 11/18/2024 4:50 PM EDT [facility] Pleural Fluid Structure of right pleural cavity / Unknown Non-blood Collection / Unknown 11/17/2024 10:52 AM EDT 11/17/2024 11:16 AM EDT Narrative [facility] - 11/18/2024 4:50 PM EDT Correlation with microbiology studies is suggested us David Ayala MD LAB BODY FLUIDS AND STOOLS ORD ERABLES Final Result [facility] [address] [place] [address] * Cytology - Pleural Right (11/17/2024 10:52 AM EDT) Case Report Cytology Case: [id number] Authorizing Provider: David Ayala MD Collected: 11/17/2024 1052 Ordering Location: [facility] Inpatient Received: 11/17/2024 1433 Pathologist: Elana Whiteside MD Specimen: Pleural Fluid, Right, RIGHT PLEURAL FLUID 11/18/2024 1:09 PM EDT [facility] Final Diagnosis A. RIGHT PLEURAL FLUID - NO EVIDENCE OF MALIGNANCY - REACTIVE MESOTHELIAL CELLS 11/18/2024 1:09 PM EDT [facility] at 1309 EDT Clinical History Pleural effusion 11/18/2024 1:09 PM EDT [facility] Previous Cancer Primary Site Other/Unknown Primary Site 11/18/2024 1:09 PM EDT [facility] Gross Description A. RIGHT PLEURAL FLUID 80 mls yellow fluid for cell block and thin prep processing Cold Time: 5h 37m 11/18/2024 1:09 PM EDT [facility] Fluid Structure of right pleural cavity / Unknown 11/17/2024 10:52 AM EDT 11/17/2024 2:33 PM EDT Comment:Large pulmonary mass with associated pleural effusion, concerning for malignancy but no biopsy to prove us David Ayala MD LAB CYTOLOGY ORDERABLES Final Result [facility] [address] [place] [address] * Albumin - Pleural Right (11/17/2024 10:52 AM EDT) Albumin, Pleural Fluid 1.8 g/dL 11/17/2024 2:31 PM EDT [facility] Pleural Fluid Structure of right pleural cavity / Unknown Non-blood Collection / Unknown 11/17/2024 10:52 AM EDT 11/17/2024 11:15 AM EDT Narrative [facility] - 11/17/2024 2:31 PM EDT REPORTING RESULTS Reference Values: No established reference interval. Results should be interpreted in comparison to the concentration in blood and in conjunction with the clinical context. This test was developed and its performance characteristics determined by [facility] [facility] [facility]. The U.[place]. Food and Drug Administration has not approved or cleared this test; however, FDA clearance or approval is not currently required for clinical use. The results are not intended to be used as the sole means for clinical diagnosis or patient management decisions. David Ayala MD LAB BODY FLUIDS AND STOOLS ORD ERABLES Final Result [facility] [address] [place] [address] * Lactate Dehydrogenase, Pleural Fluid - Right (11/17/2024 10:52 AM EDT) LDH, Fluid 142 U/L 11/17/2024 2:31 PM EDT [facility] Pleural Fluid Structure of right pleural cavity / Unknown Non-blood Collection / Unknown 11/17/2024 10:52 AM EDT 11/17/2024 11:15 AM EDT Narrative [facility] - 11/17/2024 2:31 PM EDT No established reference interval. Results should be interpreted in comparison to the concentration in blood and in conjunction with the clinical context. Pleural fluid LDH and total protein measurements are used for differentiation of exudates and transudates. Light's criteria can be used to identify most pleural exudative effusions if one or more of the following criteria are present: (1) pleural iwbpt-cm-mjzry protein ratio of >0.5, (2) pleural dvvhr-pk-qkegv LDH ratio of >0.6, or (3) a pleural fluid LDH activity that is >2/3 the upper limit of a normal serum LDH activity. Light's criteria may misclassify ~25% of transudates as exudates in heart failure. These can be identified by calculating a cidfz-sj-agldupr albumin gradient (>1.2 g/dL) and/or a yvhog-cy-ndxbp protein gradient (>3.1 g/dL). us David Ayala MD LAB BODY FLUIDS AND STOOLS ORD ERABLES Final Result [facility] [address] [place] [address] * Glucose, body fluid (11/17/2024 10:52 AM EDT) Glucose, Fluid 107 mg/dL 11/17/2024 2:31 PM EDT [facility] Pleural Fluid Structure of right pleural cavity / Unknown Non-blood Collection / Unknown 11/17/2024 10:52 AM EDT 11/17/2024 11:15 AM EDT Narrative [facility] - 11/17/2024 2:31 PM EDT Pleural No established reference interval. Results should be interpreted in comparison to the concentration in blood and in conjunction with the clinical context. Normal pleural fluid glucose is similar to serum concentrations. Pleural fluid transudates and most exudates usually have glucose concentrations of >60 mg/dL. Pleural fluid exudates with glucose concentrations <60 mg/dL have been associated with conditions such as para-pneumonic effusion, tuberculosis, malignancy, empyema, and/or rheumatoid disease. us David Ayala MD LAB BODY FLUIDS AND STOOLS ORD ERABLES Final Result Performing Organization Address [facility] Co de Phone Number [address] [address] * Total Protein, Pleural Fluid (11/17/2024 10:52 AM EDT) Total Protein, Fluid 3 g/dL 11/17/2024 2:31 PM EDT [facility] Pleural Fluid Structure of right pleural cavity / Unknown Non-blood Collection / Unknown 11/17/2024 10:52 AM EDT 11/17/2024 11:15 AM EDT Narrative [facility] - 11/17/2024 2:31 PM EDT This test was developed and its performance characteristics determined by [facility]. The U.S. Food and Drug Administration has not approved or cleared this test. However, FDA clearance or approval is not currently required for clinical use. The results are not intended to be used as the sole means for clinical diagnosis or patient management decisions. us David Ayala MD LAB BODY FLUIDS AND STOOLS ORD ERABLES Final Result Performing Organization Address [facility] Co de Phone Number [facility] [address] [place] [id number] * (ABNORMAL) pH, pleural fluid (11/17/2024 10:52 AM EDT) pH, Pleural Fluid 7.44(L) 7.60 - 7.66 LAB HEMATOLOGY METHOD 11/17/2024 11:15 AM EDT [facility] Pleural Fluid Pleural fluid specimen / Unknown Non-blood Collection / Unknown 11/17/2024 10:52 AM EDT 11/17/2024 11:13 AM EDT Narrative [facility] - 11/17/2024 11:15 AM EDT Normal pleural fluid has a pH of 7.60-7.66 Transudate pleural fluid effusion has a pH of 7.45-7.55 Exudate pleural effusion has a pH of 7.30-7.40 In patients with a parapneumonic pleural effusion, pH <7.2 indicates advance disease and a need for tube drainage pH >7.2 indicates antibiotic therapy alone is probably sufficient In patients with a malignant pleural effusion, pH <7.3 indicates reduced survival, and is contraindiction for pleurodesis This test was developed, and its performance characteristics determined by the [facility]. Pleural pH is measured by potentiometry using a blood gas analyzer. it has not been approved by the [place] Food and Drug Administration. this test is used for clinical purposes and should not be regarded as investigational or for research. this laboratory is certified under the Clinical Laboratory Improvement Amendment of 1988 (CLIA-88) as qualified to perform high complexity clinical laboratory testing. David Ayala MD LAB BODY FLUIDS AND STOOLS ORD ERABLES Final Result [facility] [address] [place] [address] * (ABNORMAL) Body Fluid Cell Count w/ Diff (11/17/2024 10:52 AM EDT) Color, Body fluid Yellow LAB HEMATOLOGY METHOD 11/17/2024 3:57 PM EDT [facility] Appearance, Body fluid Cloudy(A) LAB HEMATOLOGY METHOD 11/17/2024 3:57 PM EDT [facility] Volume, Body fluid 6.5 cc LAB HEMATOLOGY METHOD 11/17/2024 3:57 PM EDT [facility] Fluid Container Tube 3 LAB HEMATOLOGY METHOD 11/17/2024 3:57 PM EDT [facility] Red Blood Cell Count, Body fluid 1,285 uL LAB HEMATOLOGY METHOD 11/17/2024 3:57 PM EDT [facility] Comment:Test performed by che sanchez method. Total Nucleated Cell Count, Body fluid 662 uL LAB HEMATOLOGY METHOD 11/17/2024 3:57 PM EDT [facility] Neutrophils %, Body fluid 64 % LAB HEMATOLOGY METHOD 11/17/2024 3:57 PM EDT [facility] Lymphocytes %, Body fluid 29 % LAB HEMATOLOGY METHOD 11/17/2024 3:57 PM EDT [facility] Monocytes/Macro phages %, Body fluid 5 % LAB HEMATOLOGY METHOD 11/17/2024 3:57 PM EDT [facility] Eosinophils %, Body fluid 0 % LAB HEMATOLOGY METHOD 11/17/2024 3:57 PM EDT [facility] Lining/Mesothel ial Cells %, Body fluid 2 % LAB HEMATOLOGY METHOD 11/17/2024 3:57 PM EDT [facility] Neutrophils Absolute (PMN), Body fluid 424 uL LAB HEMATOLOGY METHOD 11/17/2024 3:57 PM EDT [facility] Lymphocytes Absolute, Body fluid 192 uL LAB HEMATOLOGY METHOD 11/17/2024 3:57 PM EDT [facility] Monocytes/Macro phages Absolute, Body fluid 33 uL LAB HEMATOLOGY METHOD 11/17/2024 3:57 PM EDT [facility] Eosinophils Absolute, Body fluid 0 uL LAB HEMATOLOGY METHOD 11/17/2024 3:57 PM EDT [facility] Basophils Absolute, Body fluid 0 uL LAB HEMATOLOGY METHOD 11/17/2024 3:57 PM EDT [facility] Lining/Mesothel ial Cells Absolute, Body fluid 13 uL LAB HEMATOLOGY METHOD 11/17/2024 3:57 PM EDT [facility] Basophils %, Body fluid 0 % LAB HEMATOLOGY METHOD 11/17/2024 3:57 PM EDT [facility] Pleural Fluid Structure of right pleural cavity / Unknown Non-blood Collection / Unknown 11/17/2024 10:52 AM EDT 11/17/2024 11:16 AM EDT us David Ayala MD LAB BODY FLUIDS AND STOOLS ORDERABLES NO SPECIMEN TYPE/SOURCE Final Result [facility] [address] [place] [address] * Lactate dehydrogenase (11/17/2024 1:31 AM EDT) LDH, Plasma 236 116 - 250 U/L 11/17/2024 11:00 AM EDT [facility] Blood Venous blood specimen / Unknown Venipuncture / Unknown 11/17/2024 1:31 AM EDT 11/17/2024 1:38 AM EDT us David Ayala MD LAB BLOOD ORDERABLES Final Res ult [facility] [address] [place] [address] * Phosphorus, Plasma (11/17/2024 1:31 AM EDT) Phosphorus, Plasma 2.8 2.5 - 4.5 mg/dL 11/17/2024 2:08 AM EDT [facility] Blood Venous blood specimen / Unknown Venipuncture / Unknown 11/17/2024 1:31 AM EDT 11/17/2024 1:38 AM EDT David Ayala MD LAB BLOOD ORDERABLES Final Res ult Performing Organization Address City/[facility]/[place] [address] * Magnesium, Plasma (11/17/2024 1:31 AM EDT) Magnesium, Plasma 1.9 1.9 - 2.4 mg/dL 11/17/2024 2:08 AM EDT [facility] Blood Venous blood specimen / Unknown Venipuncture / Unknown 11/17/2024 1:31 AM EDT 11/17/2024 1:38 AM EDT us David Ayala MD LAB BLOOD ORDERABLES Final Res ult [facility] [address] [place] [address] * (ABNORMAL) Comprehensive Metabolic Panel, Plasma (11/17/2024 1:31 AM EDT) Glucose, Plasma 112(H) 74 - 99 mg/dL 11/17/2024 2:08 AM EDT [facility] BUN, Plasma 11 8 - 23 mg/dL 11/17/2024 2:08 AM EDT [facility] Creatinine, Plasma 0.56(L) 0.60 - 1.10 mg/dL 11/17/2024 2:08 AM EDT [facility] BUN/Creatinine Ratio 20 11/17/2024 2:08 AM EDT [facility] Sodium, Plasma 132(L) 136 - 145 mmol/L 11/17/2024 2:08 AM EDT [facility] Potassium, Plasma 4.4 3.6 - 4.9 mmol/L 11/17/2024 2:08 AM EDT [facility] Chloride, Plasma 93(L) 97 - 107 mmol/L 11/17/2024 2:08 AM EDT [facility] CO2, Plasma 28 22 - 29 mmol/L 11/17/2024 2:08 AM EDT [facility] Anion Gap 11 6 - 16 mmol/L 11/17/2024 2:08 AM EDT [facility] Total Calcium, Plasma 9.2 8.9 - 10.2 mg/dL 11/17/2024 2:08 AM EDT [facility] Total Protein 5.9(L) 6.3 - 7.9 g/dL 11/17/2024 2:08 AM EDT [facility] Albumin, Plasma 3.2(L) 3.5 - 5.2 g/dL 11/17/2024 2:08 AM EDT [facility] AST, Plasma 39(H) 10 - 35 U/L 11/17/2024 2:08 AM EDT [facility] ALT, Plasma 34 10 - 35 U/L 11/17/2024 2:08 AM EDT [facility] Alkaline Phosphatase, Plasma 89 46 - 142 U/L 11/17/2024 2:08 AM EDT [facility] Total Bilirubin, Plasma 0.4 0.2 - 1.1 mg/dL 11/17/2024 2:08 AM EDT [facility] eGFRcr 97.1 mL/min/1.7 3m*2 11/17/2024 2:08 AM EDT [facility] Comment:Reported eGFRcr in m L/min/1.73m2 is based the CKD-EPI 2020 equation that does not use a race coefficient. Blood Venous blood specimen / Unknown Venipuncture / Unknown 11/17/2024 1:31 AM EDT 11/17/2024 1:38 AM EDT us David Ayala MD LAB BLOOD ORDERABLES Final Res ult [facility] [address] [place] [address] * (ABNORMAL) CBC and Differential (11/17/2024 1:31 AM EDT) WBC Count 10.45(H) 3.70 - 10.30 10*3/uL LAB HEMATOLOGY METHOD 11/17/2024 1:47 AM EDT [facility] RBC Count 2.62(L) 3.90 - 5.20 10*6/uL LAB HEMATOLOGY METHOD 11/17/2024 1:47 AM EDT [facility] HGB 7.3(L) 11.2 - 15.7 g/dL LAB HEMATOLOGY METHOD 11/17/2024 1:47 AM EDT [facility] HCT 23.2(L) 34.0 - 45.0 % LAB HEMATOLOGY METHOD 11/17/2024 1:47 AM EDT [facility] Platelet Count 341 155 - 369 10*3/uL LAB HEMATOLOGY METHOD 11/17/2024 1:47 AM EDT [facility] MCV 89 79 - 98 fL LAB HEMATOLOGY METHOD 11/17/2024 1:47 AM EDT [facility] MCH 27.9 26.0 - 32.0 pg LAB HEMATOLOGY METHOD 11/17/2024 1:47 AM EDT [facility] MCHC 31.5 30.7 - 35.5 g/dL LAB HEMATOLOGY METHOD 11/17/2024 1:47 AM EDT [facility] RDW 15.5(H) 11.5 - 14.5 % LAB HEMATOLOGY METHOD 11/17/2024 1:47 AM EDT [facility] MPV 9.1 8.8 - 12.5 fL LAB HEMATOLOGY METHOD 11/17/2024 1:47 AM EDT [facility] nRBC 0.0 <=0.0 per 100 WBCs LAB HEMATOLOGY METHOD 11/17/2024 1:47 AM EDT [facility] Differential Type Automated LAB HEMATOLOGY METHOD 11/17/2024 1:47 AM EDT [facility] Neutrophils % 82 % LAB HEMATOLOGY METHOD 11/17/2024 1:47 AM EDT [facility] Lymphocytes % 8 % LAB HEMATOLOGY METHOD 11/17/2024 1:47 AM EDT [facility] Monocytes % 9 % LAB HEMATOLOGY METHOD 11/17/2024 1:47 AM EDT [facility] Eosinophils % 0 % LAB HEMATOLOGY METHOD 11/17/2024 1:47 AM EDT [facility] Basophils % 0 % LAB HEMATOLOGY METHOD 11/17/2024 1:47 AM EDT [facility] Immature Granulocytes % 1 % LAB HEMATOLOGY METHOD 11/17/2024 1:47 AM EDT [facility] Neutrophils Absolute 8.61(H) 1.60 - 6.10 10*3/uL LAB HEMATOLOGY METHOD 11/17/2024 1:47 AM EDT [facility] Lymphocytes Absolute 0.78(L) 1.20 - 3.90 10*3/uL LAB HEMATOLOGY METHOD 11/17/2024 1:47 AM EDT [facility] Monocytes Absolute 0.97(H) 0.30 - 0.90 10*3/uL LAB HEMATOLOGY METHOD 11/17/2024 1:47 AM EDT [facility] Eosinophils Absolute 0.01 0.00 - 0.50 10*3/uL LAB HEMATOLOGY METHOD 11/17/2024 1:47 AM EDT [facility] Basophils Absolute 0.03 0.00 - 0.10 10*3/uL LAB HEMATOLOGY METHOD 11/17/2024 1:47 AM EDT [facility] Immature Granulocytes Absolute 0.05 0.00 - 0.06 10*3/uL LAB HEMATOLOGY METHOD 11/17/2024 1:47 AM EDT [facility] Blood Venous blood specimen / Unknown Venipuncture / Unknown 11/17/2024 1:31 AM EDT 11/17/2024 1:38 AM EDT Narrative [facility] - 11/17/2024 1:47 AM EDT Therapeutic decision making should be based on absolute values, rather than percentages. us David Ayala MD LAB BLOOD ORDERABLES Final Res ult Performing Organization Address [facility]/ZIP Co de Phone Number [facility] [address] [place] [address] * (ABNORMAL) Protime-INR (11/17/2024 1:31 AM EDT) Prothrombin Time 17.3(H) 12.0 - 14.3 sec LAB COAGULATION METHOD 11/17/2024 1:55 AM EDT [facility] INR 1.4(H) 0.9 - 1.1 LAB COAGULATION METHOD 11/17/2024 1:55 AM EDT [facility] Blood Venous blood specimen / Unknown Venipuncture / Unknown 11/17/2024 1:31 AM EDT 11/17/2024 1:37 AM EDT Narrative [facility] - 11/17/2024 1:55 AM EDT OPTIMAL INR RANGES FOR PATIENT ON ORAL ANTICOAGULANT THERAPY Prevention of venous thromboembolism INR 2.0 to 3.0 In patients with heart disease: Atrial fibrillation INR 2.0 to 3.0 Valvular heart disease INR 2.0 to 3.0 Tissue heart valves INR 2.0 to 3.0 Mechanical prosthetic valves INR 2.5 to 3.5 Prevention of recurrent TN INR 2.5 to 3.5 us Joby Rivera [employer], DNP LAB BLOOD ORDERABLES F inal Result Performing Organization Address [facility]/ZIP Co de Phone Number [address] [phone] * MR Head w and wo IV Contrast (11/16/2024 7:17 PM EDT) Anatomical Region Laterality Modality Head Magnetic Resonan ce Addenda Addendum by Garth Marshall MD on 11/17/2024 12:44 AM EDT Addendum: ADDENDUM: These findings were discussed with Shree Anguiano MD at 11/17/2024 12:43 AM by Garth Marshall MD via [employer] Secure Chat. Drafted by Garth Marshall MD on 11/17/2024 12:43 AM Final report signed by Garth Marshall MD on 11/17/2024 12:44 AM Impressions 11/17/2024 12:38 AM EDT 1. Tiny acute infarcts in the bilateral cerebellar hemispheres. 2. Small focus of enhancement along the left anterior sean is favored to be vascular, but can be reassessed with follow-up MRI in 1-3 months. Otherwise, no enhancing brain lesions to suggest intracranial metastatic disease. 3. Mild nonspecific white matter changes most likely related to chronic small vessel ischemia. 3. Nonspecific heterogeneous marrow signal in the calvarium. CRITICAL RESULT: No. COMMUNICATION: Per this written report. Drafted by Garth Marshall MD on 11/17/2024 12:19 AM Final report signed by Garth Marshall MD on 11/17/2024 12:38 AM Narrative 11/17/2024 12:38 AM EDT CLINICAL INDICATION: evaluate for possible brain metastases TECHNIQUE: Multiplanar multiecho sequences were performed through the brain utilizing T1 and T2 weighting, as well as either axial susceptibility weighted or gradient echo sequences, and axial diffusion weighted images. A coronal post-contrast 1mm thick T1-weighted 3D MP RAGE sequence was performed and multiplanar reformatted images were created. Imaging was performed with and without contrast administration: 4.9 mL of Gadavist. COMPARISON: Outside head CT November 13, 2024 FINDINGS: Diagnostic Quality: Adequate. The ventricles and sulci are normal in size. Tiny foci of restricted diffusion and T2 hyperintensity within the bilateral cerebellar hemispheres (images 7-8 of series 7) compatible with acute infarcts. No other abnormal parenchymal restricted diffusion. Mild patchy T2 hyperintensity in the supratentorial white matter and sean, most likely related to chronic small vessel ischemia. Small enhancing focus along the left anterior sean (image 137 series 15 and image 99 series 14) is somewhat linear in appearance and favored to be vascular, but can be followed. No other abnormal intracranial enhancement. There is no abnormal parenchymal susceptibility artifact. Vascular Flow Voids: Normal. Paranasal Sinuses and Mastoid Air Cells: Partial right mastoid opacification. Orbits: No definite masses within the limitations of the study. Extracranial Findings: Diffuse mildly T1 hypointense and T2 hyperintense heterogeneous marrow signal in the calvarium. Small T1 hyperintense left parietal bone lesion (image 17 series 12) compatible with hemangioma. Craniocervical Junction and Skull Base: No tonsillar ectopia or mass is present. Procedure Note Garth Marshall MD - 11/17/2024 CLINICAL INDICATION: evaluate for possible brain metastases TECHNIQUE: Multiplanar multiecho sequences were performed through the brain utilizingT1 and T2 weighting, as well as either axial susceptibility weighted orgradient echo sequences, and axial diffusion weighted images. A coronalpost-contrast 1mm thick T1- weighted 3D MP RAGE sequence was performed andmultiplanar reformatted images were created. Imaging was performed withand without contrast administration: 4.9 mL of Gadavist. COMPARISON: Outside head CT November 13, 2024 FINDINGS: Diagnostic Quality: Adequate. The ventricles and sulci are normal in size. Tiny foci of restricted diffusion and T2 hyperintensity within thebilateral cerebellar hemispheres (images 7-8 of series 7) compatible withacute infarcts. No other abnormal parenchymal restricted diffusion. Mild patchy T2 hyperintensity in the supratentorial white matter and sean,most likely related to chronic small vessel ischemia. Small enhancing focus along the left anterior sean (image 137 series 15and image 99 series 14) is somewhat linear in appearance and favored to bevascular, but can be followed. No other abnormal intracranialenhancement. There is no abnormal parenchymal susceptibility artifact. Vascular Flow Voids: Normal. Paranasal Sinuses and Mastoid Air Cells: Partial right mastoidopacification. Orbits: No definite masses within the limitations of the study. Extracranial Findings: Diffuse mildly T1 hypointense and T2 hyperintenseheterogeneous marrow signal in the calvarium. Small T1 hyperintense leftparietal bone lesion (image 17 series 12) compatible with hemangioma. Craniocervical Junction and Skull Base: No tonsillar ectopia or mass ispresent. IMPRESSION: 1. Tiny acute infarcts in the bilateral cerebellar hemispheres. 2. Small focus of enhancement along the left anterior sean is favored bryant vascular, but can be reassessed with follow-up MRI in 1-3 months.Otherwise, no enhancing brain lesions to suggest intracranial metastaticdisease. 3. Mild nonspecific white matter changes most likely related to chronicsmall vessel ischemia. 3. Nonspecific heterogeneous marrow signal in the calvarium. CRITICAL RESULT: No. COMMUNICATION: Per this written report. Drafted by Garth Marshall MD on 11/17/2024 12:19 AM Final report signed by Garth Marshall MD on 11/17/2024 12:38 AM us David Ayala MD IMG MRI PROCEDURES Edited Resu lt - Final * CT Chest w IV Contrast (11/16/2024 5:57 PM EDT) Anatomical Region Laterality Modality Chest Computed Tomogra phy Impressions 11/16/2024 9:02 PM EDT Redemonstration of right infrahilar mass with concern for biatrial cardiac involvement as well as narrowing the right superior pulmonary vein and occluding the right inferior pulmonary vein. Occlusion of the right lower lobe pulmonary arteries versus pulmonary emboli. Redemonstration of left lower lobe segmental pulmonary emboli. Endobronchial debris within the bronchus intermedius causing complete collapse of the right middle and right lower lobes. Moderate right pleural effusion. Emphysema. CRITICAL RESULT: No. COMMUNICATION: Per this written report. Drafted by Ellie Donaldson MD on 11/16/2024 8:42 PM Final report signed by Ellie Donaldson MD on 11/16/2024 9:02 PM Narrative 11/16/2024 9:02 PM EDT CLINICAL INDICATION: Evaluate cardiac involvement of lung mass TECHNIQUE: Multiple axial CT images were obtained from thoracic inlet through upper abdomen following administration of IV contrast, Omnipaque 300, 80 mL. Reformatted images of the abdomen and pelvis in the coronal and sagittal planes were generated from the axial data set to facilitate diagnostic accuracy. Total DLP (Dose-Length Product): 40.73 mGy.cm. Please note: The reported value represents the total of one or more individual components during the CT acquisition on this date and at this time, and as such, the same value may appear in more than one CT report depending on the interpreting/reporting physicians. COMPARISON: Outside CT November 13, 2024 FINDINGS: Chest: Lymph Nodes and Mediastinum: Redemonstration of right infrahilar mass measuring approximately 7.2 x 4.4 cm, similar to comparison (series 4 image 253). Mass narrows the right superior pulmonary vein and occludes the right inferior pulmonary vein. Suspected biatrial intracardiac involvement. There is mass effect the SVC. Unchanged low-attenuation thyroid nodules and calcification. Cardiovascular: Patent, nonaneurysmal thoracic aorta. Redemonstration of filling defects within the left lower lobe segmental pulmonary arteries (series 4 image 244). Occlusion of the right lower lobe segmental pulmonary arteries. No pericardial effusion. Lungs and Pleura: Debris within the right bronchus intermedius occluding the right middle and right lower lobe bronchi. Centrilobular emphysema. Complete collapse of the right middle and right lower lobe. Moderate right pleural effusion. Musculoskeletal and Body Wall: No clearly aggressive bone lesions. Upper Abdomen: No suspicious findings in the imaged upper abdomen. Procedure Note Ellie Donaldson MD - 11/16/2024 CLINICAL INDICATION: Evaluate cardiac involvement of lung mass TECHNIQUE: Multiple axial CT images were obtained from thoracic inlet through upperabdomen following administration of IV contrast, Omnipaque 300, 80 mL.Reformatted images of the abdomen and pelvis in the coronal and sagittalplanes were generated from the axial data set to facilitate diagnosticaccuracy. Total DLP (Dose-Length Product): 40.73 mGy.cm. Please note: The reportedvalue represents the total of one or more individual components during theCT acquisition on this date and at this time, and as such, the same valuemay appear in more than one CT report depending on theinterpreting/reporting physicians. COMPARISON: Outside CT November 13, 2024 FINDINGS: Chest: Lymph Nodes and Mediastinum: Redemonstration of right infrahilar massmeasuring approximately 7.2 x 4.4 cm, similar to comparison (series 4image 253). Mass narrows the right superior pulmonary vein and occludesthe right inferior pulmonary vein. Suspected biatrial intracardiacinvolvement. There is mass effect the SVC. Unchanged low-attenuationthyroid nodules and calcification. Cardiovascular: Patent, nonaneurysmal thoracic aorta. Redemonstration offilling defects within the left lower lobe segmental pulmonary arteries(series 4 image 244). Occlusion of the right lower lobe segmentalpulmonary arteries. No pericardial effusion. Lungs and Pleura: Debris within the right bronchus intermedius occludingthe right middle and right lower lobe bronchi. Centrilobular emphysema.Complete collapse of the right middle and right lower lobe. Moderate rightpleural effusion. Musculoskeletal and Body Wall: No clearly aggressive bone lesions. Upper Abdomen: No suspicious findings in the imaged upper abdomen. IMPRESSION: Redemonstration of right infrahilar mass with concern for biatrial cardiacinvolvement as well as narrowing the right superior pulmonary vein andoccluding the right inferior pulmonary vein. Occlusion of the right lowerlobe pulmonary arteries versus pulmonary emboli. Redemonstration of left lower lobe segmental pulmonary emboli. Endobronchial debris within the bronchus intermedius causing completecollapse of the right middle and right lower lobes. Moderate right pleural effusion. Emphysema. CRITICAL RESULT: No. COMMUNICATION: Per this written report. Drafted by Ellie Donaldson MD on 11/16/2024 8:42 PM Final report signed by Ellie Donaldson MD on 11/16/2024 9:02 PM David Ayala MD IMG CT PROCEDURES Final Result * ECHO, ADULT TRANSTHORACIC COMPLETE (11/16/2024 10:20 AM EDT) Height 157.5 NAZANIN ISCV Weight 49.0 NAZANIN ISCV BSA 1.47 m2 NAZANIN ISCV LVIDd 40 mm NAZANIN ISCV IVSd 8 mm NAZANIN ISCV LVPWd 9 mm NAZANIN ISCV LV MASS(C)D 101 g NAZANIN ISCV [facility] CV ECHO LV MASS INDEX 69 g/m2 NAZANIN ISCV LV RWT 0.43 mm NAZANIN ISCV LVIDs 26 mm NAZANIN ISCV LA dimension 27 mm NAZANIN ISCV Asc Ao Diam 30 mm NAZANIN ISCV Ao Root Diam 29 mm NAZANIN ISCV LVOT diam 21 mm NAZANIN ISCV LVOT AREA 3.5 cm2 NAZANIN ISCV TR Vmax 277.0 cm/s NAZANIN ISCV TR Max PG 31 mmHG NAZANIN ISCV LV EDV(MOD-4ch) 45 mL NAZANIN ISCV LV ESV(MOD4ch) 20 mL NAZANIN ISCV EF(MOD-sp4) 56 % NAZANIN ISCV MV E Vmax 71.8 cm/s NAZANIN ISCV MV A Vmax 69.2 cm/s NAZANIN ISCV MV E/A 1.0 cm/s NAZANIN ISCV LV Lat e' Velocity 10.6 cm/s NAZANIN ISCV Lat E/e' 6.8 NAZANIN ISCV LV Sept e' Alec 5.9 cm/s NAZANIN ISCV Sep E/e' 12.2 NAZANIN ISCV Avg E/e' 9.5 NAZANIN ISCV RV base 32 mm NAZANIN ISCV RV Mid 24 mm NAZANIN ISCV RV s' Alec 15.2 cm/s NAZANIN ISCV TAPSE 22 mm NAZANIN ISCV LV EDV(MOD-2ch) 56 mL NAZANIN ISCV EDV(MOD-bp) 51 mL NAZANIN ISCV LV ESV(MOD2ch) 23 mL NAZANIN ISCV EF(MOD-sp2) 59 % NAZANIN ISCV ESV(MOD-bp) 22 mL NAZANIN ISCV EF(MOD-bp) 57 % NAZANIN ISCV LVLs ap2 6.0 mm NAZANIN ISCV IVC Max Size 18 mm NAZANIN ISCV RVSP 39 mmHg NAZANIN ISCV RAP systole 8 mmHg NAZANIN [facility] Anatomical Region Laterality Modality Echocardiography Narrative 11/16/2024 11:11 AM EDT Right Atrium: The right atrium appears to be compressed. There is a mobile mass present consistent with thrombus and/or tumor. Left Atrium: The left atrium appears to be compressed due to extracardiac mass. There is a mass present that likely represents thrombus and/or tumor. Left Ventricle: Based on the linear dimension and/or 2D volumes, the left ventricle is normal in size. The left ventricular systolic function is normal. The LVEF as measured by biplane volume is 57%. There is no recent study available for direct [id number] comparison. Left Ventricle Based on the linear dimension and/or 2D volumes, the left ventricle is normal in size. No left ventricular mass or thrombus is seen. The left ventricular systolic function is normal. The LVEF as measured by biplane volume is 57%. The left ventricular wall motion is normal. Right Ventricle The right ventricle is normal in size. The right ventricular systolic function is normal. Right ventricular systolic pressure is mildly elevated (35-50mmHg). Left Atrium The left atrium appears to be compressed due to extracardiac mass. The interatrial septum is not well visualized. There is a mass present that likely represents thrombus and/or tumor. Right Atrium The right atrium appears to be compressed. There is a mobile mass present consistent with thrombus and/or tumor. IVC/SVC Based on the IVC size and respiratory variation, the estimated right atrial pressure is 8mmHg. Mitral Valve The mitral valve leaflets are normal in appearance with no evidence of mitral valve prolapse. There is trace mitral regurgitation. There is no mitral stenosis. Tricuspid Valve The tricuspid valve is grossly normal in appearance. There is moderate tricuspid regurgitation. There is no tricuspid stenosis. Aortic Valve The aortic valve appears to be trileaflet. There is no valvular regurgitation. There is no hemodynamically significant valvular aortic stenosis. Pulmonic Valve The pulmonic valve is normal in appearance. There is no pulmonic regurgitation. There is no pulmonic stenosis. Pericardium No pericardial effusion. Great Vessels The aortic root is normal in size. The sinus of Valsalva (aortic root) diameter is 29 mm by leading edge to leading edge method. In the maximally visualized portion, the ascending aorta appears normal in size. The main pulmonary artery is normal in size. Study Details A complete transthoracic echocardiogram using two-dimensional (2D), m-mode, color and spectral flow Doppler imaging was performed. During the study the apical, parasternal, subcostal and suprasternal view was captured. The study was technically difficult. Height: 157.5 cm. Weight: 49.0 kg. BSA: 1.47 m2. EKG not working Study Recommendation There is no recent study available for direct [id number] comparison. [employer] Geovanny Keen DO CV ECHO PROCEDURES Final Re sult * ECG Adult (11/16/2024 6:23 AM EDT) EKG DIAGNOSIS CLASS Normal MUSE ECG Ventricular Rate 93 BPM MUSE ECG Atrial Rate 93 BPM MUSE ECG MD Interval 124 ms MUSE ECG QRSD Interval 80 ms MUSE ECG QT Interval 352 ms MUSE ECG QTC Interval 437 ms MUSE ECG P [place] 75 degrees MUSE ECG R [place] 78 degrees MUSE ECG T Wave [place] 36 degrees MUSE ECG Diagnosis Normal sinus rhythm MUSE ECG Diagnosis Normal ECG MUSE ECG Diagnosis MUSE ECG Diagnosis Confirmed by Beverley Anders ([id number]) on 11/16/2024 5:38:09 PM MUSE ECG 11/16/2024 6:23 AM EDT 11/16/2024 5:38 PM EDT Geovanny R Ballengee DO ECG ORDERABLES Final Resul t MUSE ECG * Phosphorus (11/16/2024 3:00 AM EDT) Phosphorus, Plasma 2.5 2.5 - 4.5 mg/dL 11/16/2024 1:09 PM EDT [facility] Blood Venous blood specimen / Unknown Venipuncture / Unknown 11/16/2024 3:00 AM EDT 11/16/2024 3:22 AM EDT us David Ayala MD LAB BLOOD ORDERABLES Final Res ult [facility] [address] [place] [address] * (ABNORMAL) Comprehensive metabolic panel (11/16/2024 3:00 AM EDT) Glucose, Plasma 108(H) 74 - 99 mg/dL 11/16/2024 3:52 AM EDT [facility] BUN, Plasma 11 8 - 23 mg/dL 11/16/2024 3:52 AM EDT [facility] Creatinine, Plasma 0.57(L) 0.60 - 1.10 mg/dL 11/16/2024 3:52 AM EDT [facility] BUN/Creatinine Ratio 19 11/16/2024 3:52 AM EDT [facility] Sodium, Plasma 134(L) 136 - 145 mmol/L 11/16/2024 3:52 AM EDT [facility] Potassium, Plasma 4.3 3.6 - 4.9 mmol/L 11/16/2024 3:52 AM EDT [facility] Chloride, Plasma 93(L) 97 - 107 mmol/L 11/16/2024 3:52 AM EDT [facility] CO2, Plasma 29 22 - 29 mmol/L 11/16/2024 3:52 AM EDT [facility] Anion Gap 12 6 - 16 mmol/L 11/16/2024 3:52 AM EDT [facility] Total Calcium, Plasma 9.4 8.9 - 10.2 mg/dL 11/16/2024 3:52 AM EDT [facility] Total Protein 6.5 6.3 - 7.9 g/dL 11/16/2024 3:52 AM EDT [facility] Albumin, Plasma 3.3(L) 3.5 - 5.2 g/dL 11/16/2024 3:52 AM EDT [facility] AST, Plasma 56(H) 10 - 35 U/L 11/16/2024 3:52 AM EDT [facility] ALT, Plasma 40(H) 10 - 35 U/L 11/16/2024 3:52 AM EDT [facility] Alkaline Phosphatase, Plasma 96 46 - 142 U/L 11/16/2024 3:52 AM EDT [facility] Total Bilirubin, Plasma 0.5 0.2 - 1.1 mg/dL 11/16/2024 3:52 AM EDT [facility] eGFRcr 96.7 mL/min/1.7 3m*2 11/16/2024 3:52 AM EDT [facility] Comment:Reported eGFRcr in m L/min/1.73m2 is based the CKD-EPI 2020 equation that does not use a race coefficient. Blood Venous blood specimen / Unknown Venipuncture / Unknown 11/16/2024 3:00 AM EDT 11/16/2024 3:22 AM EDT us David Ayala MD LAB BLOOD ORDERABLES Final Res ult [facility] [address] [place] [address] * (ABNORMAL) CBC and differential (11/16/2024 3:00 AM EDT) WBC Count 11.32(H) 3.70 - 10.30 10*3/uL LAB HEMATOLOGY METHOD 11/16/2024 3:30 AM EDT [facility] RBC Count 2.66(L) 3.90 - 5.20 10*6/uL LAB HEMATOLOGY METHOD 11/16/2024 3:30 AM EDT [facility] HGB 7.3(L) 11.2 - 15.7 g/dL LAB HEMATOLOGY METHOD 11/16/2024 3:30 AM EDT [facility] HCT 23.1(L) 34.0 - 45.0 % LAB HEMATOLOGY METHOD 11/16/2024 3:30 AM EDT [facility] Platelet Count 389(H) 155 - 369 10*3/uL LAB HEMATOLOGY METHOD 11/16/2024 3:30 AM EDT [facility] MCV 87 79 - 98 fL LAB HEMATOLOGY METHOD 11/16/2024 3:30 AM EDT [facility] MCH 27.4 26.0 - 32.0 pg LAB HEMATOLOGY METHOD 11/16/2024 3:30 AM EDT [facility] MCHC 31.6 30.7 - 35.5 g/dL LAB HEMATOLOGY METHOD 11/16/2024 3:30 AM EDT [facility] RDW 15.4(H) 11.5 - 14.5 % LAB HEMATOLOGY METHOD 11/16/2024 3:30 AM EDT [facility] MPV 9.1 8.8 - 12.5 fL LAB HEMATOLOGY METHOD 11/16/2024 3:30 AM EDT [facility] nRBC 0.0 <=0.0 per 100 WBCs LAB HEMATOLOGY METHOD 11/16/2024 3:30 AM EDT [facility] Differential Type Automated LAB HEMATOLOGY METHOD 11/16/2024 3:30 AM EDT [facility] Neutrophils % 85 % LAB HEMATOLOGY METHOD 11/16/2024 3:30 AM EDT [facility] Lymphocytes % 7 % LAB HEMATOLOGY METHOD 11/16/2024 3:30 AM EDT [facility] Monocytes % 8 % LAB HEMATOLOGY METHOD 11/16/2024 3:30 AM EDT [facility] Eosinophils % 0 % LAB HEMATOLOGY METHOD 11/16/2024 3:30 AM EDT [facility] Basophils % 0 % LAB HEMATOLOGY METHOD 11/16/2024 3:30 AM EDT [facility] Immature Granulocytes % 0 % LAB HEMATOLOGY METHOD 11/16/2024 3:30 AM EDT [facility] Neutrophils Absolute 9.47(H) 1.60 - 6.10 10*3/uL LAB HEMATOLOGY METHOD 11/16/2024 3:30 AM EDT [facility] Lymphocytes Absolute 0.81(L) 1.20 - 3.90 10*3/uL LAB HEMATOLOGY METHOD 11/16/2024 3:30 AM EDT [facility] Monocytes Absolute 0.95(H) 0.30 - 0.90 10*3/uL LAB HEMATOLOGY METHOD 11/16/2024 3:30 AM EDT [facility] Eosinophils Absolute 0.01 0.00 - 0.50 10*3/uL LAB HEMATOLOGY METHOD 11/16/2024 3:30 AM EDT [facility] Basophils Absolute 0.03 0.00 - 0.10 10*3/uL LAB HEMATOLOGY METHOD 11/16/2024 3:30 AM EDT [facility] Immature Granulocytes Absolute 0.05 0.00 - 0.06 10*3/uL LAB HEMATOLOGY METHOD 11/16/2024 3:30 AM EDT [facility] Blood Venous blood specimen / Unknown Venipuncture / Unknown 11/16/2024 3:00 AM EDT 11/16/2024 3:22 AM EDT Narrative [facility] - 11/16/2024 3:30 AM EDT Therapeutic decision making should be based on absolute values, rather than percentages. us David Ayala MD LAB BLOOD ORDERABLES Final Res ult [facility] [address] [place] [id number] documented in this encounter Visit Diagnoses Diagnosis Hilar mass- Primary Hilar mass documented in this encounter Admitting Diagnoses Diagnosis Hilar mass documented in this encounter Administered Medications Inactive Administered Medications - up to 3 most recent administrations Medication Order MAR Action Action Date Dose Rate Site amLODIPine (Norvasc) tablet 2.5 mg 2.5 mg, Oral, Daily, First dose on Sun11/17/24 at 1200, Until Discontinued Given 11/18/2024 8:49 AM EDT 2.5 mg Given 11/17/2024 11:54 AM EDT 2.5 mg bisoprolol (Zebeta) tablet 5 mg 5 mg, Oral, Daily, First dose on Sun11/17/24 at 1200, Until Discontinued, Routine Given 11/18/2024 8:49 AM EDT 5 mg Given 11/17/2024 12:38 PM EDT 5 mg clopidogrel (Plavix) tablet 75 mg 75 mg, Oral, Daily, First dose on Sun11/17/24 at 1200, Until Discontinued, Routine Given 11/18/2024 8:49 AM EDT 75 mg Given 11/17/2024 11:54 AM EDT 75 mg enoxaparin (Lovenox) syringe 50 mg 50 mg (rounded from 49.1 mg = 1 mg/kg 49.1 kg), Subcutaneous, Every 12 hours scheduled, First dose on Sun11/16/24 at 1245, Until Discontinued, Routine Given 11/18/2024 6:11 AM EDT 50 mg Left Lower Abdomen Given 11/17/2024 5:22 PM EDT 50 mg Le ft Lower Abdomen Given 11/16/2024 12:46 PM EDT 50 mg L eft Lower Abdomen escitalopram (Lexapro) tablet 20 mg 20 mg, Oral, Daily, First dose on Sun11/17/24 at 1200, Until Discontinued, Routine Given 11/18/2024 8:49 AM EDT 20 mg Given 11/17/2024 11:54 AM EDT 20 mg gadobutrol (Gadavist) injection 4.9 mL 4.9 mL (rounded from 4.91 mL = 0.1 mL/kg 49.1 kg), Intravenous, Once in imaging, 1 dose, Starting on Sun11/16/24 at 1839, Until Sun11/16/24 at 1906, Routine, Imaging Protocol Orders Given 11/16/2024 7:06 PM EDT 4.9 mL HYDROmorphone (Dilaudid) injection 0.5 mg 0.5 mg, Intravenous, Once, 1 dose, On Sun11/17/24 at 1545, Routine Given 11/17/2024 3:09 PM EDT 0.5 mg iohexol (OMNIPaque) 300 MG/ML injection 100 mL 100 mL, Intravenous, Once in imaging, 1 dose, Starting on Sun11/16/24 at 1332, Until Sun11/16/24 at 1749, Routine, Imaging Protocol Orders Given 11/16/2024 5:49 PM EDT 80 mL ipratropium-albuterol (Duo-Neb) 0.5-2.5 mg/3 mL nebulizer solution 3 mL 3 mL, Nebulization, Every 6 hours PRN, Starting on Sun11/16/24 at 0639, Until Sun11/18/24 at 1423, Routine, wheezing melatonin tablet 9 mg 9 mg, Oral, Nightly PRN, Starting on Sun11/16/24 at 1500, Until Sun11/18/24 at 1423, Routine, sleep nicotine (Nicoderm CQ) 7 MG/24HR patch 1 patch 1 patch, Transdermal, Daily, First dose (after last modification) on Sun11/17/24 at 0900, Until Discontinued, Routine Medication Applied 11/18/2024 8:48 AM EDT 1 patch Left Arm Medication Applied 11/17/2024 8:28 AM EDT 1 patch Left Arm ondansetron (Zofran) 4 MG/5ML solution 4 mg 4 mg, Oral, Every 6 hours PRN, Starting on Sun11/17/24 at 1511, Until Sun11/18/24 at 1423, Routine, nausea, vomiting ondansetron (Zofran) injection 4 mg 4 mg, Intravenous, Every 6 hours PRN, Starting on Sun11/17/24 at 1511, Until Sun11/18/24 at 1423, Routine, vomiting, nausea Given 11/17/2024 9:06 PM EDT 4 mg ondansetron ODT (Zofran-ODT) disintegrating tablet 4 mg 4 mg, Oral, Every 6 hours PRN, Starting on Sun11/17/24 at 1511, Until Sun11/18/24 at 1423, Routine, nausea, vomiting oxyCODONE (Roxicodone) immediate release tablet 5 mg 5 mg, Oral, Every 4 hours PRN, Starting on Sun11/16/24 at 0236, Until Sun11/18/24 at 1423, Routine, moderate pain Given 11/18/2024 8:57 AM EDT 5 mg Given 11/17/2024 9:14 PM EDT 5 mg Given 11/17/2024 2:04 PM EDT 5 mg pantoprazole (Protonix) EC tablet 40 mg 40 mg, Oral, Daily before breakfast, First dose on Sun11/18/24 at 0730, Until Discontinued, Routine Given 11/18/2024 8:49 AM EDT 40 mg polyethylene glycol (Miralax) packet 17 g 17 g, Oral, Daily, First dose on Sun11/16/24 at 0900, Until Discontinued, Routine Given 11/16/2024 12:46 PM EDT 17 g polyethylene glycol (Miralax) packet 17 g 17 g, Oral, Daily PRN, Starting on Sun11/16/24 at 1500, Until Sun11/18/24 at 1423, Routine, constipation rosuvastatin (Crestor) tablet 10 mg 10 mg, Oral, Daily, First dose on Sun11/17/24 at 1200, Until Discontinued Given 11/18/2024 8:49 AM EDT 10 mg Given 11/17/2024 11:54 AM EDT 10 mg senna (Senokot) tablet 8.6 mg 8.6 mg, Oral, Nightly, First dose on Sun11/16/24 at 2100, Until Discontinued, Routine Given 11/17/2024 9:13 PM EDT 8.6 mg senna (Senokot) tablet 8.6 mg 8.6 mg, Oral, Nightly PRN, Starting on Sun11/16/24 at 1500, Until Sun11/18/24 at 1423, Routine, constipation sodium chloride 0.9 % flush 10 mL 10 mL, Intravenous, Every 12 hours, First dose on Sun11/16/24 at 0330, Until Discontinued, Routine Given 11/18/2024 4:15 AM EDT 10 mL Given 11/17/2024 2:06 PM EDT 10 mL Given 11/17/2024 8:31 AM EDT 10 mL sodium chloride 0.9 % flush 10 mL 10 mL, Intravenous, As needed, Starting on Sun11/16/24 at 0232, Until Sun11/18/24 at 1423, Routine, line care documented in this encounter Active and Recently Administered Medications Times are shown in EDT. Scheduled Medication Order 11/16/2024 11/17/2024 11/18/2024 amLODIPine (Norvasc) tablet 2.5 mg 2.5 mg, Oral, Daily, First dose on Sun11/17/24 at 1200, Until Discontinued 1154 (Given - Provider: Ritu Flores RN) 0849 (Given - Provider: Nancy Miguel RN) bisoprolol (Zebeta) tablet 5 mg 5 mg, Oral, Daily, First dose on Sun11/17/24 at 1200, Until Discontinued, Routine 1238 (Given - Provider: Ritu A Mark, RN) 0849 (Given - Provider: Nancy Miguel, RN) clopidogrel (Plavix) tablet 75 mg 75 mg, Oral, Daily, First dose on Sun11/17/24 at 1200, Until Discontinued, Routine 1154 (Given - Provider: Ritu Flores RN) 0849 (Given - Provider: Nancy Miguel, RN) enoxaparin (Lovenox) syringe 50 mg 50 mg (rounded from 49.1 mg = 1 mg/kg 49.1 kg), Subcutaneous, Every 12 hours scheduled, First dose on Sun11/16/24 at 1245, Until Discontinued, Routine 1246 (Given - Provider: Janna North RN) 0000 (Held by provider - Provider: Reeys Dean MD - Reason: Upcoming test/procedure)0200 (Dose Auto Held - Provider: Reyes Dean MD)1159 (Unheld by provider - Provider: Reyes Dean MD)1722 (Given - Provider: Ritu Flores RN) 0611 (Given - Provider: Teresa Nava RN) escitalopram (Lexapro) tablet 20 mg 20 mg, Oral, Daily, First dose on Sun11/17/24 at 1200, Until Discontinued, Routine 1154 (Given - Provider: Ritu Flores RN) 0849 (Given - Provider: Nancy Miguel, RN) gadobutrol (Gadavist) injection 4.9 mL (COMPLETED) 4.9 mL (rounded from 4.91 mL = 0.1 mL/kg 49.1 kg), Intravenous, Once in imaging, 1 dose, Starting on Sun11/16/24 at 1839, Until Sun11/16/24 at 1906, Routine, Imaging Protocol Orders 1906 (Given - Provider: Franco Leon) HYDROmorphone (Dilaudid) injection 0.5 mg (COMPLETED) 0.5 mg, Intravenous, Once, 1 dose, On Sun11/17/24 at 1545, Routine 1509 (Given - Provider: Ritu Flores RN) iohexol (OMNIPaque) 300 MG/ML injection 100 mL (COMPLETED) 100 mL, Intravenous, Once in imaging, 1 dose, Starting on Sun11/16/24 at 1332, Until Sun11/16/24 at 1749, Routine, Imaging Protocol Orders 1749 (Given - Provider: Kecia Beaver) nicotine (Nicoderm CQ) 7 MG/24HR patch 1 patch 1 patch, Transdermal, Daily, First dose (after last modification) on Sun11/17/24 at 0900, Until Discontinued, Routine 0828 (Medication Applied - Provider: Ritu Flores, RN) 0848 (Medication Applied - Provider: Nancy Miguel, RN) pantoprazole (Protonix) EC tablet 40 mg 40 mg, Oral, Daily before breakfast, First dose on Sun11/18/24 at 0730, Until Discontinued, Routine 0849 (Given - Provider: Nancy Miguel, RN) polyethylene glycol (Miralax) packet 17 g 17 g, Oral, Daily, First dose on Sun11/16/24 at 0900, Until Discontinued, Routine 1246 (Given - Provider: Janna North, JAQUELINE) 0830 (Not Given - Provider: Ritu Flores RN - Reason: NPO) 0850 (Not Given - Provider: Nancy Miguel, JAQUELINE - Reason: Patient/family refused) rosuvastatin (Crestor) tablet 10 mg 10 mg, Oral, Daily, First dose on Sun11/17/24 at 1200, Until Discontinued 1154 (Given - Provider: Ritu Flores RN) 0849 (Given - Provider: Nancy Miguel, JAQUELINE) senna (Senokot) tablet 8.6 mg 8.6 mg, Oral, Nightly, First dose on Sun11/16/24 at 2100, Until Discontinued, Routine 2000 (Not Given - Provider: Leeanne Leal RN - Reason: Patient/family refused) 2112 (Given - Provider: Teresa Nava, JAQUELINE) sodium chloride 0.9 % flush 10 mL(Linked Group 1) 10 mL, Intravenous, Every 12 hours, First dose on 11/16/24 at 0330, Until Discontinued, Routine 030 (Given - Provider: Kecia Alvarez RN)1439 (Given - Provider: Janna North, JAQUELINE) 0831 (Given - Provider: Ritu Flores, JAQUELINE)1406 (Given - Provider: Ritu Flores RN) 0415 (Given - Provider: Teresa Nava, JAQUELINE) PRN Medication Order 11/16/2024 11/17/2024 11/18/2024 ipratropium-albuterol (Duo-Neb) 0.5-2.5 mg/3 mL nebulizer solution 3 mL 3 mL, Nebulization, Every 6 hours PRN, Starting on Sun11/16/24 at 0639, Until Sun11/18/24 at 1423, Routine, wheezing melatonin tablet 9 mg 9 mg, Oral, Nightly PRN, Starting on Sun11/16/24 at 1500, Until Sun11/18/24 at 1423, Routine, sleep 212 (Not Given - Provider: Teresa Nava RN - Reason: Patient/family refused) ondansetron (Zofran) 4 MG/5ML solution 4 mg(Linked Group 2) 4 mg, Oral, Every 6 hours PRN, Starting on Sun11/17/24 at 1511, Until Sun11/18/24 at 1423, Routine, nausea, vomiting 2106 (See Alternative - Provider: Teresa Nava RN) ondansetron (Zofran) injection 4 mg(Linked Group 2) 4 mg, Intravenous, Every 6 hours PRN, Starting on Sun11/17/24 at 1511, Until Sun11/18/24 at 1423, Routine, vomiting, nausea 2106 (Given - Provider: Teresa Nava RN) ondansetron ODT (Zofran-ODT) disintegrating tablet 4 mg(Linked Group 2) 4 mg, Oral, Every 6 hours PRN, Starting on Sun11/17/24 at 1511, Until Sun11/18/24 at 1423, Routine, nausea, vomiting 2106 (See Alternative - Provider: Teresa Nava RN) oxyCODONE (Roxicodone) immediate release tablet 5 mg 5 mg, Oral, Every 4 hours PRN, Starting on Sun11/16/24 at 0236, Until Sun11/18/24 at 1423, Routine, moderate pain 0811 (Given - Provider: Janna North RN)1831 (Given - Provider: Janna North RN) 0522 (Given - Provider: Leeanne Leal RN)1404 (Given - Provider: Ritu Flores RN)2114 (Given - Provider: Teresa Nava RN) 0857 (Given - Provider: Nancy Miguel RN) polyethylene glycol (Miralax) packet 17 g 17 g, Oral, Daily PRN, Starting on Sun11/16/24 at 1500, Until Sun11/18/24 at 1423, Routine, constipation senna (Senokot) tablet 8.6 mg 8.6 mg, Oral, Nightly PRN, Starting on Sun11/16/24 at 1500, Until Sun11/18/24 at 1423, Routine, constipation sodium chloride 0.9 % flush 10 mL(Linked Group 1) 10 mL, Intravenous, As needed, Starting on Sun11/16/24 at 0232, Until Sun11/18/24 at 1423, Routine, line care Linked Groups Order Group 1: Insert peripheral IV (CANCELED) Once, On Sun11/16/24 at 0233, For 1 occurrence And Saline lock IV (CANCELED) Once, On Sun11/16/24 at 0233, For 1 occurrence And sodium chloride 0.9 % flush 10 mLJump to med 10 mL, Intravenous, Every 12 hours, First dose on Sun11/16/24 at 0330, Until Discontinued, Routine And sodium chloride 0.9 % flush 10 mLJump to med 10 mL, Intravenous, As needed, Starting on Sun11/16/24 at 0232, Until Sun11/18/24 at 1423, Routine, line care Group 2: ondansetron ODT (Zofran-ODT) disintegrating tablet 4 mgJump to med 4 mg, Oral, Every 6 hours PRN, Starting on Sun11/17/24 at 1511, Until Sun11/18/24 at 1423, Routine, nausea, vomiting Or ondansetron (Zofran) injection 4 mgJump to med 4 mg, Intravenous, Every 6 hours PRN, Starting on Sun11/17/24 at 1511, Until Sun11/18/24 at 1423, Routine, vomiting, nausea Or ondansetron (Zofran) 4 MG/5ML solution 4 mgJump to med 4 mg, Oral, Every 6 hours PRN, Starting on Sun11/17/24 at 1511, Until Sun11/18/24 at 1423, Routine, nausea, vomiting documented in this encounter Additional Health Concerns Assessment Noted Time A Body Mass Index follow-up plan has been documented for the patient 11/18/2024 11:20 AM EDT documented as of this encounter Care Teams Manufacturing Supervisor 2Nd Shift Relationship Specialty Start Date End Date Laura Strickland APRN [facility] [place] [address] PCP - General 11/17/23 documented as of this encounter
[2024-11-19 16:08] VITALS: BP 148/46; PULSE 47; RESP 18; TEMP 36.7; O2SAT 95; BMI 18.6
[2024-11-19 16:14] VITALS: BP 125/57; PULSE 48; RESP 21; O2SAT 96
--- NOTE | 2024-11-19 16:15 | HMH.EDGENADL ---
Discharge Plan Disposition Patient Disposition: Home, Self-Care Condition: Good Prescriptions Prescriptions: New ondansetron 8 mg tablet,disintegrating 8 mg PO Q8H PRN (Reason: Cancer induced nausea and vomiting) Qty: 30 0RF No Action Ventolin HFA 90 mcg/actuation HFA aerosol inhaler 2 puff INHALATION Q6HP PRN (Reason: Shortness Of Breath) pantoprazole 40 mg tablet,delayed release (DR/EC) 40 mg PO DAILY amlodipine 2.5 mg tablet 2.5 mg PO DAILY Qty: 30 5RF rosuvastatin 10 mg tablet 10 mg PO DAILY Qty: 30 5RF Xarelto DVT-PE Treat 30d Start 15 mg (42)- 20 mg (9) tablets,dose pack See Rx Instructions PO .COMPLEX Qty: 51 0RF Rx Instructions: take one-15 mg tablet twice daily for 21 days, then one-20 mg tablet once daily; must take with meal/food PO escitalopram oxalate 20 MG tablet 20 mg PO DAILY Trelegy Ellipta 200-62.5-25 mcg blister with device 1 inh INHALATION DAILY fluticasone propionate [Flonase Allergy Relief] 50 mcg/actuation spray,suspension 1 spray intranasal DAILY Rx Instructions: administer into each nostril enoxaparin [Lovenox] 80 mg/0.8 mL syringe 60 mg SQ Q12H Rx Instructions: Do not take this while using other anticoagulants. Instructions given to patient to use this to facilitate bronchoscopy procedure. Call [facility] Pulmonary clinic at [phone] with any further questions or concerns ipratropium-albuterol 0.5 mg-3 mg(2.5 mg base)/3 mL solution for nebulization 3 ml inhalation QIDP PRN (Reason: shortness of breath or wheezing) hydrocodone-acetaminophen 5-325 mg tablet 1 tab PO Q6HP PRN (Reason: Moderate Pain (Scale Score 5-6)) clopidogrel 75 mg tablet 75 mg PO DAILY bisoprolol fumarate 5 mg tablet 5 mg PO DAILY Referrals Follow up/Referrals: Morro Monterroso MD [Staff Physician, Pain Management] - See instructions Provider,Referral, [Primary Care Provider, Medical] - See instructions Activity Restrictions/Add. Instructions Additional Instructions/Restrictions: I have sent nausea medicine and to pharmacy [facility]. I am also going to give you the name of the interventional pain physician locally however you may continue with your current pain management plan if you wish. If you have any persistent new or worsening signs or symptoms follow-up your PCP or return to the ER as needed. Clinical Impressions Clinical Impression: Nausea and vomiting in adult Metastatic malignant neoplasm Qualifiers: Area of secondary neoplastic involvement: unspecified site Qualified Code(s): C79.9 - Secondary malignant neoplasm of unspecified site Print Language Print Language: [place] Discharge ED Provider: Deuce Aguilar General Adult HPI <ANGELA Manzo - Last Filed: 11/19/24 18:26> General Chief complaint: PAIN Stated complaint: nausea; pain Meds changed Time Seen by Provider: 11/19/24 16:15 Mode of Arrival: Wheelchair Source of Information: Patient Description of Symptoms (Recalled from ER Triage Doc. by RN): PT presents tot he ED for evaluation for pain control and nausea. PT was recently dx of cancer and stated she was dc 11/18/2024 from . Stated she isnt sure what cancer she has. History of Present Illness HPI narrative: Patient presents for evaluation of nausea. Patient has a recent diagnosis of a endobronchial cancer and was recently admitted here then transferred to the [facility] for further workup and care. She was discharged recently with a pain management regimen. She was not however provided antiemetics. Patient presents today for a request for nausea medication. She denies any new fever shortness of breath hemoptysis hematochezia melena hematemesis hematuria diarrhea. Patient did have cytology done on some pleural fluid that was inconclusive and has a tissue biopsy scheduled next Sunday at the [facility]. Related Data Home Medications ?Medication ?Instructions ?Recorded ?Confirmed escitalopram oxalate 20 mg tablet 20 mg PO DAILY 08/14/17 11/14/24 albuterol sulfate 90 mcg/actuation 2 puff inhalation Q6HP PRN 08/05/18 11/15/24 aerosol inhaler (Ventolin HFA) Shortness Of Breath pantoprazole 40 mg tablet,delayed 40 mg PO DAILY 10/07/24 11/14/24 release fluticasone fur. 200 mcg-umeclid 1 inh inhalation DAILY 11/04/24 11/14/24 62.5 mcg-vilant 25 mcg inhalat.powder (Trelegy Ellipta) enoxaparin 80 mg/0.8 mL 60 mg SQ Q12H 11/14/24 11/14/24 subcutaneous syringe (Lovenox) fluticasone propionate 50 1 spray intranasal DAILY 11/14/24 11/14/24 mcg/actuation nasal spray,suspension (Flonase Allergy Relief) bisoprolol fumarate 5 mg tablet 5 mg PO DAILY 11/15/24 11/14/24 clopidogrel 75 mg tablet 75 mg PO DAILY 11/15/24 11/14/24 hydrocodone 5 mg-acetaminophen 325 1 tab PO Q6HP PRN Moderate Pain 11/15/24 11/15/24 mg tablet (Scale Score 5-6) ipratropium 0.5 mg-albuterol 3 mg 3 ml inhalation QIDP PRN shortness 11/15/24 11/15/24 (2.5 mg base)/3 mL nebulization of breath or wheezing soln Previous Rx's ?Medication ?Instructions ?Recorded amlodipine 2.5 mg tablet 2.5 mg PO DAILY #30 tabs 12/30/18 rosuvastatin 10 mg tablet 10 mg PO DAILY Cholesterol #30 tabs 12/30/18 rivaroxaban 15 mg (42)-20 mg (9) See Rx Instructions PO .COMPLEX 11/04/24 tablets in a starter pack (Xarelto #51 tabs DVT-PE Treatment 30-Day Starter) ondansetron 8 mg disintegrating 8 mg PO Q8H PRN Cancer induced 11/19/24 tablet nausea and vomiting #30 tabs Allergies Allergy/AdvReac Type Severity Reaction Status Date / Time Penicillins Allergy Unknown ITCHING Verified 11/07/24 11:58 Sulfa (Sulfonamide Allergy Unknown ITCHING Verified 11/07/24 11:58 Antibiotics) (SULFA (SULFONAMIDE ANTIBIOTICS)) [facility] <ANGELA Manzo - Last Filed: 11/19/24 18:26> [facility] Disclaimer: The information contained in this section may have been updated after the patient was seen, as this information can be updated by other users. 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 Anxiety COPD (chronic obstructive pulmonary disease) Migraine History of gastroesophageal reflux (GERD) Hyperlipidemia Skin cancer Other chest pain Other forms of dyspnea Mass of chest wall, right Abnormal MRI Impacted cerumen, left ear Retained myringotomy tube in left ear Fluid level behind tympanic membrane of right ear Thyroid Nodule Hypertension Surgical History History of cholecystectomy History of heart artery stent Family History Other Cancer Heart disease Social History Smoking Status: Current every day smoker tobacco type: cigarettes packs per day: 1 second hand exposure: No alcohol intake: never substance use type: denies use current occupational status: disabled Travel in the last 8 weeks?: None household members: family housing: house caffeine: No Have you lived/traveled outside US in past 30 days?: No Contact w/someone who lives/traveled outside US past 30 days?: No Exposure to someone with infectious disease in past 14 days?: No Do you have a fever (greater than 100.4 F or 38 C)?: No Have you tested positive for COVID-19?: No Exposed to someone with COVID-19 in past 14 days?: No Do you have a sore throat?: No Do you have a cough?: No Do you have any weakness?: No Do you have any diarrhea?: No Are you experiencing any unusual bleeding?: No Do you have any muscle aches/pain?: No Do you have any abdominal pain?: No Are you experiencing loss of taste or smell?: No Other Medical History Have you received the Flu Vaccine for this season: No Have you received the Pneumonia Vaccine: No <ANGELA Manzo - Last Filed: 11/19/24 18:26> ROS Obtained: Yes Systems reviewed as appropriate & no additional complaints except as documented Physical Exam <ANGELA Manzo - Last Filed: 11/19/24 18:26> General General appearance: alert and in no apparent distress Respiratory Respiratory exam: Present normal lung sounds bilaterally Cardiovascular Cardiovascular exam: Present regular rate Neurological Exam Neurological exam: Present alert and oriented X3 Medical Decision Making <ANGELA Manzo - Last Filed: 11/19/24 18:26> Medical Records Medical records reviewed: Yes I reviewed the patient's medical records. Screening: Per USPSTF and CDC recommendations, given the prevalence of disease in our region, it is our hospital?s policy to screen for HIV and viral Hepatitis for all patients aged 18 and over and those with ongoing risk factors. Wesley Inquiry Pt receiving controlled substance: No Vital Signs: 11/19/24 16:08 11/19/24 16:14 11/19/24 16:33 Temperature 98.0 F 97.9 F Temperature Source Tympanic Oral Pulse Rate 48 L 93 H Pulse Rate [Right] 47 L Respiratory Rate 18 21 18 Blood Pressure 125/57 L 138/62 Blood Pressure [Right Arm] 148/46 H Blood Pressure Mean 87 Blood Pressure Mean [Right Arm] 80 Blood Pressure Source Automatic Cuff Blood Pressure Position Sitting 02 Sat by Pulse Oximetry 95 96 Oxygen Delivery Method Room Air Room Air Orders (Tests/Meds): ED MEDICATIONS Discontinued Medications Generic Name Dose Route Start Last Admin Trade Name Freq PRN Reason Stop Dose Admin Ondansetron HCl 8 mg 11/19/24 16:29 11/19/24 16:32 Ondansetron 4mg Odt SL 11/19/24 16:30 8 mg ONCE ONE Administration Medical Decision Narrative: In summary patient is a 74-year-old who presents to the emergency department for evaluation of tractable nausea. Patient is hemodynamically stable with a blood pressure 148/46 pulse 47 with sinus bradycardia in the bedside monitor breathing 18 times minute satting at 95% on room air upon arrival, afebrile. Physical exam is remarkable for an unwell appearing cachectic appearing 74-year-old female is otherwise in no acute distress breath sounds crackles in the right lung serrano the remainder of the lung serrano are clear to the bases no reproducible pain on palpation abdomen soft nontender no rebound no guarding.. Differential diagnosis includes nausea due to cancer versus medication reaction. Initial workup was considered with labs and imaging however had a shared decision-making discussion with the patient and she is not interested in aggressive workup as she just got out of the hospital at the [facility]. She was not discharged with nausea medication and would prefer just a trial of antiemetics before pursuing any other workup. Given that we have ordered 8 mg of Zofran and will await to assess response before pursuing any other workup or intervention. After about 30 minutes we reassess patient's ability and she reported improvement in her nausea and was able to tolerate p.o. Given this I have given her prescription for Zofran sent to her pharmacy and close follow-up with her PCP. I have also made a referral to local pain management should she wish to pursue that I have given her Dr. Monterroso's number. <Deuce Aguilar MD - Last Filed: 11/19/24 19:01> Vital Signs: 11/19/24 16:08 11/19/24 16:14 11/19/24 16:33 Temperature 98.0 F 97.9 F Temperature Source Tympanic Oral Pulse Rate 48 L 93 H Pulse Rate [Right] 47 L Respiratory Rate 18 21 18 Blood Pressure 125/57 L 138/62 Blood Pressure [Right Arm] 148/46 H Blood Pressure Mean 87 Blood Pressure Mean [Right Arm] 80 Blood Pressure Source Automatic Cuff Blood Pressure Position Sitting 02 Sat by Pulse Oximetry 95 96 Oxygen Delivery Method Room Air Room Air Orders (Tests/Meds): ED MEDICATIONS Discontinued Medications Generic Name Dose Route Start Last Admin Trade Name Freq PRN Reason Stop Dose Admin Ondansetron HCl 8 mg 11/19/24 16:29 11/19/24 16:32 Ondansetron 4mg Odt SL 11/19/24 16:30 8 mg ONCE ONE Administration ECG Data Tracing #1: I reviewed this ECG and interpreted as documented below: (Sinus rhythm 97 bpm with DC 134, QRS 84, QTc 377. Frequent PVCs, bigeminy. No obvious acute ischemic change) Medical Decision Narrative: In summary patient is a 74-year-old who presents to the emergency department for evaluation of tractable nausea. Patient is hemodynamically stable with a blood pressure 148/46 pulse 47 with sinus bradycardia in the bedside monitor breathing 18 times minute satting at 95% on room air upon arrival, afebrile. Physical exam is remarkable for an unwell appearing cachectic appearing 74-year-old female is otherwise in no acute distress breath sounds crackles in the right lung serrano the remainder of the lung serrano are clear to the bases no reproducible pain on palpation abdomen soft nontender no rebound no guarding.. Differential diagnosis includes nausea due to cancer versus medication reaction. Initial workup was considered with labs and imaging however had a shared decision-making discussion with the patient and she is not interested in aggressive workup as she just got out of the hospital at the [facility]. She was not discharged with nausea medication and would prefer just a trial of antiemetics before pursuing any other workup. Given that we have ordered 8 mg of Zofran and will await to assess response before pursuing any other workup or intervention. After about 30 minutes we reassess patient's ability and she reported improvement in her nausea and was able to tolerate p.o. Given this I have given her prescription for Zofran sent to her pharmacy and close follow-up with her PCP. I have also made a referral to local pain management should she wish to pursue that I have given her Dr. Monterroso's number. I was consulted by the ЕКАТЕРИНА, and we discussed the complexity of the problems being addressed. I approved the treatment and management plan for this patient's care in the Emergency Department, thus performing a substantive portion of the medical decision making. Deuce Aguilar MD Critical Care <ANGELA Manzo - Last Filed: 11/19/24 18:26> Critical Care Time Critical Care Time: No
--- OUTSIDE RECORDS SUMMARY | 2024-11-19 16:15 | XMS_ITS | Encounter Summary ---
Author Organization Healthcare Address [address] [place] [address] Care Team Providers Care General Office Associate Name Role Phone Laura Strickland APRN Primary Care Provider [phone] Encounter Details Date Type Department Care Team (Latest Contact Info) Description 11/16/2024 Travel Social History Tobacco Use Types Packs/Day Years [...] any time in the past 12 m [facility], were you homeless or living in a penitentiary (including now)? No 11/17/2024 Utilities Answer Date Recorded In the past 12 months has th e electric, gas, oil, or water company threatened to shut off services in your home? No 11/17/2024 Comments Unknown Sex and Gender Information Value Date Recorded Sex Assigned at Not on file Legal Sex Female 8:54 PM EDT Gender Identity Not on file Sexual Orientation Not on file documented as of this encounter Functional Status * Calculated C-SSRS [...] Alvarez RN documented as of this encounter Plan of Treatment Upcoming Encounters Date Type Department Care Team (Late st Contact Info) Description 11/25/2024 3:30 PM EDT Appointment [facility] [address] [place] [address] Kunal Franco MD [address] [place] [id number] 12/10/2024 9:15 AM EDT Office Visit [facility] [address] [place] [address] Karlie Hickey MD [address] [phone] documented as of this encounter Visit Diagnoses Not on filedocumented in this encounter Additional Health Concerns Assessment Noted Time A Body Mass Index follow-up plan has been documented for the patient 11/18/2024 11:20 AM EDT documented as of this encounter Care Teams General Office Associate Relationship Specialty Start Date End Date Laura Strickland APRN [address] [address] PCP - General 11/17/23 documented as of this encounter
--- OUTSIDE RECORDS SUMMARY | 2024-11-19 16:16 | XMS_ITS | Encounter Summary ---
Author Organization Healthcare Address [address] [place] [address] Care Team Providers Care Drug Clerk Name Role Phone Laura Strickland APRN Primary Care Provider +1- [phone] Encounter Details Date Type Department Care Team (Late st Contact Info) Description 11/13/2024 Orders Only External Location [address] [place] [address] Provider, External Social History Tobacco Use Types Packs/Day Years [...] any time in the past 12 m [facility], were you homeless or living in a chcf (including now)? No 11/17/2024 Utilities Answer Date [...] Month) No 025 2:00 AM EDT Kecia Alvarez, JAQUELINE 2. Non-Specific Active Suici juan Thoughts (Past 1 Month) No 11/16/2024 2:00 AM EDT Alexandria Alvarez RN 6. Suicidal Behavior (Lifetime) No 2:00 AM EDT Kecia Alvarez, JAQUELINE documented as of this encounter Plan of Treatment Upcoming Encounters Date Type Department Care Team (Late st Contact Info) Description 11/25/2024 3:30 PM EDT Appointment [facility] [address] [place] [address] Kunal Franco MD [address] [place] [phone] 12/10/2024 9:15 AM EDT Office Visit [facility] [address] [place] [address] Karlie Hickey MD [address] [address] documented as of this encounter Procedures Procedure Name Priority Date/Time Associated Diagnosis Comments CT THORACIC OUTSIDE IMAGES 11/13/2024 6:29 PM EDT documented in this encounter Results * CT THORACIC OUTSIDE IMAGES (11/13/2024 6:29 PM EDT) Anatomical Region Laterality Modality Computed Tomogra phy 11/13/2024 6:29 PM EDT us External Provider IMG CT PROCEDURES Final Result documented in this encounter Visit Diagnoses Not on filedocumented in this encounter Care Teams Drug Clerk Relationship Specialty Start Date End Date Laura Strickland APRN [address] [place] [address] [address] PCP - General 11/17/23 documented as of this encounter
--- OUTSIDE RECORDS SUMMARY | 2024-11-19 16:16 | XMS_ITS | Encounter Summary ---
Author Organization Healthcare Address [address] [place] [address] Care Team Providers Care Software Applications Developer Name Role Phone Laura Strickland APRN Primary Care Provider +1- [phone] Encounter Details Date Type Department Care Team (Late st Contact Info) Description 11/13/2024 Orders Only External Location [address] [place] [address] Provider, External Social History Tobacco Use Types [...] any time in the past 12 m [facility], were you homeless or living in a residential (including now)? No 11/17/2024 Utilities Answer Date [...] Appointment [facility] [address] [place] [address] Kunal Franco MD [address] [place] [phone] 12/10/2024 9:15 AM EDT Office Visit [facility] [address] [place] [address] Karlie Hickey MD [address] [address] documented as of this encounter Procedures Procedure Name Priority Date/Time Associated Diagnosis Comments CT NEURO OUTSIDE IMAGES 11/13/2024 6:29 PM EDT documented in this encounter Results * CT NEURO OUTSIDE IMAGES (11/13/2024 6:29 PM EDT) Anatomical Region Laterality Modality Computed Tomogra phy 11/13/2024 6:29 PM EDT us External Provider IMG CT PROCEDURES Final Result documented in this encounter Visit Diagnoses Not on filedocumented in this encounter Care Teams Software Applications Developer Relationship Specialty Start Date End Date Laura Strickland APRN [address] [place] [address] [address] PCP - General 11/17/23 documented as of this encounter
--- OUTSIDE RECORDS SUMMARY | 2024-11-19 16:16 | XMS_ITS | Encounter Summary ---
Author Organization [facility] Address [address] [place] [address] Care Team Providers Care Critical Care Physician Assistant Name Role Phone Laura Strickland APRN Primary Care Provider +1- [phone] Encounter Details Date Type Department Care Team (Late st Contact Info) Description 11/13/2024 Orders Only External Location [address] [place] [address] Reji Carreon PA [address] [place] [address] Social History Tobacco Use Types Packs/Day Years [...] any time in the past 12 m [facility], were you homeless or living in [...] Month) No 11/16/2024 2:00 AM EDT Alexandria Alvarez, RN 6. Suicidal Behavior (Lifetime) No 2:00 AM EDT Kecia Alvarez, RN documented as of this encounter Plan of Treatment Upcoming Encounters Date Type Department Care Team (Late st Contact Info) Description 11/25/2024 3:30 PM EDT Appointment [facility] [address] [place] [phone] Kunal Franco MD [address] [place] [address] 12/10/2024 9:15 AM EDT Office Visit [facility] [address] [place] [address] Karlie Hickey MD [address] [place] [address] documented as of this encounter Procedures Procedure Name Priority Date/Time Associated Diagnosis Comments CT NEURO OUTSIDE IMAGES 11/13/2024 6:26 PM EDT documented in this encounter Results * CT NEURO OUTSIDE IMAGES (11/13/2024 6:26 PM EDT) Anatomical Region Laterality Modality Computed Tomogra phy 11/13/2024 6:26 PM EDT Reji MILLER IMG CT PROCEDURES Final Result documented in this encounter Visit Diagnoses Not on filedocumented in this encounter Care Teams Critical Care Physician Assistant Relationship Specialty Start Date End Date Laura Strickland APRN [address] [id number] PCP - General 11/17/23 documented as of this encounter
--- OUTSIDE RECORDS SUMMARY | 2024-11-19 16:17 | XMS_ITS | Encounter Summary ---
Author Organization Healthcare Address [address] [place] [address] Care Team Providers Care Needlemaker Name Role Phone Laura Strickland APRN Primary Care Provider +1- [phone] Encounter Details Date Type Department Care Team (Latest Contact Info) Description 11/17/2024 Travel Social History Tobacco Use Types Packs/Day [...] any time in the past 12 m [facility], were you homeless or living in a snf (including now)? No 11/17/2024 Utilities Answer Date [...] on file documented as of this encounter Plan of Treatment Upcoming Encounters Date Type Department Care Team (Late st Contact Info) Description 11/25/2024 3:30 PM EDT Appointment [facility] [address] [place] [address] Kunal Franco MD [address] [place] [address] 12/10/2024 9:15 AM EDT Office Visit [facility] [address] [place] [address] Karlie Hickey MD [address] [place] [address] documented as of this encounter Visit Diagnoses Not on filedocumented in this encounter Additional Health Concerns Assessment Noted Time A Body Mass Index follow-up plan has been documented for the patient 11/18/2024 11:20 AM EDT documented as of this encounter Care Teams Needlemaker Relationship Specialty Start Date End Date Laura Strickland APRN [facility] [place] [address] PCP - General 11/17/23 documented as of this encounter
--- OUTSIDE RECORDS SUMMARY | 2024-11-19 16:17 | XMS_ITS | Encounter Summary ---
Author Organization Healthcare Address [address] [place] [address] Care Team Providers Care Inspector Final Assembly Electrical Name Role Phone Laura Strickland NARGIS Primary Care Provider +1- [phone] Encounter Details Date Type Department Care Team ([facility] st Contact Info) Description 11/19/2024 Telephone [facility] [address] [place] [address] So Degroot, RN Social History Tobacco Use Types Packs/Day Years [...] any time in the past 12 m [facility], were you homeless or living in [...] on file documented as of this encounter Miscellaneous Notes * Telephone Encounter - So Degroot RN - 11/19/2024 4:04 PM EDT RN called Nancy back to confirm date of stent placement. This was done 7 years ago. * Telephone Encounter - So Degroot RN - 11/19/2024 3:51 PM EDT RN called patient's daughter, Nancy Queen, to discuss biopsy instructions. Nancy stated that patient is having trouble keeping anything down due to vomiting. RN advised patient's daughter to call PCP for recommendation. documented in this encounter Plan of Treatment Upcoming Encounters Date Type Department Care Team (Late st Contact Info) Description 11/25/2024 3:30 PM EDT Appointment [facility] [address] [place] [address] Kunal Franco MD [address] [place] [address] 12/10/2024 9:15 AM EDT Office Visit [facility] [address] [place] [address] Karlie Hickey MD [address] [place] [address] documented as of this encounter Goals Goal Patient Goal Type Associated Problems Recent Progress Patient-Stated? Author Autogenerat ed Goal Care Plan Autogenerated Problem No Katharina Muniz documented as of this encounter Visit Diagnoses Not on filedocumented in this encounter Additional Health Concerns Active Problems Noted Date Diagnosed Date Autogenerated Problem 11/19/2024 Assessment Noted Time A Body Mass Index follow-up plan has been documented for the patient 11/18/2024 11:20 AM EDT documented as of this encounter Care Teams Inspector Final Assembly Electrical Relationship Specialty Start Date End Date Laura Strickland APRN [address] [address] PCP - General 11/17/23 documented as of this encounter
--- OUTSIDE RECORDS SUMMARY | 2024-11-19 16:17 | XMS_ITS | Encounter Summary ---
Author Organization [facility] Address [address] [place] [address] Care Team Providers Care Blue Line Trimmer Name Role Phone Laura Strickland APRN Primary Care Provider [phone] Encounter Details Date Type Department Care Team (Late st Contact Info) Description 11/19/2024 Telephone [facility] [address] [place] [address] Franco Childs MD [address] [place] [address] Social History Tobacco Use Types Packs/Day Years [...] any time in the past 12 m onths, were you homeless or living in a [...] Appointment [facility] [address] [place] [address] Kunal Franco MD [address] [place] [address] 12/10/2024 9:15 AM EDT Office Visit [facility] [address] [place] [address] Karlie Hickey MD [address] [place] [address] documented as of this encounter [...] documented as of this encounter Care Teams Blue Line Trimmer Relationship Specialty Start Date End Date Laura Strickland, NARGIS [address] [place] [address] PCP - General 11/17/23 documented as of this encounter
--- OUTSIDE RECORDS SUMMARY | 2024-11-19 16:17 | XMS_ITS | Clinical Summary ---
Author Organization [facility] Address [address] [place] [address] Care Team Providers Care Grill Associate Name Role Phone Laura Strickland APRN Primary Care Provider [phone] Allergies Active Allergy Reactions Criticality Noted Date Comments Penicillins Rash Low 11/17/2024 Sulfa Drugs Other - please docum ent in the comment field Low 11/17/2024 Makes more nervous Medications albuterol 108 (90 Base) MCG/ACT inhaler Inhale 2 puffs every 6 hours as needed for wheezing. Active amLODIPine (Norvasc) 2.5 MG tablet Take 1 tablet by mouth daily. Active bisoprolol (Zebeta) 5 MG tablet Take 1 tablet by mouth daily. Active Calcium Carbonate-Loan min D 600-5 MG-MCG tablet Take 1 tablet by mouth 2 times a day. Active clopidogrel (Plavix) 75 MG tablet Take 1 tablet by mouth daily. Active escitalopram (Lexapro) 20 MG tablet Take 1 tablet by mouth daily. Active Fluticasone-Um eclidin-Vilant (Trelegy Ellipta) 200-62.5-25 MCG/ACT aerosol powder Inhale 1 Inhalation daily. Active HYDROcodone-ac etaminophen ([place]) 5-325 MG tablet Take 1 tablet by mouth every 6 hours as needed for severe pain. Active ipratropium-al buterol (Duo-Neb) 0.5-2.5 mg/3 mL nebulizer solution Take 3 mL by nebulization every 6 hours as needed for wheezing. Active pantoprazole (Protonix) 40 MG EC tablet Take 1 tablet by mouth daily before breakfast. Do not crush, chew, or split. Active rosuvastatin (Crestor) 10 MG tablet Take 1 tablet by mouth daily. Active oxyCODONE (Roxicodone) 5 MG immediate release tablet Take 1 tablet by mouth every 4 hours as needed for moderate pain. 12 tablet 11/19/19 25 Active enoxaparin (Lovenox) 60 MG/0.6ML solution prefilled syringe Inject 0.5 mL under the skin 2 times a day. 36 mL 11/19/19 25 025 Active Rivaroxaban (XARELTO STARTER PACK PO) Take by mouth. 025 Discontin ued(Thera py completed ) enoxaparin (Lovenox) 60 MG/0.6ML solution prefilled syringe INJECT 50mg SUBCUTANEOUSLY EVERY TWELVE HOURS FOR 5 DAYS. DO not take this while using other anticoagulants. call [phone] with any questions 11/13/19 25 025 Discontin ued(Stop Taking at Discharge ) Active Problems Problem Noted Date Diagnosed Date Pratibha clarke 11/16/2024 Encounters Date Type Department Care Team Description 11/19/2024 Telephone [facility] [address] [phone] So Degroot RN 11/19/2024 Telephone [facility] [address] [place] [phone] Franco Childs MD 11/19/2024 Orders Only [facility] [address] [phone] So Degroot RN Coronary artery disease, unspecified vessel or lesion type, unspecified whether angina present, unspecified whether [place] or transplanted heart (Primary Dx) 11/18/2024 Telephone [facility] [address] [phone] Franco Childs MD 11/17/2024 Travel 11/16/2024 1:45 AM EDT - 11/18/2024 12:23 PM EDT Hospital Encounter [facility] Inpatient [address] [place] [phone] Geovanny Keen DO Crawford, Catherine A, MD Lile, Anthony G, MD Hilar mass (Primary Dx) Discharge Disposition: Home or Self Care 11/16/2024 Travel 11/13/2024 Orders Only External Location [address] [place] [phone] Provider, External 11/13/2024 Orders Only External Location [address] [place] [phone] Provider, External 11/13/2024 Orders Only External Location [address] [place] [phone] Reji Carreon PA from Last 3 Months Immunizations Immunization Administration Dates Next Due Influenza, High-dose, Split Virus, Trivalent, Injectable, preservative free 02/14/2021,02/06/2019 Influenza, high-dose, quadrivalent 03/31/2020 Influenza, injectable, quadrivalent 02/14/2018,1 Pneumococcal 20-aristeo Conj Vaccine 09/05/2024 Pneumococcal Conjugate PCV 13 06/29/2016 Pneumococcal Polysaccharide PPV23 02/06/2019, Tetanus toxoid, adsorbed 12/28/2011 Zoster, Recombinant 09/05/2024 Social History Tobacco Use Types Packs/Day Years [...] any time in the past 12 m [facility], were you homeless or living in a custodial (including now)? No 11/17/2024 Utilities Answer Date Recorded In the past 12 months has th e electric, gas, oil, or water company threatened to shut off services in your home? No 11/17/2024 Comments Unknown Sex and Gender Information Value Date Recorded Sex Assigned at Not on file Legal Sex Female 8:54 PM EDT Gender Identity Not on file Sexual Orientation Not on file Last Filed Vital Signs Vital Sign Reading [...] Mass Index 19.79 11/16/2024 12:00 PM EDT Plan of Treatment Upcoming Encounters Date Type Department Care Team (Late st Contact Info) Description 11/25/2024 3:30 PM EDT Appointment [facility] End[facility] [address] [place] [address] Kunal Franco MD [address] [place] [address] 12/10/2024 9:15 AM EDT Office Visit [facility] [address] [place] [address] Karlie Hickey MD [address] [place] [address] Health Maintenance Due Date Last Done Comments [facility]-Bone Density Scan 1952 [facility]-Depression Screening 1952 [facility]-Hepatitis C Screening 1952 [facility]-Medicare Annual Wellness (AWV) 1952 [facility]-/Child/Adol SDOH Screenings 1952 [facility]-DTaP,Tdap,and Td Vaccines (1 - Tdap) 1971 [facility]-Hepatitis A Vaccines (1 of 2 - Risk 2-dose series) 1971 CT Colonography 1997 Colonoscopy 1997 FIT-DNA 1997 FIT 1997 FOBT 1997 Sigmoidoscopy 1997 [facility]-Colorectal Cancer Screening 1997 [facility]-Breast Cancer Screening 2002 [facility]-RSV Vaccine: 60+ Years or (1 - Risk 60-74 years 1-dose series) 2012 [id number] Vaccine (1 - season) 2024 [facility]-Zoster Vaccines (2 of 2) 10/31/2024 09/05/2024 [facility]-Influenza Vaccine (Season Ended) 2025 02/14/2021, 03/31/2020, 02/06/2019, Additional history exists [facility]- SDOH Screenings 05/19/2025 [facility]-Adult SDOH Screenings 05/19/2025 11/17/2024 [facility]-Pneumococcal Vaccine: 50+ Years Completed 09/05/2024, 02/06/2019, [...] on patient's age to complete this topic Goals Goal Patient Goal Type Associated Problems Recent Progress Patient-Stated? Author Autogenerat ed Goal Care Plan Autogenerated Problem No FlavioKatharina L Procedures Procedure Name Priority Date/Time Associated Diagnosis Comments PHOSPHORUS, PLASMA Routine 11/18/2024 4: 10 AM EDT MAGNESIUM, PLASMA Routine 11/18/2024 4:1 0 AM EDT COMPREHENSIVE METABOLIC PANEL, PLASMA Routine 11/18/2024 4:10 AM EDT CBC WITH AUTO DIFFERENTIAL Routine 11/18/2024 4:10 AM EDT HC THORACENTESIS NEEDLE/CATH PLEURA W/O IMAGING Routine 11/17/2024 1:08 PM EDT Hilar mass MT THORACENTESIS NEEDLE/CATH PLEURA W/O IMAGING Routine 11/17/2024 1:08 PM EDT Hilar mass XR CHEST 1 VIEW Routine 11/17/2024 12:30 PM EDT NON-GYNECOLOGIC CYTOLOGY Routine 11/17/2024 10:52 AM EDT BODY FLUID, CYTOSPIN, PATHOLOGIST INTERPRETATION Routine 11/17/2024 10:52 AM EDT ALBUMIN, PLEURAL FLUID Routine 10:52 AM EDT LACTATE DEHYDROGENASE, PLEURAL FLUID Routine 11/17/2024 10:52 AM EDT GLUCOSE, PLEURAL FLUID Routine 10:52 AM EDT TOTAL PROTEIN, PLEURAL FLUID Routine 11/17/2024 10:52 AM EDT PH, PLEURAL FLUID Routine 11/17/2024 10: 52 AM EDT BODY FLUID CELL COUNT W/ MANUAL DIFFERENTIAL Routine 11/17/2024 10:52 AM EDT BODY FLUID CULTURE AND GRAM STAIN Routine 11/17/2024 10:52 AM EDT BODY FLUID CULTURE AND GRAM STAIN Routine 11/17/2024 10:52 AM EDT LACTATE DEHYDROGENASE, PLASMA Add-On 11/17/2024 1:31 AM EDT PHOSPHORUS, PLASMA Routine 11/17/2024 1: 31 AM EDT MAGNESIUM, PLASMA Routine 11/17/2024 1:3 1 AM EDT COMPREHENSIVE METABOLIC PANEL, PLASMA Routine 11/17/2024 1:31 AM EDT CBC WITH AUTO DIFFERENTIAL Routine 11/17/2024 1:31 AM EDT PROTHROMBIN TIME(PT) / INR Routine 11/17/2024 1:31 AM EDT MR HEAD W AND WO IV CONTRAST Routine 11/16/2024 7:[address] CHEST W IV CONTRAST Routine 5:57 PM EDT ECHO, ADULT TRANSTHORACIC COMPLETE Routine 11/16/2024 10:20 AM EDT ECG ADULT Routine 11/16/2024 6:23 AM EDT PHOSPHORUS, PLASMA Add-On 11/16/2024 3: 00 AM EDT COMPREHENSIVE METABOLIC PANEL, PLASMA Routine 11/16/2024 3:00 AM EDT CBC WITH AUTO DIFFERENTIAL Routine 11/16/2024 3:[address] THORACIC OUTSIDE IMAGES 11/13/2024 6:[address] NEURO OUTSIDE IMAGES 11/14/19 6:[address] NEURO OUTSIDE IMAGES 11/14/19 6:26 PM EDT from Last 3 Months Results * (ABNORMAL) CBC and Differential (11/18/2024 4:10 AM EDT) Only the most recent of3 resultswithin the time period is included. WBC Count 10.45(H) 3.70 - 10.30 10*3/uL LAB HEMATOLOGY METHOD 11/18/2024 4:35 AM EDT [facility] RBC Count 2.66(L) 3.90 - 5.20 10*6/uL LAB HEMATOLOGY METHOD 11/18/2024 4:35 AM EDT [facility] HGB 7.4(L) 11.2 - 15.7 g/dL LAB HEMATOLOGY METHOD 11/18/2024 4:35 AM EDT [facility] HCT 23.4(L) 34.0 - 45.0 % LAB HEMATOLOGY METHOD 11/18/2024 4:35 AM EDT [facility] Platelet Count 359 155 - 369 10*3/uL LAB HEMATOLOGY METHOD 11/18/2024 4:35 AM EDT [facility] MCV 88 79 - 98 fL LAB HEMATOLOGY METHOD 11/18/2024 4:35 AM EDT [facility] MCH 27.8 26.0 - 32.0 pg LAB HEMATOLOGY METHOD 11/18/2024 4:35 AM EDT [facility] MCHC 31.6 30.7 - 35.5 g/dL LAB HEMATOLOGY METHOD 11/18/2024 4:35 AM EDT [facility] RDW 15.2(H) 11.5 - 14.5 % LAB HEMATOLOGY METHOD 11/18/2024 4:35 AM EDT [facility] MPV 9.0 8.8 - 12.5 fL LAB HEMATOLOGY METHOD 11/18/2024 4:35 AM EDT [facility] nRBC 0.0 <=0.0 per 100 WBCs LAB HEMATOLOGY METHOD 11/18/2024 4:35 AM EDT [facility] Differential Type Automated LAB HEMATOLOGY METHOD 11/18/2024 4:35 AM EDT [facility] Neutrophils % 82 % LAB HEMATOLOGY METHOD 11/18/2024 4:35 AM EDT [facility] Lymphocytes % 8 % LAB HEMATOLOGY METHOD 11/18/2024 4:35 AM EDT [facility] Monocytes % 9 % LAB HEMATOLOGY METHOD 11/18/2024 4:35 AM EDT [facility] Eosinophils % 0 % LAB HEMATOLOGY METHOD 11/18/2024 4:35 AM EDT [facility] Basophils % 0 % LAB HEMATOLOGY METHOD 11/18/2024 4:35 AM EDT [facility] Immature Granulocytes % 1 % LAB HEMATOLOGY METHOD 11/18/2024 4:35 AM EDT [facility] Neutrophils Absolute 8.57(H) 1.60 - 6.10 10*3/uL LAB HEMATOLOGY METHOD 11/18/2024 4:35 AM EDT [facility] Lymphocytes Absolute 0.80(L) 1.20 - 3.90 10*3/uL LAB HEMATOLOGY METHOD 11/18/2024 4:35 AM EDT [facility] Monocytes Absolute 0.97(H) 0.30 - 0.90 10*3/uL LAB HEMATOLOGY METHOD 11/18/2024 4:35 AM EDT [facility] Eosinophils Absolute 0.01 0.00 - 0.50 10*3/uL LAB HEMATOLOGY METHOD 11/18/2024 4:35 AM EDT [facility] Basophils Absolute 0.03 0.00 - 0.10 10*3/uL LAB HEMATOLOGY METHOD 11/18/2024 4:35 AM EDT [facility] Immature Granulocytes Absolute 0.07(H) 0.00 - 0.06 10*3/uL LAB HEMATOLOGY METHOD 11/18/2024 4:35 AM EDT [facility] Blood Venous blood specimen / Unknown Venipuncture / Unknown 11/18/2024 4:10 AM EDT 11/18/2024 4:23 AM EDT [facility] - 11/18/2024 4:35 AM EDT Therapeutic decision making should be based on absolute values, rather than percentages. us David Ayala MD LAB BLOOD ORDERABLES Final Res ult [facility] [address] [place] [address] * Phosphorus, Plasma (11/18/2024 4:10 AM EDT) Only the most recent of3 resultswithin the time period is included. Phosphorus, Plasma 3.2 2.5 - 4.5 mg/dL 11/18/2024 4:52 AM EDT [facility] Blood Venous blood specimen / Unknown Venipuncture / Unknown 11/18/2024 4:10 AM EDT 11/18/2024 4:20 AM EDT David Ayala MD LAB BLOOD ORDERABLES Final Res ult Performing Organization Address [facility] de Phone Number [facility] [address] [place] [address] * Magnesium, Plasma (11/18/2024 4:10 AM EDT) Only the most recent of2 resultswithin the time period is included. Magnesium, Plasma 1.9 1.9 - 2.4 mg/dL 11/18/2024 4:52 AM EDT [facility] Blood Venous blood specimen / Unknown Venipuncture / Unknown 11/18/2024 4:10 AM EDT 11/18/2024 4:20 AM EDT us David Ayala MD LAB BLOOD ORDERABLES Final Res ult Performing Organization Address [facility] Co de Phone Number [facility] [address] [place] [address] * (ABNORMAL) Comprehensive Metabolic Panel, Plasma (11/18/2024 4:10 AM EDT) Only the most recent of3 resultswithin the time period is included. Glucose, Plasma 104(H) 74 - 99 mg/dL 11/18/2024 4:52 AM EDT [facility] BUN, Plasma 15 8 - 23 mg/dL 11/18/2024 4:52 AM EDT [facility] Creatinine, Plasma 0.68 0.60 - 1.10 mg/dL 11/18/2024 4:52 AM EDT [facility] BUN/Creatinine Ratio 22 11/18/2024 4:52 AM EDT [facility] Sodium, Plasma 134(L) 136 - 145 mmol/L 11/18/2024 4:52 AM EDT [facility] Potassium, Plasma 4.8 3.6 - 4.9 mmol/L 11/18/2024 4:52 AM EDT [facility] Chloride, Plasma 93(L) 97 - 107 mmol/L 11/18/2024 4:52 AM EDT [facility] CO2, Plasma 32(H) 22 - 29 mmol/L 11/18/2024 4:52 AM EDT [facility] Anion Gap 9 6 - 16 mmol/L 11/18/2024 4:52 AM EDT [facility] Total Calcium, Plasma 9.5 8.9 - 10.2 mg/dL 11/18/2024 4:52 AM EDT [facility] Total Protein 6.2(L) 6.3 - 7.9 g/dL 11/18/2024 4:52 AM EDT [facility] Albumin, Plasma 3.1(L) 3.5 - 5.2 g/dL 11/18/2024 4:52 AM EDT [facility] AST, Plasma 48(H) 10 - 35 U/L 11/18/2024 4:52 AM EDT [facility] ALT, Plasma 37(H) 10 - 35 U/L 11/18/2024 4:52 AM EDT [facility] Alkaline Phosphatase, Plasma 98 46 - 142 U/L 11/18/2024 4:52 AM EDT [facility] Total Bilirubin, Plasma 0.5 0.2 - 1.1 mg/dL 11/18/2024 4:52 AM EDT [facility] eGFRcr 92.7 mL/min/1.7 3m*2 11/18/2024 4:52 AM EDT [facility] Comment:Reported eGFRcr in m L/min/1.73m2 is based the CKD-EPI 2020 equation that does not use a race coefficient. Blood Venous blood specimen / Unknown Venipuncture / Unknown 11/18/2024 4:10 AM EDT 11/18/2024 4:20 AM EDT us David Ayala MD LAB BLOOD ORDERABLES Final Res ult [facility] [address] [place] [address] * MT THORACENTESIS NEEDLE/CATH PLEURA W/O IMAGING, HC THORACENTESIS [...] drainage and bleeding Alternatives discussed: No treatment Milton protocol: Procedure explained and questions answered to [...] midscapular line Intercostal space: 7th Puncture method: [id number]-[id number] catheter Indwelling catheter: Removed following drainage Catheter [...] Renard Pak MD on 11/17/2024 12:45 PM David Ayala MD IMG XR PROCEDURES Final Result * (ABNORMAL) Body Fluid Cell Count w/ Diff (11/17/2024 10:52 AM EDT) Color, Body fluid Yellow LAB HEMATOLOGY METHOD 11/17/2024 3:57 PM EDT [facility] Appearance, Body fluid Cloudy(A) LAB HEMATOLOGY METHOD 11/17/2024 3:57 PM EDT [facility] Volume, Body fluid 6.5 cc LAB HEMATOLOGY METHOD 11/17/2024 3:57 PM EDT [facility] Fluid Container Tube 3 LAB HEMATOLOGY METHOD 11/17/2024 3:57 PM EDT [facility] Red Blood Cell Count, Body fluid 1,285 uL LAB HEMATOLOGY METHOD 11/17/2024 3:57 PM EDT [facility] Comment:Test performed by ma nual method. Total Nucleated Cell Count, Body fluid 662 uL LAB HEMATOLOGY METHOD 11/17/2024 3:57 PM EDT [facility] Neutrophils %, Body fluid 64 % LAB HEMATOLOGY METHOD 11/17/2024 3:57 PM EDT [facility] Lymphocytes %, Body fluid 29 % LAB HEMATOLOGY METHOD 11/17/2024 3:57 PM EDT [facility] Monocytes/Macro phages %, Body fluid 5 % LAB HEMATOLOGY METHOD 11/17/2024 3:57 PM EDT [facility] Eosinophils %, Body fluid 0 % LAB HEMATOLOGY METHOD 11/17/2024 3:57 PM EDT [facility] Lining/Mesothel ial Cells %, Body fluid 2 % LAB HEMATOLOGY METHOD 11/17/2024 3:57 PM EDT [facility] Neutrophils Absolute (PMN), Body fluid 424 uL LAB HEMATOLOGY METHOD 11/17/2024 3:57 PM EDT [facility] Lymphocytes Absolute, Body fluid 192 uL LAB HEMATOLOGY METHOD 11/17/2024 3:57 PM EDT [facility] Monocytes/Macro phages Absolute, Body fluid 33 uL LAB HEMATOLOGY METHOD 11/17/2024 3:57 PM EDT [facility] Eosinophils Absolute, Body fluid 0 uL LAB HEMATOLOGY METHOD 11/17/2024 3:57 PM EDT [facility] Basophils Absolute, Body fluid 0 uL LAB HEMATOLOGY METHOD 11/17/2024 3:57 PM EDT [facility] Lining/Mesothel ial Cells Absolute, Body fluid 13 uL LAB HEMATOLOGY METHOD 11/17/2024 3:57 PM EDT [facility] Basophils %, Body fluid 0 % LAB HEMATOLOGY METHOD 11/17/2024 3:57 PM EDT [facility] Pleural Fluid Structure of right pleural cavity / Unknown Non-blood Collection / Unknown 11/17/2024 10:52 AM EDT 11/17/2024 11:16 AM EDT us David Ayala MD LAB BODY FLUIDS AND STOOLS ORDERABLES NO SPECIMEN TYPE/SOURCE Final Result [facility] [address] [place] [address] * Total Protein, Pleural Fluid (11/17/2024 10:52 AM EDT) Total Protein, Fluid 3 g/dL 11/17/2024 2:31 PM EDT [facility] Pleural Fluid Structure of right pleural cavity / Unknown Non-blood Collection / Unknown 11/17/2024 10:52 AM EDT 11/17/2024 11:15 AM EDT Narrative [facility] - 11/17/2024 2:31 PM EDT This test was developed and its performance characteristics determined by [facility]. The U.S. Food and Drug Administration has not approved or cleared this test. However, FDA clearance or approval is not currently required for clinical use. The results are not intended to be used as the sole means for clinical diagnosis or patient management decisions. us David Ayala MD LAB BODY FLUIDS AND STOOLS ORD ERABLES Final Result [facility] [address] [place] [address] * Lactate Dehydrogenase, Pleural Fluid - Right (11/17/2024 10:52 AM EDT) LDH, Fluid 142 U/L 11/17/2024 2:31 PM EDT [facility] Pleural Fluid Structure of right pleural cavity / Unknown Non-blood Collection / Unknown 11/17/2024 10:52 AM EDT 11/17/2024 11:15 AM EDT Narrative [facility] - 11/17/2024 2:31 PM EDT [...] the following criteria are present: (1) pleural lfysu-fx-jypka protein ratio of >0.5, (2) pleural ibddr-tf-akwhw LDH ratio of >0.6, or (3) a pleural fluid LDH activity that is >2/3 the upper limit of a normal serum LDH activity. Light's criteria may misclassify ~25% of transudates as exudates in heart failure. These can be identified by calculating a spjta-lh-vhahfzc albumin gradient (>1.2 g/dL) and/or a pvyap-xe-smche protein gradient (>3.1 g/dL). us David Ayala MD LAB BODY FLUIDS AND STOOLS ORD ERABLES Final Result Performing Organization Address [facility] Co de Phone Number [facility] [address] [place] [address] * Body fluid, cytospin, pathologist interpretation (11/17/2024 10:52 AM EDT) Specimen Type Pleural Fluid LAB HEMATOLOGY METHOD 11/18/2024 4:50 PM EDT [facility] Specimen Source, Body Fluid Pleural Fluid, Right LAB HEMATOLOGY METHOD 11/18/2024 4:50 PM EDT [facility] Clinical Diagnosis, Body Fluid Right hilar mass with right effusion LAB HEMATOLOGY METHOD 11/18/2024 4:50 PM EDT [facility] Interpretation , Body Fluid No evidence of malignancy; predominantly acute inflammatory cells and reactive mesothelial cells. A resident was involved in the service. I attest I examined the relevant preparations for the specimens and confirmed the diagnosis or interpretation. 11/18/2024 4:50 PM EDT [facility] Pathologist Signature, Body Fluid 11/18/2024 4:50 PM EDT [facility] Comment:Reviewed by: Prisca Hidalgo MD LAB CP ASR DISCLAIMER Yes 11/18/2024 4:50 PM EDT [facility] Pleural Fluid Structure of right pleural cavity / Unknown Non-blood Collection / Unknown 11/17/2024 10:52 AM EDT 11/17/2024 11:16 AM EDT Narrative [facility] - 11/18/2024 4:50 PM EDT Correlation with microbiology studies is suggested us David Ayala MD LAB BODY FLUIDS AND STOOLS ORD ERABLES Final Result Performing Organization Address [facility]/ZIP Co de Phone Number [facility] [address] [place] [address] * Glucose, body fluid (11/17/2024 10:52 AM EDT) Glucose, Fluid 107 mg/dL 11/17/2024 2:31 PM EDT [facility] Pleural Fluid Structure of right pleural cavity / Unknown Non-blood Collection / Unknown 11/17/2024 10:52 AM EDT 11/17/2024 11:15 AM EDT Narrative [facility] - 11/17/2024 2:31 PM EDT [...] FLUIDS AND STOOLS ORD ERABLES Final Result [facility] [address] [place] [id number] * Albumin - Pleural Right (11/17/2024 10:52 AM EDT) Albumin, Pleural Fluid 1.8 g/dL 11/17/2024 2:31 PM EDT [facility] Pleural Fluid Structure of right pleural cavity / Unknown Non-blood Collection / Unknown 11/17/2024 10:52 AM EDT 11/17/2024 11:15 AM EDT [facility] - 11/17/2024 2:31 PM EDT REPORTING RESULTS Reference Values: No established reference interval. Results should be interpreted in comparison to the concentration in blood and in conjunction with the clinical context. This test was developed and its performance characteristics determined by [facility]. The U.S. Food and Drug Administration has not approved or cleared this test; however, FDA clearance or approval is not currently required for clinical use. The results are not intended to be used as the sole means for clinical diagnosis or patient management decisions. us David Ayala MD LAB BODY FLUIDS AND STOOLS ORD ERABLES Final Result Performing Organization Address City/[facility]/ZIP Co de Phone Number [facility] [address] [place] [address] * (ABNORMAL) pH, pleural fluid (11/17/2024 10:52 AM EDT) pH, Pleural Fluid 7.44(L) 7.60 - 7.66 LAB HEMATOLOGY METHOD 11/17/2024 11:15 AM EDT [facility] Pleural Fluid Pleural fluid specimen / Unknown Non-blood Collection / Unknown 11/17/2024 10:52 AM EDT 11/17/2024 11:13 AM EDT Narrative [facility] - 11/17/2024 11:15 AM EDT [...] and its performance characteristics determined by the [facility]. Pleural pH is measured by [...] to perform high complexity clinical laboratory testing. us David Ayala MD LAB BODY FLUIDS AND STOOLS ORD ERABLES Final Result Performing Organization Address City/[facility]/ZIP Co de Phone Number [facility] [address] [place] [address] * Cytology - Pleural Right (11/17/2024 10:52 AM EDT) Case Report Cytology Case: [id number] Authorizing Provider: David Ayala MD Collected: 11/17/2024 1052 Ordering Location: [facility] Inpatient Received: 11/17/2024 1433 Pathologist: Elana Whiteside MD Specimen: Pleural Fluid, Right, RIGHT PLEURAL FLUID 11/18/2024 1:09 PM EDT [facility] Final Diagnosis A. RIGHT PLEURAL FLUID - NO EVIDENCE OF MALIGNANCY - REACTIVE MESOTHELIAL CELLS 11/18/2024 1:09 PM EDT [facility] at 1309 EDT Clinical History Pleural effusion 11/18/2024 1:09 PM EDT [facility] Previous Cancer Primary Site Other/Unknown Primary Site 11/18/2024 1:09 PM EDT [facility] Gross Description A. RIGHT PLEURAL FLUID 80 mls yellow fluid for cell block and thin prep processing Cold Time: 5h 37m 11/18/2024 1:09 PM EDT [facility] Fluid Structure of right pleural cavity / Unknown 11/17/2024 10:52 AM EDT 11/17/2024 2:33 PM EDT Comment:Large pulmonary mass with associated pleural effusion, concerning for malignancy but no biopsy to prove us David Ayala MD LAB CYTOLOGY ORDERABLES Final Result [facility] [address] [place] [address] * (ABNORMAL) Protime-INR (11/17/2024 1:31 AM EDT) Prothrombin Time 17.3(H) 12.0 - 14.3 sec LAB COAGULATION METHOD 11/17/2024 1:55 AM EDT [facility] INR 1.4(H) 0.9 - 1.1 LAB COAGULATION METHOD 11/17/2024 1:55 AM EDT [facility] Blood Venous blood specimen / Unknown Venipuncture / Unknown 11/17/2024 1:31 AM EDT 11/17/2024 1:37 AM EDT Narrative [facility] - 11/17/2024 1:55 AM EDT OPTIMAL INR RANGES FOR PATIENT ON ORAL ANTICOAGULANT THERAPY Prevention of venous thromboembolism INR 2.0 to 3.0 In patients with heart disease: Atrial fibrillation INR 2.0 to 3.0 Valvular heart disease INR 2.0 to 3.0 Tissue heart valves INR 2.0 to 3.0 Mechanical prosthetic valves INR 2.5 to 3.5 Prevention of recurrent [place] INR 2.5 to 3.5 us Joby Abbasi Miguel MANAGER DATA WAREHOUSING, DNP LAB BLOOD ORDERABLES F inal Result Performing Organization Address [facility]/ZIP Co de Phone Number [facility] [address] [place] [address] * Lactate dehydrogenase (11/17/2024 1:31 AM EDT) LDH, Plasma 236 116 - 250 U/L 11/17/2024 11:00 AM EDT [facility] Blood Venous blood specimen / Unknown Venipuncture / Unknown 11/17/2024 1:31 AM EDT 11/17/2024 1:38 AM EDT us David Ayala MD LAB BLOOD ORDERABLES Final Res ult Performing Organization Address City/[facility] Co de Phone Number [facility] [address] [place] [address] * MR Head w and wo IV Contrast (11/16/2024 7:17 PM EDT) Anatomical Region Laterality Modality Head Magnetic Resonan ce Addenda Addendum by Garth Marshall MD on 11/17/2024 12:44 AM EDT Addendum: ADDENDUM: These findings were discussed with Shree Anguiano MD at 11/17/2024 12:43 AM by Garth Marshall MD via [employer] Chat. Drafted by Garth Marshall MD [...] Ellie Donaldson MD on 11/16/2024 9:02 PM us David Ayala MD IMG CT PROCEDURES Final [...] is no recent study available for direct [id number] comparison. Left Ventricle Based on the linear [...] is no recent study available for direct [id number] comparison. Geovanny Keen DO CV ECHO PROCEDURES Final Re sult * ECG Adult (11/16/2024 6:23 AM EDT) EKG DIAGNOSIS CLASS Normal MUSE ECG Ventricular Rate 93 BPM MUSE ECG Atrial Rate 93 BPM MUSE ECG MT Interval 124 ms MUSE ECG QRSD Interval 80 ms MUSE ECG QT Interval 352 ms MUSE ECG QTC Interval 437 ms MUSE ECG P [place] 75 degrees MUSE ECG R [place] 78 degrees MUSE ECG T Wave [place] 36 degrees MUSE ECG Diagnosis Normal sinus rhythm MUSE ECG Diagnosis Normal ECG MUSE ECG Diagnosis MUSE ECG Diagnosis Confirmed by Beverley Anders ([id number]) on 11/16/2024 5:38:09 PM MUSE ECG 11/16/2024 6:23 AM EDT 11/16/2024 5:38 PM EDT Geovanny Keen DO ECG ORDERABLES Final Resul t MUSE ECG * CT THORACIC OUTSIDE IMAGES (11/13/2024 6:29 PM EDT) Anatomical Region Laterality Modality Computed Tomogra phy 11/13/2024 6:29 PM EDT External Provider IMG CT PROCEDURES Final Result * CT NEURO OUTSIDE IMAGES (11/13/2024 6:29 PM EDT) Only the most recent of2 resultswithin the time period is included. Anatomical Region Laterality Modality Computed Tomogra phy 11/13/2024 6:29 PM EDT us External Provider IMG CT PROCEDURES Final Result from Last 3 Months Additional Health Concerns Active Problems Noted Date Diagnosed Date Autogenerated Problem 11/19/[address] [facility] MEDICARE Advance Directives * Full Code (Latest Code Status on File) Date Activated Date Inactivated Comments 11/16/2024 2:35 AM 11/18/2024 2:28 PM Question Answer Comments I have reviewed the capacity from the link above and, if needed, have updated to appropriate status: Yes Care Teams Grill Associate Relationship Specialty Start Date End Date Laura Strickland APRN [address] [facility] [address] [place] [address] PCP - General 11/17/23
--- OUTSIDE RECORDS SUMMARY | 2024-11-19 16:17 | XMS_ITS | Encounter Summary ---
Author Organization [facility] Address [address] [place] [address] Care Team Providers Care Casting Machine Control Board Operator Name Role Phone Laura Strickland APRN Primary Care Provider [phone]- [phone] Encounter Details Date Type Department Care Team (Late st Contact Info) Description 11/18/2024 Telephone [facility] [address] [place] [address] Franco Childs MD [address] [place] [address] Social History Tobacco Use Types [...] were you homeless or living in a skilled nursing (including now)? No 11/17/2024 Utilities Answer Date [...] Appointment [facility] End[facility] [address] [place] [address] Kunal Franco MD [address] [place] [address] 12/10/2024 9:15 AM EDT Office Visit [facility] [place] [address] [place] [address] Karlie Hickey MD [address] [place] [address] documented as of this encounter Visit Diagnoses Not on filedocumented in this encounter Additional Health Concerns Assessment Noted Time A Body Mass Index follow-up plan has been documented for the patient 11/18/2024 11:20 AM EDT documented as of this encounter Care Teams Casting Machine Control Board Operator Relationship Specialty Start Date End Date Laura Strickland APRN [address] [place] [address] PCP - General 11/17/23 documented as of this encounter
--- OUTSIDE RECORDS SUMMARY | 2024-11-19 16:17 | XMS_ITS | Encounter Summary ---
Author Organization Healthcare Address [address] [place] [address] Care Team Providers Care Train Attendant Name Role Phone Laura Strickland NARGIS Primary Care Provider +1- [phone] Reason for Referral * Consultation (Routine) - Authorized Specialty Diagnoses / Procedures Referred By Nelida abraham Referred To Contact Anesthesiology Diagnoses Coronary artery disease, unspecified vessel or lesion type, unspecified whether angina present, unspecified whether robinson or transplanted heart Kunal Franco MD [address] [place] [address] Phone: tel: fax: [place] [facility] [address] [place] [address] Phone: tel: Referral ID Status Reason Start Date Expiration Date Visits Requested Visits Authorized [id number] Authorized Consult and Treat 11/19/2024 05/21/2026 1 1 Scheduling Instructions Patient to be scheduled for bronchoscopy in Endoscopy 11/25. Encounter Details Date Type Department Care Team (Late st Contact Info) Description 11/19/2024 Orders Only [facility] Head[facility] Neck [facility] Respiratory [address] [facility] [place] [address] So Degroot, RN Coronary artery disease, unspecified vessel or lesion type, unspecified whether angina present, unspecified whether robinson or transplanted heart (Primary Dx) Social History Tobacco Use Types Packs/Day Years [...] any time in the past 12 m [facility], were you homeless or living in a residential (including now)? No 11/17/2024 Utilities Answer Date Recorded In the past 12 months has th e [employer], gas, oil, or water company threatened to [...] Appointment [facility] [address] [place] [address] Kunal Franco MD [address] [place] [address] 12/10/2024 9:15 AM EDT Office Visit [facility] [address] [place] [address] Karlie Hickey MD [address] [place] [address] Scheduled Referrals Name Type Priority Associated Diagnoses Orde r Schedule Ambulatory referral to Anesthesiology Outpatient Referral Routine Coronary artery disease, unspecified vessel or lesion type, unspecified whether angina present, unspecified whether robinson or transplanted heart Expected: 11/19/2024 (Approximate), Expires: 05/23/2026 documented as of this encounter Goals Goal Patient Goal Type Associated Problems Recent Progress Patient-Stated? Author Autogenerat ed Goal Care Plan Autogenerated Problem No Katharina Muniz Nhan documented as of this encounter Visit Diagnoses Diagnosis Coronary artery disease, unspecified vessel or lesion type, unspecified whether angina present, unspecified whether robinson or transplanted heart- Primary documented in this encounter Additional Health Concerns Active Problems Noted Date Diagnosed Date Autogenerated Problem 11/19/2024 Assessment Noted Time A Body Mass Index follow-up plan has been documented for the patient 11/18/2024 11:20 AM EDT documented as of this encounter Care Teams Train Attendant Relationship Specialty Start Date End Date Laura Strickland APRN [address] [facility] [address] [place] [address] PCP - General 11/17/23 documented as of this encounter
--- NOTE | 2024-11-19 16:18 | ECG_ITS ---
APPROVED REPORT Exam: Resting ECG HR:97 bpm ECG Measurements Heart Rate 97 AXES MA 134 P 73 QRSd 84 QRS 76 QT 322 T 53 QTc 377 Conclusion Sinus rhythm, bigeminy pattern with PVCs Electronically signed by : RUBY THOMPSON, 11/25/2024 07:45:33
[2024-11-19] MEDS: ONDANSETRON 4MG ODT 8 MG SL (16:32)
[2024-11-19 16:33] VITALS: BP 138/62; PULSE 93; RESP 18; TEMP 36.6; O2SAT 98
== END 2024-11-19 17:06 | disposition home or self-care (01) ==
PROVIDERS: Emergency Provider Emergency Medicine
DX: R11.2 Nausea with vomiting, unspecified (principal); I49.3 Ventricular premature depolarization; C34.90 Malignant neoplasm of unspecified part of unspecified bronchus or lung; F17.210 Nicotine dependence, cigarettes, uncomplicated
CPT/HCPCS: 93005; 99283; Q0162